=== PATIENT | female | born 1990 | race Caucasian/White ===

== ENCOUNTER 2023-11-06 08:45 | Outpatient (OUT) | payer OTHER, SELFPAY ==
--- NOTE | 2023-11-06 08:47 | US_ITS ---
[address] [address] Patient Name: ARLIN LUNDBERG MRN: [id number] date: 1990 Sex: F Assigned Patient Location: [facility] Current Patient Location: [facility] Accession/Order Number: [id number] Exam Date: 11/06/2023 08:55 Report Date: 11/06/2023 11:08 At the request of: APARNA HOBBS Procedure: US OB transvaginal EXAMINATION: US OB transvaginal HISTORY: MISSED MENSES COMPARISON: No relevant comparison available. FINDINGS: GESTATIONAL SAC: Present and normal appearing. YOLK SAC: Absent POLE: Present and normal appearing. CARDIAC: Present. UTERUS: Normal size and appearance. OVARIES: Right: Not seen. Left: Not seen. CERVIX: 4.2 cm in length and closed. CUL-DE-SAC: Normal. OTHER: None. AGE BY LMP: Unknown LMP THELMA BY LMP: AGE BY US CRL: 13 weeks 1 day THELMA BY US CRL: 05/12/2024 US/US OB transvaginal IMPRESSION: 1. Single live intrauterine 13 weeks 1 day by today's ultrasound. Electronically authenticated by: MARY RUIZ Date: 11/06/2023 11:08
== END 2023-11-06 08:46 | disposition home or self-care (01) ==
LOC: NOMS 08:45
PROVIDERS: Visit Provider Obstetrics & Gynecology
DX: Z34.92 Encounter for supervision of normal pregnancy, unspecified, second trimester (principal); Z3A.13 13 weeks gestation of pregnancy; N92.6 Irregular menstruation, unspecified
CPT/HCPCS: 76817

== ENCOUNTER 2023-12-03 20:12 | Outpatient (REF) | payer OTHER, SELFPAY ==
[2023-12-10 10:13] LABS: Age Gdln ACOG Testing Note (.); HPV Aptima Negative (Negative); IGP, Aptima HPV, rfx 16/18,45 Note (.)
== END 2023-12-03 20:13 | disposition home or self-care (01) ==
LOC: LAB 20:12
PROVIDERS: Visit Provider Obstetrics & Gynecology
DX: Z01.419 Encounter for gynecological examination (general) (routine) without abnormal findings (principal)
CPT/HCPCS: 87624; G0145

== ENCOUNTER 2024-03-23 06:50 | Outpatient (OUT) | payer OTHER, SELFPAY ==
--- OUTSIDE RECORDS SUMMARY | 2024-03-23 06:53 | XMS_ITS | CCD ---
Author Organization [facility] Care Team Providers Care Animal Cop Name Role Phone ABRAHAM BERRY Attending Unavailable ABRAHAM BERRY Admitting Unavailable ANJEL, APARNA Consulting Unavailable ABRAHAM BERRY Consulting Unavailable Latricia Cervantes Consulting Unavailable ABRAHAM BERRY Consulting Unavailable ANJEL, APARNA Attending Unavailable ANJEL, APARNA Admitting Unavailable REQUEST, NONE LISTED Primary Care Unavailable Policaro, Gatito Consulting Unavailable ANJEL, APARNA Attending Unavailable ANJEL, APARNA Admitting Unavailable ABRAHAM BERRY Consulting Unavailable ABRAHAM BERRY Admitting Unavailable ABRAHAM BERRY Attending Unavailable ANJEL, APARNA Consulting Unavailable ABRAHAM BERRY Admitting Unavailable ABRAHAM BERRY Attending Unavailable ANJEL, APARNA Attending Unavailable ANJEL, APARNA Admitting Unavailable ANJEL, APARNA Attending Unavailable REQUEST, NONE LISTED Primary Care Unavailable ANJEL, APARNA Admitting Unavailable ANJEL, APARNA Consulting Unavailable ALECIA DUQUE Consulting Unavailable ANJEL, APARNA Procedure Practitioner Unavailab le ANJEL, APARNA Attending Unavailable ANJEL, APARNA Admitting Unavailable ANJEL, APARNA Consulting Unavailable ANJEL, APARNA Consulting Unavailable ANJEL, APARNA Attending Unavailable ANJEL, APARNA Admitting Unavailable ANJEL, APARNA Primary Care Unavailable BRAULIO MONTEZ Consulting Unavailable ABRAHAM BERRY Attending Unavailable ANJEL, APARNA Consulting Unavailable ABRAHAM BERRY Admitting Unavailable ABRAHAM BERRY Consulting Unavailable Policaro, Gatito Consulting Unavailable ANJEL, APARNA Attending Unavailable ANJEL, APARNA Consulting Unavailable ANJEL, APARNA Admitting Unavailable ANJEL, APARNA Attending Unavailable JAMESON AKHTAR Consulting Unavailable ANJEL, APARNA Admitting Unavailable REQUEST, NONE LISTED Primary Care Unavailable JAMESON AKHTAR Admitting Unavailable JAMESON AKHTAR Attending Unavailable JAMESON AKHTAR Consulting Unavailable ABRAHAM BERRY Consulting Unavailable ABRAHAM BERRY Attending Unavailable ABRAHAM BERRY Admitting Unavailable Policdonnie, Gatito Consulting Unavailable JAMAL, ABRAHAM Consulting Unavailable JAMAL, ABRAHAM Attending Unavailable JAMAL, ABRAHAM Admitting Unavailable Latricia Cervantes Consulting Unavailable ANJEL, APARNA Attending Unavailable ANJEL, APARNA Consulting Unavailable ANJEL, APARNA Admitting Unavailable ANJEL, APARNA Attending Unavailable ANJEL, APARNA Admitting Unavailable ANJEL, APARNA Primary Care Unavailable ANJEL, APARNA Consulting Unavailable JAMAL, ABRAHAM Consulting Unavailable Latricia Cervantes Consulting Unavailable ANJEL, APARNA Attending Unavailable ANJEL, APARNA Admitting Unavailable ANJEL, APARNA Consulting Unavailable JAMAL, ABRAHAM Admitting Unavailable JAAML, ABRAHAM Attending Unavailable JAMAL, ABRAHAM Consulting Unavailable Latricia Cervantes Consulting Unavailable RENEE, NAZANIN Dalal. Admitting Unavailable RENEE, NAZANIN Cazares Attending Unavailable ANJEL, APARNA R Referring Unavailable MILLER, BOLA Attending Unavailable ANJEL, APARNA R Referring Unavailable ANJEL, APARNA Attending Unavailable ANJEL, APARNA Attending Unavailable ANJEL, APARNA Attending Unavailable Problems Active Problems Problem Classification Problem Date Documented Date Episodic/Chronic Diabetes or abnormal glucose tolerance complicating ; childbirth; or the puerperium (11 sources) Gestational diabetes mellitus in , unspecified control; Translations: [Gestational diabetes mellitus in , diet controlled] Onset: 04-15-2020 Episodic Other complications of (1 source) Supervision of elderly multigravida, second trimester; Translations: [Supervision of elderly multigravida, second trimester] Onset: 01-02-2024 Episodic Other screening for suspected conditions (not mental disorders or infectious disease) (1 source) Encounter for other specified screening; Translations: [Encounter for other specified screening] Onset: 01-02-2024 Episodic Other screening for suspected conditions (not mental disorders or infectious disease) (4 sources) Encounter for screening for Streptococcus B; Translations: [ENC SCR STREPTOCOCCUS B] Onset: 04-19-2020 Residual codes; unclassified (1 source) Personal history of other complications of , childbirth and the puerperium; Translations: [Personal history of other complications of , childbirth and the puerperium] Onset: 01-02-2024 Episodic Residual codes; unclassified (1 source) 21 weeks gestation of ; Translations: [21 weeks gestation of ] Onset: 01-02-2024 Episodic Residual codes; unclassified (1 source) 34 weeks gestation of ; Translations: [34 WEEKS GESTATION OF ] Onset: 04-14-2020 Residual codes; unclassified (1 source) 37 weeks gestation of ; Translations: [37 WEEKS GESTATION OF ] Onset: 05-05-2020 Residual codes; unclassified (1 source) 36 weeks gestation of ; Translations: [36 WEEKS GESTATION OF ] Onset: 04-29-2020 Residual codes; unclassified (1 source) 38 weeks gestation of ; Translations: [38 WEEKS GESTATION OF ] Onset: 05-12-2020 Residual codes; unclassified (1 source) 39 weeks gestation of ; Translations: [39 WEEKS GESTATION OF ] Onset: 05-18-2020 Residual codes; unclassified (1 source) 35 weeks gestation of ; Translations: [35 WEEKS GESTATION OF ] Onset: 04-24-2020 Residual codes; unclassified (1 source) 33 weeks gestation of ; Translations: [33 WEEKS GESTATION OF ] Onset: 04-05-2020 Unclassified (1 source) Advanced Maternal Age Onset: 01-02-2024 Unclassified (1 source) Hx Gestational Diabetes Onset: 01-02-2024 Past or Other Problems Problem Classification Problem Date Documented Da te Episodic/Chronic Immunizations and screening for infectious disease (4 sources) Contact with and (suspected) exposure to other viral communicable diseases; Translations: [CONTCT EXPS OTH VIRL COMMUNICABL DZ] Onset: 05-03-2020 Episodic OB-related trauma to perineum and vulva (1 source) Second degree perineal laceration during delivery; Translations: [SECOND DEG PERINEAL LAC DUR DELIV] Onset: 05-18-2020 Episodic Other and delivery including normal (5 sources) Encounter for routine follow-up; Translations: [Single live ] Onset: 05-16-2020 Episodic Umbilical cord complication (1 source) Labor and delivery complicated by cord around neck, without compression, not applicable or unspecified; Translations: [L AND D COMP CORD NECK NO COMPRS NA/UNS] Onset: 05-18-2020 Episodic Results Test Name Value Interpretation Reference Range Facil ity CBC AUTO DIFFon 05-12-2020 Basophils (Bld) [#/Vol] 0.0 103/ul Normal 0.0-0.1 [facility] Comment on above: Performed By: #### C BC #### [facility] [address] [place], [place] [id number] Camelia Carmen Basophils/100 WBC (Bld) 0.1 % Critically low 0.2-2.0 [facility] Comment on above: Performed By: #### C BC #### [facility] [address] [place] [address] Camelia Carmen Eosinophils (Bld) [#/Vol] 0.1 103/ul Normal 0.0-0.7 [facility] Comment on above: Performed By: #### C BC #### [facility] [address] [place] [address] Camelia Carmen Eosinophils/100 WBC (Bld) 0.5 % Critically low 0.9-7.0 [facility] Comment on above: Performed By: #### C BC #### [facility] [address] [place] [address] Camelia Carmen Erythrocyte distribution width (RBC) [Ratio] 13.2 % Normal 11.0-15.0 [facility] Comment on above: Performed By: #### C BC #### [facility] [address] [place] [address] Camelia Carmen Hematocrit (Bld) [Volume fraction] 30.2 % Critically low 36.0-48.0 [facility] Comment on above: Performed By: #### C BC #### [facility] [address] [place] [address] Camelia Carmen Hemoglobin (Bld) [Mass/Vol] 10.0 g/dL Critically low 12.0-16.0 [facility] Comment on above: Performed By: #### C BC #### [facility] [address] [place] [address] Camelia Carmen IG # 0.07 10e3/ul Critically high 0.00-0.03 [facility] Comment on above: Performed By: #### C BC #### [facility] [address] [place] [address] Camelia Carmen IG % 0.5 % Normal 0.0-0.5 [facility] Comment on above: Performed By: #### C BC #### [facility] [address] [place] [address] Camelia Carmen Lymphocytes (Bld) [#/Vol] 2.0 103/ul Normal 1.2-3.8 [facility] Comment on above: Performed By: #### C BC #### [facility] [address] [place] [address] Camelia Carmen Lymphocytes/100 WBC (Bld) 13.4 % Critically low 20.5-60.0 [facility] Comment on above: Performed By: #### C BC #### [facility] [address] [place] [address] Camelia Carmen MANUAL DIFF REQ NO Normal [facility] Comment on above: Performed By: #### C BC #### [facility] [address] [place] [address] Camelia Carmen MCH (RBC) [Entitic mass] 28.1 pg Normal 26.7-34.0 [facility] Comment on above: Performed By: #### C BC #### [facility] [address] [place] [address] Camelia Carmen MCHC (RBC) [Mass/Vol] 33.1 g/dL Normal 29.9-35.2 [facility] Comment on above: Performed By: #### C BC #### [facility] [address] [place] [address] Camelia Carmen MCV (RBC) [Entitic vol] 84.8 fL Normal 81.0-99.0 [facility] Comment on above: Performed By: #### C BC #### [facility] [address] [place], [place] [id number] Camelia Carmen Monocytes (Bld) [#/Vol] 1.0 103/ul Critically high 0.3-0.8 [facility] Comment on above: Performed By: #### C BC #### [facility] [address] [place], [place] [id number] Camelia Carmen Monocytes/100 WBC (Bld) 7.0 % Normal 1.7-12.0 [facility] Comment on above: Performed By: #### C BC #### [facility] [address] [place], [place] [id number] Camelia Carmen Neutrophils (Bld) [#/Vol] 11.6 103/ul Critically high 1.4-6.5 [facility] Comment on above: Performed By: #### C BC #### [facility] [address] [place], [place] [id number] Camelia Carmen Neutrophils/100 WBC (Bld) 78.5 % Critically high 43.0-75.0 [facility] Comment on above: Performed By: #### C BC #### [facility] [address] [place], [place] [id number] Camelia Morales Platelet mean volume (Bld) [Entitic vol] 12.4 fL Normal 9.5-13.5 [facility] Comment on above: Performed By: #### C BC #### [facility] [address] [place] [address] Camelia Morales Platelets (Bld) [#/Vol] 151 103/ul Normal 150-450 [facility] Comment on above: Performed By: #### C BC #### [facility] [address] [place], [place] [id number] Camelia Troyen RBC (Bld) [#/Vol] 3.56 106/ul Critically low 4.20-5.[address] [facility] Comment on above: Performed By: #### C BC #### [facility] [address] [place], [place] [id number] Camelia Carmen WBC (Bld) [#/Vol] 14.7 103/ul Critically high 4.0-11.0 [facility] Comment on above: Performed By: #### C BC #### [facility] [address] [place], [place] [id number] Camelia Morales POINT OF CARE GLUCOSEon 10- Glucose [Mass/Vol] 95 mg/dL Normal 74-106 [facility] Comment on above: Performed By: #### P OCGLUC ####[facility] [id number] [place], [place] [address]Vvspne Carmen CBC AUTO DIFFon 05-11-2020 Basophils (Bld) [#/Vol] 0.0 103/ul Normal 0.0-0.1 [facility] Comment on above: Performed By: #### C BC #### [facility] [address] [place], [place] [address] Camelia Carmen Basophils/100 WBC (Bld) 0.4 % Normal 0.2-2.0 [facility] Comment on above: Performed By: #### C BC #### [facility] [address] [place], [place] [address] Camelia Carmen Eosinophils (Bld) [#/Vol] 0.1 103/ul Normal 0.0-0.7 [facility] Comment on above: Performed By: #### C BC #### [facility] [address] [place] [id number] Camelia Carmen Eosinophils/100 WBC (Bld) 0.7 % Critically low 0.9-7.0 [facility] Comment on above: Performed By: #### C BC #### [facility] [address] [place] [id number] Camelia Carmen Erythrocyte distribution width (RBC) [Ratio] 13.2 % Normal 11.0-15.0 [facility] Comment on above: Performed By: #### C BC #### [facility] [address] [place] [id number] Camelia Carmen Hematocrit (Bld) [Volume fraction] 36.2 % Normal 36.0-48.0 [facility] Comment on above: Performed By: #### C BC #### [facility] [address] [place], [place] [address] Camelia Carmen Hemoglobin (Bld) [Mass/Vol] 12.2 g/dL Normal 12.0-16.0 [facility] Comment on above: Performed By: #### C BC #### [facility] [address] [place] [id number] Camelia Carmen IG # 0.05 10e3/ul Critically high 0.00-0.03 [facility] Comment on above: Performed By: #### C BC #### [facility] [address] [place], [place] [address] Camelia Carmen IG % 0.6 % Critically high 0.0-0.5 [facility] Comment on above: Performed By: #### C BC #### [facility] [address] [place], [place] [address] Camelia Carmen Lymphocytes (Bld) [#/Vol] 1.5 103/ul Normal 1.2-3.8 [facility] Comment on above: Performed By: #### C BC #### [facility] [address] [place], [place] [address] Camelia Carmen Lymphocytes/100 WBC (Bld) 18.3 % Critically low 20.5-60.0 [facility] Comment on above: Performed By: #### C BC #### [facility] [address] [place], [place] [phone] Camelia Carmen MANUAL DIFF REQ NO Normal [facility] Comment on above: Performed By: #### C BC #### [facility] [address] [place] [address] Camelia Carmen MCH (RBC) [Entitic mass] 28.4 pg Normal 26.7-34.0 [facility] Comment on above: Performed By: #### C BC #### [facility] [address] [place] [address] Camelia Carmen MCHC (RBC) [Mass/Vol] 33.7 g/dL Normal 29.9-35.2 [facility] Comment on above: Performed By: #### C BC #### [facility] [address] [place] [address] Camelia Carmen MCV (RBC) [Entitic vol] 84.4 fL Normal 81.0-99.0 [facility] Comment on above: Performed By: #### C BC #### [facility] [address] [place], [place] [address] Camelia Carmen Monocytes (Bld) [#/Vol] 0.4 103/ul Normal 0.3-0.8 [facility] Comment on above: Performed By: #### C BC #### [facility] [address] [place], [place] [address] Camelia Carmen Monocytes/100 WBC (Bld) 4.4 % Normal 1.7-12.0 [facility] Comment on above: Performed By: #### C BC #### [facility] [address] [place], [place] [address] Camelia Carmen Neutrophils (Bld) [#/Vol] 6.2 103/ul Normal 1.4-6.5 [facility] Comment on above: Performed By: #### C BC #### [facility] [address] [place], [place] [address] Camelia Carmen Neutrophils/100 WBC (Bld) 75.6 % Critically high 43.0-75.0 [facility] Comment on above: Performed By: #### C BC #### [facility] [address] [place], [place] [address] Camelia Carmen Platelet mean volume (Bld) [Entitic vol] 12.0 fL Normal 9.5-13.5 [facility] Comment on above: Performed By: #### C BC #### [facility] [address] [place], [place] [address] Camelia Carmen Platelets (Bld) [#/Vol] 134 103/ul Critically low 150-450 [facility] Comment on above: Performed By: #### C BC #### [facility] [address] [place], [place] [address] Camelia Carmen RBC (Bld) [#/Vol] 4.29 106/ul Normal 4.20-5.40 [facility] Comment on above: Performed By: #### C BC #### [facility] [address] [place], [place] [address] Camelia Carmen WBC (Bld) [#/Vol] 8.3 103/ul Normal 4.0-11.0 [facility] Comment on above: Performed By: #### C BC #### [facility] [address] [place], [place] [address] Camelia Carmen DRUG SCREEN RAPID (URINE)on 05-11-2020 AMP Negative Normal NEGATIVE [facility] Comment on above: Performed By: #### D RUGRPD #### [facility] [address] [place] [address] Camelia Carmen BAR Negative Normal NEGATIVE [facility] Comment on above: Performed By: #### D RUGRPD #### [facility] [address] [place] [address] Camelia Carmen BUP Negative Normal NEGATIVE [facility] Comment on above: Performed By: #### D RUGRPD #### [facility] [address] [place] [address] Camelia Carmen BZO Negative Normal NEGATIVE [facility] Comment on above: Performed By: #### D RUGRPD #### [facility] [address] [place] [address] Camelia Carmen SHERRELL Negative Normal NEGATIVE [facility] Comment on above: Performed By: #### D RUGRPD #### [facility] [address] [place] [address] Carmen CUT-OFFS SEE BELOW Normal [facility] Comment on above: Result Comment: AMP (Amphetamine): 500ng/mL, BAR (Barbituates): 200 ng/mL, BZO (Benzodiazepines): 150 ng/mL, BUP (Buprenorphine): 10 ng/mL, SHERRELL (Cocaine): 150 ng/mL, mAMP (Methamphetamine): 500 ng/mL, MTD (Methadone): 200 ng/mL, OPI (Opiates): 100 ng/mL or 2000 ng/mL, OXY (Oxycodone): 100 ng/mL, PCP (Phencyclidine): 25 ng/mL, PPX (Propoxyphene): 300 ng/mL, THC (Cannabinoids): 50 ng/mL, TCA (Trycyclic Antidepressants): 300 ng/mL Performed By: #### D RUGRPD #### [facility] [address] [place] [address] Carmen DRUG CUT HEADER DRUG CLASS TEST SYSTEM CUT-OFF CONCENTRATIONS ARE FOLLOWS: Normal [facility] Comment on above: Performed By: #### D RUGRPD #### [facility] [address] [place] [address] Camelia Carmen mAMP Negative Normal NEGATIVE [facility] Comment on above: Performed By: #### D RUGRPD #### [facility] [address] [place] [address] Camelia Carmen MTD Negative Normal NEGATIVE [facility] Comment on above: Performed By: #### D RUGRPD #### [facility] [address] [place] [address] Camelia Carmen OPI Negative Normal NEGATIVE [facility] Comment on above: Performed By: #### D RUGRPD #### [facility] [address] [place] [address] Camelia Carmen OXY Negative Normal NEGATIVE [facility] Comment on above: Performed By: #### D RUGRPD #### [facility] [address] [place] [address] Camelia Carmen PCP Negative Normal NEGATIVE [facility] Comment on above: Performed By: #### D RUGRPD #### [facility] [address] [place] [address] Camelia Carmen PPX Negative Normal NEGATIVE [facility] Comment on above: Performed By: #### D RUGRPD #### [facility] [address] [place] [address] Camelia Carmen TCA Negative Normal NEGATIVE [facility] Comment on above: Performed By: #### D RUGRPD #### [facility] [address] [place] [address] Camelia Carmen THC Negative Normal NEGATIVE [facility] Comment on above: Performed By: #### D RUGRPD #### [facility] [address] [place] [address] Camelia Morales POINT OF CARE GLUCOSEon 04-27 Glucose [Mass/Vol] 92 mg/dL Normal 74-106 [facility] Comment on above: Performed By: #### P OCGLUC #### [facility] [address] [place] [address] Camelia Carmen Glucose [Mass/Vol] 95 mg/dL Normal 74-106 [facility] Comment on above: Performed By: #### P OCGLUC #### [facility] [address] [place], [place] [address] Camelia Morales Glucose [Mass/Vol] 165 mg/dL Critically high 74-106 T [facility] Comment on above: Performed By: #### P OCGLUC ####[facility] [address] [place], [place] [address]TkdvaxCamelia Morales TYPE AND SCREENon 05-11-2020 TYPE AND SCREEN Negative Normal [facility] Comment on above: Performed By: #### T NS ####[facility] [address] [place], [place] [address]CuonuzCamelia Morales US PREG BIOPHY W NON STRESSo n 05-10-2020 US PREG BIOPHY W NON STRESS OB ultrasound for biophysical profile, 05/10/2020 4:07 PM EDT COMPARISON: Similar ultrasound exam, 05/03/2020 CLINICAL HISTORY: Gestational diabetes mellitus Biophysical profile is scored: breathing score 2 out of 2. tone score 2 out of 2. movements score 2 out of 2. Qualitative amniotic fluid amount score 2 out of 2. reactivity was not performed or the results are not known at time of examination. This gives a total of 8 out of 8. The position is cephalic. The heart rate is 135 beats per minute. Amniotic fluid index is 12.9 cm. IMPRESSION: 1. A score of 8 of 8 is noted. 2. The heart rate is 135 beats per minute. 3. The position is cephalic. Amniotic fluid index 12.9 cm. Electronically authenticated by: Latricia CERVANTES Date: 2020-05-10 17:09 Normal [facility] COVID-19 PCRon 05-05-2020 SARS-CoV-2, ERNESTINE Not Detected Normal Not Detected [facility] Comment on above: Result Comment: This nucleic acid amplification test was developed and its performance characteristics determined by [employer]. Nucleic acid amplification tests include PCR and TMA. This test has not been FDA cleared or approved. This test has been authorized by FDA under an Emergency Use Authorization (EUA). This test is only authorized for the duration of time the declaration that circumstances exist justifying the authorization of the emergency use of in vitro diagnostic tests for detection of SARS-CoV-2 virus and/or diagnosis of COVID-19 infection under section 564(b)(1) of the Act, 21 U.S.C. 360bbb-3(b) (1), unless the authorization is terminated or revoked sooner. When diagnostic testing is negative, the possibility of a false negative result should be considered in the context of a patient's recent exposures and the presence of clinical signs and symptoms consistent with COVID-19. An individual without symptoms of COVID-19 and who is not shedding SARS-CoV-2 virus would expect to have a negative (not detected) result in this assay. Performed By: #### C VDSTAT, CVDPCR #### [facility] [address] [place], [place] [address] Camelia Morales PRIORITY COVID PROCESSINGon 05-05-2020 Comment Comment Normal [facility] Comment on above: Result Comment: Rece ived Performed By: #### C VDSTAT, CVDPCR #### [facility] [address] [place], [place] [address] Camelia Morales US PREG BIOPHY W NON STRESSo n 05-03-2020 US PREG BIOPHY W NON STRESS PROCEDURE: US PREG BIOPHY W NON STRESS, US PREG GROWTH HISTORY: 29-year-old female with gestational diabetes. COMPARISON STUDY: There is a previous exam dated 04/21/2020. IMAGES SUBMITTED: 15. PELVIC ULTRASOUND - LIMITED EMERGENCY EVALUATION TECHNIQUE: Sonographic imaging of the pelvis was performed for evaluation. FINDINGS: There is a single fetus identified in cephalic presentation with cardiac activity noted at 158 bpm. There is an amniotic fluid index of approximately 15.2 cm. A maximum vertical pocket of 6.9 cm is noted. movement, tone, breathing, and fluid are appropriate, for a total biophysical profile score of 8/8. BIOMETRY: EFW: 3346 grams 7 lb 6 ounces. BPD: 9.5 cm. HC: 35.7 cm. AC: 33.4 cm. FL: 7.2 cm. HC/AC: 1.07. FL/BPD: 75.4 %. FL/AC: 21.5 %. IMPRESSION: Intrauterine with estimated gestational age of 38 weeks, 0 days with heart tones detected at 158 beats per minute. Total biophysical profile score of 8/8. biometric data/measurements as described above with weight noted to be within the 60th percentile. Continued obstetrical evaluation and follow-up is suggested as clinically appropriate. Electronically authenticated by: BRAULIO MONTEZ Date: 2020-05-03 20:36 Normal [facility] US PREG BIOPHY W NON STRESSo n 04-26-2020 US PREG BIOPHY W NON STRESS OB ultrasound for biophysical profile, 04/26/2020 4:05 PM EDT COMPARISON: Similar ultrasound exam, 04/21/2020. CLINICAL HISTORY: Gestational diabetes mellitus. Biophysical profile is scored: breathing score 2 out of 2. tone score 2 out of 2. movements score 2 out of 2. Qualitative amniotic fluid amount score 2 out of 2. reactivity was not performed or the results are not known at time of examination. This gives a total of 8 out of 8. The position is cephalic. The heart rate is 137 beats per minute. Amniotic fluid index is appropriate at 16 cm. IMPRESSION: 1. A score of 8 of 8 is noted. 2. The heart rate is 137 beats per minute. 3. The position is cephalic. Amniotic fluid index 16 cm. Electronically authenticated by: Latricia CERVANTES Date: 2020-04-26 17:44 Normal [facility] US PREG BIOPHY W NON STRESSo n 04-21-2020 US PREG BIOPHY W NON STRESS EXAM: ULTRASOUND BIOPHYSICAL PROFILE WITH NON STRESS HISTORY: Gestational diabetes mellitus; . COMPARISON: None. FINDINGS: There is a single intrauterine . There are heart tones at 119 bpm. The amniotic fluid index is normal at 18.14 cm. The largest fluid pocket equals 5.3 cm. Movement 2 Breathing 2 Tone 2 Fluid 2 IMPRESSION: Single viable intrauterine ; BPP 8/8. Electronically authenticated by: GATITO DOUGHERTY Date: 2020-04-21 19:59 Normal [facility] GROUP B STREP CULTUREon 03-29 S. agalactiae Ag Ql (Unsp spec) Culture Observations: NEGATIVE FOR GROUP B STREPTOCOCCUS Normal [facility] Comment on above: Performed By: #### G BSCX ####[facility] [address] [place], [place] [address]NwpncqCamelia Morales US PREG BIOPHY W NON STRESSo n 04-19-2020 US PREG BIOPHY W NON STRESS EXAM: ULTRASOUND BIOPHYSICAL PROFILE WITH NONSTRESS HISTORY: Gestational diabetes mellitus; . COMPARISON: Ultrasound 04/12/2020. FINDINGS: There is a single intrauterine . There are heart tones of 131 bpm. anatomy was not imaged. The amniotic fluid index equals 16.82 cm with the largest pocket measuring 7.7 cm. Breathing 0 Movement 2 Tone 2 Fluid 2 IMPRESSION: Single viable intrauterine ; BPP 6/8(no breathing). Electronically authenticated by: GATITO DOUGHERTY Date: 2020-04-19 19:00 Normal [facility] US PREG BIOPHY W NON STRESSo n 04-12-2020 US PREG BIOPHY W NON STRESS OB ultrasound for biophysical profile, 04/12/2020 4:00 PM EDT COMPARISON: Similar ultrasound exam, 04/05/2020 CLINICAL HISTORY: Gestational diabetes mellitus Biophysical profile is scored: breathing score 2 out of 2. tone score 2 out of 2. movements score 2 out of 2. Qualitative amniotic fluid amount score 2 out of 2. reactivity was not performed or the results are not known at time of examination. This gives a total of 8 out of 8. The position is cephalic. The heart rate is 135 beats per minute. Amniotic fluid index is appropriate at 12.89 cm. IMPRESSION: 1. A score of 8 of 8 is noted. 2. The heart rate is 135 beats per minute. 3. The position is cephalic. Amniotic fluid index 12.89 cm. Electronically authenticated by: Latricia CERVANTES Date: 2020-04-12 16:33 Normal [facility] US PREG GROWTHon 04-05-2020 US PREG GROWTH EXAM: ULTRASOUND BIOPHYSICAL PROFILE W NON STRESS AND ULTRASOUND GROWTH HISTORY: ; Gestational diabetes mellitus. COMPARISON: 03/29/2020. FINDINGS: There is a single intrauterine in a cephalic presentation. The anatomy was not imaged. The amniotic fluid index is normal at 15.6 cm. The largest fluid pocket equals 4.8 cm. There are heart tones of 136 bpm. BPD 8.63 cm. Head circumference 31.4 cm. Abdominal circumference 30.88 cm. Femur length 6.46 cm. Estimated weight 2436 g; 57.7%. Breathing 2. Movement 2. Tone 2. Fluid 2. IMPRESSION: Single viable intrauterine with an estimated sonographic age 34 weeks 4 days. BPP 8/8. Electronically authenticated by: GATITO DOUGHERTY Date: 2020-04-05 17:39 Normal [facility] US PREG BIOPHY W NON STRESSo n 03-29-2020 US PREG BIOPHY W NON STRESS OB ultrasound for biophysical profile, 03/29/2020 4:00 PM EDT COMPARISON: None CLINICAL HISTORY: Gestational diabetes mellitus Biophysical profile is scored: breathing score 2 out of 2. tone score 2 out of 2. movements score 2 out of 2. Qualitative amniotic fluid amount score 2 out of 2. reactivity was not performed or the results are not known at time of examination. This gives a total of 8 out of 8. The position is cephalic. The heart rate is 146 beats per minute. Amniotic fluid index is 14.3 cm. IMPRESSION: 1. A score of 8 of 8 is noted. 2. The heart rate is 146 beats per minute. 3. The position is cephalic. Amniotic fluid index 14.3 cm. Electronically authenticated by: Latricia CERVANTES Date: 2020-03-29 16:39 Normal [facility] Encounters Encounter Date Encounter Type Care Provider Facility Start: 03-18-2024 End: 03-18-2024 ambulatory APARNA ANJEL Not Available Start: 03-04-2024 End: 03-04-2024 ambulatory APARNA ANJEL Not Available Start: 01-02-2024 End: 01-02-2024 ambulatory APARNA R ANJEL [facility] Start: 12-03-2023 End: 12-03-2023 ambulatory APARNA ANJEL Not Available Start: 11-06-2023 End: 11-06-2023 ambulatory APARNA ANJEL Not Available Start: 05-24-2021 End: 05-25-2021 ambulatory NAZANIN DURAN Facility:[facility] Start: 05-24-2020 Patient encounter procedure APARNA ANJEL Facility: Start: 05-16-2020 End: 05-16-2020 Patient encounter procedure APARNA ANJEL Facility: Start: 05-11-2020 End: 05-13-2020 Evaluation and management of inpatient APARNA ANJEL Facility: Start: 05-10-2020 End: 05-10-2020 Patient encounter procedure APARNA ANJEL Facility: Start: 05-06-2020 End: 05-06-2020 Patient encounter procedure APARNA ANJEL Facility: Start: 05-03-2020 End: 05-03-2020 Patient encounter procedure APARNA ANJEL Facility:[facility] Start: 04-29-2020 End: 04-29-2020 Patient encounter procedure APARNA ANJEL Facility:[facility] Start: 04-26-2020 End: 04-26-2020 Patient encounter procedure APARNA ANJEL Facility:[facility] Start: 04-22-2020 End: 04-22-2020 Patient encounter procedure APARNA ANJEL Facility:[facility] Start: 04-21-2020 End: 04-21-2020 Patient encounter procedure ABRAHAM BERRY Facility:[facility] Start: 04-19-2020 End: 04-19-2020 Patient encounter procedure APARNA ANJEL Facility:[facility] Start: 04-15-2020 End: 04-15-2020 Patient encounter procedure APARNA ANJEL Facility:[facility] Start: 04-12-2020 End: 04-12-2020 Patient encounter procedure ABRAHAM BERRY Facility:[facility] Start: 04-08-2020 End: 04-08-2020 Patient encounter procedure ABRAHAM BERRY Facility:[facility] Start: 04-05-2020 End: 04-05-2020 Patient encounter procedure ABRAHAM BERRY Facility:[facility] Start: 04-01-2020 End: 04-01-2020 Patient encounter procedure JAMESON AKHTAR Facility:[facility] Start: 03-29-2020 End: 03-29-2020 Patient encounter procedure ABRAHAM BERRY Facility:[facility] Start: 02-03-2020 Patient encounter procedure APARNABurak GARRETTO Facility:[facility] Procedures Date Procedure Procedure Detail Performing Clinician Start: 05-11-2020 Delivery of Products of Conception, External Approach ABRAHAM BERRY Start: 05-11-2020 Division of Female P erineum, External Approach ABRAHAM BERRY Start: 05-11-2020 Drainage of Amniotic Fluid, Therapeutic from Products of Conception, Via Natural or Artificial Opening ABRAHAM BERRY Start: 05-11-2020 Repair Perineum Musc le, Open Approach ABRAHAM BERRY Payers Date Payer Category Payer Unknown [id number] 2.16.84 [id number] 1988 Unknown [id number] 2.16.84 0.1.036635.3.579.2.593 1988 Unknown [id number] 2.16.84 0.1.377314.3.579.2.593 1988 Unknown [id number] 2.16.84 0.1.693732.3.579.2.593 1988 Unknown [id number] 2.16.84 0.1.966868.3.579.2.593 1988 Unknown [id number] 2.16.84 0.1.886473.3.579.2.593 1988 Unknown [id number] 2.16.84 0.1.631273.3.579.2.593 1988 Unknown [id number] 2.16.84 0.1.179470.3.579.2.593 1988 Unknown [id number] 2.16.84 0.1.258175.3.579.2.593 1988 Unknown [id number] 2.16.84 0.1.974752.3.579.2.593 1988 Unknown [id number] 2.16.84 0.1.319460.3.579.2.593 1988 Unknown [id number] 2.16.84 0.1.298877.3.579.2.593 1988 Unknown [id number] 2.16.84 0.1.571730.3.579.2.593 1988 Unknown [id number] 2.16.84 0.1.841685.3.579.2.593 1988 Unknown [id number] 2.16.84 0.1.700789.3.579.2.593 1988 Unknown [id number] 2.16.84 0.1.892836.3.579.2.593 1988 Unknown [id number] 2.16.84 0.1.257209.3.579.2.593 1988 Unknown [id number] 2.16.84 0.1.459825.3.579.2.593 1988 Unknown [id number] 2.16.84 0.1.882325.3.579.2.593 1988 Unknown [id number] 2.16.8 40.1.651863.3.579.2.727 1988 Unknown [id number] 2.16.8 40.1.086351.3.579.2.1286 1988 Unknown [id number] 2.16.8 40.1.960931.3.579.2.1286 1988 Unknown [id number] 2.16.84 0.1.332262.3.579.2.9 1988 Unknown [id number] 2.16.84 0.1.346451.3.579.2.1259 1988 Unknown [id number] 2.16.84 0.1.286120.3.579.2.9 1988 Unknown [id number] 2.16.84 0.1.622960.3.579.2.1259 1959 Self-pay [id number] 1959 Self-pay 1959 Unknown [id number] Summary Purpose Family History No Family History Records FoundNo Family History Records FoundNo Family History Records FoundNo Family History Records Found Advance Directives No Advanced Directives Records FoundNo Advanced Directives Records FoundNo Advanced Directives Records FoundNo Advanced Directives Records Found Additional Source Comments INFORMATION SOURCE (unrecogn ized section and content) DATE CREATED AUTHOR 09/14/2020 [facility] DATE CREATED AUTHOR AUTHOR'S ORGANIZ ATION 10/27/2022 [facility] DATE CREATED AUTHOR AUTHOR'S ORGANIZ ATION 01/03/2024 [facility] DATE CREATED AUTHOR AUTHOR'S ORGANIZ ATION 03/20/2024 [facility] EPIC FOR RECORDS PERTAINING TO PATIENTS WHO ARE OR HAVE BEEN ENROLLED IN A CHEMICAL DEPENDENCY/SUBSTANCEABUSE PROGRAM, SOME INFORMATION MAY BE OMITTED. This clinical summary was aggregated from multiple sources. Caution should be exercised in using it in the provision of clinical care. This summary normalizes information from multiple sources, and as a consequence, information in this document may materially change the coding, format and clinical context of patient data. In addition, data may be omitted in some cases. CLINICAL DECISIONS SHOULD BE BASED ON THE PRIMARY CLINICAL RECORDS. [facility]. provides no warranty or guarantee of the accuracy or completeness of information in this document.
--- NOTE | 2024-03-23 06:54 | US_ITS ---
[address] [address] Patient Name: ARLIN LUNDBERG MRN: [id number] date: 1990 Sex: F Assigned Patient Location: [facility] Current Patient Location: [facility] Accession/Order Number: [id number] Exam Date: 03/23/2024 06:55 Report Date: 03/23/2024 07:35 At the request of: APARNA HOBBS Procedure: US OB BPP w non-stress EXAMINATION: US OB BPP w non-stress HISTORY: Gestational diabetes mellitus O24.419 COMPARISON: No relevant comparison available. TECHNIQUE: Ultrasound biophysical profile was performed in the radiology department. non-reactive stress testing was performed by nursing staff in the birthing center. FINDINGS: BREATHING MOVEMENTS: 2 GROSS BODY MOVEMENTS: 2 TONE: 2 QUALITATIVE AMNIOTIC FLUID VOLUME: 2 PRESENTATION: CEPHALIC HEART RATE: 156.07 bpm AMNIOTIC FLUID VOLUME: 14.6 cm GESTATIONAL AGE: 32 weeks 6 days US/US OB BPP w non-stress IMPRESSION: Total biophysical profile score: 8 Electronically authenticated by: CAMELIA MENDEZ Date: 03/23/2024 07:35
[2024-03-23 07:25] VITALS: BP 134/79; PULSE 99
== END 2024-03-23 07:52 | disposition home or self-care (01) ==
LOC: US 06:51 → FBC 06:51
PROVIDERS: Visit Provider Obstetrics & Gynecology
DX: O24.419 Gestational diabetes mellitus in pregnancy, unspecified control (principal); Z3A.32 32 weeks gestation of pregnancy
CPT/HCPCS: 76818

== ENCOUNTER 2024-03-26 07:01 | Outpatient (OUT) | payer OTHER, SELFPAY ==
--- OUTSIDE RECORDS SUMMARY | 2024-03-26 07:03 | XMS_ITS | CCD ---
Author Organization [facility] Care Team Providers Care Publicity Consultant Name Role Phone ABRAHAM BERRY Attending Unavailable [...] APARNA Consulting Unavailable JAMAL, ABRAHAM Admitting Unavailable JAMAL, ABRAHAM Attending Unavailable JAMAL, ABRAHAM Consulting Unavailable [...] Basophils (Bld) [#/Vol] 0.0 103/ul Normal 0.0-0.1 [facility] Comment on above: Performed By: #### C BC #### [facility] [address] [place], [place] [id number] Camelia Carmen Basophils/100 WBC (Bld) 0.1 % Critically low 0.2-2.0 [facility] Comment on above: Performed By: #### C BC #### [facility] [address] [place] [address] Camelia Carmen Eosinophils (Bld) [#/Vol] 0.1 103/ul Normal 0.0-0.7 [facility] Comment on above: Performed By: #### C BC #### [facility] [address] [place] [address] Camelia Carmen Eosinophils/100 WBC (Bld) 0.5 % Critically low 0.9-7.0 [facility] Comment on above: Performed By: #### C BC #### [facility] [address] [place] [address] Camelia Carmen Erythrocyte distribution width (RBC) [Ratio] 13.2 % Normal 11.0-15.0 [facility] Comment on above: Performed By: #### C BC #### [facility] [address] [place] [address] Camelia Carmen Hematocrit (Bld) [Volume fraction] 30.2 % Critically low 36.0-48.0 [facility] Comment on above: Performed By: #### C BC #### [facility] [address] [place] [address] Camelia Carmen Hemoglobin (Bld) [Mass/Vol] 10.0 g/dL Critically low 12.0-16.0 [facility] Comment on above: Performed By: #### C BC #### [facility] [address] [place] [address] Camelia Carmen IG # 0.07 10e3/ul Critically high 0.00-0.03 [facility] Comment on above: Performed By: #### C BC #### [facility] [address] [place] [address] Camelia Carmen IG % 0.5 % Normal 0.0-0.5 [facility] Comment on above: Performed By: #### C BC #### [facility] [address] [place] [address] Camelia Carmen Lymphocytes (Bld) [#/Vol] 2.0 103/ul Normal 1.2-3.8 [facility] Comment on above: Performed By: #### C BC #### [facility] [address] [place] [address] Camelia Carmen Lymphocytes/100 WBC (Bld) 13.4 % Critically low 20.5-60.0 [facility] Comment on above: Performed By: #### C BC #### [facility] [address] [place] [address] Camelia Carmen MANUAL DIFF REQ NO Normal [facility] Comment on above: Performed By: #### C BC #### [facility] [address] [place] [address] Camelia Carmen MCH (RBC) [Entitic mass] 28.1 pg Normal 26.7-34.0 [facility] Comment on above: Performed By: #### C BC #### [facility] [address] [place] [address] Camelia Carmen MCHC (RBC) [Mass/Vol] 33.1 g/dL Normal 29.9-35.2 [facility] Comment on above: Performed By: #### C BC #### [facility] [address] [place] [address] Camelia Carmen MCV (RBC) [Entitic vol] 84.8 fL Normal 81.0-99.0 [facility] Comment on above: Performed By: #### C BC #### [facility] [address] [place], [place] [id number] Camelia Carmen Monocytes (Bld) [#/Vol] 1.0 103/ul Critically high 0.3-0.8 [facility] Comment on above: Performed By: #### C BC #### [facility] [address] [place], [place] [address] Camelia Carmen Monocytes/100 WBC (Bld) 7.0 % Normal 1.7-12.0 [facility] Comment on above: Performed By: #### C BC #### [facility] [address] [place], [place] [address] Camelia Carmen Neutrophils (Bld) [#/Vol] 11.6 103/ul Critically high 1.4-6.5 [facility] Comment on above: Performed By: #### C BC #### [facility] [address] [place], [place] [address] Camelia Carmen Neutrophils/100 WBC (Bld) 78.5 % Critically high 43.0-75.0 [facility] Comment on above: Performed By: #### C BC #### [facility] [address] [place], [place] [address] Camelia Morales Platelet mean volume (Bld) [Entitic vol] 12.4 fL Normal 9.5-13.5 [facility] Comment on above: Performed By: #### C BC #### [facility] [address] [place] [address] Camelia Morales Platelets (Bld) [#/Vol] 151 103/ul Normal 150-450 [facility] Comment on above: Performed By: #### C BC #### [facility] [address] [place], [place] [address] Camelia Troyen RBC (Bld) [#/Vol] 3.56 106/ul Critically low 4.20-5.40 [facility] Comment on above: Performed By: #### C BC #### [facility] [address] [place], [place] [address] Camelia Carmen WBC (Bld) [#/Vol] 14.7 103/ul Critically high 4.0-11.0 [facility] Comment on above: Performed By: #### C BC #### [facility] [address] [place], [place] [address] Camelia Morales POINT OF CARE GLUCOSEon 10- Glucose [Mass/Vol] 95 mg/dL Normal 74-106 [facility] Comment on above: Performed By: #### P OCGLUC ####[facility] [address] [place], [place] [address]Jrndqc Carmen CBC AUTO DIFFon 05-11-2020 Basophils (Bld) [#/Vol] 0.0 103/ul Normal 0.0-0.1 [facility] Comment on above: Performed By: #### C BC #### [facility] [address] [place], [place] [address] Camelia Carmen Basophils/100 WBC (Bld) 0.4 % Normal 0.2-2.0 [facility] Comment on above: Performed By: #### C BC #### [facility] [address] [place], [place] [address] Camelia Carmen Eosinophils (Bld) [#/Vol] 0.1 103/ul Normal 0.0-0.7 [facility] Comment on above: Performed By: #### C BC #### [facility] [address] [place] [id number] Camelia Carmen Eosinophils/100 WBC (Bld) 0.7 % Critically low 0.9-7.0 [facility] Comment on above: Performed By: #### C BC #### [facility] [address] [place] [id number] Camelia Carmen Erythrocyte distribution width (RBC) [Ratio] 13.2 % Normal 11.0-15.0 [facility] Comment on above: Performed By: #### C BC #### [facility] [address] [place] [id number] Camelia Carmen Hematocrit (Bld) [Volume fraction] 36.2 % Normal 36.0-48.0 [facility] Comment on above: Performed By: #### C BC #### [facility] [address] [place], [place] [address] Camelia Carmen Hemoglobin (Bld) [Mass/Vol] 12.2 g/dL Normal 12.0-16.0 [facility] Comment on above: Performed By: #### C BC #### [facility] [address] [place] [id number] Camelia Carmen IG # 0.05 10e3/ul Critically high 0.00-0.03 [facility] Comment on above: Performed By: #### C BC #### [facility] [address] [place], [place] [address] Camelia Carmen IG % 0.6 % Critically high 0.0-0.5 [facility] Comment on above: Performed By: #### C BC #### [facility] [address] [place], [place] [address] Camelia Carmen Lymphocytes (Bld) [#/Vol] 1.5 103/ul Normal 1.2-3.8 [facility] Comment on above: Performed By: #### C BC #### [facility] [address] [place], [place] [address] Camelia Carmen Lymphocytes/100 WBC (Bld) 18.3 % Critically low 20.5-60.0 [facility] Comment on above: Performed By: #### C BC #### [facility] [address] [place], [place] [address] Camelia Carmen MANUAL DIFF REQ NO Normal [facility] Comment on above: Performed By: #### C BC #### [facility] [address] [place] [address] Camelia Carmen MCH (RBC) [Entitic mass] 28.4 pg Normal 26.7-34.0 [facility] Comment on above: Performed By: #### C BC #### [facility] [address] [place] [address] Camelia Carmen MCHC (RBC) [Mass/Vol] 33.7 g/dL Normal 29.9-35.2 [facility] Comment on above: Performed By: #### C BC #### [facility] [address] [place] [address] Camelia Carmen MCV (RBC) [Entitic vol] 84.4 fL Normal 81.0-99.0 [facility] Comment on above: Performed By: #### C BC #### [facility] [address] [place], [place] [address] Camelia Carmen Monocytes (Bld) [#/Vol] 0.4 103/ul Normal 0.3-0.8 [facility] Comment on above: Performed By: #### C BC #### [facility] [address] [place], [place] [address] Camelia Carmen Monocytes/100 WBC (Bld) 4.4 % Normal 1.7-12.0 [facility] Comment on above: Performed By: #### C BC #### [facility] [address] [place], [place] [address] Camelia Carmen Neutrophils (Bld) [#/Vol] 6.2 103/ul Normal 1.4-6.5 [facility] Comment on above: Performed By: #### C BC #### [facility] [address] [place], [place] [address] Camelia Carmen Neutrophils/100 WBC (Bld) 75.6 % Critically high 43.0-75.0 [facility] Comment on above: Performed By: #### C BC #### [facility] [address] [place], [place] [address] Camelia Carmen Platelet mean volume (Bld) [Entitic vol] 12.0 fL Normal 9.5-13.5 [facility] Comment on above: Performed By: #### C BC #### [facility] [address] [place], [place] [address] Camelia Carmen Platelets (Bld) [#/Vol] 134 103/ul Critically low 150-450 [facility] Comment on above: Performed By: #### C BC #### [facility] [address] [place], [place] [address] Camelia Carmen RBC (Bld) [#/Vol] 4.29 106/ul Normal 4.20-5.40 [facility] Comment on above: Performed By: #### C BC #### [facility] [address] [place], [place] [address] Camelia Carmen WBC (Bld) [#/Vol] 8.3 103/ul Normal 4.0-11.0 [facility] Comment on above: Performed By: #### C BC #### [facility] [address] [place], [place] [address] Camelia Carmen DRUG SCREEN RAPID (URINE)on 05-11-2020 AMP Negative Normal NEGATIVE [facility] Comment on above: Performed By: #### D RUGRPD #### [facility] [address] [place] [address] Camelia Carmen BAR Negative Normal NEGATIVE [facility] Comment on above: Performed By: #### D RUGRPD #### [facility] [address] [place] [address] Camelia Carmen BUP Negative Normal NEGATIVE [facility] Comment on above: Performed By: #### D RUGRPD #### [facility] [address] [place] [address] Camelia Carmen BZO Negative Normal NEGATIVE [facility] Comment on above: Performed By: #### D RUGRPD #### [facility] [address] [place] [address] Camelia Carmen SHERRELL Negative Normal NEGATIVE [facility] Comment on above: Performed By: #### D RUGRPD #### [facility] [address] [place] [address] Carmen CUT-OFFS SEE BELOW Normal [facility] Comment on above: Result Comment: AMP (Amphetamine): [...] ng/mL Performed By: #### D RUGRPD #### [facility] [address] [place] [address] Carmen DRUG CUT HEADER DRUG CLASS TEST SYSTEM CUT-OFF CONCENTRATIONS ARE FOLLOWS: Normal [facility] Comment on above: Performed By: #### D RUGRPD #### [facility] [address] [place] [address] Camelia Carmen mAMP Negative Normal NEGATIVE [facility] Comment on above: Performed By: #### D RUGRPD #### [facility] [address] [place] [address] Camelia Carmen MTD Negative Normal NEGATIVE [facility] Comment on above: Performed By: #### D RUGRPD #### [facility] [address] [place] [address] Camelia Carmen OPI Negative Normal NEGATIVE [facility] Comment on above: Performed By: #### D RUGRPD #### [facility] [address] [place] [address] Camelia Carmen OXY Negative Normal NEGATIVE [facility] Comment on above: Performed By: #### D RUGRPD #### [facility] [address] [place] [address] Camelia Carmen PCP Negative Normal NEGATIVE [facility] Comment on above: Performed By: #### D RUGRPD #### [facility] [address] [place] [address] Camelia Carmen PPX Negative Normal NEGATIVE [facility] Comment on above: Performed By: #### D RUGRPD #### [facility] [address] [place] [address] Camelia Carmen TCA Negative Normal NEGATIVE [facility] Comment on above: Performed By: #### D RUGRPD #### [facility] [address] [place] [address] Camelia Carmen THC Negative Normal NEGATIVE [facility] Comment on above: Performed By: #### D RUGRPD #### [facility] [address] [place] [address] Camelia Morales POINT OF CARE GLUCOSEon 04-27 Glucose [Mass/Vol] 92 mg/dL Normal 74-106 [facility] Comment on above: Performed By: #### P OCGLUC #### [facility] [address] [place] [address] Camelia Carmen Glucose [Mass/Vol] 95 mg/dL Normal 74-106 [facility] Comment on above: Performed By: #### P OCGLUC #### [facility] [address] [place], [place] [address] Camelia Morales Glucose [Mass/Vol] 165 mg/dL Critically high 74-106 [facility] Comment on above: Performed By: #### P OCGLUC ####[facility] [address] [place], [place] [address]DqotzaCamelia Morales TYPE AND SCREENon 05-11-2020 TYPE AND SCREEN Negative Normal [facility] Comment on above: Performed By: #### T NS ####[facility] [address] [place], [place] [address]JoitmbCamelia Morales US PREG BIOPHY W NON STRESSo [...] Latricia CERVANTES Date: 2020-05-10 17:09 Normal [facility] COVID-19 PCRon 05-05-2020 SARS-CoV-2, ERNESTINE Not Detected Normal Not Detected [facility] Comment on above: Result Comment: This nucleic acid amplification test was developed and its performance characteristics determined by [employer]. Nucleic acid amplification tests include PCR and [...] Performed By: #### C VDSTAT, CVDPCR #### [facility] [address] [place], [place] [address] Camelia Morales PRIORITY COVID PROCESSINGon 05-05-2020 Comment Comment Normal [facility] Comment on above: Result Comment: Rece ived Performed By: #### C VDSTAT, CVDPCR #### [facility] [address] [place], [place] [address] Camelia Morales US PREG BIOPHY W NON [...] BRAULIO MONTEZ Date: 2020-05-03 20:36 Normal [facility] US PREG BIOPHY W NON STRESSo [...] Latricia CERVANTES Date: 2020-04-26 17:44 Normal [facility] US PREG BIOPHY W NON STRESSo [...] GATITO DOUGHERTY Date: 2020-04-21 19:59 Normal [facility] GROUP B STREP CULTUREon 03-29 S. agalactiae Ag Ql (Unsp spec) Culture Observations: NEGATIVE FOR GROUP B STREPTOCOCCUS Normal [facility] Comment on above: Performed By: #### G BSCX ####[facility] [address] [place], [place] [address]NcgqsbCamelia Morales US PREG BIOPHY W NON STRESSo [...] GATITO DOUGHERTY Date: 2020-04-19 19:00 Normal [facility] US PREG BIOPHY W NON STRESSo [...] Latricia CERVANTES Date: 2020-04-12 16:33 Normal [facility] US PREG GROWTHon 04-05-2020 US PREG [...] GATITO DOUGHERTY Date: 2020-04-05 17:39 Normal [facility] US PREG BIOPHY W NON STRESSo [...] Latricia CERVANTES Date: 2020-03-29 16:39 Normal [facility] Encounters Encounter Date Encounter Type Care [...] Start: 05-24-2021 End: 05-25-2021 ambulatory NAZANIN DURAN [place] [place]: 05-24-2020 Patient encounter procedure APARNA ANJEL [...] BERRY Payers Date Payer Category Payer Unknown [id number] 2.16.84 [id number] 1988 Unknown [id number] 2.16.84 0.1.578676.3.579.2.593 1988 Unknown [id number] 2.16.84 0.1.428252.3.579.2.593 1988 Unknown [id number] 2.16.84 0.1.676202.3.579.2.593 1988 Unknown [id number] 2.16.84 0.1.225260.3.579.2.593 1988 Unknown [id number] 2.16.84 0.1.713496.3.579.2.593 1988 Unknown [id number] 2.16.84 0.1.888091.3.579.2.593 1988 Unknown [id number] 2.16.84 0.1.566631.3.579.2.593 1988 Unknown [id number] 2.16.84 0.1.308503.3.579.2.593 1988 Unknown [id number] 2.16.84 0.1.074264.3.579.2.593 1988 Unknown [id number] 2.16.84 0.1.999189.3.579.2.593 1988 Unknown [id number] 2.16.84 0.1.291516.3.579.2.593 1988 Unknown [id number] 2.16.84 0.1.438272.3.579.2.593 1988 Unknown [id number] 2.16.84 0.1.456219.3.579.2.593 1988 Unknown [id number] 2.16.84 0.1.218523.3.579.2.593 1988 Unknown [id number] 2.16.84 0.1.855824.3.579.2.593 1988 Unknown [id number] 2.16.84 0.1.408915.3.579.2.593 1988 Unknown [id number] 2.16.84 0.1.697427.3.579.2.593 1988 Unknown [id number] 2.16.84 0.1.810300.3.579.2.593 1988 Unknown [id number] 2.16.8 40.1.658591.3.579.2.727 1988 Unknown [id number] 2.16.8 40.1.943182.3.579.2.1286 1988 Unknown [id number] 2.16.8 40.1.232488.3.579.2.1286 1988 Unknown [id number] 2.16.84 0.1.054839.3.579.2.9 1988 Unknown [id number] 2.16.84 0.1.701712.3.579.2.1259 1988 Unknown [id number] 2.16.84 0.1.412742.3.579.2.9 1988 Unknown [id number] 2.16.84 0.1.286788.3.579.2.1259 1959 Self-pay [id number] Self-pay 1959 Unknown [id number] Summary Purpose Family History No Family History Records FoundNo Family History Records FoundNo Family History Records FoundNo Family History Records Found Advance Directives No Advanced Directives Records FoundNo Advanced Directives Records FoundNo Advanced Directives Records FoundNo Advanced Directives Records Found Additional Source Comments INFORMATION SOURCE (unrecogn ized section and content) DATE CREATED AUTHOR 09/14/2020 [facility] DATE CREATED AUTHOR AUTHOR'S ORGANIZ ATION 10/27/2022 [facility] DATE CREATED AUTHOR AUTHOR'S ORGANIZ ATION 01/03/2024 [facility] DATE CREATED AUTHOR AUTHOR'S ORGANIZ ATION 03/20/2024 [facility] EPIC FOR RECORDS PERTAINING TO [...] BE BASED ON THE PRIMARY CLINICAL RECORDS. [facility]. provides no warranty or guarantee of the accuracy or completeness of information in this document.
[2024-03-26 09:01] VITALS: BP 146/90; PULSE 108
[2024-03-26 09:18] VITALS: BP 132/82; PULSE 101
== END 2024-03-26 09:34 | disposition home or self-care (01) ==
LOC: FBCO 07:01 → FBC 08:54
PROVIDERS: Visit Provider Obstetrics & Gynecology
DX: O99.283 Endocrine, nutritional and metabolic diseases complicating pregnancy, third trimester (principal)
CPT/HCPCS: 59025

== ENCOUNTER 2024-03-30 07:08 | Outpatient (OUT) | payer OTHER, SELFPAY ==
--- OUTSIDE RECORDS SUMMARY | 2024-03-30 07:10 | XMS_ITS | CCD ---
Author Organization [facility] Care Team Providers Care Information Systems Operator Name Role Phone ABRAHAM BERRY Attending Unavailable ABRAHAM BERRY Admitting Unavailable ANJEL, APARNA Consulting Unavailable ABRAHAM BERRY Consulting Unavailable Latricia Cervantes Consulting Unavailable ABRAHAM BERRY Consulting Unavailable ANJEL, APARNA Attending Unavailable ANJEL, APARNA Admitting Unavailable REQUEST, NONE LISTED Primary Care Unavailable Policaro, Gaitto Consulting Unavailable ANJEL, APARNA Attending Unavailable ANJEL, APARNA Admitting Unavailable ABRAHAM BERRY Consulting Unavailable ABRAHAM BERRY Admitting Unavailable ABRAHAM BERRY Attending Unavailable ANJEL, APARNA Consulting Unavailable ABRAHAM BERRY Admitting Unavailable ABRAHAM BERRY Attending Unavailable ANJEL, APARNA Attending Unavailable ANJEL, APARAN Admitting Unavailable ANJEL, APARNA Attending Unavailable REQUEST, [...] Basophils (Bld) [#/Vol] 0.0 103/ul Normal 0.0-0.1 [facility] Comment on above: Performed By: #### C BC #### [facility] [address] [place], [place] [id number] Camelia Carmen Basophils/100 WBC (Bld) 0.1 % Critically low 0.2-2.0 [facility] Comment on above: Performed By: #### C BC #### [facility] [address] [place] [address] Camelia Carmen Eosinophils (Bld) [#/Vol] 0.1 103/ul Normal 0.0-0.7 [facility] Comment on above: Performed By: #### C BC #### [facility] [address] [place] [address] Camelia Carmen Eosinophils/100 WBC (Bld) 0.5 % Critically low 0.9-7.0 [facility] Comment on above: Performed By: #### C BC #### [facility] [address] [place] [address] Camelia Carmen Erythrocyte distribution width (RBC) [Ratio] 13.2 % Normal 11.0-15.0 [facility] Comment on above: Performed By: #### C BC #### [facility] [address] [place] [address] Camelia Carmen Hematocrit (Bld) [Volume fraction] 30.2 % Critically low 36.0-48.0 [facility] Comment on above: Performed By: #### C BC #### [facility] [address] [place] [address] Camelia Carmen Hemoglobin (Bld) [Mass/Vol] 10.0 g/dL Critically low 12.0-16.0 [facility] Comment on above: Performed By: #### C BC #### [facility] [address] [place] [address] Camelia Carmen IG # 0.07 10e3/ul Critically high 0.00-0.03 [facility] Comment on above: Performed By: #### C BC #### [facility] [address] [place] [address] Camelia Carmen IG % 0.5 % Normal 0.0-0.5 [facility] Comment on above: Performed By: #### C BC #### [facility] [address] [place] [address] Camelia Carmen Lymphocytes (Bld) [#/Vol] 2.0 103/ul Normal 1.2-3.8 [facility] Comment on above: Performed By: #### C BC #### [facility] [address] [place] [address] Camelia Carmen Lymphocytes/100 WBC (Bld) 13.4 % Critically low 20.5-60.0 [facility] Comment on above: Performed By: #### C BC #### [facility] [address] [place] [address] Camelia Carmen MANUAL DIFF REQ NO Normal [facility] Comment on above: Performed By: #### C BC #### [facility] [address] [place] [address] Camelia Carmen MCH (RBC) [Entitic mass] 28.1 pg Normal 26.7-34.0 [facility] Comment on above: Performed By: #### C BC #### [facility] [address] [place] [address] Camleia Carmen MCHC (RBC) [Mass/Vol] 33.1 g/dL Normal 29.9-35.2 [facility] Comment on above: Performed By: #### C BC #### [facility] [address] [place] [address] Camelia Carmen MCV (RBC) [Entitic vol] 84.8 fL Normal 81.0-99.0 [facility] Comment on above: Performed By: #### C BC #### [facility] [address] [place], [place] [id number] Camelia Carmen Monocytes (Bld) [#/Vol] 1.0 103/ul Critically high 0.3-0.8 [facility] Comment on above: Performed By: #### C BC #### [facility] [address] [place], [place] [id number] Camelia Carmen Monocytes/100 WBC (Bld) 7.0 % Normal 1.7-12.0 [facility] Comment on above: Performed By: #### C BC #### [facility] [address] [place], [place] [id number] Camelia Carmen Neutrophils (Bld) [#/Vol] 11.6 103/ul Critically high 1.4-6.5 [facility] Comment on above: Performed By: #### C BC #### [facility] [address] [place], [place] [id number] Camelia Carmen Neutrophils/100 WBC (Bld) 78.5 % Critically high 43.0-75.0 [facility] Comment on above: Performed By: #### C BC #### [facility] [address] [place], [place] [id number] Camelia Morales Platelet mean volume (Bld) [Entitic vol] 12.4 fL Normal 9.5-13.5 [facility] Comment on above: Performed By: #### C BC #### [facility] [address] [place] [address] Camelia Morales Platelets (Bld) [#/Vol] 151 103/ul Normal 150-450 [facility] Comment on above: Performed By: #### C BC #### [facility] [address] [place], [place] [phone] Camelia Troyen RBC (Bld) [#/Vol] 3.56 106/ul Critically low 4.20-5.40 [facility] Comment on above: Performed By: #### C BC #### [facility] [address] [place], [place] [address] Camelia Carmen WBC (Bld) [#/Vol] 14.7 103/ul Critically high 4.0-11.0 [facility] Comment on above: Performed By: #### C BC #### [facility] [address] [place], [place] [phone] Camelia Morales POINT OF CARE GLUCOSEon 10- Glucose [Mass/Vol] 95 mg/dL Normal 74-106 [facility] Comment on above: Performed By: #### P OCGLUC ####[facility] [address] [place], [place] [address]Sfbitc Carmen CBC AUTO DIFFon 05-11-2020 Basophils (Bld) [#/Vol] 0.0 103/ul Normal 0.0-0.1 [facility] Comment on above: Performed By: #### C BC #### [facility] [address] [place], [place] [address] Camelia Carmen Basophils/100 WBC (Bld) 0.4 % Normal 0.2-2.0 [facility] Comment on above: Performed By: #### C BC #### [facility] [address] [place], [place] [address] Camelia Carmen Eosinophils (Bld) [#/Vol] 0.1 103/ul Normal 0.0-0.7 [facility] Comment on above: Performed By: #### C BC #### [facility] [address] [place] [place] [phone] Camelia Carmen Eosinophils/100 WBC (Bld) 0.7 % Critically low 0.9-7.0 [facility] Comment on above: Performed By: #### C BC #### [facility] [address] [place] [phone] Camelia Carmen Erythrocyte distribution width (RBC) [Ratio] 13.2 % Normal 11.0-15.0 [facility] Comment on above: Performed By: #### C BC #### [facility] [address] [place] [phone] Camelia Carmen Hematocrit (Bld) [Volume fraction] 36.2 % Normal 36.0-48.0 [facility] Comment on above: Performed By: #### C BC #### [facility] [address] [place], [place] [address] Camelia Carmen Hemoglobin (Bld) [Mass/Vol] 12.2 g/dL Normal 12.0-16.0 [facility] Comment on above: Performed By: #### C BC #### [facility] [address] [place] [id number] Camelia Carmen IG # 0.05 10e3/ul Critically high 0.00-0.03 [facility] Comment on above: Performed By: #### C BC #### [facility] [address] [place], [place] [address] Camelia Carmen IG % 0.6 % Critically high 0.0-0.5 [facility] Comment on above: Performed By: #### C BC #### [facility] [address] [place], [place] [address] Camelia Carmen Lymphocytes (Bld) [#/Vol] 1.5 103/ul Normal 1.2-3.8 [facility] Comment on above: Performed By: #### C BC #### [facility] [address] [place], [place] [address] Camelia Carmen Lymphocytes/100 WBC (Bld) 18.3 % Critically low 20.5-60.0 [facility] Comment on above: Performed By: #### C BC #### [facility] [address] [place], [place] [phone] Camelia Carmen MANUAL DIFF REQ NO Normal [facility] Comment on above: Performed By: #### C BC #### [facility] [address] [place] [address] Camelia Carmen MCH (RBC) [Entitic mass] 28.4 pg Normal 26.7-34.0 [facility] Comment on above: Performed By: #### C BC #### [facility] [address] [place] [address] Camelia Carmen MCHC (RBC) [Mass/Vol] 33.7 g/dL Normal 29.9-35.2 [facility] Comment on above: Performed By: #### C BC #### [facility] [address] [place] [address] Camelia Carmen MCV (RBC) [Entitic vol] 84.4 fL Normal 81.0-99.0 [facility] Comment on above: Performed By: #### C BC #### [facility] [address] [place], [place] [address] Camelia Carmen Monocytes (Bld) [#/Vol] 0.4 103/ul Normal 0.3-0.8 [facility] Comment on above: Performed By: #### C BC #### [facility] [address] [place], [place] [address] Camelia Carmen Monocytes/100 WBC (Bld) 4.4 % Normal 1.7-12.0 [facility] Comment on above: Performed By: #### C BC #### [facility] [address] [place], [place] [address] Camelia Carmen Neutrophils (Bld) [#/Vol] 6.2 103/ul Normal 1.4-6.5 [facility] Comment on above: Performed By: #### C BC #### [facility] [address] [place], [place] [address] Camelia Carmen Neutrophils/100 WBC (Bld) 75.6 % Critically high 43.0-75.0 [facility] Comment on above: Performed By: #### C BC #### [facility] [address] [place], [place] [address] Camelia Carmen Platelet mean volume (Bld) [Entitic vol] 12.0 fL Normal 9.5-13.5 [facility] Comment on above: Performed By: #### C BC #### [facility] [address] [place], [place] [address] Camelia Carmen Platelets (Bld) [#/Vol] 134 103/ul Critically low 150-450 [facility] Comment on above: Performed By: #### C BC #### [facility] [address] [place], [place] [address] Camelia Carmen RBC (Bld) [#/Vol] 4.29 106/ul Normal 4.20-5.40 [facility] Comment on above: Performed By: #### C BC #### [facility] [address] [place], [place] [address] Camelia Carmen WBC (Bld) [#/Vol] 8.3 103/ul Normal 4.0-11.0 [facility] Comment on above: Performed By: #### C BC #### [facility] [address] [place], [place] [address] Camelia Carmen DRUG SCREEN RAPID (URINE)on 05-11-2020 AMP Negative Normal NEGATIVE [facility] Comment on above: Performed By: #### D RUGRPD #### [facility] [address] [place] [address] Camelia Carmen BAR Negative Normal NEGATIVE [facility] Comment on above: Performed By: #### D RUGRPD #### [facility] [address] [place] [address] Camelia Carmen BUP Negative Normal NEGATIVE [facility] Comment on above: Performed By: #### D RUGRPD #### [facility] [address] [place] [address] Camelia Carmen BZO Negative Normal NEGATIVE [facility] Comment on above: Performed By: #### D RUGRPD #### [facility] [address] [place] [address] Camelia Carmen SHERRELL Negative Normal NEGATIVE [facility] Comment on above: Performed By: #### D RUGRPD #### [facility] [address] [place] [address] Carmen CUT-OFFS SEE BELOW Normal [facility] Comment on above: Result Comment: AMP (Amphetamine): [...] ng/mL Performed By: #### D RUGRPD #### [facility] [address] [place] [address] Carmen DRUG CUT HEADER DRUG CLASS TEST SYSTEM CUT-OFF CONCENTRATIONS ARE FOLLOWS: Normal [facility] Comment on above: Performed By: #### D RUGRPD #### [facility] [address] [place] [address] Camelia Carmen mAMP Negative Normal NEGATIVE [facility] Comment on above: Performed By: #### D RUGRPD #### [facility] [address] [place] [address] Camelia Carmen MTD Negative Normal NEGATIVE [facility] Comment on above: Performed By: #### D RUGRPD #### [facility] [address] [place] [address] Camelia Carmen OPI Negative Normal NEGATIVE [facility] Comment on above: Performed By: #### D RUGRPD #### [facility] [address] [place] [address] Camelia Carmen OXY Negative Normal NEGATIVE [facility] Comment on above: Performed By: #### D RUGRPD #### [facility] [address] [place] [address] Camelia Carmen PCP Negative Normal NEGATIVE [facility] Comment on above: Performed By: #### D RUGRPD #### [facility] [address] [place] [address] Camelia Carmen PPX Negative Normal NEGATIVE [facility] Comment on above: Performed By: #### D RUGRPD #### [facility] [address] [place] [address] Camelia Carmen TCA Negative Normal NEGATIVE [facility] Comment on above: Performed By: #### D RUGRPD #### [facility] [address] [place] [address] Camelia Carmen THC Negative Normal NEGATIVE [facility] Comment on above: Performed By: #### D RUGRPD #### [facility] [address] [place] [address] Camelia Morales POINT OF CARE GLUCOSEon 04-27 Glucose [Mass/Vol] 92 mg/dL Normal 74-106 [facility] Comment on above: Performed By: #### P OCGLUC #### [facility] [address] [place] [address] Camelia Carmen Glucose [Mass/Vol] 95 mg/dL Normal 74-106 [facility] Comment on above: Performed By: #### P OCGLUC #### [facility] [address] [place], [place] [address] Camelia Morales Glucose [Mass/Vol] 165 mg/dL Critically high 74-106 [facility] Comment on above: Performed By: #### P OCGLUC ####[facility] [address] [place], [place] [address]SvawogCamelia Morales TYPE AND SCREENon 05-11-2020 TYPE AND SCREEN Negative Normal [facility] Comment on above: Performed By: #### T NS ####[facility] [address] [place], [place] [address]BsnuyiCamelia Morales US PREG BIOPHY W NON STRESSo [...] Latricia CERVANTES Date: 2020-05-10 17:09 Normal [facility] COVID-19 PCRon 05-05-2020 SARS-CoV-2, ERNESTINE Not Detected Normal Not Detected [facility] Comment on above: Result Comment: This nucleic acid amplification test was developed and its performance characteristics determined by [employer]. Nucleic acid amplification tests include PCR and [...] Performed By: #### C VDSTAT, CVDPCR #### [facility] [address] [place], [place] [address] Camelia Morales PRIORITY COVID PROCESSINGon 05-05-2020 Comment Comment Normal [facility] Comment on above: Result Comment: Rece ived Performed By: #### C VDSTAT, CVDPCR #### [facility] [address] [place], [place] [address] Camelia Morales US PREG BIOPHY W NON [...] BRAULIO MONTEZ Date: 2020-05-03 20:36 Normal [facility] US PREG BIOPHY W NON STRESSo [...] Latricia CERVANTES Date: 2020-04-26 17:44 Normal [facility] US PREG BIOPHY W NON STRESSo [...] GATITO DOUGHERTY Date: 2020-04-21 19:59 Normal [facility] GROUP B STREP CULTUREon 03-29 S. agalactiae Ag Ql (Unsp spec) Culture Observations: NEGATIVE FOR GROUP B STREPTOCOCCUS Normal [facility] Comment on above: Performed By: #### G BSCX ####[facility] [address] [place], [place] [address]LeebizCamelia Morales US PREG BIOPHY W NON STRESSo [...] GATITO DOUGHERTY Date: 2020-04-19 19:00 Normal [facility] US PREG BIOPHY W NON STRESSo [...] Latricia CERVANTES Date: 2020-04-12 16:33 Normal [facility] US PREG GROWTHon 04-05-2020 US PREG [...] GATITO DOUGHERTY Date: 2020-04-05 17:39 Normal [facility] US PREG BIOPHY W NON STRESSo [...] Latricia CERVANTES Date: 2020-03-29 16:39 Normal [facility] Encounters Encounter Date Encounter Type Care [...] BERRY Payers Date Payer Category Payer Unknown [id number] 2.16.84 0.1.267036.3.579.2.593 1988 Unknown [id number] 2.16.84 0.1.692069.3.579.2.593 1988 Unknown [id number] 2.16.84 0.1.175328.3.579.2.593 1988 Unknown [id number] 2.16.84 0.1.733269.3.579.2.593 1988 Unknown [id number] 2.16.84 0.1.877118.3.579.2.593 1988 Unknown [id number] 2.16.84 0.1.967960.3.579.2.593 1988 Unknown [id number] 2.16.84 0.1.944189.3.579.2.593 1988 Unknown [id number] 2.16.84 0.1.469816.3.579.2.593 1988 Unknown [id number] 2.16.84 0.1.018432.3.579.2.593 1988 Unknown [id number] 2.16.84 0.1.951545.3.579.2.593 1988 Unknown [id number] 2.16.84 0.1.633228.3.579.2.593 1988 Unknown [id number] 2.16.84 0.1.119884.3.579.2.593 1988 Unknown [id number] 2.16.84 0.1.825520.3.579.2.593 1988 Unknown [id number] 2.16.84 0.1.795449.3.579.2.593 1988 Unknown [id number] 2.16.84 0.1.297850.3.579.2.593 1988 Unknown [id number] 2.16.84 0.1.499953.3.579.2.593 1988 Unknown [id number] 2.16.84 0.1.088526.3.579.2.593 1988 Unknown [id number] 2.16.84 0.1.859371.3.579.2.593 1988 Unknown [id number] 2.16.84 0.1.901021.3.579.2.593 1988 Unknown [id number] 2.16.8 40.1.975381.3.579.2.727 1988 Unknown [id number] 2.16.8 40.1.935455.3.579.2.1286 1988 Unknown [id number] 2.16.8 40.1.181137.3.579.2.1286 1988 Unknown [id number] 2.16.84 0.1.023238.3.579.2.9 1988 Unknown [id number] 2.16.84 0.1.808993.3.579.2.1259 1988 Unknown [id number] 2.16.84 0.1.627819.3.579.2.9 1988 Unknown [id number] 2.16.84 0.1.618765.3.579.2.1259 1959 Self-pay [id number] Self-pay 1959 Unknown [id number] Summary Purpose Family History No Family History Records FoundNo Family History Records FoundNo Family History Records FoundNo Family History Records Found Advance Directives No Advanced Directives Records FoundNo Advanced Directives Records FoundNo Advanced Directives Records FoundNo Advanced Directives Records Found Additional Source Comments INFORMATION SOURCE (unrecogn ized section and content) DATE CREATED AUTHOR 09/14/2020 [facility] DATE CREATED AUTHOR AUTHOR'S ORGANIZ ATION 10/27/2022 [facility] DATE CREATED AUTHOR AUTHOR'S ORGANIZ ATION 01/03/2024 [facility] DATE CREATED AUTHOR AUTHOR'S ORGANIZ ATION 03/20/2024 [...] BE BASED ON THE PRIMARY CLINICAL RECORDS. [facility] provides no warranty or guarantee of the accuracy or completeness of information in this document.
[2024-03-30 11:29] VITALS: BP 135/85; PULSE 88
== END 2024-03-30 11:52 | disposition home or self-care (01) ==
LOC: US 07:08 → FBC 11:10
PROVIDERS: Visit Provider Obstetrics & Gynecology
DX: O24.419 Gestational diabetes mellitus in pregnancy, unspecified control (principal); Z3A.00 Weeks of gestation of pregnancy not specified

== ENCOUNTER 2024-03-30 09:28 | Outpatient (OUT) | payer OTHER, SELFPAY ==
--- NOTE | 2024-03-30 09:30 | US_ITS ---
[address] [address] Patient Name: ARLIN LUNDBERG MRN: [facility]:[id number] date: 1990 Sex: F Assigned Patient Location: [facility] Current Patient Location: [facility] Accession/Order Number: [id number] Exam Date: 03/30/2024 09:31 Report Date: 03/30/2024 10:18 At the request of: APARNA HOBBS Procedure: US OB BPP w non-stress EXAMINATION: US OB BPP w non-stress HISTORY:Gestational diabetes mellitus COMPARISON: Ultrasound OB biophysical 03/23/2024 TECHNIQUE: Ultrasound biophysical profile was performed in the radiology department. BREATHING MOVEMENTS: 2 GROSS BODY MOVEMENTS: 2 TONE: 2 QUALITATIVE AMNIOTIC FLUID VOLUME: 2 PRESENTATION: CEPHALIC HEART RATE: 137.06 bpm AMNIOTIC FLUID VOLUME: 10.84 cm GESTATIONAL AGE: 33 weeks 6 days US/US OB BPP w non-stress IMPRESSION: Total biophysical profile score: 8 Electronically authenticated by: MARY RUIZ Date: 03/30/2024 10:18
--- NOTE | 2024-03-30 09:30 | US_ITS ---
[address] [address] Patient Name: ARLIN LUNDBERG MRN: [id number] date: 1990 Sex: F Assigned Patient Location: [facility] Current Patient Location: [facility] Accession/Order Number: [id number] Exam Date: 03/30/2024 09:31 Report Date: 03/30/2024 10:20 At the request of: APARNA HOBBS Procedure: US OB growth EXAMINATION: US OB growth HISTORY: Gestational diabetes mellitus COMPARISON: No relevant comparison available. FINDINGS: Heart Rate: 137.06 bpm Amniotic Fluid Volume: 10.8 cm; normal range. Number: 1 Position: CEPHALIC BIOMETRY: BPD: 8.79 cm; 35 weeks 4 days; 88.20 % HC: 32.75 cm; 37 weeks 1 day; 90.40 % AC: 31.66 cm; 35 weeks 4 days; 92.10 % FL: 6.23 cm; 32 weeks 2 days; 8.30 % EFW: 2536.88 g; 73.90 % FL/AC: 19.69 FL/BPD: 70.93 HC/AC: 1.03 GESTATIONAL AGE: Age by EDC: 33 weeks 6 days THELMA by EDC: 2024-05-12 Age by US: 35 weeks 1 day THELMA by US: 2024-05-03 US/US OB growth IMPRESSION: 1. Single live intrauterine with growth detailed above. Electronically authenticated by: MARY RUIZ Date: 03/30/2024 10:20
[2024-03-30 12:25] LABS: Basophils Percent Auto 0.3 % (0.2-2.0); Eosinophils Absolute Auto 0.1 10^3/uL (0.0-0.7); Eosinophils Percent Auto 0.5 % (0.9-7.0); Hematocrit 36.6 % (36.0-48.0); Hemoglobin 12.7 g/dL (12.0-16.0); Immature Granulocytes Abs Auto 0.04 10^3/uL (0.00-0.03); Immature Granulocytes Pct Auto 0.4 % (0.0-0.5); Lymphocytes Absolute Auto 1.7 10^3/uL (1.2-3.8); Lymphocytes Percent Auto 17.8 % (20.5-60.0); Mean Corpuscular HGB Conc 34.7 g/dL (29.9-35.2); Mean Corpuscular Hemoglobin 29.7 pg (26.7-34.0); Mean Corpuscular Volume 85.7 fL (81.0-99.0); Mean Platelet Volume 11.3 fL (9.5-13.5); Monocytes Absolute Auto 0.5 10^3/uL (0.3-0.8); Monocytes Percent Auto 5.6 % (1.7-12.0); Neutrophils Absolute Auto 7.2 10^3/uL (1.4-6.5); Neutrophils Percent Auto 75.4 % (43.0-75.0); Platelet Count 174 10^3/uL (150-450); Red Blood Count 4.27 10^6/uL (4.20-5.40); Red Cell Distribution Width 12.4 % (11.0-15.0); White Blood Count 9.6 10^3/uL (4.0-11.0)
[2024-03-30 12:39] LABS: Estimated Average Glucose 94 mg/dL; Glycohemoglobin A1C 4.9 % (4.5-6.2)
[2024-03-31 06:10] LABS: HBsAg Screen Negative (Negative); HCV Ab Non Reactive (Non Reactive); HIV Ab/p24 Ag Screen Non Reactive (Non Reactive); Rubella Antibodies, IgG 1.34 index (Immune >0.99)
[2024-03-31 11:09] LABS: Rapid Plasma Reagin, Quant Non Reactive titer (NonRea<1:1)
== END 2024-03-30 09:29 | disposition home or self-care (01) ==
LOC: NOMS 09:28
PROVIDERS: Visit Provider Obstetrics & Gynecology
DX: O09.523 Supervision of elderly multigravida, third trimester (principal); Z3A.33 33 weeks gestation of pregnancy; O16.3 Unspecified maternal hypertension, third trimester; Z86.32 Personal history of gestational diabetes
CPT/HCPCS: 36415; 76816; 76818; 83036; 85025; 86592; 86762; 86803; 86850; 86900; 86901; 87086; 87340; 87389

== ENCOUNTER 2024-04-02 06:57 | Outpatient (OUT) | payer OTHER, SELFPAY ==
--- OUTSIDE RECORDS SUMMARY | 2024-04-02 07:00 | XMS_ITS | CCD ---
Author Organization [facility] Care Team Providers Care Loan Servicing Specialist Name Role Phone ABRAHAM BERRY Attending Unavailable ABRAHAM BERRY Admitting Unavailable ANJEL, APARNA Consulting Unavailable ABRAHAM BERRY Consulting Unavailable Latricia Cervantes Consulting Unavailable ABRAHAM BERRY Consulting Unavailable ANJEL, APARNA Attending Unavailable ANJEL, APARNA Admitting Unavailable REQUEST, NONE LISTED Primary Care Unavailable Policdonnie, Gatito Consulting Unavailable ANJEL, APARNA Attending Unavailable [...] AKHTAR Consulting Unavailable ABRAHAM BERRY Consulting Unavailable JAMAL, ABRAHAM Attending Unavailable JAMAL, ABRAHAM Admitting Unavailable Roger, Gatito Consulting Unavailable ABRAHAM BERRY Consulting Unavailable JAMAL, ABRAHAM Attending Unavailable JAMAL, [...] Unavailable Latricia Cervantes Consulting Unavailable RENEE, NAZANIN TJus Admitting Unavailable RENEE, NAZANIN Cazares Attending Unavailable [...] Basophils (Bld) [#/Vol] 0.0 103/ul Normal 0.0-0.1 [facility] Comment on above: Performed By: #### C BC #### [facility] [address] [id number] Camelia Carmen Basophils/100 WBC (Bld) 0.1 % Critically low 0.2-2.0 [facility] Comment on above: Performed By: #### C BC #### [facility] [address] [id number] Camelia Carmen Eosinophils (Bld) [#/Vol] 0.1 103/ul Normal 0.0-0.7 [facility] Comment on above: Performed By: #### C BC #### [facility] [address] [place] [address] Camelia Carmen Eosinophils/100 WBC (Bld) 0.5 % Critically low 0.9-7.0 [facility] Comment on above: Performed By: #### C BC #### [facility] [address] [place], [place] [id number] Camelia Carmen Erythrocyte distribution width (RBC) [Ratio] 13.2 % Normal 11.0-15.0 [facility] Comment on above: Performed By: #### C BC #### [facility] [address] [place], [place] [id number] Camelia Carmen Hematocrit (Bld) [Volume fraction] 30.2 % Critically low 36.0-48.0 [facility] Comment on above: Performed By: #### C BC #### [facility] [address] [place], [place] [id number] Camelia Carmen Hemoglobin (Bld) [Mass/Vol] 10.0 g/dL Critically low 12.0-16.0 [facility] Comment on above: Performed By: #### C BC #### [facility] [address] [place], [place] [id number] Camelia Carmen IG # 0.07 10e3/ul Critically high 0.00-0.03 [facility] Comment on above: Performed By: #### C BC #### [facility] [address] [id number] Camelia Carmen IG % 0.5 % Normal 0.0-0.5 [facility] Comment on above: Performed By: #### C BC #### [facility] [address] [place], [place] [id number] Camelia Carmen Lymphocytes (Bld) [#/Vol] 2.0 103/ul Normal 1.2-3.8 [facility] Comment on above: Performed By: #### C BC #### [facility] [address] [place], [place] [id number] Camelia Carmen Lymphocytes/100 WBC (Bld) 13.4 % Critically low 20.5-60.0 [facility] Comment on above: Performed By: #### C BC #### [facility] [address] [place], [place] [id number] Camelia Carmen MANUAL DIFF REQ NO Normal [facility] Comment on above: Performed By: #### C BC #### [facility] [address] [place], [place] [id number] Camelia Carmen MCH (RBC) [Entitic mass] 28.1 pg Normal 26.7-34.0 [facility] Comment on above: Performed By: #### C BC #### [facility] [address] [place], [place] [id number] Camelia Carmen MCHC (RBC) [Mass/Vol] 33.1 g/dL Normal 29.9-35.2 [facility] Comment on above: Performed By: #### C BC #### [facility] [address] [place], [place] [id number] Camelia Carmen MCV (RBC) [Entitic vol] 84.8 fL Normal 81.0-99.0 [facility] Comment on above: Performed By: #### C BC #### [facility] [address] [place], [place] [id number] Camelia Carmen Monocytes (Bld) [#/Vol] 1.0 103/ul Critically high 0.3-0.8 [facility] Comment on above: Performed By: #### C BC #### [facility] [address] [place] [address] Camelia Carmen Monocytes/100 WBC (Bld) 7.0 % Normal 1.7-12.0 [facility] Comment on above: Performed By: #### C BC #### [facility] [address] [place], [place] [address] Camelia Carmen Neutrophils (Bld) [#/Vol] 11.6 103/ul Critically high 1.4-6.5 [facility] Comment on above: Performed By: #### C BC #### [facility] [address] [place], [place] [id number] Camelia Carmen Neutrophils/100 WBC (Bld) 78.5 % Critically high 43.0-75.0 [facility] Comment on above: Performed By: #### C BC #### [facility] [address] [place], [place] [id number] Camelia Carmen Platelet mean volume (Bld) [Entitic vol] 12.4 fL Normal 9.5-13.5 [facility] Comment on above: Performed By: #### C BC #### [facility] [address] [place] [address] Camelia Carmen Platelets (Bld) [#/Vol] 151 103/ul Normal 150-450 [facility] Comment on above: Performed By: #### C BC #### [facility] [address] [place] [address] Camelia Carmen RBC (Bld) [#/Vol] 3.56 106/ul Critically low 4.20-5.40 [facility] Comment on above: Performed By: #### C BC #### [facility] [address] [place] [address] Camelia Carmen WBC (Bld) [#/Vol] 14.7 103/ul Critically high 4.0-11.0 [facility] Comment on above: Performed By: #### C BC #### [facility] [address] [place] [address] Cameliaalanna Troyen POINT OF CARE GLUCOSEon 10 Glucose [Mass/Vol] 95 mg/dL Normal 74-106 [facility] Comment on above: Performed By: #### P OCGLUC ####[facility] [address] [place], [place] [address]Npermg Carmen CBC AUTO DIFFon 05-11-2020 Basophils (Bld) [#/Vol] 0.0 103/ul Normal 0.0-0.1 [facility] Comment on above: Performed By: #### C BC #### [facility] [address] [id number] Camelia Carmen Basophils/100 WBC (Bld) 0.4 % Normal 0.2-2.0 [facility] Comment on above: Performed By: #### C BC #### [facility] [address] [id number] Camelia Carmen Eosinophils (Bld) [#/Vol] 0.1 103/ul Normal 0.0-0.7 [facility] Comment on above: Performed By: #### C BC #### [facility] [address] [address] Camelia Carmen Eosinophils/100 WBC (Bld) 0.7 % Critically low 0.9-7.0 [facility] Comment on above: Performed By: #### C BC #### [facility] [address] [place] [address] Camelia Carmen Erythrocyte distribution width (RBC) [Ratio] 13.2 % Normal 11.0-15.0 [facility] Comment on above: Performed By: #### C BC #### [facility] [address] [place] [address] Camelia Carmen Hematocrit (Bld) [Volume fraction] 36.2 % Normal 36.0-48.0 [facility] Comment on above: Performed By: #### C BC #### [facility] [address] [place], [place] [id number] Camelia Carmen Hemoglobin (Bld) [Mass/Vol] 12.2 g/dL Normal 12.0-16.0 [facility] Comment on above: Performed By: #### C BC #### [facility] [address] [place] [address] Camelia Carmen IG # 0.05 10e3/ul Critically high 0.00-0.03 [facility] Comment on above: Performed By: #### C BC #### [facility] [address] [place], [place] [id number] Camelia Carmen IG % 0.6 % Critically high 0.0-0.5 [facility] Comment on above: Performed By: #### C BC #### [facility] [address] [place], [place] [id number] Camelia Carmen Lymphocytes (Bld) [#/Vol] 1.5 103/ul Normal 1.2-3.8 [facility] Comment on above: Performed By: #### C BC #### [facility] [address] [place], [place] [id number] Camelia Carmen Lymphocytes/100 WBC (Bld) 18.3 % Critically low 20.5-60.0 [facility] Comment on above: Performed By: #### C BC #### [facility] [address] [place], [place] [id number] Camelia Carmen MANUAL DIFF REQ NO Normal [facility] Comment on above: Performed By: #### C BC #### [facility] [address] [place], [place] [id number] Camelia Carmen MCH (RBC) [Entitic mass] 28.4 pg Normal 26.7-34.0 [facility] Comment on above: Performed By: #### C BC #### [facility] [address] [place], [place] [id number] Cameliaalanna Morales MCHC (RBC) [Mass/Vol] 33.7 g/dL Normal 29.9-35.2 [facility] Comment on above: Performed By: #### C BC #### [facility] [address] [place], [place] [id number] Camelia Carmen MCV (RBC) [Entitic vol] 84.4 fL Normal 81.0-99.0 [facility] Comment on above: Performed By: #### C BC #### [facility] [address] [place], [place] [id number] Camelia Carmen Monocytes (Bld) [#/Vol] 0.4 103/ul Normal 0.3-0.8 [facility] Comment on above: Performed By: #### C BC #### [facility] [address] [place] [address] Camelia Carmen Monocytes/100 WBC (Bld) 4.4 % Normal 1.7-12.0 [facility] Comment on above: Performed By: #### C BC #### [facility] [address] [place], [place] [id number] Camelia Carmen Neutrophils (Bld) [#/Vol] 6.2 103/ul Normal 1.4-6.5 [facility] Comment on above: Performed By: #### C BC #### [facility] [address] [place], [place] [id number] Camelia Carmen Neutrophils/100 WBC (Bld) 75.6 % Critically high 43.0-75.0 [facility] Comment on above: Performed By: #### C BC #### [facility] [address] [place], [place] [id number] Camelia Carmen Platelet mean volume (Bld) [Entitic vol] 12.0 fL Normal 9.5-13.5 [facility] Comment on above: Performed By: #### C BC #### [facility] [address] [place], [place] [id number] Camelia Carmen Platelets (Bld) [#/Vol] 134 103/ul Critically low 150-450 [facility] Comment on above: Performed By: #### C BC #### [facility] [address] [place], [place] [id number] Camelia Carmen RBC (Bld) [#/Vol] 4.29 106/ul Normal 4.20-5.40 [facility] Comment on above: Performed By: #### C BC #### [facility] [address] [place], [place] [id number] Camelia Carmen WBC (Bld) [#/Vol] 8.3 103/ul Normal 4.0-11.0 [facility] Comment on above: Performed By: #### C BC #### [facility] [address] [place], [place] [id number] Camelia Carmen DRUG SCREEN RAPID (URINE)on 05-11-2020 AMP Negative Normal NEGATIVE [facility] Comment on above: Performed By: #### D RUGRPD #### [facility] [address] [place] [address] Camelia Carmen BAR Negative Normal NEGATIVE [facility] Comment on above: Performed By: #### D RUGRPD #### [facility] [address] [place] [address] Camelia Carmen BUP Negative Normal NEGATIVE [facility] Comment on above: Performed By: #### D RUGRPD #### [facility] [address] [place] [address] Camelia Carmen BZO Negative Normal NEGATIVE [facility] Comment on above: Performed By: #### D RUGRPD #### [facility] [address] [place] [address] Camelia Carmen SHERRELL Negative Normal NEGATIVE [facility] Comment on above: Performed By: #### D RUGRPD #### [facility] [address] [place] [address] Camelia Morales CUT-OFFS SEE BELOW Normal [facility] Comment on above: Result Comment: AMP [...] ng/mL Performed By: #### D RUGRPD #### [facility] [address] [place] [address] Camelia Carmen DRUG CUT HEADER DRUG CLASS TEST SYSTEM CUT-OFF CONCENTRATIONS ARE FOLLOWS: Normal [facility] Comment on above: Performed By: #### D RUGRPD #### [facility] [address] [address] Camelia Carmen mAMP Negative Normal NEGATIVE [facility] Comment on above: Performed By: #### D RUGRPD #### [facility] [address] [address] Camelia Carmen MTD Negative Normal NEGATIVE [facility] Comment on above: Performed By: #### D RUGRPD #### [facility] [address] [place] [address] Camelia Carmen OPI Negative Normal NEGATIVE [facility] Comment on above: Performed By: #### D RUGRPD #### [facility] [address] [place] [address] Camelia Carmen OXY Negative Normal NEGATIVE [facility] Comment on above: Performed By: #### D RUGRPD #### [facility] [address] [place] [address] Camelia Carmen PCP Negative Normal NEGATIVE [facility] Comment on above: Performed By: #### D RUGRPD #### [facility] [address] [place] [address] Camelia Carmen PPX Negative Normal NEGATIVE [facility] Comment on above: Performed By: #### D RUGRPD #### [facility] [address] [place] [address] Camelia Carmen TCA Negative Normal NEGATIVE [facility] Comment on above: Performed By: #### D RUGRPD #### [facility] [address] [place] [address] Camelia Carmen THC Negative Normal NEGATIVE [facility] Comment on above: Performed By: #### D RUGRPD #### [facility] [address] [place] [address] Camelia Carmen POINT OF CARE GLUCOSEon 04-27 Glucose [Mass/Vol] 92 mg/dL Normal 74-106 [facility] Comment on above: Performed By: #### P OCGLUC #### [facility] [address] [place] [address] Camelia Carmen Glucose [Mass/Vol] 95 mg/dL Normal 74-106 [facility] Comment on above: Performed By: #### P OCGLUC #### [facility] [address] [place], [place] [address] Camelia Morales Glucose [Mass/Vol] 165 mg/dL Critically high 74-[address] [facility] Comment on above: Performed By: #### P OCGLUC ####[facility] [address] [place], [place] [address]GyuifyCamelia Morales TYPE AND SCREENon 05-11-2020 TYPE AND SCREEN Negative Normal [facility] Comment on above: Performed By: #### T NS ####[facility] [address] [place], [place] [address]KnppijCamelia Morales US PREG BIOPHY W NON STRESSo [...] Latricia CERVANTES Date: 2020-05-10 17:09 Normal [facility] COVID-19 PCRon 05-05-2020 SARS-CoV-2, ERNESTINE Not Detected Normal Not Detected [facility] Comment on above: Result Comment: This nucleic acid amplification test was developed and its performance characteristics determined by [facility]. Nucleic acid amplification tests include PCR and [...] Performed By: #### C VDSTAT, CVDPCR #### [facility] [address] [place], [place] [address] Camelia Morales PRIORITY COVID PROCESSINGon 05-05-2020 Comment Comment Normal [facility] Comment on above: Result Comment: Rece ived Performed By: #### C VDSTAT, CVDPCR #### [facility] [address] [place], [place] [address] Camelia Morales US PREG BIOPHY W NON [...] BRAULIO MONTEZ Date: 2020-05-03 20:36 Normal [facility] US PREG BIOPHY W NON STRESSo [...] Latricia CERVANTES Date: 2020-04-26 17:44 Normal [facility] US PREG BIOPHY W NON STRESSo [...] GATITO DOUGHERTY Date: 2020-04-21 19:59 Normal [facility] GROUP B STREP CULTUREon 03-29 S. agalactiae Ag Ql (Unsp spec) Culture Observations: NEGATIVE FOR GROUP B STREPTOCOCCUS Normal [facility] Comment on above: Performed By: #### G BSCX ####[facility] [address] [id number] Morales US PREG BIOPHY W NON STRESSo [...] by: GATITO DOUGHERTY Date: 2020-04-19 19:00 Normal [facility] US PREG BIOPHY W NON STRESSo [...] Latricia CERVANTES Date: 2020-04-12 16:33 Normal [facility] US PREG GROWTHon 04-05-2020 US PREG [...] GATITO DOUGHERTY Date: 2020-04-05 17:39 Normal [facility] US PREG BIOPHY W NON STRESSo [...] Latricia CERVANTES Date: 2020-03-29 16:39 Normal [facility] Encounters Encounter Date Encounter Type Care Provider Facility Start: 03-30-2024 End: 03-30-2024 ambulatory APARNA ANJEL Not Available Start: 03-18-2024 End: 03-18-2024 ambulatory APARNA ANJEL Not Available Start: 03-04-2024 End: 03-04-2024 ambulatory APARNA ANJEL Not Available Start: 01-02-2024 End: 01-02-2024 ambulatory APARNA R [facility]JEL [facility] Start: 12-03-2023 End: 12-03-2023 ambulatory APARNA ANJEL Not Available Start: 11-06-2023 End: 11-06-2023 ambulatory APARNA ANJEL Not Available Start: 05-24-2021 End: 05-25-2021 ambulatory NAZANIN DURAN Facility:[facility] Start: 05-24-2020 Patient encounter procedure APARNA ANJEL Facility: Start: 05-16-2020 End: 05-16-2020 Patient encounter procedure APARNA ANJEL Facility: Start: 05-11-2020 End: 05-13-2020 Evaluation and management of inpatient APARNA ANJEL Facility: Start: 05-10-2020 End: 05-10-2020 Patient encounter procedure APARNA ANJEL Facility:[facility] Start: 05-06-2020 End: 05-06-2020 Patient encounter procedure APARNA ANJEL Facility:[facility] Start: 05-03-2020 End: 05-03-2020 Patient encounter procedure [...] 04-12-2020 End: 04-12-2020 Patient encounter procedure ABRAHAM JAMAL Facility:[facility] Start: 04-08-2020 End: 04-08-2020 Patient encounter procedure ABRAHAMBeryl BERRY Facility:[facility] Start: 04-05-2020 End: 04-05-2020 Patient [...] BERRY Payers Date Payer Category Payer Unknown [id number] 2.16.84 [id number] 1990 Unknown [id number] 2.16.84 0.1.521333.3.579.2.593 1988 Unknown [id number] 2.16.84 0.1.350236.3.579.2.593 1988 Unknown [id number] 2.16.84 0.1.863547.3.579.2.593 1988 Unknown [id number] 2.16.84 0.1.488659.3.579.2.593 1988 Unknown [id number] 2.16.84 0.1.598515.3.579.2.593 1988 Unknown [id number] 2.16.84 0.1.952674.3.579.2.593 1988 Unknown [id number] 2.16.84 0.1.124153.3.579.2.593 1988 Unknown [id number] 2.16.84 0.1.149181.3.579.2.593 1988 Unknown [id number] 2.16.84 0.1.812902.3.579.2.593 1988 Unknown [id number] 2.16.84 0.1.270911.3.579.2.593 1988 Unknown [id number] 2.16.84 0.1.904561.3.579.2.593 1988 Unknown [id number] 2.16.84 0.1.579392.3.579.2.593 1988 Unknown [id number] 2.16.84 0.1.628995.3.579.2.593 1988 Unknown [id number] 2.16.84 0.1.455174.3.579.2.593 1988 Unknown [id number] 2.16.84 0.1.982799.3.579.2.593 1988 Unknown [id number] 2.16.84 0.1.697818.3.579.2.593 1988 Unknown [id number] 2.16.84 0.1.898009.3.579.2.593 1988 Unknown [id number] 2.16.84 0.1.516890.3.579.2.593 1988 Unknown [id number] 2.16.8 40.1.235131.3.579.2.727 1988 Unknown [id number] 2.16.8 40.1.218521.3.579.2.1286 1988 Unknown [id number] 2.16.8 40.1.581542.3.579.2.1286 1988 Unknown [id number] 2.16.84 0.1.055067.3.579.2.1259 1988 Unknown [id number] 2.16.84 0.1.817211.3.579.2.1259 1988 Unknown [id number] 2.16.84 0.1.399847.3.579.2.1259 1988 Unknown [id number] 2.16.84 0.1.258711.3.579.2.1259 1988 Unknown [id number] 2.16.84 0.1.612720.3.579.2.1259 1959 Self-pay [id number] Self-pay 1959 Unknown [id number] Summary Purpose Family History No Family History Records FoundNo Family History Records FoundNo Family History Records FoundNo Family History Records Found Advance Directives No Advanced Directives Records FoundNo Advanced Directives Records FoundNo Advanced Directives Records FoundNo Advanced Directives Records Found Additional Source Comments INFORMATION SOURCE (unrecogn ized section and content) DATE CREATED AUTHOR 09/14/2020 [facility] DATE CREATED AUTHOR AUTHOR'S ORGANIZ ATION 10/27/2022 [facility] DATE CREATED AUTHOR AUTHOR'S ORGANIZ ATION 01/03/2024 [facility] DATE CREATED AUTHOR AUTHOR'S ORGANIZ ATION 03/30/2024 [facility] Specialists EPIC FOR RECORDS PERTAINING TO PATIENTS [...] BE BASED ON THE PRIMARY CLINICAL RECORDS. [facility]. provides no warranty or guarantee of the accuracy or completeness of information in this document.
== END 2024-04-02 10:00 | disposition home or self-care (01) ==
LOC: FBCO 06:57 → FBC 08:55
PROVIDERS: Visit Provider Obstetrics & Gynecology
DX: O24.419 Gestational diabetes mellitus in pregnancy, unspecified control (principal)
CPT/HCPCS: 59025

== ENCOUNTER 2024-04-06 06:49 | Outpatient (OUT) | payer OTHER, SELFPAY ==
--- NOTE | 2024-04-06 | US_ITS ---
[address] [address] Patient Name: ARLIN LUNDBERG MRN: [id number] date: 1990 Sex: F Assigned Patient Location: [facility] Current Patient Location: [facility] Accession/Order Number: [id number] Exam Date: 04/06/2024 11:00 Report Date: 04/06/2024 11:49 At the request of: APARNA HOBBS Procedure: US OB BPP w non-stress EXAMINATION: US OB BPP w non-stress HISTORY:GESTATIONAL DIABETES MELLITUS O24.419 COMPARISON: Ultrasound OB biophysical 03/30/2024 TECHNIQUE: Ultrasound biophysical profile was performed in the radiology department. BREATHING MOVEMENTS: 2 GROSS BODY MOVEMENTS: 2 TONE: 2 QUALITATIVE AMNIOTIC FLUID VOLUME: 2 PRESENTATION: CEPHALIC HEART RATE: 137.76 bpm AMNIOTIC FLUID VOLUME: 13.32 cm GESTATIONAL AGE: 34 weeks 6 days US/US OB BPP w non-stress IMPRESSION: Total biophysical profile score: 8 Electronically authenticated by: MARY RUIZ Date: 04/06/2024 11:49
--- OUTSIDE RECORDS SUMMARY | 2024-04-06 06:52 | XMS_ITS | CCD ---
Author Organization [facility] Care Team Providers Care Education Professional Name Role Phone ABRAHAM BERRY Attending Unavailable [...] Basophils (Bld) [#/Vol] 0.0 103/ul Normal 0.0-0.1 [facility] Comment on above: Performed By: #### C BC #### [facility] [address] [id number] Camelia Carmen Basophils/100 WBC (Bld) 0.1 % Critically low 0.2-2.0 [facility] Comment on above: Performed By: #### C BC #### [facility] [address] [phone] Camelia Carmen Eosinophils (Bld) [#/Vol] 0.1 103/ul Normal 0.0-0.7 [facility] Comment on above: Performed By: #### C BC #### [facility] [address] [place] [address] Camelia Carmen Eosinophils/100 WBC (Bld) 0.5 % Critically low 0.9-7.0 [facility] Comment on above: Performed By: #### C BC #### [facility] [address] [place], [place] [phone] Camelia Carmen Erythrocyte distribution width (RBC) [Ratio] 13.2 % Normal 11.0-15.0 [facility] Comment on above: Performed By: #### C BC #### [facility] [address] [place], [place] [phone] Camelia Carmen Hematocrit (Bld) [Volume fraction] 30.2 % Critically low 36.0-48.0 [facility] Comment on above: Performed By: #### C BC #### [facility] [address] [place], [place] [phone] Camelia Carmen Hemoglobin (Bld) [Mass/Vol] 10.0 g/dL Critically low 12.0-16.0 [facility] Comment on above: Performed By: #### C BC #### [facility] [address] [place], [place] [address] Camelia Carmen IG # 0.07 10e3/ul Critically high 0.00-0.03 [facility] Comment on above: Performed By: #### C BC #### [facility] [address] [phone] Camelia Carmen IG % 0.5 % Normal 0.0-0.5 [facility] Comment on above: Performed By: #### C BC #### [facility] [address] [place], [place] [phone] Camelia Carmen Lymphocytes (Bld) [#/Vol] 2.0 103/ul Normal 1.2-3.8 [facility] Comment on above: Performed By: #### C BC #### [facility] [address] [place], [place] [phone] Camelia Carmen Lymphocytes/100 WBC (Bld) 13.4 % Critically low 20.5-60.0 [facility] Comment on above: Performed By: #### C BC #### [facility] [address] [place], [place] [phone] Camelia Carmen MANUAL DIFF REQ NO Normal [facility] Comment on above: Performed By: #### C BC #### [facility] [address] [place], [place] [phone] Camelia Carmen MCH (RBC) [Entitic mass] 28.1 pg Normal 26.7-34.0 [facility] Comment on above: Performed By: #### C BC #### [facility] [address] [place], [place] [phone] Camelia Carmen MCHC (RBC) [Mass/Vol] 33.1 g/dL Normal 29.9-35.2 [facility] Comment on above: Performed By: #### C BC #### [facility] [address] [place], [place] [phone] Camelia Carmen MCV (RBC) [Entitic vol] 84.8 fL Normal 81.0-99.0 [facility] Comment on above: Performed By: #### C BC #### [facility] [address] [place], [place] [address] Camelia Carmen Monocytes (Bld) [#/Vol] 1.0 103/ul Critically high 0.3-0.8 [facility] Comment on above: Performed By: #### C BC #### [facility] [address] [place] [address] Camelia Carmen Monocytes/100 WBC (Bld) 7.0 % Normal 1.7-12.0 [facility] Comment on above: Performed By: #### C BC #### [facility] [address] [place], [place] [address] Camelia Carmen Neutrophils (Bld) [#/Vol] 11.6 103/ul Critically high 1.4-6.5 [facility] Comment on above: Performed By: #### C BC #### [facility] [address] [place], [place] [phone] Camelia Carmen Neutrophils/100 WBC (Bld) 78.5 % Critically high 43.0-75.0 [facility] Comment on above: Performed By: #### C BC #### [facility] [address] [place], [place] [phone] Camelia Carmen Platelet mean volume (Bld) [Entitic vol] 12.4 fL Normal 9.5-13.5 [facility] Comment on above: Performed By: #### C BC #### [facility] [address] [place] [address] Camelia Carmen Platelets (Bld) [#/Vol] 151 103/ul Normal 150-450 [facility] Comment on above: Performed By: #### C BC #### [facility] [address] [place] [address] Camelia Carmen RBC (Bld) [#/Vol] 3.56 106/ul Critically low 4.20-5.40 [facility] Comment on above: Performed By: #### C BC #### [facility] [address] [place] [address] Camelia Carmen WBC (Bld) [#/Vol] 14.7 103/ul Critically high 4.0-11.0 [facility] Comment on above: Performed By: #### C BC #### [facility] [address] [place] [address] Cameliaalanna Troyen POINT OF CARE GLUCOSEon 10 Glucose [Mass/Vol] 95 mg/dL Normal 74-106 [facility] Comment on above: Performed By: #### P OCGLUC ####[facility] [address] [place], [place] [address]Repdhi Carmen CBC AUTO DIFFon 05-11-2020 Basophils (Bld) [#/Vol] 0.0 103/ul Normal 0.0-0.1 [facility] Comment on above: Performed By: #### C BC #### [facility] [address] [phone] Camelia Carmen Basophils/100 WBC (Bld) 0.4 % Normal 0.2-2.0 [facility] Comment on above: Performed By: #### C BC #### [facility] [address] [phone] Camelia Carmen Eosinophils (Bld) [#/Vol] 0.1 103/ul Normal 0.0-0.7 [facility] Comment on above: Performed By: #### C BC #### [facility] [address] [address] Camelia Carmen Eosinophils/100 WBC (Bld) 0.7 % Critically low 0.9-7.0 [facility] Comment on above: Performed By: #### C BC #### [facility] [address] [place] [address] Camelia Carmen Erythrocyte distribution width (RBC) [Ratio] 13.2 % Normal 11.0-15.0 [facility] Comment on above: Performed By: #### C BC #### [facility] [address] [place] [address] Camelia Carmen Hematocrit (Bld) [Volume fraction] 36.2 % Normal 36.0-48.0 [facility] Comment on above: Performed By: #### C BC #### [facility] [address] [place], [place] [phone] Camelia Carmen Hemoglobin (Bld) [Mass/Vol] 12.2 g/dL Normal 12.0-16.0 [facility] Comment on above: Performed By: #### C BC #### [facility] [address] [place] [address] Camelia Carmen IG # 0.05 10e3/ul Critically high 0.00-0.03 [facility] Comment on above: Performed By: #### C BC #### [facility] [address] [place], [place] [address] Camelia Carmen IG % 0.6 % Critically high 0.0-0.5 [facility] Comment on above: Performed By: #### C BC #### [facility] [address] [place], [place] [phone] Camelia Carmen Lymphocytes (Bld) [#/Vol] 1.5 103/ul Normal 1.2-3.8 [facility] Comment on above: Performed By: #### C BC #### [facility] [address] [place], [place] [address] Camelia Carmen Lymphocytes/100 WBC (Bld) 18.3 % Critically low 20.5-60.0 [facility] Comment on above: Performed By: #### C BC #### [facility] [address] [place], [place] [address] Camelia Carmen MANUAL DIFF REQ NO Normal [facility] Comment on above: Performed By: #### C BC #### [facility] [address] [place], [place] [phone] Camelia Carmen MCH (RBC) [Entitic mass] 28.4 pg Normal 26.7-34.0 [facility] Comment on above: Performed By: #### C BC #### [facility] [address] [place], [place] [address] Cameliaalanna Morales MCHC (RBC) [Mass/Vol] 33.7 g/dL Normal 29.9-35.2 [facility] Comment on above: Performed By: #### C BC #### [facility] [address] [place], [place] [address] Camelia Carmen MCV (RBC) [Entitic vol] 84.4 fL Normal 81.0-99.0 [facility] Comment on above: Performed By: #### C BC #### [facility] [address] [place], [place] [address] Camelia Carmen Monocytes (Bld) [#/Vol] 0.4 103/ul Normal 0.3-0.8 [facility] Comment on above: Performed By: #### C BC #### [facility] [address] [place] [address] Camelia Carmen Monocytes/100 WBC (Bld) 4.4 % Normal 1.7-12.0 [facility] Comment on above: Performed By: #### C BC #### [facility] [address] [place], [place] [address] Camelia Carmen Neutrophils (Bld) [#/Vol] 6.2 103/ul Normal 1.4-6.5 [facility] Comment on above: Performed By: #### C BC #### [facility] [address] [place], [place] [address] Camelia Carmen Neutrophils/100 WBC (Bld) 75.6 % Critically high 43.0-75.0 [facility] Comment on above: Performed By: #### C BC #### [facility] [address] [place], [place] [address] Camelia Carmen Platelet mean volume (Bld) [Entitic vol] 12.0 fL Normal 9.5-13.5 [facility] Comment on above: Performed By: #### C BC #### [facility] [address] [place], [place] [address] Camelia Carmen Platelets (Bld) [#/Vol] 134 103/ul Critically low 150-450 [facility] Comment on above: Performed By: #### C BC #### [facility] [address] [place], [place] [address] Camelia Carmen RBC (Bld) [#/Vol] 4.29 106/ul Normal 4.20-5.40 [facility] Comment on above: Performed By: #### C BC #### [facility] [address] [place], [place] [address] Camelia Carmen WBC (Bld) [#/Vol] 8.3 103/ul Normal 4.0-11.0 [facility] Comment on above: Performed By: #### C BC #### [facility] [address] [place], [place] [phone] Camelia Carmen DRUG SCREEN RAPID (URINE)on 05-11-2020 AMP Negative Normal NEGATIVE [facility] Comment on above: Performed By: #### D RUGRPD #### [facility] [address] [place] [address] Camelia Carmen BAR Negative Normal NEGATIVE [facility] Comment on above: Performed By: #### D RUGRPD #### [facility] [address] [place] [address] Camelia Carmen BUP Negative Normal NEGATIVE [facility] Comment on above: Performed By: #### D RUGRPD #### [facility] [address] [place] [address] Camelia Carmen BZO Negative Normal NEGATIVE [facility] Comment on above: Performed By: #### D RUGRPD #### [facility] [address] [place] [address] Camelia Carmen SHERRELL Negative Normal NEGATIVE [facility] Comment on above: Performed By: #### D RUGRPD #### [facility] [address] [place] [address] Camelia Morales CUT-OFFS SEE BELOW Normal [facility] Comment on above: Result Comment: AMP [...] ng/mL Performed By: #### D RUGRPD #### [facility] [address] [place] [address] Camelia Carmen DRUG CUT HEADER DRUG CLASS TEST SYSTEM CUT-OFF CONCENTRATIONS ARE FOLLOWS: Normal [facility] Comment on above: Performed By: #### D RUGRPD #### [facility] [address] [address] Camelia Carmen mAMP Negative Normal NEGATIVE [facility] Comment on above: Performed By: #### D RUGRPD #### [facility] [address] [address] Camelia Carmen MTD Negative Normal NEGATIVE [facility] Comment on above: Performed By: #### D RUGRPD #### [facility] [address] [place] [address] Camelia Carmen OPI Negative Normal NEGATIVE [facility] Comment on above: Performed By: #### D RUGRPD #### [facility] [address] [place] [address] Camelia Carmen OXY Negative Normal NEGATIVE [facility] Comment on above: Performed By: #### D RUGRPD #### [facility] [address] [place] [address] Camelia Carmen PCP Negative Normal NEGATIVE [facility] Comment on above: Performed By: #### D RUGRPD #### [facility] [address] [place] [address] Camelia Carmen PPX Negative Normal NEGATIVE [facility] Comment on above: Performed By: #### D RUGRPD #### [facility] [address] [place] [address] Camelia Carmen TCA Negative Normal NEGATIVE [facility] Comment on above: Performed By: #### D RUGRPD #### [facility] [address] [place] [address] Camelia Carmen THC Negative Normal NEGATIVE [facility] Comment on above: Performed By: #### D RUGRPD #### [facility] [address] [place] [address] Camelia Carmen POINT OF CARE GLUCOSEon 04-27 Glucose [Mass/Vol] 92 mg/dL Normal 74-106 [facility] Comment on above: Performed By: #### P OCGLUC #### [facility] [address] [place] [address] Camelia Carmen Glucose [Mass/Vol] 95 mg/dL Normal 74-106 [facility] Comment on above: Performed By: #### P OCGLUC #### [facility] [address] [place], [place] [address] Camelia Morales Glucose [Mass/Vol] 165 mg/dL Critically high 74-106 [facility] Comment on above: Performed By: #### P OCGLUC ####[facility] [address] [place], [place] [address]NlsrudCamelia Morales TYPE AND SCREENon 05-11-2020 TYPE AND SCREEN Negative Normal [facility] Comment on above: Performed By: #### T NS ####[facility] [address] [place], [place] [address]QafuqnCamelia Morales US PREG BIOPHY W NON STRESSo [...] Latricia CERVANTES Date: 2020-05-10 17:09 Normal [facility] COVID-19 PCRon 05-05-2020 SARS-CoV-2, ERNESTINE Not Detected Normal Not Detected [facility] Comment on above: Result Comment: This nucleic acid amplification test was developed and its performance characteristics determined by [employer]. Nucleic acid amplification tests include PCR and [...] Performed By: #### C VDSTAT, CVDPCR #### [facility] [address] [place], [place] [address] Camelia Morales PRIORITY COVID PROCESSINGon 05-05-2020 Comment Comment Normal [facility] Comment on above: Result Comment: Rece ived Performed By: #### C VDSTAT, CVDPCR #### [facility] [address] [place], [place] [address] Camelia Morales US PREG BIOPHY W NON [...] BRAULIO MONTEZ Date: 2020-05-03 20:36 Normal [facility] US PREG BIOPHY W NON STRESSo [...] Latricia CERVANTES Date: 2020-04-26 17:44 Normal [facility] US PREG BIOPHY W NON STRESSo [...] GATITO DOUGHERTY Date: 2020-04-21 19:59 Normal [facility] GROUP B STREP CULTUREon 03-29 S. agalactiae Ag Ql (Unsp spec) Culture Observations: NEGATIVE FOR GROUP B STREPTOCOCCUS Normal [facility] Comment on above: Performed By: #### G BSCX ####[facility] [address] [id number] Morales US PREG BIOPHY W NON STRESSo [...] by: GATITO DOUGHERTY Date: 2020-04-19 19:00 Normal [facility] US PREG BIOPHY W NON STRESSo [...] Latricia CERVANTES Date: 2020-04-12 16:33 Normal [facility] US PREG GROWTHon 04-05-2020 US PREG [...] GATITO DOUGHERTY Date: 2020-04-05 17:39 Normal [facility] US PREG BIOPHY W NON STRESSo [...] Latricia CERVANTES Date: 2020-03-29 16:39 Normal [facility] Encounters Encounter Date Encounter Type Care [...] Start: 05-24-2021 End: 05-25-2021 ambulatory NAZANIN DURAN [place] Start: 05-24-2020 Patient encounter procedure APARNA ANJEL [...] BERRY Payers Date Payer Category Payer Unknown [id number] 2.16.84 [id number] 1988 Unknown [id number] 2.16.84 0.1.989478.3.579.2.593 1988 Unknown [id number] 2.16.84 0.1.426139.3.579.2.593 1988 Unknown [id number] 2.16.84 0.1.823157.3.579.2.593 1988 Unknown [id number] 2.16.84 0.1.759626.3.579.2.593 1988 Unknown [id number] 2.16.84 0.1.026440.3.579.2.593 1988 Unknown [id number] 2.16.84 0.1.194838.3.579.2.593 1988 Unknown [id number] 2.16.84 0.1.847810.3.579.2.593 1988 Unknown [id number] 2.16.84 0.1.151116.3.579.2.593 1988 Unknown [id number] 2.16.84 0.1.651399.3.579.2.593 1988 Unknown [id number] 2.16.84 0.1.241946.3.579.2.593 1988 Unknown [id number] 2.16.84 0.1.415591.3.579.2.593 1988 Unknown [id number] 2.16.84 0.1.484007.3.579.2.593 1988 Unknown [id number] 2.16.84 0.1.929637.3.579.2.593 1988 Unknown [id number] 2.16.84 0.1.003923.3.579.2.593 1988 Unknown [id number] 2.16.84 0.1.977966.3.579.2.593 1988 Unknown [id number] 2.16.84 0.1.170752.3.579.2.593 1988 Unknown [id number] 2.16.84 0.1.728201.3.579.2.593 1988 Unknown [id number] 2.16.84 0.1.203415.3.579.2.593 1988 Unknown [id number] 2.16.8 40.1.050271.3.579.2.727 1988 Unknown [id number] 2.16.8 40.1.283592.3.579.2.1286 1988 Unknown [id number] 2.16.8 40.1.238506.3.579.2.1286 1988 Unknown [id number] 2.16.84 0.1.712410.3.579.2.1259 1988 Unknown [id number] 2.16.84 0.1.328065.3.579.2.1259 1988 Unknown [id number] 2.16.84 0.1.982412.3.579.2.1259 1988 Unknown [id number] 2.16.84 0.1.534638.3.579.2.1259 1988 Unknown [id number] 2.16.84 0.1.734118.3.579.2.1259 1959 Self-pay [id number] Self-pay 1959 Unknown [id number] Summary Purpose Family History No Family History Records FoundNo Family History Records FoundNo Family History Records FoundNo Family History Records Found Advance Directives No Advanced Directives Records FoundNo Advanced Directives Records FoundNo Advanced Directives Records FoundNo Advanced Directives Records Found Additional Source Comments INFORMATION SOURCE (unrecogn ized section and content) DATE CREATED AUTHOR 09/14/2020 [facility] DATE CREATED AUTHOR AUTHOR'S ORGANIZ ATION 10/27/2022 [facility] DATE CREATED AUTHOR AUTHOR'S ORGANIZ ATION 01/03/2024 [facility] DATE CREATED AUTHOR AUTHOR'S ORGANIZ ATION 03/30/2024 [facility] [employer] EPIC FOR RECORDS PERTAINING TO PATIENTS [...] BE BASED ON THE PRIMARY CLINICAL RECORDS. [facility] [employer] [facility] provides no warranty or guarantee of the accuracy or completeness of information in this document.
[2024-04-06 11:19] VITALS: BP 139/78; PULSE 102
== END 2024-04-06 11:56 | disposition home or self-care (01) ==
LOC: US 06:49 → FBC 10:56
PROVIDERS: Visit Provider Obstetrics & Gynecology
DX: O24.419 Gestational diabetes mellitus in pregnancy, unspecified control (principal); Z3A.34 34 weeks gestation of pregnancy
CPT/HCPCS: 76818

== ENCOUNTER 2024-04-09 08:05 | Outpatient (OUT) | payer OTHER, SELFPAY ==
--- OUTSIDE RECORDS SUMMARY | 2024-04-09 08:27 | XMS_ITS | CCD ---
Author Organization [facility] Care Team Providers Care [employer] Name Role Phone ABRAHAM BERRY Attending Unavailable [...] Referring Unavailable MILLER, BOLA Attending Unavailable ANJEL, APRANA R Referring Unavailable ANJEL, APARNA Attending Unavailable [...] Basophils (Bld) [#/Vol] 0.0 103/ul Normal 0.0-0.1 [facility] Comment on above: Performed By: #### C BC #### [facility] [address] [id number] Camelia Carmen Basophils/100 WBC (Bld) 0.1 % Critically low 0.2-2.0 [facility] Comment on above: Performed By: #### C BC #### [facility] [address] [id number] Camelia Carmen Eosinophils (Bld) [#/Vol] 0.1 103/ul Normal 0.0-0.7 [facility] Comment on above: Performed By: #### C BC #### [facility] [address] [place] [address] Camelia Carmen Eosinophils/100 WBC (Bld) 0.5 % Critically low 0.9-7.0 [facility] Comment on above: Performed By: #### C BC #### [facility] [address] [place], [place] [address] Camelia Carmen Erythrocyte distribution width (RBC) [Ratio] 13.2 % Normal 11.0-15.0 [facility] Comment on above: Performed By: #### C BC #### [facility] [address] [place], [place] [address] Camelia Carmen Hematocrit (Bld) [Volume fraction] 30.2 % Critically low 36.0-48.0 [facility] Comment on above: Performed By: #### C BC #### [facility] [address] [place], [place] [address] Camelia Carmen Hemoglobin (Bld) [Mass/Vol] 10.0 g/dL Critically low 12.0-16.0 [facility] Comment on above: Performed By: #### C BC #### [facility] [address] [place], [place] [address] Camelia Carmen IG # 0.07 10e3/ul Critically high 0.00-0.03 [facility] Comment on above: Performed By: #### C BC #### [facility] [address] [id number] Camelia Carmen IG % 0.5 % Normal 0.0-0.5 [facility] Comment on above: Performed By: #### C BC #### [facility] [address] [place], [place] [address] Camelia Carmen Lymphocytes (Bld) [#/Vol] 2.0 103/ul Normal 1.2-3.8 [facility] Comment on above: Performed By: #### C BC #### [facility] [address] [place], [place] [address] Camelia Carmen Lymphocytes/100 WBC (Bld) 13.4 % Critically low 20.5-60.0 [facility] Comment on above: Performed By: #### C BC #### [facility] [address] [place], [place] [address] Camelia Carmen MANUAL DIFF REQ NO Normal [facility] Comment on above: Performed By: #### C BC #### [facility] [address] [place], [place] [address] Camelia Carmen MCH (RBC) [Entitic mass] 28.1 pg Normal 26.7-34.0 [facility] Comment on above: Performed By: #### C BC #### [facility] [address] [place], [place] [address] Camelia Carmen MCHC (RBC) [Mass/Vol] 33.1 g/dL Normal 29.9-35.2 [facility] Comment on above: Performed By: #### C BC #### [facility] [address] [place], [place] [address] Camelia Carmen MCV (RBC) [Entitic vol] 84.8 fL Normal 81.0-99.0 [facility] Comment on above: Performed By: #### C BC #### [facility] [address] [place], [place] [address] Camelia Carmen Monocytes (Bld) [#/Vol] 1.0 103/ul Critically high 0.3-0.8 [facility] Comment on above: Performed By: #### C BC #### [facility] [address] [place] [address] Camelia Carmen Monocytes/100 WBC (Bld) 7.0 % Normal 1.7-12.0 [facility] Comment on above: Performed By: #### C BC #### [facility] [address] [place], [place] [address] Camelia Carmen Neutrophils (Bld) [#/Vol] 11.6 103/ul Critically high 1.4-6.5 [facility] Comment on above: Performed By: #### C BC #### [facility] [address] [place], [place] [address] Camelia Carmen Neutrophils/100 WBC (Bld) 78.5 % Critically high 43.0-75.0 [facility] Comment on above: Performed By: #### C BC #### [facility] [address] [place], [place] [address] Camelia Carmen Platelet mean volume (Bld) [Entitic vol] 12.4 fL Normal 9.5-13.5 [facility] Comment on above: Performed By: #### C BC #### [facility] [address] [place] [address] Camelia Carmen Platelets (Bld) [#/Vol] 151 103/ul Normal 150-450 [facility] Comment on above: Performed By: #### C BC #### [facility] [address] [place] [address] Camelia Carmen RBC (Bld) [#/Vol] 3.56 106/ul Critically low 4.20-5.40 [facility] Comment on above: Performed By: #### C BC #### [facility] [address] [place] [address] Camelia Carmen WBC (Bld) [#/Vol] 14.7 103/ul Critically high 4.0-11.0 [facility] Comment on above: Performed By: #### C BC #### [facility] [address] [place] [address] Cameliaalanna Troyen POINT OF CARE GLUCOSEon 10 Glucose [Mass/Vol] 95 mg/dL Normal 74-106 [facility] Comment on above: Performed By: #### P OCGLUC ####[facility] [address] [place], [place] [address]Obhicn Carmen CBC AUTO DIFFon 05-11-2020 Basophils (Bld) [#/Vol] 0.0 103/ul Normal 0.0-0.1 [facility] Comment on above: Performed By: #### C BC #### [facility] [address] [id number] Camelia Carmen Basophils/100 WBC (Bld) 0.4 % Normal 0.2-2.0 [facility] Comment on above: Performed By: #### C BC #### [facility] [address] [id number] Camelia Carmen Eosinophils (Bld) [#/Vol] 0.1 103/ul Normal 0.0-0.7 [facility] Comment on above: Performed By: #### C BC #### [facility] [address] [address] Camelia Carmen Eosinophils/100 WBC (Bld) 0.7 % Critically low 0.9-7.0 [facility] Comment on above: Performed By: #### C BC #### [facility] [address] [place] [address] Camelia Carmen Erythrocyte distribution width (RBC) [Ratio] 13.2 % Normal 11.0-15.0 [facility] Comment on above: Performed By: #### C BC #### [facility] [address] [place] [address] Camelia Carmen Hematocrit (Bld) [Volume fraction] 36.2 % Normal 36.0-48.0 [facility] Comment on above: Performed By: #### C BC #### [facility] [address] [place], [place] [address] Camelia Carmen Hemoglobin (Bld) [Mass/Vol] 12.2 g/dL Normal 12.0-16.0 [facility] Comment on above: Performed By: #### C BC #### [facility] [address] [place] [address] Camelia Carmen IG # 0.05 10e3/ul Critically high 0.00-0.03 [facility] Comment on above: Performed By: #### C BC #### [facility] [address] [place], [place] [address] Camelia Carmen IG % 0.6 % Critically high 0.0-0.5 [facility] [place] [facility] Comment on above: Performed By: #### C BC #### [facility] [address] [place], [place] [address] Camelia Carmen Lymphocytes (Bld) [#/Vol] 1.5 103/ul Normal 1.2-3.8 [facility] Comment on above: Performed By: #### C BC #### [facility] [address] [place], [place] [address] Camelia Carmen Lymphocytes/100 WBC (Bld) 18.3 % Critically low 20.5-60.0 [facility] Comment on above: Performed By: #### C BC #### [facility] [address] [place], [place] [address] Camelia Carmen MANUAL DIFF REQ NO Normal [facility] [place] [facility] Comment on above: Performed By: #### C BC #### [facility] [address] [place], [place] [address] Camelia Carmen MCH (RBC) [Entitic mass] 28.4 pg Normal 26.7-34.0 [facility] Comment on above: Performed By: #### C BC #### [facility] [address] [place], [place] [address] Cameliaalanna Morales MCHC (RBC) [Mass/Vol] 33.7 g/dL Normal 29.9-35.2 [facility] Comment on above: Performed By: #### C BC #### [facility] [address] [place], [place] [address] Camelia Carmen MCV (RBC) [Entitic vol] 84.4 fL Normal 81.0-99.0 [facility] Comment on above: Performed By: #### C BC #### [facility] [address] [place], [place] [address] Camelia Carmen Monocytes (Bld) [#/Vol] 0.4 103/ul Normal 0.3-0.8 [facility] Comment on above: Performed By: #### C BC #### [facility] [address] [place] [address] Camelia Carmen Monocytes/100 WBC (Bld) 4.4 % Normal 1.7-12.0 [facility] Comment on above: Performed By: #### C BC #### [facility] [address] [place], [place] [address] Camelia Carmen Neutrophils (Bld) [#/Vol] 6.2 103/ul Normal 1.4-6.5 [facility] Comment on above: Performed By: #### C BC #### [facility] [address] [place], [place] [address] Camelia Carmen Neutrophils/100 WBC (Bld) 75.6 % Critically high 43.0-75.0 [facility] Comment on above: Performed By: #### C BC #### [facility] [address] [place], [place] [address] Camelia Carmen Platelet mean volume (Bld) [Entitic vol] 12.0 fL Normal 9.5-13.5 [facility] Comment on above: Performed By: #### C BC #### [facility] [address] [place], [place] [address] Camelia Carmen Platelets (Bld) [#/Vol] 134 103/ul Critically low 150-450 [facility] Comment on above: Performed By: #### C BC #### [facility] [address] [place], [place] [address] Camelia Carmen RBC (Bld) [#/Vol] 4.29 106/ul Normal 4.20-5.40 [facility] Comment on above: Performed By: #### C BC #### [facility] [address] [place], [place] [address] Camelia Carmen WBC (Bld) [#/Vol] 8.3 103/ul Normal 4.0-11.0 [facility] Comment on above: Performed By: #### C BC #### [facility] [address] [place], [place] [address] Camelia Carmen DRUG SCREEN RAPID (URINE)on 05-11-2020 AMP Negative Normal NEGATIVE [facility] Comment on above: Performed By: #### D RUGRPD #### [facility] [address] [place] [address] Camelia Carmen BAR Negative Normal NEGATIVE [facility] Comment on above: Performed By: #### D RUGRPD #### [facility] [address] [place] [address] Camelia Carmen BUP Negative Normal NEGATIVE [facility] Comment on above: Performed By: #### D RUGRPD #### [facility] [address] [place] [address] Camelia Carmen BZO Negative Normal NEGATIVE [facility] Comment on above: Performed By: #### D RUGRPD #### [facility] [address] [place] [address] Camelia Carmen SHERRELL Negative Normal NEGATIVE [facility] Comment on above: Performed By: #### D RUGRPD #### [facility] [address] [place] [address] Camelia Morales CUT-OFFS SEE BELOW Normal [facility] Comment on above: Result Comment: AMP (Amphetamine): [...] ng/mL Performed By: #### D RUGRPD #### [facility] [address] [place] [address] Camelia Carmen DRUG CUT HEADER DRUG CLASS TEST SYSTEM CUT-OFF CONCENTRATIONS ARE FOLLOWS: Normal [facility] Comment on above: Performed By: #### D RUGRPD #### [facility] [address] [address] Camelia Carmen mAMP Negative Normal NEGATIVE [facility] Comment on above: Performed By: #### D RUGRPD #### [facility] [address] [address] Camelia Carmen MTD Negative Normal NEGATIVE [facility] Comment on above: Performed By: #### D RUGRPD #### [facility] [address] [place] [address] Camelia Carmen OPI Negative Normal NEGATIVE [facility] Comment on above: Performed By: #### D RUGRPD #### [facility] [address] [place] [address] Camelia Carmen OXY Negative Normal NEGATIVE [facility] Comment on above: Performed By: #### D RUGRPD #### [facility] [address] [place] [address] Camelia Carmen PCP Negative Normal NEGATIVE [facility] Comment on above: Performed By: #### D RUGRPD #### [facility] [address] [place] [address] Camelia Carmen PPX Negative Normal NEGATIVE [facility] Comment on above: Performed By: #### D RUGRPD #### [facility] [address] [place] [address] Camelia Carmen TCA Negative Normal NEGATIVE [facility] Comment on above: Performed By: #### D RUGRPD #### [facility] [address] [place] [address] Camelia Carmen THC Negative Normal NEGATIVE [facility] Comment on above: Performed By: #### D RUGRPD #### [facility] [address] [place] [address] Camelia Carmen POINT OF CARE GLUCOSEon 04-27 Glucose [Mass/Vol] 92 mg/dL Normal 74-106 [facility] Comment on above: Performed By: #### P OCGLUC #### [facility] [address] [place] [address] Camelia Carmen Glucose [Mass/Vol] 95 mg/dL Normal 74-106 [facility] Comment on above: Performed By: #### P OCGLUC #### [facility] [address] [place], [place] [address] Camelia Morales Glucose [Mass/Vol] 165 mg/dL Critically high 74-106 [facility] [place] Comment on above: Performed By: #### P OCGLUC ####[facility] [address] [place], [place] [address]GmcnhoCamelia Morales TYPE AND SCREENon 05-11-2020 TYPE AND SCREEN Negative Normal [facility] Comment on above: Performed By: #### T NS ####[facility] [address] [place], [place] [address]GjvlzuCamelia Morales US PREG BIOPHY W NON STRESSo [...] Latricia CERVANTES Date: 2020-05-10 17:09 Normal [facility] COVID-19 PCRon 05-05-2020 SARS-CoV-2, ERNESTINE Not Detected Normal Not Detected [facility] Comment on above: Result Comment: This nucleic acid amplification test was developed and its performance characteristics determined by [employer]. Nucleic acid amplification tests include PCR and [...] Performed By: #### C VDSTAT, CVDPCR #### [facility] [address] [place], [place] [address] Camelia Morales PRIORITY COVID PROCESSINGon 05-05-2020 Comment Comment Normal [facility] Comment on above: Result Comment: Rece ived Performed By: #### C VDSTAT, CVDPCR #### [facility] [address] [place], [place] [address] Camelia Morales US PREG BIOPHY W NON [...] BRAULIO MONTEZ Date: 2020-05-03 20:36 Normal [facility] US PREG BIOPHY W NON STRESSo [...] Latricia CERVANTES Date: 2020-04-26 17:44 Normal [facility] US PREG BIOPHY W NON STRESSo [...] GATITO DOUGHERTY Date: 2020-04-21 19:59 Normal [facility] GROUP B STREP CULTUREon 03-29 S. agalactiae Ag Ql (Unsp spec) Culture Observations: NEGATIVE FOR GROUP B STREPTOCOCCUS Normal [facility] Comment on above: Performed By: #### G BSCX ####[facility] [address] [id number] Morales US PREG BIOPHY W NON STRESSo [...] by: GATITO DOUGHERTY Date: 2020-04-19 19:00 Normal [facility] US PREG BIOPHY W NON STRESSo n [...] Latricia CERVANTES Date: 2020-04-12 16:33 Normal [facility] US PREG GROWTHon 04-05-2020 US PREG [...] GATITO DOUGHERTY Date: 2020-04-05 17:39 Normal [facility] US PREG BIOPHY W NON STRESSo [...] Latricia CERVANTES Date: 2020-03-29 16:39 Normal [facility] Encounters Encounter Date Encounter Type Care [...] Start: 05-24-2021 End: 05-25-2021 ambulatory NAZANIN DURAN Facility[place] Start: 05-24-2020 Patient encounter procedure APARNA ANJEL [...] Start: 04-15-2020 End: 04-15-2020 Patient encounter procedure APARAN ANJEL Facility:[facility] Start: 04-12-2020 End: 04-12-2020 Patient [...] BERRY Payers Date Payer Category Payer Unknown [id number] 2.16.84 [id number] 1988 Unknown [id number] 2.16.84 0.1.910029.3.579.2.593 1988 Unknown [id number] 2.16.84 0.1.345104.3.579.2.593 1988 Unknown [id number] 2.16.84 0.1.069253.3.579.2.593 1988 Unknown [id number] 2.16.84 0.1.711301.3.579.2.593 1988 Unknown [id number] 2.16.84 0.1.365747.3.579.2.593 1988 Unknown [id number] 2.16.84 0.1.735983.3.579.2.593 1988 Unknown [id number] 2.16.84 0.1.410403.3.579.2.593 1988 Unknown [id number] 2.16.84 0.1.464479.3.579.2.593 1988 Unknown [id number] 2.16.84 0.1.373684.3.579.2.593 1988 Unknown [id number] 2.16.84 0.1.187356.3.579.2.593 1988 Unknown [id number] 2.16.84 0.1.226650.3.579.2.593 1988 Unknown [id number] 2.16.84 0.1.606709.3.579.2.593 1988 Unknown [id number] 2.16.84 0.1.278662.3.579.2.593 1988 Unknown [id number] 2.16.84 0.1.034209.3.579.2.593 1988 Unknown [id number] 2.16.84 0.1.286058.3.579.2.593 1988 Unknown [id number] 2.16.84 0.1.901290.3.579.2.593 1988 Unknown [id number] 2.16.84 0.1.561206.3.579.2.593 1988 Unknown [id number] 2.16.84 0.1.518282.3.579.2.593 1988 Unknown [id number] 2.16.8 40.1.613684.3.579.2.727 1988 Unknown [id number] 2.16.8 40.1.679213.3.579.2.1286 1988 Unknown [id number] 2.16.8 40.1.320774.3.579.2.1286 1988 Unknown [id number] 2.16.84 0.1.330803.3.579.2.1259 1988 Unknown [id number] 2.16.84 0.1.949904.3.579.2.1259 1988 Unknown [id number] 2.16.84 0.1.265721.3.579.2.1259 1988 Unknown [id number] 2.16.84 0.1.560055.3.579.2.1259 1988 Unknown [id number] 2.16.84 0.1.291214.3.579.2.1259 1959 Self-pay [id number] 1959 Self-pay 1959 Unknown [id number] Summary Purpose Family History No Family History Records FoundNo Family History Records FoundNo Family History Records FoundNo Family History Records Found Advance Directives No Advanced Directives Records FoundNo Advanced Directives Records FoundNo Advanced Directives Records FoundNo Advanced Directives Records Found Additional Source Comments INFORMATION SOURCE (unrecogn ized section and content) DATE CREATED AUTHOR 09/14/2020 [facility] DATE CREATED AUTHOR AUTHOR'S ORGANIZ ATION 10/27/2022 [facility] DATE CREATED AUTHOR AUTHOR'S ORGANIZ ATION 01/03/2024 [facility] DATE CREATED AUTHOR AUTHOR'S ORGANIZ ATION 03/30/2024 [facility] EPIC FOR RECORDS PERTAINING TO PATIENTS [...] BE BASED ON THE PRIMARY CLINICAL RECORDS. [facility] [employer] [facility]. provides no warranty or guarantee of the accuracy or completeness of information in this document.
[2024-04-09 09:02] VITALS: BP 148/82; PULSE 88
[2024-04-09 09:13] VITALS: BP 138/82; PULSE 102
[2024-04-09 09:23] VITALS: BP 142/81; PULSE 101
== END 2024-04-09 09:30 | disposition home or self-care (01) ==
LOC: FBCO 08:05 → FBC 08:55
PROVIDERS: Visit Provider Obstetrics & Gynecology
DX: O99.283 Endocrine, nutritional and metabolic diseases complicating pregnancy, third trimester (principal)
CPT/HCPCS: 59025

== ENCOUNTER 2024-04-13 07:03 | Outpatient (OUT) | payer OTHER, SELFPAY ==
--- OUTSIDE RECORDS SUMMARY | 2024-04-13 07:06 | XMS_ITS | CCD ---
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 Name Role Phone ABRAHAM BERRY Attending Unavailable [...] Basophils (Bld) [#/Vol] 0.0 103/ul Normal 0.0-0.1 [facility] Comment on above: Performed By: #### C BC #### [facility] [address] [id number] Camelia Carmen Basophils/100 WBC (Bld) 0.1 % Critically low 0.2-2.0 [facility] Comment on above: Performed By: #### C BC #### [facility] [address] [id number] Camelia Carmen Eosinophils (Bld) [#/Vol] 0.1 103/ul Normal 0.0-0.7 [facility] Comment on above: Performed By: #### C BC #### [facility] [address] [place] [address] Camelia Carmen Eosinophils/100 WBC (Bld) 0.5 % Critically low 0.9-7.0 [facility] Comment on above: Performed By: #### C BC #### [facility] [address] [place], [place] [id number] Camelia Carmen Erythrocyte distribution width (RBC) [Ratio] 13.2 % Normal 11.0-15.0 The [facility] Comment on above: Performed By: #### C BC #### [facility] [address] [place], [place] [id number] Camelia Carmen Hematocrit (Bld) [Volume fraction] 30.2 % Critically low 36.0-48.0 [facility] Comment on above: Performed By: #### C BC #### [facility] [address] [place], [place] [id number] Camelia Carmen Hemoglobin (Bld) [Mass/Vol] 10.0 g/dL Critically low 12.0-16.0 The [facility] Comment on above: Performed By: #### C BC #### [facility] [address] [place], [place] [address] Camelia Carmen IG # 0.07 10e3/ul Critically high 0.00-0.03 [facility] Comment on above: Performed By: #### C BC #### [facility] [address] [id number] Camelia Carmen IG % 0.5 % Normal 0.0-0.5 [facility] Comment on above: Performed By: #### C BC #### [facility] [address] [place], [place] [id number] Camelia Carmen Lymphocytes (Bld) [#/Vol] 2.0 103/ul Normal 1.2-3.8 The [facility] Comment on above: Performed By: #### C BC #### [facility] [address] [place], [place] [address] Camelia Carmen Lymphocytes/100 WBC (Bld) 13.4 % Critically low 20.5-60.0 [facility] Comment on above: Performed By: #### C BC #### [facility] [address] [place], [place] [address] Camelia Carmen MANUAL DIFF REQ NO Normal [facility] Comment on above: Performed By: #### C BC #### [facility] [address] [place], [place] [address] Camelia Carmen MCH (RBC) [Entitic mass] 28.1 pg Normal 26.7-34.0 The [facility] Comment on above: Performed By: #### C BC #### [facility] [address] [place], [place] [address] Camelia Carmen MCHC (RBC) [Mass/Vol] 33.1 g/dL Normal 29.9-35.2 The [facility] Comment on above: Performed By: #### C BC #### [facility] [address] [place], [place] [address] Camelia Carmen MCV (RBC) [Entitic vol] 84.8 fL Normal 81.0-99.0 The [facility] Comment on above: Performed By: #### C BC #### [facility] [address] [place], [place] [address] Camelia Carmen Monocytes (Bld) [#/Vol] 1.0 103/ul Critically high 0.3-0.8 The [facility] Comment on above: Performed By: #### C BC #### [facility] [address] [place] [address] Camelia Carmen Monocytes/100 WBC (Bld) 7.0 % Normal 1.7-12.0 [facility] Comment on above: Performed By: #### C BC #### [facility] [address] [place], [place] [address] Camelia Carmen Neutrophils (Bld) [#/Vol] 11.6 103/ul Critically high 1.4-6.5 [facility] Comment on above: Performed By: #### C BC #### [facility] [address] [place], [place] [address] Camelia Carmen Neutrophils/100 WBC (Bld) 78.5 % Critically high 43.0-75.0 [facility] Comment on above: Performed By: #### C BC #### [facility] [address] [place], [place] [address] Camelia Carmen Platelet mean volume (Bld) [Entitic vol] 12.4 fL Normal 9.5-13.5 [facility] Comment on above: Performed By: #### C BC #### [facility] [address] [place] [address] Camelia Carmen Platelets (Bld) [#/Vol] 151 103/ul Normal 150-450 [facility] Comment on above: Performed By: #### C BC #### [facility] [address] [place] [address] Camelia Carmen RBC (Bld) [#/Vol] 3.56 106/ul Critically low 4.20-5.40 [facility] Comment on above: Performed By: #### C BC #### [facility] [address] [place] [address] Camelia Carmen WBC (Bld) [#/Vol] 14.7 103/ul Critically high 4.0-11.0 [facility] Comment on above: Performed By: #### C BC #### [facility] [address] [place] [address] Cameliaalanna Troyen POINT OF CARE GLUCOSEon 10 Glucose [Mass/Vol] 95 mg/dL Normal 74-106 [facility] Comment on above: Performed By: #### P OCGLUC ####[facility] [address] [place], [place] [address]Oqdikn Carmen CBC AUTO DIFFon 05-11-2020 Basophils (Bld) [#/Vol] 0.0 103/ul Normal 0.0-0.1 [facility] Comment on above: Performed By: #### C BC #### [facility] [address] [id number] Camelia Carmen Basophils/100 WBC (Bld) 0.4 % Normal 0.2-2.0 [facility] Comment on above: Performed By: #### C BC #### [facility] [address] [phone] Camelia Carmen Eosinophils (Bld) [#/Vol] 0.1 103/ul Normal 0.0-0.7 [facility] Comment on above: Performed By: #### C BC #### [facility] [address] [address] Camelia Carmen Eosinophils/100 WBC (Bld) 0.7 % Critically low 0.9-7.0 [facility] Comment on above: Performed By: #### C BC #### [facility] [address] [place] [address] Camelia Carmen Erythrocyte distribution width (RBC) [Ratio] 13.2 % Normal 11.0-15.0 [facility] Comment on above: Performed By: #### C BC #### [facility] [address] [place] [address] Camelia Carmen Hematocrit (Bld) [Volume fraction] 36.2 % Normal 36.0-48.0 [facility] Comment on above: Performed By: #### C BC #### [facility] [address] [place], [place] [address] Camelia Carmen Hemoglobin (Bld) [Mass/Vol] 12.2 g/dL Normal 12.0-16.0 [facility] Comment on above: Performed By: #### C BC #### [facility] [address] [place] [address] Camelia Carmen IG # 0.05 10e3/ul Critically high 0.00-0.03 [facility] Comment on above: Performed By: #### C BC #### [facility] [address] [place], [place] [address] Camelia Carmen IG % 0.6 % Critically high 0.0-0.5 [facility] Comment on above: Performed By: #### C BC #### [facility] [address] [place], [place] [address] Camelia Carmen Lymphocytes (Bld) [#/Vol] 1.5 103/ul Normal 1.2-3.8 [facility] Comment on above: Performed By: #### C BC #### [facility] [address] [place], [place] [address] Camelia Carmen Lymphocytes/100 WBC (Bld) 18.3 % Critically low 20.5-60.0 [facility] Comment on above: Performed By: #### C BC #### [facility] [address] [place], [place] [address] Camelia Carmen MANUAL DIFF REQ NO Normal [facility] Comment on above: Performed By: #### C BC #### [facility] [address] [place], [place] [address] Camelia Carmen MCH (RBC) [Entitic mass] 28.4 pg Normal 26.7-34.0 [facility] Comment on above: Performed By: #### C BC #### [facility] [address] [place], [place] [address] Cameliaalanna Morales MCHC (RBC) [Mass/Vol] 33.7 g/dL Normal 29.9-35.2 [facility] Comment on above: Performed By: #### C BC #### [facility] [address] [place], [place] [address] Camelia Carmen MCV (RBC) [Entitic vol] 84.4 fL Normal 81.0-99.0 [facility] Comment on above: Performed By: #### C BC #### [facility] [address] [place], [place] [address] Camelia Carmen Monocytes (Bld) [#/Vol] 0.4 103/ul Normal 0.3-0.8 [facility] Comment on above: Performed By: #### C BC #### [facility] [address] [place] [address] Camelia Carmen Monocytes/100 WBC (Bld) 4.4 % Normal 1.7-12.0 [facility] Comment on above: Performed By: #### C BC #### [facility] [address] [place], [place] [address] Camelia Carmen Neutrophils (Bld) [#/Vol] 6.2 103/ul Normal 1.4-6.5 [facility] Comment on above: Performed By: #### C BC #### [facility] [address] [place], [place] [address] Camelia Carmen Neutrophils/100 WBC (Bld) 75.6 % Critically high 43.0-75.0 [facility] Comment on above: Performed By: #### C BC #### [facility] [address] [place], [place] [address] Camelia Carmen Platelet mean volume (Bld) [Entitic vol] 12.0 fL Normal 9.5-13.5 [facility] Comment on above: Performed By: #### C BC #### [facility] [address] [place], [place] [address] Camelia Carmen Platelets (Bld) [#/Vol] 134 103/ul Critically low 150-450 [facility] Comment on above: Performed By: #### C BC #### [facility] [address] [place], [place] [address] Camelia Carmen RBC (Bld) [#/Vol] 4.29 106/ul Normal 4.20-5.[address] [facility] Comment on above: Performed By: #### C BC #### [facility] [address] [place], [place] [address] Camelia Carmen WBC (Bld) [#/Vol] 8.3 103/ul Normal 4.0-11.0 [facility] Comment on above: Performed By: #### C BC #### [facility] [address] [place], [place] [address] Camelia Carmen DRUG SCREEN RAPID (URINE)on 05-11-2020 AMP Negative Normal NEGATIVE [facility] Comment on above: Performed By: #### D RUGRPD #### [facility] [address] [place] [address] Camelia Carmen BAR Negative Normal NEGATIVE The [facility] Comment on above: Performed By: #### D RUGRPD #### [facility] [address] [place] [address] Camelia Carmen BUP Negative Normal NEGATIVE The [facility] Comment on above: Performed By: #### D RUGRPD #### [facility] [address] [place] [address] Camelia Carmen BZO Negative Normal NEGATIVE The [facility] Comment on above: Performed By: #### D RUGRPD #### [facility] [address] [place] [address] Camelia Carmen SHERRELL Negative Normal NEGATIVE The [facility] Comment on above: Performed By: #### D RUGRPD #### [facility] [address] [place] [address] Camelia Morales CUT-OFFS SEE BELOW Normal [facility] Comment on above: Result Comment: AMP [...] ng/mL Performed By: #### D RUGRPD #### [facility] [address] [place] [address] Camelia Carmen DRUG CUT HEADER DRUG CLASS TEST SYSTEM CUT-OFF CONCENTRATIONS ARE FOLLOWS: Normal [facility] Comment on above: Performed By: #### D RUGRPD #### [facility] [address] [address] Camelia Carmen mAMP Negative Normal NEGATIVE The [facility] Comment on above: Performed By: #### D RUGRPD #### [facility] [address] [address] Camelia Carmen MTD Negative Normal NEGATIVE The [facility] Comment on above: Performed By: #### D RUGRPD #### [facility] [address] [place] [address] Camelia Carmen OPI Negative Normal NEGATIVE The [facility] Comment on above: Performed By: #### D RUGRPD #### [facility] [address] [place] [address] Camelia Carmen OXY Negative Normal NEGATIVE The [facility] Comment on above: Performed By: #### D RUGRPD #### [facility] [address] [place] [address] Camelia Carmen PCP Negative Normal NEGATIVE The [facility] Comment on above: Performed By: #### D RUGRPD #### [facility] [address] [place] [address] Camelia Carmen PPX Negative Normal NEGATIVE The [facility] Comment on above: Performed By: #### D RUGRPD #### [facility] [address] [place] [address] Camelia Carmen TCA Negative Normal NEGATIVE The [facility] Comment on above: Performed By: #### D RUGRPD #### [facility] [address] [place] [address] Camelia Carmne THC Negative Normal NEGATIVE The [facility] Comment on above: Performed By: #### D RUGRPD #### [facility] [address] [place] [address] Camelia Carmen POINT OF CARE GLUCOSEon 04-27 Glucose [Mass/Vol] 92 mg/dL Normal 74-106 [facility] Comment on above: Performed By: #### P OCGLUC #### [facility] [address] [place] [address] Camelia Carmen Glucose [Mass/Vol] 95 mg/dL Normal 74-106 [facility] Comment on above: Performed By: #### P OCGLUC #### [facility] [address] [place], [place] [address] Camelia Morales Glucose [Mass/Vol] 165 mg/dL Critically high 74-106 [facility] Comment on above: Performed By: #### P OCGLUC ####[facility] [address] [place], [place] [address]MradjzCamelia Morales TYPE AND SCREENon 05-11-2020 TYPE AND SCREEN Negative Normal [facility] Comment on above: Performed By: #### T NS ####[facility] [id number] [place], [place] [address]YmrdkwCamelia Morales US PREG BIOPHY W NON STRESSo [...] Latricia CERVANTES Date: 2020-05-10 17:09 Normal The [facility] COVID-19 PCRon 05-05-2020 SARS-CoV-2, ERNESTINE Not Detected Normal Not Detected [facility] Comment on above: Result Comment: This nucleic acid amplification test was developed and its performance characteristics determined by [employer]. Nucleic acid amplification tests include PCR and [...] Performed By: #### C VDSTAT, CVDPCR #### [facility] [address] [place], [place] [address] Camelia Morales PRIORITY COVID PROCESSINGon 05-05-2020 Comment Comment Normal [facility] Comment on above: Result Comment: Rece ived Performed By: #### C VDSTAT, CVDPCR #### [facility] [address] [place], [place] [address] Camelia Morales US PREG BIOPHY W NON [...] BRAULIO MONTEZ Date: 2020-05-03 20:36 Normal The [facility] US PREG BIOPHY W NON STRESSo n [...] Latricia CERVANTES Date: 2020-04-26 17:44 Normal The [facility] US PREG BIOPHY W NON STRESSo n [...] GATITO DOUGHERTY Date: 2020-04-21 19:59 Normal The [facility] GROUP B STREP CULTUREon 03-29 S. agalactiae Ag Ql (Unsp spec) Culture Observations: NEGATIVE FOR GROUP B STREPTOCOCCUS Normal The [facility] Comment on above: Performed By: #### G BSCX ####[facility] [id number] [id number] Morales US PREG BIOPHY W NON STRESSo [...] by: GATITO DOUGHERTY Date: 2020-04-19 19:00 Normal [facility] US PREG BIOPHY W NON STRESSo [...] Latricia CERVANTES Date: 2020-04-12 16:33 Normal The [facility] US PREG GROWTHon 04-05-2020 US PREG GROWTH [...] GATITO DOUGHERTY Date: 2020-04-05 17:39 Normal The [facility] US PREG BIOPHY W NON STRESSo n [...] Latricia CERVANTES Date: 2020-03-29 16:39 Normal The [facility] Encounters Encounter Date Encounter Type Care Provider [...] Start: 05-24-2021 End: 05-25-2021 ambulatory NAZANIN DURAN Facility:[facility] Start: 05-24-2020 Patient encounter procedure APARNA ANJEL [...] BERRY Payers Date Payer Category Payer Unknown [id number] 2.16.84 [id number] 1988 Unknown [id number] 2.16.84 [id number] 1988 Unknown [id number] 2.16.84 0.1.641613.3.579.2.593 1988 Unknown [id number] 2.16.84 0.1.758706.3.579.2.593 1988 Unknown [id number] 2.16.84 0.1.788869.3.579.2.593 1988 Unknown [id number] 2.16.84 0.1.657261.3.579.2.593 1988 Unknown [id number] 2.16.84 0.1.576923.3.579.2.593 1988 Unknown [id number] 2.16.84 0.1.481590.3.579.2.593 1988 Unknown [id number] 2.16.84 0.1.296559.3.579.2.593 1988 Unknown [id number] 2.16.84 0.1.120149.3.579.2.593 1988 Unknown [id number] 2.16.84 0.1.521106.3.579.2.593 1988 Unknown [id number] 2.16.84 0.1.636104.3.579.2.593 1988 Unknown [id number] 2.16.84 0.1.716690.3.579.2.593 1988 Unknown [id number] 2.16.84 0.1.937026.3.579.2.593 1988 Unknown [id number] 2.16.84 0.1.517916.3.579.2.593 1988 Unknown [id number] 2.16.84 0.1.454291.3.579.2.593 1988 Unknown [id number] 2.16.84 0.1.798695.3.579.2.593 1988 Unknown [id number] 2.16.84 0.1.080321.3.579.2.593 1988 Unknown [id number] 2.16.84 0.1.100204.3.579.2.593 1988 Unknown [id number] 2.16.8 40.1.873412.3.579.2.727 1988 Unknown [id number] 2.16.8 40.1.777689.3.579.2.1286 1988 Unknown [id number] 2.16.8 40.1.054385.3.579.2.1286 1988 Unknown [id number] 2.16.84 0.1.012643.3.579.2.1259 1988 Unknown [id number] 2.16.84 0.1.909850.3.579.2.1259 1988 Unknown [id number] 2.16.84 0.1.337455.3.579.2.1259 1988 Unknown [id number] 2.16.84 0.1.468250.3.579.2.1259 1988 Unknown [id number] 2.16.84 0.1.046148.3.579.2.1259 1959 Self-pay [id number] Self-pay 1959 Unknown [id number] Summary Purpose Family History No Family History Records FoundNo Family History Records FoundNo Family History Records FoundNo Family History Records Found Advance Directives No Advanced Directives Records FoundNo Advanced Directives Records FoundNo Advanced Directives Records FoundNo Advanced Directives Records Found Additional Source Comments INFORMATION SOURCE (unrecogn ized section and content) DATE CREATED AUTHOR 09/14/2020 [facility] DATE CREATED AUTHOR AUTHOR'S ORGANIZ ATION 10/27/2022 [facility] DATE CREATED AUTHOR AUTHOR'S ORGANIZ ATION 01/03/2024 [facility] DATE CREATED AUTHOR AUTHOR'S ORGANIZ ATION 03/30/2024 [facility] [employer] EPIC FOR RECORDS PERTAINING TO PATIENTS [...] BE BASED ON THE PRIMARY CLINICAL RECORDS. [facility] [employer] [facility]. provides no warranty or guarantee of the accuracy or completeness of information in this document.
[2024-04-13 10:35] VITALS: BP 134/87; PULSE 85
--- NOTE | 2024-04-13 10:36 | US_ITS ---
[address] [address] Patient Name: ARLIN LUNDBERG MRN: [facility]:[id number] date: 1990 Sex: F Assigned Patient Location: [facility] Current Patient Location: [facility] Accession/Order Number: [id number] Exam Date: 04/13/2024 10:45 Report Date: 04/13/2024 11:30 At the request of: APARNA HOBBS Procedure: US OB BPP w non-stress EXAMINATION: US OB BPP w non-stress HISTORY: Gestational diabetes mellitus O24.419 COMPARISON: No relevant comparison available. TECHNIQUE: Ultrasound biophysical profile was performed in the radiology department. non-reactive stress testing was performed by nursing staff in the birthing center. FINDINGS: BREATHING MOVEMENTS: 2 GROSS BODY MOVEMENTS: 2 TONE: 2 QUALITATIVE AMNIOTIC FLUID VOLUME: 2 PRESENTATION: CEPHALIC HEART RATE: 121.08 bpm AMNIOTIC FLUID VOLUME: 8.1 cm GESTATIONAL AGE: 35 weeks 6 days US/US OB BPP w non-stress IMPRESSION: Total biophysical profile score: 8 Electronically authenticated by: CAMELIA MENDEZ Date: 04/13/2024 11:30
== END 2024-04-13 11:25 | disposition home or self-care (01) ==
LOC: US 07:03 → FBC 10:29
PROVIDERS: Visit Provider Obstetrics & Gynecology
DX: O24.419 Gestational diabetes mellitus in pregnancy, unspecified control (principal); Z3A.35 35 weeks gestation of pregnancy
CPT/HCPCS: 76818

== ENCOUNTER 2024-04-13 20:29 | Outpatient (REF) | payer OTHER, SELFPAY ==
--- OUTSIDE RECORDS SUMMARY | 2024-04-13 20:32 | XMS_ITS | CCD ---
Author Organization [facility] Care Team Providers Care Cavalry Scout Name Role Phone ABRAHAM BERRY Attending Unavailable [...] Basophils (Bld) [#/Vol] 0.0 103/ul Normal 0.0-0.1 [facility] Comment on above: Performed By: #### C BC #### [facility] [address] [id number] Camelia Carmen Basophils/100 WBC (Bld) 0.1 % Critically low 0.2-2.0 [facility] Comment on above: Performed By: #### C BC #### [facility] [address] [id number] Camelia Carmen Eosinophils (Bld) [#/Vol] 0.1 103/ul Normal 0.0-0.7 [facility] Comment on above: Performed By: #### C BC #### [facility] [address] [place] [address] Camelia Carmen Eosinophils/100 WBC (Bld) 0.5 % Critically low 0.9-7.0 [facility] Comment on above: Performed By: #### C BC #### [facility] [address] [place], [place] [id number] Camelia Carmen Erythrocyte distribution width (RBC) [Ratio] 13.2 % Normal 11.0-15.0 [facility] Comment on above: Performed By: #### C BC #### [facility] [address] [place], [place] [address] Camelia Carmen Hematocrit (Bld) [Volume fraction] 30.2 % Critically low 36.0-48.0 [facility] Comment on above: Performed By: #### C BC #### [facility] [address] [place], [place] [id number] Camelia Carmen Hemoglobin (Bld) [Mass/Vol] 10.0 g/dL Critically low 12.0-16.0 [facility] Comment on above: Performed By: #### C BC #### [facility] [address] [place], [place] [address] Camelia Carmen IG # 0.07 10e3/ul Critically high 0.00-0.03 [facility] Comment on above: Performed By: #### C BC #### [facility] [address] [id number] Camelia Carmen IG % 0.5 % Normal 0.0-0.5 [facility] Comment on above: Performed By: #### C BC #### [facility] [address] [place], [place] [address] Camelia Carmen Lymphocytes (Bld) [#/Vol] 2.0 103/ul Normal 1.2-3.8 [facility] Comment on above: Performed By: #### C BC #### [facility] [address] [place], [place] [address] Camelia Carmen Lymphocytes/100 WBC (Bld) 13.4 % Critically low 20.5-60.0 [facility] Comment on above: Performed By: #### C BC #### [facility] [address] [place], [place] [address] Camelia Carmen MANUAL DIFF REQ NO Normal [facility] Comment on above: Performed By: #### C BC #### [facility] [address] [place], [place] [address] Camelia Carmen MCH (RBC) [Entitic mass] 28.1 pg Normal 26.7-34.0 [facility] Comment on above: Performed By: #### C BC #### [facility] [address] [place], [place] [address] Camelia Carmen MCHC (RBC) [Mass/Vol] 33.1 g/dL Normal 29.9-35.2 [facility] Comment on above: Performed By: #### C BC #### [facility] [address] [place], [place] [address] Camelia Carmen MCV (RBC) [Entitic vol] 84.8 fL Normal 81.0-99.0 [facility] Comment on above: Performed By: #### C BC #### [facility] [address] [place], [place] [address] Camelia Carmen Monocytes (Bld) [#/Vol] 1.0 103/ul Critically high 0.3-0.8 [facility] Comment on above: Performed By: #### C BC #### [facility] [address] [place] [address] Camelia Carmen Monocytes/100 WBC (Bld) 7.0 % Normal 1.7-12.0 [facility] Comment on above: Performed By: #### C BC #### [facility] [address] [place], [place] [address] Camelia Carmen Neutrophils (Bld) [#/Vol] 11.6 103/ul Critically high 1.4-6.5 [facility] Comment on above: Performed By: #### C BC #### [facility] [address] [place], [place] [address] Camelia Carmen Neutrophils/100 WBC (Bld) 78.5 % Critically high 43.0-75.0 [facility] Comment on above: Performed By: #### C BC #### [facility] [address] [place], [place] [address] Camelia Carmen Platelet mean volume (Bld) [Entitic vol] 12.4 fL Normal 9.5-13.5 [facility] Comment on above: Performed By: #### C BC #### [facility] [address] [place] [address] Camelia Carmen Platelets (Bld) [#/Vol] 151 103/ul Normal 150-450 [facility] Comment on above: Performed By: #### C BC #### [facility] [address] [place] [address] Camelia Carmen RBC (Bld) [#/Vol] 3.56 106/ul Critically low 4.20-5.40 [facility] Comment on above: Performed By: #### C BC #### [facility] [address] [place] [address] Camelia Carmen WBC (Bld) [#/Vol] 14.7 103/ul Critically high 4.0-11.0 [facility] Comment on above: Performed By: #### C BC #### [facility] [address] [place] [address] Cameliaalanna Troyen POINT OF CARE GLUCOSEon 10 Glucose [Mass/Vol] 95 mg/dL Normal 74-106 [facility] Comment on above: Performed By: #### P OCGLUC ####[facility] [id number] [place], [place] [address]Hujhda Carmen CBC AUTO DIFFon 05-11-2020 Basophils (Bld) [#/Vol] 0.0 103/ul Normal 0.0-0.1 [facility] Comment on above: Performed By: #### C BC #### [facility] [address] [id number] Camelia Carmen Basophils/100 WBC (Bld) 0.4 % Normal 0.2-2.0 [facility] Comment on above: Performed By: #### C BC #### [facility] [address] [id number] Camelia Carmen Eosinophils (Bld) [#/Vol] 0.1 103/ul Normal 0.0-0.7 [facility] Comment on above: Performed By: #### C BC #### [facility] [address] [address] Camelia Carmen Eosinophils/100 WBC (Bld) 0.7 % Critically low 0.9-7.0 [facility] Comment on above: Performed By: #### C BC #### [facility] [address] [place] [address] Camelia Carmen Erythrocyte distribution width (RBC) [Ratio] 13.2 % Normal 11.0-15.0 [facility] Comment on above: Performed By: #### C BC #### [facility] [address] [place] [address] Camelia Carmen Hematocrit (Bld) [Volume fraction] 36.2 % Normal 36.0-48.0 [facility] Comment on above: Performed By: #### C BC #### [facility] [address] [place], [place] [address] Camelia Carmen Hemoglobin (Bld) [Mass/Vol] 12.2 g/dL Normal 12.0-16.0 [facility] Comment on above: Performed By: #### C BC #### [facility] [address] [place] [address] Camelia Carmen IG # 0.05 10e3/ul Critically high 0.00-0.03 [facility] Comment on above: Performed By: #### C BC #### [facility] [address] [place], [place] [address] Camelia Carmen IG % 0.6 % Critically high 0.0-0.5 [facility] Comment on above: Performed By: #### C BC #### [facility] [address] [place], [place] [address] Camelia Carmen Lymphocytes (Bld) [#/Vol] 1.5 103/ul Normal 1.2-3.8 [facility] Comment on above: Performed By: #### C BC #### [facility] [address] [place], [place] [address] Camelia Carmen Lymphocytes/100 WBC (Bld) 18.3 % Critically low 20.5-60.0 [facility] Comment on above: Performed By: #### C BC #### [facility] [address] [place], [place] [address] Camelia Carmen MANUAL DIFF REQ NO Normal [facility] Comment on above: Performed By: #### C BC #### [facility] [address] [place], [place] [address] Camelia Carmen MCH (RBC) [Entitic mass] 28.4 pg Normal 26.7-34.0 [facility] Comment on above: Performed By: #### C BC #### [facility] [address] [place], [place] [address] Cameliaalanna Morales MCHC (RBC) [Mass/Vol] 33.7 g/dL Normal 29.9-35.2 [facility] Comment on above: Performed By: #### C BC #### [facility] [address] [place], [place] [address] Camelia Carmen MCV (RBC) [Entitic vol] 84.4 fL Normal 81.0-99.0 [facility] Comment on above: Performed By: #### C BC #### [facility] [address] [place], [place] [address] Camelia Carmen Monocytes (Bld) [#/Vol] 0.4 103/ul Normal 0.3-0.8 [facility] Comment on above: Performed By: #### C BC #### [facility] [address] [place] [address] Camelia Carmen Monocytes/100 WBC (Bld) 4.4 % Normal 1.7-12.0 [facility] Comment on above: Performed By: #### C BC #### [facility] [address] [place], [place] [address] Camelia Carmen Neutrophils (Bld) [#/Vol] 6.2 103/ul Normal 1.4-6.5 [facility] Comment on above: Performed By: #### C BC #### [facility] [address] [place], [place] [address] Camelia Carmen Neutrophils/100 WBC (Bld) 75.6 % Critically high 43.0-75.0 [facility] Comment on above: Performed By: #### C BC #### [facility] [address] [place], [place] [address] Camelia Carmen Platelet mean volume (Bld) [Entitic vol] 12.0 fL Normal 9.5-13.5 [facility] Comment on above: Performed By: #### C BC #### [facility] [address] [place], [place] [address] Camelia Carmen Platelets (Bld) [#/Vol] 134 103/ul Critically low 150-450 [facility] Comment on above: Performed By: #### C BC #### [facility] [address] [place], [place] [address] Camelia Carmen RBC (Bld) [#/Vol] 4.29 106/ul Normal 4.20-5.40 [facility] Comment on above: Performed By: #### C BC #### [facility] [address] [place], [place] [address] Camelia Carmen WBC (Bld) [#/Vol] 8.3 103/ul Normal 4.0-11.0 [facility] Comment on above: Performed By: #### C BC #### [facility] [address] [place], [place] [address] Camelia Carmen DRUG SCREEN RAPID (URINE)on 05-11-2020 AMP Negative Normal NEGATIVE [facility] Comment on above: Performed By: #### D RUGRPD #### [facility] [address] [place] [address] Camelia Carmen BAR Negative Normal NEGATIVE [facility] Comment on above: Performed By: #### D RUGRPD #### [facility] [address] [place] [address] Camelia Carmen BUP Negative Normal NEGATIVE [facility] Comment on above: Performed By: #### D RUGRPD #### [facility] [address] [place] [address] Camelia Carmen BZO Negative Normal NEGATIVE [facility] Comment on above: Performed By: #### D RUGRPD #### [facility] [address] [place] [address] Camelia Carmen SHERRELL Negative Normal NEGATIVE [facility] Comment on above: Performed By: #### D RUGRPD #### [facility] [address] [place] [address] Camelia Morales CUT-OFFS SEE BELOW Normal [facility] Comment on above: Result Comment: [...] ng/mL Performed By: #### D RUGRPD #### [facility] [address] [place] [address] Camelia Carmen DRUG CUT HEADER DRUG CLASS TEST SYSTEM CUT-OFF CONCENTRATIONS ARE FOLLOWS: Normal [facility] Comment on above: Performed By: #### D RUGRPD #### [facility] [address] [address] Camelia Carmen mAMP Negative Normal NEGATIVE [facility] Comment on above: Performed By: #### D RUGRPD #### [facility] [address] [address] Camelia Carmen MTD Negative Normal NEGATIVE [facility] Comment on above: Performed By: #### D RUGRPD #### [facility] [address] [place] [address] Camelia Carmen OPI Negative Normal NEGATIVE [facility] Comment on above: Performed By: #### D RUGRPD #### [facility] [address] [place] [address] Camelia Carmen OXY Negative Normal NEGATIVE [facility] Comment on above: Performed By: #### D RUGRPD #### [facility] [address] [place] [address] Camelia Carmen PCP Negative Normal NEGATIVE [facility] Comment on above: Performed By: #### D RUGRPD #### [facility] [address] [place] [address] Camelia Carmen PPX Negative Normal NEGATIVE [facility] Comment on above: Performed By: #### D RUGRPD #### [facility] [address] [place] [address] Camelia Carmen TCA Negative Normal NEGATIVE [facility] Comment on above: Performed By: #### D RUGRPD #### [facility] [address] [place] [address] Camelia Carmen THC Negative Normal NEGATIVE [facility] Comment on above: Performed By: #### D RUGRPD #### [facility] [address] [place] [address] Camelia Carmen POINT OF CARE GLUCOSEon 04-27 Glucose [Mass/Vol] 92 mg/dL Normal 74-106 [facility] Comment on above: Performed By: #### P OCGLUC #### [facility] [address] [place] [address] Camelia Carmen Glucose [Mass/Vol] 95 mg/dL Normal 74-106 [facility] Comment on above: Performed By: #### P OCGLUC #### [facility] [address] [place], [place] [address] Camelia Morales Glucose [Mass/Vol] 165 mg/dL Critically high 74-[address] [facility] Comment on above: Performed By: #### P OCGLUC ####[facility] [id number] [place], [place] [address]RkfjtcCamelia Morales TYPE AND SCREENon 05-11-2020 TYPE AND SCREEN Negative Normal [facility] Comment on above: Performed By: #### T NS ####[facility] [address] [place], [place] [address]UwnflaCamelia Morales US PREG BIOPHY W NON STRESSo [...] Latricia CERVANTES Date: 2020-05-10 17:09 Normal [facility] COVID-19 PCRon 05-05-2020 SARS-CoV-2, ERNESTINE Not Detected Normal Not Detected [facility] Comment on above: Result Comment: This nucleic acid amplification test was developed and its performance characteristics determined by [email or web address]. Nucleic acid amplification tests include PCR and [...] Performed By: #### C VDSTAT, CVDPCR #### [facility] [address] [place], [place] [address] Camelia Morales PRIORITY COVID PROCESSINGon 05-05-2020 Comment Comment Normal [facility] Comment on above: Result Comment: Rece ived Performed By: #### C VDSTAT, CVDPCR #### [facility] [address] [place], [place] [address] Camelia Morales US PREG BIOPHY W NON [...] BRAULIO MONTEZ Date: 2020-05-03 20:36 Normal [facility] US PREG BIOPHY W NON STRESSo n [...] Latricia CERVANTES Date: 2020-04-26 17:44 Normal [facility] US PREG BIOPHY W NON STRESSo n [...] GATITO DOUGHERTY Date: 2020-04-21 19:59 Normal [facility] GROUP B STREP CULTUREon 03-29 S. agalactiae Ag Ql (Unsp spec) Culture Observations: NEGATIVE FOR GROUP B STREPTOCOCCUS Normal [facility] Comment on above: Performed By: #### G BSCX ####[facility] [id number] [id number] Morales US PREG BIOPHY W NON STRESSo [...] by: GATITO DOUGHERTY Date: 2020-04-19 19:00 Normal [facility] US PREG BIOPHY W NON STRESSo n [...] Latricia CERVANTES Date: 2020-04-12 16:33 Normal [facility] US PREG GROWTHon 04-05-2020 US PREG GROWTH [...] GATITO DOUGHERTY Date: 2020-04-05 17:39 Normal [facility] US PREG BIOPHY W NON STRESSo n [...] Latricia CERVANTES Date: 2020-03-29 16:39 Normal [facility] Encounters Encounter Date Encounter Type Care Provider [...] Start: 05-24-2021 End: 05-25-2021 ambulatory NAZANIN DURAN Facility:[facility] Start: 05-24-2020 Patient encounter procedure APARNA [...] BERRY Payers Date Payer Category Payer Unknown [id number] 2.16.84 [id number] 1990 Unknown [id number] 2.16.84 0.1.820385.3.579.2.593 1990 Unknown [id number] 2.16.84 0.1.264632.3.579.2.593 1988 Unknown [id number] 2.16.84 0.1.098412.3.579.2.593 1988 Unknown [id number] 2.16.84 0.1.641903.3.579.2.593 1988 Unknown [id number] 2.16.84 0.1.882744.3.579.2.593 1988 Unknown [id number] 2.16.84 0.1.164199.3.579.2.593 1988 Unknown [id number] 2.16.84 0.1.106526.3.579.2.593 1988 Unknown [id number] 2.16.84 0.1.384237.3.579.2.593 1988 Unknown [id number] 2.16.84 0.1.549002.3.579.2.593 1988 Unknown [id number] 2.16.84 0.1.124837.3.579.2.593 1988 Unknown [id number] 2.16.84 0.1.731760.3.579.2.593 1988 Unknown [id number] 2.16.84 0.1.701090.3.579.2.593 1988 Unknown [id number] 2.16.84 0.1.354008.3.579.2.593 1988 Unknown [id number] 2.16.84 0.1.064553.3.579.2.593 1988 Unknown [id number] 2.16.84 0.1.842090.3.579.2.593 1988 Unknown [id number] 2.16.84 0.1.522528.3.579.2.593 1988 Unknown [id number] 2.16.84 0.1.064772.3.579.2.593 1988 Unknown [id number] 2.16.84 0.1.022165.3.579.2.593 1988 Unknown [id number] 2.16.8 40.1.504138.3.579.2.727 1988 Unknown [id number] 2.16.8 40.1.658105.3.579.2.1286 1988 Unknown [id number] 2.16.8 40.1.622608.3.579.2.1286 1988 Unknown [id number] 2.16.84 0.1.381999.3.579.2.1259 1988 Unknown [id number] 2.16.84 0.1.528475.3.579.2.1259 1988 Unknown [id number] 2.16.84 0.1.175530.3.579.2.1259 1988 Unknown [id number] 2.16.84 0.1.009910.3.579.2.1259 1988 Unknown [id number] 2.16.84 0.1.039907.3.579.2.1259 1959 Self-pay [id number] 1959 Self-pay 1961 Unknown [id number] Summary Purpose Family History No Family History Records FoundNo Family History Records FoundNo Family History Records FoundNo Family History Records Found Advance Directives No Advanced Directives Records FoundNo Advanced Directives Records FoundNo Advanced Directives Records FoundNo Advanced Directives Records Found Additional Source Comments INFORMATION SOURCE (unrecogn ized section and content) DATE CREATED AUTHOR 09/14/2020 [facility] DATE CREATED AUTHOR AUTHOR'S ORGANIZ ATION 10/27/2022 [facility] DATE CREATED AUTHOR AUTHOR'S ORGANIZ ATION 01/03/2024 [facility] DATE CREATED AUTHOR AUTHOR'S ORGANIZ ATION 03/30/[address] [facility] dictn Specialists EPIC FOR RECORDS PERTAINING TO PATIENTS [...] BE BASED ON THE PRIMARY CLINICAL RECORDS. [facility]. provides no warranty or guarantee of the accuracy or completeness of information in this document.
== END 2024-04-13 20:30 | disposition home or self-care (01) ==
LOC: LAB 20:29
PROVIDERS: Visit Provider Physician Assistant
DX: Z34.93 Encounter for supervision of normal pregnancy, unspecified, third trimester (principal)
CPT/HCPCS: 87081; 87150

== ENCOUNTER 2024-04-16 06:56 | Outpatient (OUT) | payer OTHER, SELFPAY ==
--- OUTSIDE RECORDS SUMMARY | 2024-04-16 06:59 | XMS_ITS | CCD ---
Author Organization [facility] Care Team Providers Care Tactical/Mobile Watch Officer Name Role Phone ABRAHAM BERRY Attending Unavailable [...] Unavailable REQUEST, NONE LISTED Primary Care Unavailable JAMEOSN AKHTAR Admitting Unavailable JAMESON AKHTAR Attending Unavailable JAMESON AKHTAR Consulting Unavailable ABRAHAM BERRY Consulting Unavailable JAMAL, ABRAHAM Attending Unavailable JAMAL, ABRAHAM Admitting Unavailable Policdonnie, Gatito Consulting Unavailable JAMAL, [...] Unavailable Latricia Cervantes Consulting Unavailable RENEE, NAZANIN T. Admitting Unavailable RENEE, NAZANIN Cazares Attending Unavailable ANJEL, APARNA R Referring Unavailable MILLER, BOLA Attending Unavailable ANJEL, APARNA R Referring Unavailable ANJEL, APARNA Attending Unavailable ANJEL, APARNA Attending Unavailable ANJEL, APARNA Attending Unavailable ANJEL, APARNA Attending Unavailable NORMAN, LOUIS Attending Unavailable Problems Active Problems Problem Classification [...] Basophils (Bld) [#/Vol] 0.0 103/ul Normal 0.0-0.1 [facility] Comment on above: Performed By: #### C BC #### [facility] [address] [id number] Camelia Carmen Basophils/100 WBC (Bld) 0.1 % Critically low 0.2-2.0 [facility] Comment on above: Performed By: #### C BC #### [facility] [address] [place] [address] Camelia Carmen Eosinophils (Bld) [#/Vol] 0.1 103/ul Normal 0.0-0.7 [facility] Comment on above: Performed By: #### C BC #### [facility] [address] [place] [address] Camelia Carmen Eosinophils/100 WBC (Bld) 0.5 % Critically low 0.9-7.0 [facility] Comment on above: Performed By: #### C BC #### [facility] [address] [place] [address] Camelia Carmen Erythrocyte distribution width (RBC) [Ratio] 13.2 % Normal 11.0-15.0 [facility] Comment on above: Performed By: #### C BC #### [facility] [address] [place] [address] Camelia Carmen Hematocrit (Bld) [Volume fraction] 30.2 % Critically low 36.0-48.0 [facility] Comment on above: Performed By: #### C BC #### [facility] [address] [place], [place] [id number] Camelia Carmen Hemoglobin (Bld) [Mass/Vol] 10.0 g/dL Critically low 12.0-16.0 [facility] Comment on above: Performed By: #### C BC #### [facility] [address] [place] [address] Camelia Carmen IG # 0.07 10e3/ul Critically high 0.00-0.03 [facility] Comment on above: Performed By: #### C BC #### [facility] [address] [id number] Camelia Carmen IG % 0.5 % Normal 0.0-0.5 [facility] Comment on above: Performed By: #### C BC #### [facility] [address] [id number] Camelia Carmen Lymphocytes (Bld) [#/Vol] 2.0 103/ul Normal 1.2-3.8 [facility] Comment on above: Performed By: #### C BC #### [facility] [address] [place], [place] [id number] Camelia Carmen Lymphocytes/100 WBC (Bld) 13.4 % Critically low 20.5-60.0 [facility] Comment on above: Performed By: #### C BC #### [facility] [address] [place], [place] [phone] Camelia Carmen MANUAL DIFF REQ NO Normal [facility] Comment on above: Performed By: #### C BC #### [facility] [address] [place], [place] [phone] Camelia Carmen MCH (RBC) [Entitic mass] 28.1 pg Normal 26.7-34.0 [facility] Comment on above: Performed By: #### C BC #### [facility] [address] [place], [place] [phone] Camelia Carmen MCHC (RBC) [Mass/Vol] 33.1 g/dL Normal 29.9-35.2 [facility] Comment on above: Performed By: #### C BC #### [facility] [address] [place], [place] [phone] Camelia Carmen MCV (RBC) [Entitic vol] 84.8 fL Normal 81.0-99.0 [facility] Comment on above: Performed By: #### C BC #### [facility] [address] [place], [place] [phone] Camelia Carmen Monocytes (Bld) [#/Vol] 1.0 103/ul Critically high 0.3-0.8 [facility] Comment on above: Performed By: #### C BC #### [facility] [address] [place], [place] [address] Camelia Carmen Monocytes/100 WBC (Bld) 7.0 % Normal 1.7-12.0 [facility] Comment on above: Performed By: #### C BC #### [facility] [address] [place], [place] [address] Camelia Carmen Neutrophils (Bld) [#/Vol] 11.6 103/ul Critically high 1.4-6.5 [facility] Comment on above: Performed By: #### C BC #### [facility] [address] [place], [place] [address] Camelia Carmen Neutrophils/100 WBC (Bld) 78.5 % Critically high 43.0-75.0 [facility] Comment on above: Performed By: #### C BC #### [facility] [address] [place] [address] Camelia Carmen Platelet mean volume (Bld) [Entitic vol] 12.4 fL Normal 9.5-13.5 [facility] Comment on above: Performed By: #### C BC #### [facility] [address] [place] [address] Camelia Carmen Platelets (Bld) [#/Vol] 151 103/ul Normal 150-450 [facility] Comment on above: Performed By: #### C BC #### [facility] [address] [place] [address] Camelia Carmen RBC (Bld) [#/Vol] 3.56 106/ul Critically low 4.20-5.40 [facility] Comment on above: Performed By: #### C BC #### [facility] [address] [place] [address] Camelia Carmen WBC (Bld) [#/Vol] 14.7 103/ul Critically high 4.0-11.0 [facility] Comment on above: Performed By: #### C BC #### [facility] [address] [place] [address] Camelia Carmen POINT OF CARE GLUCOSEon 04-27 Glucose [Mass/Vol] 95 mg/dL Normal 74-106 [facility] Comment on above: Performed By: #### P OCGLUC ####[facility] [id number] [place], [place] [address]Gxiwbp Carmen CBC AUTO DIFFon 05-11-2020 Basophils (Bld) [#/Vol] 0.0 103/ul Normal 0.0-0.1 [facility] Comment on above: Performed By: #### C BC #### [facility] [address] [phone] Camelia Carmen Basophils/100 WBC (Bld) 0.4 % Normal 0.2-2.0 [facility] Comment on above: Performed By: #### C BC #### [facility] [address] [phone] Camelia Carmen Eosinophils (Bld) [#/Vol] 0.1 103/ul Normal 0.0-0.7 [facility] Comment on above: Performed By: #### C BC #### [facility] [address] [place] [address] Camelia Carmen Eosinophils/100 WBC (Bld) 0.7 % Critically low 0.9-7.0 [facility] Comment on above: Performed By: #### C BC #### [facility] [address] [place], [place] [phone] Camelia Carmen Erythrocyte distribution width (RBC) [Ratio] 13.2 % Normal 11.0-15.0 [facility] Comment on above: Performed By: #### C BC #### [facility] [address] [place], [place] [phone] Camelia Carmen Hematocrit (Bld) [Volume fraction] 36.2 % Normal 36.0-48.0 [facility] Comment on above: Performed By: #### C BC #### [facility] [address] [place], [place] [phone] Camelia Carmen Hemoglobin (Bld) [Mass/Vol] 12.2 g/dL Normal 12.0-16.0 [facility] Comment on above: Performed By: #### C BC #### [facility] [address] [place] [address] Camelia Carmen IG # 0.05 10e3/ul Critically high 0.00-0.03 [facility] Comment on above: Performed By: #### C BC #### [facility] [address] [place], [place] [phone] Cameliaalanna Morales IG % 0.6 % Critically high 0.0-0.5 [facility] Comment on above: Performed By: #### C BC #### [facility] [address] [place] [address] Camelia Carmen Lymphocytes (Bld) [#/Vol] 1.5 103/ul Normal 1.2-3.8 The [facility] Comment on above: Performed By: #### C BC #### [facility] [address] [place] [address] Camelia Morales Lymphocytes/100 WBC (Bld) 18.3 % Critically low 20.5-60.0 [facility] Comment on above: Performed By: #### C BC #### [facility] [address] [place] [address] Camelia Morales MANUAL DIFF REQ NO Normal [facility] Comment on above: Performed By: #### C BC #### [facility] [address] [place], [place] [phone] Camelia Morales MCH (RBC) [Entitic mass] 28.4 pg Normal 26.7-34.0 [facility] Comment on above: Performed By: #### C BC #### [facility] [address] [place] [address] Camelia Morales MCHC (RBC) [Mass/Vol] 33.7 g/dL Normal 29.9-35.2 [facility] Comment on above: Performed By: #### C BC #### [facility] [address] [place], [place] [phone] Cameliaalanna Morales MCV (RBC) [Entitic vol] 84.4 fL Normal 81.0-99.0 [facility] Comment on above: Performed By: #### C BC #### [facility] [address] [place], [place] [address] Cameliaalanna Morales Monocytes (Bld) [#/Vol] 0.4 103/ul Normal 0.3-0.8 [facility] Comment on above: Performed By: #### C BC #### [facility] [address] [place], [place] [address] Camelia Carmen Monocytes/100 WBC (Bld) 4.4 % Normal 1.7-12.0 [facility] Comment on above: Performed By: #### C BC #### [facility] [address] [place], [place] [address] Camelia Carmen Neutrophils (Bld) [#/Vol] 6.2 103/ul Normal 1.4-6.5 [facility] Comment on above: Performed By: #### C BC #### [facility] [address] [place], [place] [address] Camelia Carmen Neutrophils/100 WBC (Bld) 75.6 % Critically high 43.0-75.0 [facility] Comment on above: Performed By: #### C BC #### [facility] [address] [place], [place] [address] Camelia Carmen Platelet mean volume (Bld) [Entitic vol] 12.0 fL Normal 9.5-13.5 [facility] Comment on above: Performed By: #### C BC #### [facility] [address] [place], [place] [address] Camelia Carmen Platelets (Bld) [#/Vol] 134 103/ul Critically low 150-450 The [facility] Comment on above: Performed By: #### C BC #### [facility] [address] [place], [place] [address] Camelia Carmen RBC (Bld) [#/Vol] 4.29 106/ul Normal 4.20-5.40 [facility] Comment on above: Performed By: #### C BC #### [facility] [address] [place], [place] [address] Camelia Carmen WBC (Bld) [#/Vol] 8.3 103/ul Normal 4.0-11.0 The [facility] Comment on above: Performed By: #### C BC #### [facility] [address] [place], [place] [phone] Camelia Carmen DRUG SCREEN RAPID (URINE)on 05-11-2020 AMP Negative Normal NEGATIVE The [facility] Comment on above: Performed By: #### D RUGRPD #### [facility] [address] [place] [address] Camelia Carmen BAR Negative Normal NEGATIVE The [facility] Comment on above: Performed By: #### D RUGRPD #### [facility] [address] [place] [address] Camelia Carmen BUP Negative Normal NEGATIVE The [facility] Comment on above: Performed By: #### D RUGRPD #### [facility] [address] [place] [address] [facility] BZO Negative Normal NEGATIVE The [facility] Comment on above: Performed By: #### D RUGRPD #### [facility] [address] [place] [address] Camelia Carmen SHERRELL Negative Normal NEGATIVE The [facility] Comment on above: Performed By: #### D RUGRPD #### [facility] [address] [place], [place] [address] CUT-OFFS SEE BELOW Normal [facility] Comment on above: Result Comment: AMP [...] ng/mL Performed By: #### D RUGRPD #### [facility] [address] [place] [address] DRUG CUT HEADER DRUG CLASS TEST SYSTEM CUT-OFF CONCENTRATIONS ARE FOLLOWS: Normal [facility] Comment on above: Performed By: #### D RUGRPD #### [facility] [address] [address] Camelia Carmen mAMP Negative Normal NEGATIVE The [facility] Comment on above: Performed By: #### D RUGRPD #### [facility] [address] [phone] Camelia Carmen MTD Negative Normal NEGATIVE The [facility] Comment on above: Performed By: #### D RUGRPD #### [facility] [address] [address] Camelia Carmen OPI Negative Normal NEGATIVE The [facility] Comment on above: Performed By: #### D RUGRPD #### [facility] [address] [place] [address] Camelia Carmen OXY Negative Normal NEGATIVE The [facility] Comment on above: Performed By: #### D RUGRPD #### [facility] [address] [place] [address] Camelia Carmen PCP Negative Normal NEGATIVE The [facility] Comment on above: Performed By: #### D RUGRPD #### [facility] [address] [place] [address] Camelia Carmen PPX Negative Normal NEGATIVE The [facility] Comment on above: Performed By: #### D RUGRPD #### [facility] [address] [place] [address] Camelia Carmen TCA Negative Normal NEGATIVE The [facility] Comment on above: Performed By: #### D RUGRPD #### [facility] [address] [place] [address] Camelia Carmen THC Negative Normal NEGATIVE The [facility] Comment on above: Performed By: #### D RUGRPD #### [facility] [address] [place] [address] Camelia Carmen POINT OF CARE GLUCOSEon 04-27 Glucose [Mass/Vol] 92 mg/dL Normal 74-106 [facility] Comment on above: Performed By: #### P OCGLUC #### [facility] [address] [place] [address] Camelia Carmen Glucose [Mass/Vol] 95 mg/dL Normal 74-106 [facility] Comment on above: Performed By: #### P OCGLUC #### [facility] [address] [place], [place] [address] Camelia Morales Glucose [Mass/Vol] 165 mg/dL Critically high 74-106 T [facility] Comment on above: Performed By: #### P OCGLUC ####[facility] [id number] [place], [place] [address]BoljvlCamelia Morales TYPE AND SCREENon 05-11-2020 TYPE AND SCREEN Negative Normal [facility] Comment on above: Performed By: #### T NS ####[facility] [address] [place], [place] [address]BvpeynCamelia Morales US PREG BIOPHY W NON STRESSo [...] Latricia CERVANTES Date: 2020-05-10 17:09 Normal The [facility] COVID-19 PCRon 05-05-2020 SARS-CoV-2, ERNESTINE Not Detected Normal Not Detected The [facility] Comment on above: Result Comment: This nucleic acid amplification test was developed and its performance characteristics determined by [employer]. Nucleic acid amplification tests include PCR and [...] Performed By: #### C VDSTAT, CVDPCR #### [facility] [address] [id number] Camelia Morales PRIORITY COVID PROCESSINGon 05-05-2020 Comment Comment Normal The [facility] Comment on above: Result Comment: Rece ived Performed By: #### C VDSTAT, CVDPCR #### [facility] [address] [id number] Camelia Morales US PREG BIOPHY W NON [...] BRAULIO MONTEZ Date: 2020-05-03 20:36 Normal The [facility] US PREG BIOPHY W NON STRESSo n [...] Latricia CERVANTES Date: 2020-04-26 17:44 Normal The [facility] US PREG BIOPHY W NON STRESSo n [...] GATITO DOUGHERTY Date: 2020-04-21 19:59 Normal The [facility] GROUP B STREP CULTUREon 03-29 S. agalactiae Ag Ql (Unsp spec) Culture Observations: NEGATIVE FOR GROUP B STREPTOCOCCUS Normal The [facility] Comment on above: Performed By: #### G BSCX ####[facility] [id number] Carm[place] US PREG BIOPHY W NON STRESSo n [...] by: GATITO DOUGHERTY Date: 2020-04-19 19:00 Normal [facility] US PREG BIOPHY W NON STRESSo [...] Latricia CERVANTES Date: 2020-04-12 16:33 Normal The [facility] US PREG GROWTHon 04-05-2020 US PREG GROWTH [...] GATITO DOUGHERTY Date: 2020-04-05 17:39 Normal The [facility] US PREG BIOPHY W NON STRESSo n [...] Latricia CERVANTES Date: 2020-03-29 16:39 Normal The [facility] Encounters Encounter Date Encounter Type Care Provider Facility Start: 04-13-2024 End: 04-13-2024 ambulatory LOUIS NORMAN Not Available Start: 03-30-2024 End: 03-30-2024 ambulatory APARNA ANJEL [...] Start: 05-24-2021 End: 05-25-2021 ambulatory NAZANIN DURAN Facility:[facility] Start: 05-24-2020 Patient encounter procedure APARNA ANEJL Facility: Start: 05-16-2020 End: 05-16-2020 Patient encounter procedure APARNA ANJEL Facility: Start: 05-11-2020 End: 05-13-2020 Evaluation and management of inpatient APARNA ANJEL Facility:[facility] Start: 05-10-2020 End: 05-10-2020 Patient encounter procedure [...] 04-21-2020 End: 04-21-2020 Patient encounter procedure ABRAHAM JAMAL Facility:[facility] Start: 04-19-2020 End: 04-19-2020 Patient encounter procedure APARNABurak GARRETTO Facility:[facility] Start: 04-15-2020 End: 04-15-2020 Patient encounter procedure APARNA GARRETTO Facility:[facility] Start: 04-12-2020 End: 04-12-2020 Patient encounter [...] BERRY Payers Date Payer Category Payer Unknown [id number] 2.16.84 [id number] 1990 Unknown [id number] 2.16.84 0.1.772505.3.579.2.593 1988 Unknown [id number] 2.16.84 0.1.780262.3.579.2.593 1988 Unknown [id number] 2.16.84 0.1.543591.3.579.2.593 1988 Unknown [id number] 2.16.84 0.1.402022.3.579.2.593 1988 Unknown [id number] 2.16.84 0.1.779144.3.579.2.593 1988 Unknown [id number] 2.16.84 0.1.871184.3.579.2.593 1988 Unknown [id number] 2.16.84 0.1.390784.3.579.2.593 1988 Unknown [id number] 2.16.84 0.1.415293.3.579.2.593 1988 Unknown [id number] 2.16.84 0.1.074929.3.579.2.593 1988 Unknown [id number] 2.16.84 0.1.642996.3.579.2.593 1988 Unknown [id number] 2.16.84 0.1.149045.3.579.2.593 1988 Unknown [id number] 2.16.84 0.1.107968.3.579.2.593 1988 Unknown [id number] 2.16.84 0.1.028370.3.579.2.593 1988 Unknown [id number] 2.16.84 0.1.836262.3.579.2.593 1988 Unknown [id number] 2.16.84 0.1.343547.3.579.2.593 1988 Unknown [id number] 2.16.84 0.1.757531.3.579.2.593 1988 Unknown [id number] 2.16.84 0.1.880833.3.579.2.593 1988 Unknown [id number] 2.16.84 0.1.587799.3.579.2.593 1988 Unknown [id number] 2.16.8 40.1.988265.3.579.2.727 1988 Unknown [id number] 2.16.8 40.1.781395.3.579.2.1286 1988 Unknown [id number] 2.16.8 40.1.398349.3.579.2.1286 1988 Unknown [id number] 2.16.84 0.1.263901.3.579.2.1259 1988 Unknown [id number] 2.16.84 0.1.297235.3.579.2.1259 1988 Unknown [id number] 2.16.84 0.1.784796.3.579.2.1259 1988 Unknown [id number] 2.16.84 0.1.688830.3.579.2.1259 1988 Unknown [id number] 2.16.84 0.1.674427.3.579.2.1259 1988 Unknown [id number] 2.16.84 0.1.979022.3.579.2.1259 1959 Self-pay [id number] Self-pay 1959 Unknown [id number] Summary Purpose Family History No Family History Records FoundNo Family History Records FoundNo Family History Records FoundNo Family History Records Found Advance Directives No Advanced Directives Records FoundNo Advanced Directives Records FoundNo Advanced Directives Records FoundNo Advanced Directives Records Found Additional Source Comments INFORMATION SOURCE (unrecogn ized section and content) DATE CREATED AUTHOR 09/14/2020 [facility] DATE CREATED AUTHOR AUTHOR'S ORGANIZ ATION 10/27/2022 [facility] DATE CREATED AUTHOR AUTHOR'S ORGANIZ ATION 01/03/2024 [facility] DATE CREATED AUTHOR AUTHOR'S SHUN LANTIGUA 04/15/2024 [facility] EPIC FOR RECORDS PERTAINING TO [...] BE BASED ON THE PRIMARY CLINICAL RECORDS. [facility] [employer], [facility]. provides no warranty or guarantee of the accuracy or completeness of information in this document.
--- NOTE | 2024-04-16 08:47 | US_ITS ---
[address] [address] Patient Name: ARLIN LUNDBERG MRN: [id number] date: 1990 Sex: F Assigned Patient Location: [facility] Current Patient Location: [facility] Accession/Order Number: [id number] Exam Date: 04/16/2024 09:00 Report Date: 04/16/2024 09:33 At the request of: APARNA HOBBS Procedure: US OB BPP w non-stress EXAMINATION: US OB BPP w non-stress HISTORY: Decreased fluid COMPARISON: 04/13/2024 TECHNIQUE: Ultrasound biophysical profile was performed in the radiology department. non-reactive stress testing was performed by nursing staff in the birthing center. FINDINGS: BREATHING MOVEMENTS: 2 GROSS BODY MOVEMENTS: 2 TONE: 2 QUALITATIVE AMNIOTIC FLUID VOLUME: 8 PRESENTATION: CEPHALIC HEART RATE: 131.07 bpm AMNIOTIC FLUID VOLUME: 8.0 cm GESTATIONAL AGE: 36 weeks 2 days US/US OB BPP w non-stress IMPRESSION: Total biophysical profile score: 8 Electronically authenticated by: CAMELIA MENDEZ Date: 04/16/2024 09:33
[2024-04-16 09:15] VITALS: BP 134/93; PULSE 89
[2024-04-16 09:26] VITALS: BP 127/87; PULSE 90
[2024-04-16 09:35] VITALS: BP 129/87; PULSE 97
== END 2024-04-16 09:45 | disposition home or self-care (01) ==
LOC: US 07:43 → FBC 08:44
PROVIDERS: Visit Provider Obstetrics & Gynecology
DX: O24.419 Gestational diabetes mellitus in pregnancy, unspecified control (principal)
CPT/HCPCS: 76818

== ENCOUNTER 2024-04-20 07:20 | Outpatient (OUT) | payer OTHER, SELFPAY ==
--- OUTSIDE RECORDS SUMMARY | 2024-04-20 07:23 | XMS_ITS | CCD ---
Author Organization [facility] Care Team Providers Care Caretaker Name Role Phone ABRAHAM BERRY Attending Unavailable [...] APARNA Attending Unavailable JAMESON AKHTAR Consulting Unavailable ANJLE, APARNA Admitting Unavailable REQUEST, NONE LISTED Primary [...] Basophils (Bld) [#/Vol] 0.0 103/ul Normal 0.0-0.1 [facility] Comment on above: Performed By: #### C BC #### [facility] [address] [id number] Camelia Carmen Basophils/100 WBC (Bld) 0.1 % Critically low 0.2-2.0 [facility] Comment on above: Performed By: #### C BC #### [facility] [address] [place] [address] Camelia Carmen Eosinophils (Bld) [#/Vol] 0.1 103/ul Normal 0.0-0.7 [facility] Comment on above: Performed By: #### C BC #### [facility] [address] [place] [address] Camelia Carmen Eosinophils/100 WBC (Bld) 0.5 % Critically low 0.9-7.0 [facility] Comment on above: Performed By: #### C BC #### [facility] [address] [place] [address] Camelia Carmen Erythrocyte distribution width (RBC) [Ratio] 13.2 % Normal 11.0-15.0 [facility] Comment on above: Performed By: #### C BC #### [facility] [address] [place] [address] Camelia Carmen Hematocrit (Bld) [Volume fraction] 30.2 % Critically low 36.0-48.0 [facility] Comment on above: Performed By: #### C BC #### [facility] [address] [place], [place] [id number] Camelia Carmen Hemoglobin (Bld) [Mass/Vol] 10.0 g/dL Critically low 12.0-16.0 [facility] Comment on above: Performed By: #### C BC #### [facility] [address] [place] [address] Camelia Carmen IG # 0.07 10e3/ul Critically high 0.00-0.03 [facility] Comment on above: Performed By: #### C BC #### [facility] [address] [id number] Camelia Carmen IG % 0.5 % Normal 0.0-0.5 [facility] Comment on above: Performed By: #### C BC #### [facility] [address] [id number] Camelia Carmen Lymphocytes (Bld) [#/Vol] 2.0 103/ul Normal 1.2-3.8 [facility] Comment on above: Performed By: #### C BC #### [facility] [address] [place], [place] [id number] Camelia Carmen Lymphocytes/100 WBC (Bld) 13.4 % Critically low 20.5-60.0 [facility] Comment on above: Performed By: #### C BC #### [facility] [address] [place], [place] [id number] Camelia Carmen MANUAL DIFF REQ NO Normal [facility] Comment on above: Performed By: #### C BC #### [facility] [address] [place], [place] [id number] Camelia Carmen MCH (RBC) [Entitic mass] 28.1 pg Normal 26.7-34.0 [facility] Comment on above: Performed By: #### C BC #### [facility] [address] [place], [place] [id number] Camelia Carmen MCHC (RBC) [Mass/Vol] 33.1 g/dL Normal 29.9-35.2 [facility] Comment on above: Performed By: #### C BC #### [facility] [address] [place], [place] [id number] Camelia Carmen MCV (RBC) [Entitic vol] 84.8 fL Normal 81.0-99.0 [facility] Comment on above: Performed By: #### C BC #### [facility] [address] [place], [place] [id number] Camelia Carmen Monocytes (Bld) [#/Vol] 1.0 103/ul Critically high 0.3-0.8 [facility] Comment on above: Performed By: #### C BC #### [facility] [address] [place], [place] [address] Camelia Carmen Monocytes/100 WBC (Bld) 7.0 % Normal 1.7-12.0 [facility] Comment on above: Performed By: #### C BC #### [facility] [address] [place], [place] [address] Camelia Carmen Neutrophils (Bld) [#/Vol] 11.6 103/ul Critically high 1.4-6.5 [facility] Comment on above: Performed By: #### C BC #### [facility] [address] [place], [place] [address] Camelia Carmen Neutrophils/100 WBC (Bld) 78.5 % Critically high 43.0-75.0 [facility] Comment on above: Performed By: #### C BC #### [facility] [address] [place] [address] Camelia Carmen Platelet mean volume (Bld) [Entitic vol] 12.4 fL Normal 9.5-13.5 [facility] Comment on above: Performed By: #### C BC #### [facility] [address] [place] [address] Camelia Carmen Platelets (Bld) [#/Vol] 151 103/ul Normal 150-450 [facility] Comment on above: Performed By: #### C BC #### [facility] [address] [place] [address] Camelia Carmen RBC (Bld) [#/Vol] 3.56 106/ul Critically low 4.20-5.40 [facility] Comment on above: Performed By: #### C BC #### [facility] [address] [place] [address] Camelia Carmen WBC (Bld) [#/Vol] 14.7 103/ul Critically high 4.0-11.0 [facility] Comment on above: Performed By: #### C BC #### [facility] [address] [place] [address] Camelia Carmen POINT OF CARE GLUCOSEon 04-27 Glucose [Mass/Vol] 95 mg/dL Normal 74-106 [facility] Comment on above: Performed By: #### P OCGLUC ####[facility] [id number] [place], [place] [address]Vzzgpj Carmen CBC AUTO DIFFon 05-11-2020 Basophils (Bld) [#/Vol] 0.0 103/ul Normal 0.0-0.1 [facility] Comment on above: Performed By: #### C BC #### [facility] [address] [id number] Camelia Carmen Basophils/100 WBC (Bld) 0.4 % Normal 0.2-2.0 [facility] Comment on above: Performed By: #### C BC #### [facility] [address] [id number] Camelia Carmen Eosinophils (Bld) [#/Vol] 0.1 103/ul Normal 0.0-0.7 [facility] Comment on above: Performed By: #### C BC #### [facility] [address] [place] [address] Camelia Carmen Eosinophils/100 WBC (Bld) 0.7 % Critically low 0.9-7.0 [facility] Comment on above: Performed By: #### C BC #### [facility] [address] [place], [place] [id number] Camelia Carmen Erythrocyte distribution width (RBC) [Ratio] 13.2 % Normal 11.0-15.0 [facility] Comment on above: Performed By: #### C BC #### [facility] [address] [place], [place] [id number] Camelia Carmen Hematocrit (Bld) [Volume fraction] 36.2 % Normal 36.0-48.0 [facility] Comment on above: Performed By: #### C BC #### [facility] [address] [place], [place] [id number] Camelia Carmen Hemoglobin (Bld) [Mass/Vol] 12.2 g/dL Normal 12.0-16.0 [facility] Comment on above: Performed By: #### C BC #### [facility] [address] [place] [address] Camelia Carmen IG # 0.05 10e3/ul Critically high 0.00-0.03 [facility] Comment on above: Performed By: #### C BC #### [facility] [address] [place], [place] [address] Cameliaalanna Morales IG % 0.6 % Critically high 0.0-0.5 [facility] Comment on above: Performed By: #### C BC #### [facility] [address] [place] [address] Camelia Carmen Lymphocytes (Bld) [#/Vol] 1.5 103/ul Normal 1.2-3.8 [facility] Comment on above: Performed By: #### C BC #### [facility] [address] [place] [address] Camelia Morales Lymphocytes/100 WBC (Bld) 18.3 % Critically low 20.5-60.0 [facility] Comment on above: Performed By: #### C BC #### [facility] [address] [place] [address] Camelia Morales MANUAL DIFF REQ NO Normal [facility] Comment on above: Performed By: #### C BC #### [facility] [address] [place], [place] [id number] Camelia Morales MCH (RBC) [Entitic mass] 28.4 pg Normal 26.7-34.0 [facility] Comment on above: Performed By: #### C BC #### [facility] [address] [place] [address] Camelia Morales MCHC (RBC) [Mass/Vol] 33.7 g/dL Normal 29.9-35.2 [facility] Comment on above: Performed By: #### C BC #### [facility] [address] [place], [place] [id number] Cameliaalanna Morales MCV (RBC) [Entitic vol] 84.4 fL Normal 81.0-99.0 [facility] Comment on above: Performed By: #### C BC #### [facility] [address] [place], [place] [address] Cameliaalanna Morales Monocytes (Bld) [#/Vol] 0.4 103/ul Normal 0.3-0.8 [facility] Comment on above: Performed By: #### C BC #### [facility] [address] [place], [place] [address] Camelia Carmen Monocytes/100 WBC (Bld) 4.4 % Normal 1.7-12.0 [facility] Comment on above: Performed By: #### C BC #### [facility] [address] [place], [place] [address] Camelia Carmen Neutrophils (Bld) [#/Vol] 6.2 103/ul Normal 1.4-6.5 [facility] Comment on above: Performed By: #### C BC #### [facility] [address] [place], [place] [address] Camelia Carmen Neutrophils/100 WBC (Bld) 75.6 % Critically high 43.0-75.0 [facility] Comment on above: Performed By: #### C BC #### [facility] [address] [place], [place] [address] Camelia Carmen Platelet mean volume (Bld) [Entitic vol] 12.0 fL Normal 9.5-13.5 [facility] Comment on above: Performed By: #### C BC #### [facility] [address] [place], [place] [id number] Camelia Carmen Platelets (Bld) [#/Vol] 134 103/ul Critically low 150-450 [facility] Comment on above: Performed By: #### C BC #### [facility] [address] [place], [place] [address] Camelia Carmen RBC (Bld) [#/Vol] 4.29 106/ul Normal 4.20-5.40 [facility] Comment on above: Performed By: #### C BC #### [facility] [address] [place], [place] [address] Camelia Carmen WBC (Bld) [#/Vol] 8.3 103/ul Normal 4.0-11.0 [facility] Comment on above: Performed By: #### C BC #### [facility] [address] [place], [place] [address] Camelia Carmen DRUG SCREEN RAPID (URINE)on 05-11-2020 AMP Negative Normal NEGATIVE [facility] Comment on above: Performed By: #### D RUGRPD #### [facility] [address] [place] [address] Camelia Carmen BAR Negative Normal NEGATIVE [facility] Comment on above: Performed By: #### D RUGRPD #### [facility] [address] [place] [address] Camelia Carmen BUP Negative Normal NEGATIVE [facility] Comment on above: Performed By: #### D RUGRPD #### [facility] [address] [place] [address] [facility] B[facility] Negative Normal NEGATIVE [facility] Comment on above: Performed By: #### D RUGRPD #### [facility] [address] [place] [address] Camelia Carmen SHERRELL Negative Normal NEGATIVE [facility] Comment on above: Performed By: #### D RUGRPD #### [facility] [address] [place], [place] [address] CUT-OFFS SEE BELOW Normal [facility] Comment on above: Result Comment: [...] ng/mL Performed By: #### D RUGRPD #### [facility] [address] [place] [address] DRUG CUT HEADER DRUG CLASS TEST SYSTEM CUT-OFF CONCENTRATIONS ARE FOLLOWS: Normal [facility] Comment on above: Performed By: #### D RUGRPD #### [facility] [address] [address] Camelia Carmen mAMP Negative Normal NEGATIVE [facility] Comment on above: Performed By: #### D RUGRPD #### [facility] [address] [id number] Camelia Carmen MTD Negative Normal NEGATIVE [facility] Comment on above: Performed By: #### D RUGRPD #### [facility] [address] [address] Camelia Carmen OPI Negative Normal NEGATIVE [facility] Comment on above: Performed By: #### D RUGRPD #### [facility] [address] [place] [address] Camelia Carmen OXY Negative Normal NEGATIVE [facility] Comment on above: Performed By: #### D RUGRPD #### [facility] [address] [place] [address] Camelia Carmen PCP Negative Normal NEGATIVE [facility] Comment on above: Performed By: #### D RUGRPD #### [facility] [address] [place] [address] Camelia Carmen PPX Negative Normal NEGATIVE [facility] Comment on above: Performed By: #### D RUGRPD #### [facility] [address] [place] [address] Camelia Carmen TCA Negative Normal NEGATIVE [facility] Comment on above: Performed By: #### D RUGRPD #### [facility] [address] [place] [address] Camelia Carmen THC Negative Normal NEGATIVE [facility] Comment on above: Performed By: #### D RUGRPD #### [facility] [address] [place] [address] Camelia Carmen POINT OF CARE GLUCOSEon 04-27 Glucose [Mass/Vol] 92 mg/dL Normal 74-106 [facility] Comment on above: Performed By: #### P OCGLUC #### [facility] [address] [place] [address] Camelia Carmen Glucose [Mass/Vol] 95 mg/dL Normal 74-106 [facility] Comment on above: Performed By: #### P OCGLUC #### [facility] [address] [place], [place] [address] Camelia Morales Glucose [Mass/Vol] 165 mg/dL Critically high 74-106 [facility] Comment on above: Performed By: #### P OCGLUC ####[facility] [id number] [place], [place] [address]IvmsixCamelia Morales TYPE AND SCREENon 05-11-2020 TYPE AND SCREEN Negative Normal [facility] Comment on above: Performed By: #### T NS ####[facility] [address] [place], [place] [address]MyztgrCamelia Morales US PREG BIOPHY W NON STRESSo [...] Latricia CERVANTES Date: 2020-05-10 17:09 Normal [facility] COVID-19 PCRon 05-05-2020 SARS-CoV-2, ERNESTINE Not Detected Normal Not Detected [facility] Comment on above: Result Comment: This nucleic acid amplification test was developed and its performance characteristics determined by [employer]. Nucleic acid amplification tests include PCR and [...] Performed By: #### C VDSTAT, CVDPCR #### [facility] [address] [address] Camelia Morales PRIORITY COVID PROCESSINGon 05-05-2020 Comment Comment Normal [facility] Comment on above: Result Comment: Rece ived Performed By: #### C VDSTAT, CVDPCR #### [facility] [address] [id number] Camelia Morales US PREG BIOPHY W NON [...] BRAULIO MONTEZ Date: 2020-05-03 20:36 Normal [facility] US PREG BIOPHY W NON STRESSo n [...] Latricia CERVANTES Date: 2020-04-26 17:44 Normal [facility] US PREG BIOPHY W NON STRESSo n [...] GATITO DOUGHERTY Date: 2020-04-21 19:59 Normal [facility] GROUP B STREP CULTUREon 03-29 S. agalactiae Ag Ql (Unsp spec) Culture Observations: NEGATIVE FOR GROUP B STREPTOCOCCUS Normal [facility] Comment on above: Performed By: #### G BSCX ####[facility] [id number] Carm[place] US PREG BIOPHY W NON [...] by: GATITO DOUGHERTY Date: 2020-04-19 19:00 Normal [facility] US PREG BIOPHY W NON [...] Latricia CERVANTES Date: 2020-04-12 16:33 Normal [facility] US PREG GROWTHon 04-05-2020 US PREG GROWTH [...] GATITO DOUGHERTY Date: 2020-04-05 17:39 Normal [facility] US PREG BIOPHY W NON STRESSo n [...] Latricia CERVANTES Date: 2020-03-29 16:39 Normal [facility] Encounters Encounter Date Encounter Type Care Provider [...] Start: 05-24-2021 End: 05-25-2021 ambulatory NAZANIN DURAN Facility:[facility] [place] Start: 05-24-2020 Patient [...] BERRY Payers Date Payer Category Payer Unknown [id number] 2.16.84 0.1.771765.3.579.2.593 1990 Unknown [id number] 2.16.84 0.1.350006.3.579.2.593 1988 Unknown [id number] 2.16.84 0.1.056300.3.579.2.593 1988 Unknown [id number] 2.16.84 0.1.496934.3.579.2.593 1988 Unknown [id number] 2.16.84 0.1.150633.3.579.2.593 1988 Unknown [id number] 2.16.84 0.1.570725.3.579.2.593 1988 Unknown [id number] 2.16.84 0.1.643427.3.579.2.593 1988 Unknown [id number] 2.16.84 0.1.639860.3.579.2.593 1988 Unknown [id number] 2.16.84 0.1.893249.3.579.2.593 1988 Unknown [id number] 2.16.84 0.1.862986.3.579.2.593 1988 Unknown [id number] 2.16.84 0.1.966018.3.579.2.593 1988 Unknown [id number] 2.16.84 0.1.320565.3.579.2.593 1988 Unknown [id number] 2.16.84 0.1.573928.3.579.2.593 1988 Unknown [id number] 2.16.84 0.1.777809.3.579.2.593 1988 Unknown [id number] 2.16.84 0.1.212627.3.579.2.593 1988 Unknown [id number] 2.16.84 0.1.877936.3.579.2.593 1988 Unknown [id number] 2.16.84 0.1.136036.3.579.2.593 1988 Unknown [id number] 2.16.84 0.1.737864.3.579.2.593 1988 Unknown [id number] 2.16.84 0.1.529555.3.579.2.593 1988 Unknown [id number] 2.16.8 40.1.531530.3.579.2.727 1988 Unknown [id number] 2.16.8 40.1.592162.3.579.2.1286 1988 Unknown [id number] 2.16.8 40.1.962528.3.579.2.1286 1988 Unknown [id number] 2.16.84 0.1.073623.3.579.2.1259 1988 Unknown [id number] 2.16.84 0.1.475884.3.579.2.1259 1988 Unknown [id number] 2.16.84 0.1.569743.3.579.2.1259 1988 Unknown [id number] 2.16.84 0.1.897701.3.579.2.1259 1988 Unknown [id number] 2.16.84 0.1.762699.3.579.2.1259 1988 Unknown [id number] 2.16.84 0.1.156521.3.579.2.1259 1959 Self-pay [id number] Self-pay 1959 Unknown [id number] Summary Purpose Family History No Family History [...] DATE CREATED AUTHOR AUTHOR'S ORGANIZ ATION 10/27/[address] [facility] DATE CREATED AUTHOR AUTHOR'S ORGANIZ ATION 01/03/2024 [facility] DATE CREATED AUTHOR AUTHOR'S SHUN LANTIGUA 04/15/2024 [facility] EPIC FOR RECORDS PERTAINING [...] BE BASED ON THE PRIMARY CLINICAL RECORDS. [facility] [employer], [facility]. provides no warranty or guarantee of the accuracy or completeness of information in this document.
--- NOTE | 2024-04-20 10:41 | US_ITS ---
[address] [address] Patient Name: ARLIN LUNDBERG MRN: [id number] date: 1990 Sex: F Assigned Patient Location: [facility] Current Patient Location: [facility] Accession/Order Number: [id number] Exam Date: 04/20/2024 10:42 Report Date: 04/20/2024 11:02 At the request of: APARNA HOBBS Procedure: US OB BPP w non-stress EXAMINATION: US OB BPP w non-stress HISTORY:Gestational diabetes mellitus O24.419 COMPARISON: Ultrasound OB biophysical 04/16/2024 TECHNIQUE: Ultrasound biophysical profile was performed in the radiology department. BREATHING MOVEMENTS: 2 GROSS BODY MOVEMENTS: 2 TONE: 2 QUALITATIVE AMNIOTIC FLUID VOLUME: 2 PRESENTATION: CEPHALIC HEART RATE: 174.19 bpm AMNIOTIC FLUID VOLUME: 10.58 cm GESTATIONAL AGE: 36 weeks 6 days US/US OB BPP w non-stress IMPRESSION: Total biophysical profile score: 8 Electronically authenticated by: MARY RUIZ Date: 04/20/2024 11:02
[2024-04-20 10:58] VITALS: BP 132/84; PULSE 86
== END 2024-04-20 11:28 | disposition home or self-care (01) ==
LOC: US 07:20 → FBC 10:49
PROVIDERS: Visit Provider Obstetrics & Gynecology
DX: O24.419 Gestational diabetes mellitus in pregnancy, unspecified control (principal); Z3A.36 36 weeks gestation of pregnancy
CPT/HCPCS: 76818

== ENCOUNTER 2024-04-23 07:05 | Outpatient (OUT) | payer OTHER, SELFPAY ==
--- OUTSIDE RECORDS SUMMARY | 2024-04-23 07:09 | XMS_ITS | CCD ---
Author Organization [facility] Care Team Providers Care Dental Professional Name Role Phone ABRAHAM BERRY Attending [...] ABRAHAM Admitting Unavailable Policdonnie, [employer] Consulting Unavailable ABRAHAM BERRY Consulting Unavailable [...] APARNA Attending Unavailable NORMAN, LOUIS Attending Unavailable ANJEL, APARNA Attending Unavailable Problems [...] Basophils (Bld) [#/Vol] 0.0 103/ul Normal 0.0-0.1 [facility] Comment on above: Performed By: #### C BC #### [facility] [address] [place], [place] [id number] Camelia Carmen Basophils/100 WBC (Bld) 0.1 % Critically low 0.2-2.0 [facility] Comment on above: Performed By: #### C BC #### [facility] [address] [place] [address] Camelia Carmen Eosinophils (Bld) [#/Vol] 0.1 103/ul Normal 0.0-0.7 [facility] Comment on above: Performed By: #### C BC #### [facility] [address] [place] [address] Camelia Carmen Eosinophils/100 WBC (Bld) 0.5 % Critically low 0.9-7.0 [facility] Comment on above: Performed By: #### C BC #### [facility] [address] [place] [address] Camelia Carmen Erythrocyte distribution width (RBC) [Ratio] 13.2 % Normal 11.0-15.0 [facility] Comment on above: Performed By: #### C BC #### [facility] [address] [place] [address] Camelia Carmen Hematocrit (Bld) [Volume fraction] 30.2 % Critically low 36.0-48.0 [facility] Comment on above: Performed By: #### C BC #### [facility] [address] [place], [place] [address] Camelia Carmen Hemoglobin (Bld) [Mass/Vol] 10.0 g/dL Critically low 12.0-16.0 [facility] Comment on above: Performed By: #### C BC #### [facility] [address] [place], [place] [address] Camelia Carmen IG # 0.07 10e3/ul Critically high 0.00-0.03 [facility] Comment on above: Performed By: #### C BC #### [facility] [address] [place], [place] [address] Camelia Carmen IG % 0.5 % Normal 0.0-0.5 [facility] Comment on above: Performed By: #### C BC #### [facility] [address] [place] [address] Camelia Carmen Lymphocytes (Bld) [#/Vol] 2.0 103/ul Normal 1.2-3.8 [facility] Comment on above: Performed By: #### C BC #### [facility] [address] [place], [place] [address] Camelia Carmen Lymphocytes/100 WBC (Bld) 13.4 % Critically low 20.5-60.0 [facility] Comment on above: Performed By: #### C BC #### [facility] [address] [place], [place] [address] Camelia Carmen MANUAL DIFF REQ NO Normal [facility] Comment on above: Performed By: #### C BC #### [facility] [address] [place], [place] [address] Camelia Carmen MCH (RBC) [Entitic mass] 28.1 pg Normal 26.7-34.0 [facility] Comment on above: Performed By: #### C BC #### [facility] [address] [place], [place] [address] Camelia Carmen MCHC (RBC) [Mass/Vol] 33.1 g/dL Normal 29.9-35.2 [facility] Comment on above: Performed By: #### C BC #### [facility] [address] [place], [place] [address] Camelia Carmen MCV (RBC) [Entitic vol] 84.8 fL Normal 81.0-99.0 [facility] Comment on above: Performed By: #### C BC #### [facility] [address] [place], [place] [address] Camelia Carmen Monocytes (Bld) [#/Vol] 1.0 103/ul Critically high 0.3-0.8 [facility] Comment on above: Performed By: #### C BC #### [facility] [address] [place], [place] [address] Camelia Carmen Monocytes/100 WBC (Bld) 7.0 % Normal 1.7-12.0 [facility] Comment on above: Performed By: #### C BC #### [facility] [address] [place], [place] [address] Camelia Carmen Neutrophils (Bld) [#/Vol] 11.6 103/ul Critically high 1.4-6.5 [facility] Comment on above: Performed By: #### C BC #### [facility] [address] [place], [place] [address] Camelia Carmen Neutrophils/100 WBC (Bld) 78.5 % Critically high 43.0-75.0 [facility] Comment on above: Performed By: #### C BC #### [facility] [address] [place] [address] Camelia Carmen Platelet mean volume (Bld) [Entitic vol] 12.4 fL Normal 9.5-13.5 [facility] Comment on above: Performed By: #### C BC #### [facility] [address] [place] [address] Camelia Carmen Platelets (Bld) [#/Vol] 151 103/ul Normal 150-450 [facility] Comment on above: Performed By: #### C BC #### [facility] [address] [place] [address] Camelia Carmen RBC (Bld) [#/Vol] 3.56 106/ul Critically low 4.20-5.40 [facility] Comment on above: Performed By: #### C BC #### [facility] [address] [place], [place] [address] Camelia Carmen WBC (Bld) [#/Vol] 14.7 103/ul Critically high 4.0-11.0 [facility] Comment on above: Performed By: #### C BC #### [facility] [address] [place], [place] [address] Camelia Carmen POINT OF CARE GLUCOSEon 04-27 Glucose [Mass/Vol] 95 mg/dL Normal 74-106 [facility] Comment on above: Performed By: #### P OCGLUC ####[facility] [address] [place], [place] [address]Yuregx Carmen CBC AUTO DIFFon 05-11-2020 Basophils (Bld) [#/Vol] 0.0 103/ul Normal 0.0-0.1 [facility] Comment on above: Performed By: #### C BC #### [facility] [address] [place] [id number] Camelia Carmen Basophils/100 WBC (Bld) 0.4 % Normal 0.2-2.0 [facility] Comment on above: Performed By: #### C BC #### [facility] [address] [place] [address] Camelia Carmen Eosinophils (Bld) [#/Vol] 0.1 103/ul Normal 0.0-0.7 [facility] Comment on above: Performed By: #### C BC #### [facility] [address] [place] [address] Camelia Carmen Eosinophils/100 WBC (Bld) 0.7 % Critically low 0.9-7.0 [facility] Comment on above: Performed By: #### C BC #### [facility] [address] [place], [place] [address] Cameliaalanna Morales Erythrocyte distribution width (RBC) [Ratio] 13.2 % Normal 11.0-15.0 [facility] Comment on above: Performed By: #### C BC #### [facility] [address] [place] [address] Camelia Carmen Hematocrit (Bld) [Volume fraction] 36.2 % Normal 36.0-48.0 [facility] Comment on above: Performed By: #### C BC #### [facility] [address] [place] [id number] Camelia Carmen Hemoglobin (Bld) [Mass/Vol] 12.2 g/dL Normal 12.0-16.0 [facility] Comment on above: Performed By: #### C BC #### [facility] [address] [place] [address] Camelia Carmen IG # 0.05 10e3/ul Critically high 0.00-0.03 [facility] Comment on above: Performed By: #### C BC #### [facility] [address] [place] [address] Camelia Carmen IG % 0.6 % Critically high 0.0-0.5 [facility] Comment on above: Performed By: #### C BC #### [facility] [address] [place] [address] Camelia Carmen Lymphocytes (Bld) [#/Vol] 1.5 103/ul Normal 1.2-3.8 [facility] Comment on above: Performed By: #### C BC #### [facility] [address] [place] [address] Camelia Carmen Lymphocytes/100 WBC (Bld) 18.3 % Critically low 20.5-60.0 [facility] Comment on above: Performed By: #### C BC #### [facility] [address] [place] [address] Cameliaalanna Morales MANUAL DIFF REQ NO Normal [facility] Comment on above: Performed By: #### C BC #### [facility] [address] [place], [place] [address] Camelia Carmen MCH (RBC) [Entitic mass] 28.4 pg Normal 26.7-34.0 [facility] Comment on above: Performed By: #### C BC #### [facility] [address] [place] [address] Cameliaalanna Troyen MCHC (RBC) [Mass/Vol] 33.7 g/dL Normal 29.9-35.2 [facility] Comment on above: Performed By: #### C BC #### [facility] [address] [place] [address] Camelia Carmen MCV (RBC) [Entitic vol] 84.4 fL Normal 81.0-99.0 [facility] Comment on above: Performed By: #### C BC #### [facility] [address] [place], [place] [address] Camelia Carmen Monocytes (Bld) [#/Vol] 0.4 103/ul Normal 0.3-0.8 [facility] Comment on above: Performed By: #### C BC #### [facility] [address] [place], [place] [address] Camelia Carmen Monocytes/100 WBC (Bld) 4.4 % Normal 1.7-12.0 [facility] Comment on above: Performed By: #### C BC #### [facility] [address] [place], [place] [address] Camelia Carmen Neutrophils (Bld) [#/Vol] 6.2 103/ul Normal 1.4-6.5 [facility] Comment on above: Performed By: #### C BC #### [facility] [address] [place], [place] [address] Camelia Carmen Neutrophils/100 WBC (Bld) 75.6 % Critically high 43.0-75.0 [facility] Comment on above: Performed By: #### C BC #### [facility] [address] [place], [place] [address] Camelia Carmen Platelet mean volume (Bld) [Entitic vol] 12.0 fL Normal 9.5-13.5 [facility] Comment on above: Performed By: #### C BC #### [facility] [address] [place], [place] [address] Camelia Carmen Platelets (Bld) [#/Vol] 134 103/ul Critically low 150-450 [facility] Comment on above: Performed By: #### C BC #### [facility] [address] [place], [place] [address] Camelia Carmen RBC (Bld) [#/Vol] 4.29 106/ul Normal 4.20-5.40 [facility] Comment on above: Performed By: #### C BC #### [facility] [address] [place], [place] [address] Camelia Carmen WBC (Bld) [#/Vol] 8.3 103/ul Normal 4.0-11.0 [facility] Comment on above: Performed By: #### C BC #### [facility] [address] [place] [address] Cameliaalanna Morales DRUG SCREEN RAPID (URINE)on 05-11-2020 AMP Negative Normal NEGATIVE [facility] Comment on above: Performed By: #### D RUGRPD #### [facility] [address] [place] [address] Camelia Carmen BAR Negative Normal NEGATIVE [facility] Comment on above: Performed By: #### D RUGRPD #### [facility] [address] [place] [address] Camelia Carmen BUP Negative Normal NEGATIVE [facility] Comment on above: Performed By: #### D RUGRPD #### [facility] [address] [place] [address] Camelia Carmen BZO Negative Normal NEGATIVE [facility] Comment on above: Performed By: #### D RUGRPD #### [facility] [address] [place] [address] Camelia Carmen SHERRELL Negative Normal NEGATIVE [facility] Comment on above: Performed By: #### D RUGRPD #### [facility] [address] [place] [address] Camelia Carmen CUT-OFFS SEE BELOW Normal [facility] Comment on above: Result Comment: AMP [...] ng/mL Performed By: #### D RUGRPD #### [facility] [address] [place] [address] Camelia Carmen DRUG CUT HEADER DRUG CLASS TEST SYSTEM CUT-OFF CONCENTRATIONS ARE FOLLOWS: Normal [facility] Comment on above: Performed By: #### D RUGRPD #### [facility] [address] [place] [address] Camelia Carmen mAMP Negative Normal NEGATIVE [facility] Comment on above: Performed By: #### D RUGRPD #### [facility] [address] [place] [address] Camelia Carmen MTD Negative Normal NEGATIVE [facility] Comment on above: Performed By: #### D RUGRPD #### [facility] [address] [place] [address] Camelia Carmen OPI Negative Normal NEGATIVE [facility] Comment on above: Performed By: #### D RUGRPD #### [facility] [address] [place] [address] Camelia Carmen OXY Negative Normal NEGATIVE [facility] Comment on above: Performed By: #### D RUGRPD #### [facility] [address] [place] [address] Camelia Carmen PCP Negative Normal NEGATIVE [facility] Comment on above: Performed By: #### D RUGRPD #### [facility] [address] [place] [address] Camelia Carmen PPX Negative Normal NEGATIVE [facility] Comment on above: Performed By: #### D RUGRPD #### [facility] [address] [place] [address] Camelia Carmen TCA Negative Normal NEGATIVE [facility] Comment on above: Performed By: #### D RUGRPD #### [facility] [address] [place] [address] Camelia Carmen THC Negative Normal NEGATIVE [facility] Comment on above: Performed By: #### D RUGRPD #### [facility] [address] [place] [address] Camelia Carmen POINT OF CARE GLUCOSEon 04-27 Glucose [Mass/Vol] 92 mg/dL Normal 74-106 [facility] Comment on above: Performed By: #### P OCGLUC #### [facility] [address] [place] [address] Camelia Carmen Glucose [Mass/Vol] 95 mg/dL Normal 74-106 [facility] Comment on above: Performed By: #### P OCGLUC #### [facility] [address] [place], [place] [address] Camelia Morales Glucose [Mass/Vol] 165 mg/dL Critically high 74-106 [facility] Comment on above: Performed By: #### P OCGLUC ####[facility] [address] [place], [place] [address]YetralCamelia Morales TYPE AND SCREENon 05-11-2020 TYPE AND SCREEN Negative Normal [facility] Comment on above: Performed By: #### T NS ####[facility] [address] [place], [place] [address]FulgpeCamelia Morales US PREG BIOPHY W NON STRESSo [...] Latricia CERVANTES Date: 2020-05-10 17:09 Normal [facility] COVID-19 PCRon 05-05-2020 SARS-CoV-2, ERNESTINE Not Detected Normal Not Detected [facility] Comment on above: Result Comment: This nucleic acid amplification test was developed and its performance characteristics determined by [employer]. Nucleic acid amplification tests include PCR and [...] Performed By: #### C VDSTAT, CVDPCR #### [facility] [address] [place] [address] Camelia Morales PRIORITY COVID PROCESSINGon 05-05-2020 Comment Comment Normal [facility] Comment on above: Result Comment: Rece ived Performed By: #### C VDSTAT, CVDPCR #### [facility] [address] [place], [place] [address] Camelia Morales US PREG BIOPHY W NON [...] BRAULIO MONTEZ Date: 2020-05-03 20:36 Normal [facility] US PREG BIOPHY W NON STRESSo [...] Latricia CERVANTES Date: 2020-04-26 17:44 Normal [facility] US PREG BIOPHY W NON STRESSo [...] GATITO DOUGHERTY Date: 2020-04-21 19:59 Normal [facility] GROUP B STREP CULTUREon 03-29 S. agalactiae Ag Ql (Unsp spec) Culture Observations: NEGATIVE FOR GROUP B STREPTOCOCCUS Normal [facility] Comment on above: Performed By: #### G BSCX ####[facility] [address] Carmen US PREG BIOPHY W NON [...] by: GATITO DOUGHERTY Date: 2020-04-19 19:00 Normal [facility] US PREG BIOPHY W NON [...] Latricia CERVANTES Date: 2020-04-12 16:33 Normal [facility] US PREG GROWTHon 04-05-2020 US PREG [...] by: GATITO DOUGHERTY Date: 2020-04-05 17:39 Normal [facility] US PREG BIOPHY W NON [...] by: Latricia CERVANTES Date: 2020-03-29 16:39 Normal [facility] Encounters Encounter Date Encounter Type Care Provider Facility Start: 04-20-2024 End: 04-20-2024 ambulatory APARNA ANJEL Not Available Start: 04-13-2024 End: 04-13-2024 ambulatory LOUIS AUSTIN Not Available Start: 03-30-2024 End: 03-30-2024 ambulatory [...] Start: 05-24-2021 End: 05-25-2021 ambulatory NAZANIN DURAN [place] [place]: 05-24-2020 Patient encounter procedure APARNA ANJEL Facility: Start: 05-16-2020 End: 05-16-2020 Patient encounter procedure APARNA ANJEL Facility:[facility] Start: 05-11-2020 End: 05-13-2020 Evaluation and management [...] 04-01-2020 End: 04-01-2020 Patient encounter procedure JAMESON HERMILO Facility:[facility] Start: 03-29-2020 End: 03-29-2020 Patient encounter procedure ABRAHAM BERRY Facility:[facility] Start: 02-03-2020 Patient encounter procedure APARNA ANJEL Facility:[facility] Procedures Date Procedure Procedure Detail Performing [...] BERRY Payers Date Payer Category Payer Unknown [id number] 2.16.84 [id number] 1988 Unknown [id number] 2.16.84 0.1.605391.3.579.2.593 1988 Unknown [id number] 2.16.84 0.1.607595.3.579.2.593 1988 Unknown [id number] 2.16.84 0.1.848098.3.579.2.593 1988 Unknown [id number] 2.16.84 0.1.026801.3.579.2.593 1988 Unknown [id number] 2.16.84 0.1.356355.3.579.2.593 1988 Unknown [id number] 2.16.84 0.1.121197.3.579.2.593 1988 Unknown [id number] 2.16.84 0.1.678215.3.579.2.593 1988 Unknown [id number] 2.16.84 0.1.244056.3.579.2.593 1988 Unknown [id number] 2.16.84 0.1.360669.3.579.2.593 1988 Unknown [id number] 2.16.84 0.1.465382.3.579.2.593 1988 Unknown [id number] 2.16.84 0.1.411879.3.579.2.593 1988 Unknown [id number] 2.16.84 0.1.105553.3.579.2.593 1988 Unknown [id number] 2.16.84 0.1.073971.3.579.2.593 1988 Unknown [id number] 2.16.84 0.1.297275.3.579.2.593 1988 Unknown [id number] 2.16.84 0.1.198967.3.579.2.593 1988 Unknown [id number] 2.16.84 0.1.961972.3.579.2.593 1988 Unknown [id number] 2.16.84 0.1.727230.3.579.2.593 1988 Unknown [id number] 2.16.84 0.1.180429.3.579.2.593 1988 Unknown [id number] 2.16.8 40.1.664040.3.579.2.727 1988 Unknown [id number] 2.16.8 40.1.029857.3.579.2.1286 1988 Unknown [id number] 2.16.8 40.1.463771.3.579.2.1286 1988 Unknown [id number] 2.16.84 0.1.915517.3.579.2.1259 1988 Unknown [id number] 2.16.84 0.1.318240.3.579.2.1259 1988 Unknown [id number] 2.16.84 0.1.614287.3.579.2.1259 1988 Unknown [id number] 2.16.84 0.1.413722.3.579.2.1259 1988 Unknown [id number] 2.16.84 0.1.011154.3.579.2.1259 1988 Unknown [id number] 2.16.84 0.1.890423.3.579.2.1259 1988 Unknown [id number] 2.16.84 0.1.921546.3.579.2.1259 1959 Self-pay [id number] 1959 Self-pay 1959 Unknown [id number] Summary Purpose Family History No Family History [...] DATE CREATED AUTHOR AUTHOR'S ORGANIZ ATION 10/27/2022 [facility] DATE CREATED AUTHOR AUTHOR'S ORGANIZ ATION 01/03/2024 [facility] DATE CREATED AUTHOR AUTHOR'S ORGANIZ ATION 04/22/2024 [facility] FOR RECORDS PERTAINING TO PATIENTS WHO ARE [...] BE BASED ON THE PRIMARY CLINICAL RECORDS. [facility] [employer] [facility]. provides no warranty or guarantee of the accuracy or completeness of information in this document.
[2024-04-23 09:00] VITALS: BP 139/85; PULSE 90
== END 2024-04-23 09:25 | disposition home or self-care (01) ==
LOC: FBCO 07:06 → FBC 08:52
PROVIDERS: Visit Provider Obstetrics & Gynecology
DX: O99.283 Endocrine, nutritional and metabolic diseases complicating pregnancy, third trimester (principal)
CPT/HCPCS: 59025

== ENCOUNTER 2024-04-27 07:11 | Outpatient (OUT) | payer OTHER, SELFPAY ==
--- NOTE | 2024-04-27 | US_ITS ---
[address] [address] Patient Name: ARLIN LUNDBERG MRN: [id number] date: 1990 Sex: F Assigned Patient Location: [facility] Current Patient Location: [facility] Accession/Order Number: [id number] Exam Date: 04/27/2024 10:56 Report Date: 04/27/2024 11:38 At the request of: APARNA HOBBS Procedure: US OB BPP w non-stress EXAMINATION: US OB BPP w non-stress HISTORY: Gestational diabetes mellitus O24.419 COMPARISON: 04/20/2024 TECHNIQUE: Ultrasound biophysical profile was performed in the radiology department. non-reactive stress testing was performed by nursing staff in the birthing center. FINDINGS: BREATHING MOVEMENTS: 2 GROSS BODY MOVEMENTS: 2 TONE: 2 QUALITATIVE AMNIOTIC FLUID VOLUME: 2 PRESENTATION: CEPHALIC HEART RATE: 135.68 bpm AMNIOTIC FLUID VOLUME: 11.1 cm GESTATIONAL AGE: 37 weeks 6 days US/US OB BPP w non-stress IMPRESSION: Total biophysical profile score: 8 Electronically authenticated by: CAMELIA MENDEZ Date: 04/27/2024 11:38
--- OUTSIDE RECORDS SUMMARY | 2024-04-27 07:14 | XMS_ITS | CCD ---
Author Organization [facility] Care Team Providers Care Senior Ste[employer] Team Lead Name Role Phone ABRAHAM BERRY Attending Unavailable [...] Admitting Unavailable ANJEL, APARNA Primary Care Unavailable ANJLE, APARNA Consulting Unavailable JAMAL, ABRAHAM Consulting Unavailable [...] Basophils (Bld) [#/Vol] 0.0 103/ul Normal 0.0-0.1 [facility] Comment on above: Performed By: #### C BC #### [facility] [address] [place], [place] [address] Camelia Carmen Basophils/100 WBC (Bld) 0.1 % Critically low 0.2-2.0 [facility] Comment on above: Performed By: #### C BC #### [facility] [address] [place] [address] Camelia Carmen Eosinophils (Bld) [#/Vol] 0.1 103/ul Normal 0.0-0.7 [facility] Comment on above: Performed By: #### C BC #### [facility] [address] [place] [address] Camelia Carmen Eosinophils/100 WBC (Bld) 0.5 % Critically low 0.9-7.0 [facility] Comment on above: Performed By: #### C BC #### [facility] [address] [place] [address] Camelia Carmen Erythrocyte distribution width (RBC) [Ratio] 13.2 % Normal 11.0-15.0 [facility] Comment on above: Performed By: #### C BC #### [facility] [address] [place] [address] Camelia Carmen Hematocrit (Bld) [Volume fraction] 30.2 % Critically low 36.0-48.0 [facility] Comment on above: Performed By: #### C BC #### [facility] [address] [place], [place] [address] Camelia Carmen Hemoglobin (Bld) [Mass/Vol] 10.0 g/dL Critically low 12.0-16.0 [facility] Comment on above: Performed By: #### C BC #### [facility] [address] [place], [place] [address] Camelia Carmen IG # 0.07 10e3/ul Critically high 0.00-0.03 [facility] Comment on above: Performed By: #### C BC #### [facility] [address] [place], [place] [address] Camelia Carmen IG % 0.5 % Normal 0.0-0.5 [facility] Comment on above: Performed By: #### C BC #### [facility] [address] [place] [address] Camelia Carmen Lymphocytes (Bld) [#/Vol] 2.0 103/ul Normal 1.2-3.8 [facility] Comment on above: Performed By: #### C BC #### [facility] [address] [place], [place] [address] Camelia Carmen Lymphocytes/100 WBC (Bld) 13.4 % Critically low 20.5-60.0 [facility] Comment on above: Performed By: #### C BC #### [facility] [address] [place], [place] [address] Camelia Carmen MANUAL DIFF REQ NO Normal [facility] Comment on above: Performed By: #### C BC #### [facility] [address] [place], [place] [address] Camelia Carmen MCH (RBC) [Entitic mass] 28.1 pg Normal 26.7-34.0 [facility] Comment on above: Performed By: #### C BC #### [facility] [address] [place], [place] [address] Camelia Carmen MCHC (RBC) [Mass/Vol] 33.1 g/dL Normal 29.9-35.2 [facility] Comment on above: Performed By: #### C BC #### [facility] [address] [place], [place] [address] Camelia Carmen MCV (RBC) [Entitic vol] 84.8 fL Normal 81.0-99.0 [facility] Comment on above: Performed By: #### C BC #### [facility] [address] [place], [place] [address] Camelia Carmen Monocytes (Bld) [#/Vol] 1.0 103/ul Critically high 0.3-0.8 [facility] Comment on above: Performed By: #### C BC #### [facility] [address] [place], [place] [address] Camelia Carmen Monocytes/100 WBC (Bld) 7.0 % Normal 1.7-12.0 [facility] Comment on above: Performed By: #### C BC #### [facility] [address] [place], [place] [address] Camelia Carmen Neutrophils (Bld) [#/Vol] 11.6 103/ul Critically high 1.4-6.5 [facility] Comment on above: Performed By: #### C BC #### [facility] [address] [place], [place] [address] Camelia Carmen Neutrophils/100 WBC (Bld) 78.5 % Critically high 43.0-75.0 [facility] Comment on above: Performed By: #### C BC #### [facility] [address] [place] [address] Camelia Carmen Platelet mean volume (Bld) [Entitic vol] 12.4 fL Normal 9.5-13.5 [facility] Comment on above: Performed By: #### C BC #### [facility] [address] [place] [address] Camelia Carmen Platelets (Bld) [#/Vol] 151 103/ul Normal 150-450 [facility] Comment on above: Performed By: #### C BC #### [facility] [address] [place] [address] Camelia Carmen RBC (Bld) [#/Vol] 3.56 106/ul Critically low 4.20-5.[address] [facility] Comment on above: Performed By: #### C BC #### [facility] [address] [place], [place] [address] Camelia Carmen WBC (Bld) [#/Vol] 14.7 103/ul Critically high 4.0-11.0 [facility] Comment on above: Performed By: #### C BC #### [facility] [address] [place], [place] [address] Camelia Carmen POINT OF CARE GLUCOSEon 04-27 Glucose [Mass/Vol] 95 mg/dL Normal 74-106 [facility] Comment on above: Performed By: #### P OCGLUC ####[facility] [address] [place], [place] [address]Zfalto Carmen CBC AUTO DIFFon 05-11-2020 Basophils (Bld) [#/Vol] 0.0 103/ul Normal 0.0-0.1 [facility] Comment on above: Performed By: #### C BC #### [facility] [address] [place] [id number] Camelia Carmen Basophils/100 WBC (Bld) 0.4 % Normal 0.2-2.0 [facility] Comment on above: Performed By: #### C BC #### [facility] [address] [place] [address] Camelia Carmen Eosinophils (Bld) [#/Vol] 0.1 103/ul Normal 0.0-0.7 [facility] Comment on above: Performed By: #### C BC #### [facility] [address] [place] [address] Camelia Carmen Eosinophils/100 WBC (Bld) 0.7 % Critically low 0.9-7.0 [facility] Comment on above: Performed By: #### C BC #### [facility] [address] [place], [place] [address] Cameliaalanna Morales Erythrocyte distribution width (RBC) [Ratio] 13.2 % Normal 11.0-15.0 [facility] Comment on above: Performed By: #### C BC #### [facility] [address] [place] [address] Camelia Carmen Hematocrit (Bld) [Volume fraction] 36.2 % Normal 36.0-48.0 [facility] Comment on above: Performed By: #### C BC #### [facility] [address] [place] [id number] Camelia Carmen Hemoglobin (Bld) [Mass/Vol] 12.2 g/dL Normal 12.0-16.0 [facility] Comment on above: Performed By: #### C BC #### [facility] [address] [place] [address] Camelia Carmen IG # 0.05 10e3/ul Critically high 0.00-0.03 [facility] Comment on above: Performed By: #### C BC #### [facility] [address] [place] [address] Camelia Carmen IG % 0.6 % Critically high 0.0-0.5 [facility] Comment on above: Performed By: #### C BC #### [facility] [address] [place] [address] Camelia Carmen Lymphocytes (Bld) [#/Vol] 1.5 103/ul Normal 1.2-3.8 [facility] Comment on above: Performed By: #### C BC #### [facility] [address] [place] [address] Camelia Carmen Lymphocytes/100 WBC (Bld) 18.3 % Critically low 20.5-60.0 [facility] Comment on above: Performed By: #### C BC #### [facility] [address] [place] [address] Cameliaalanna Morales MANUAL DIFF REQ NO Normal [facility] Comment on above: Performed By: #### C BC #### [facility] [address] [place], [place] [address] Camelia Carmen MCH (RBC) [Entitic mass] 28.4 pg Normal 26.7-34.0 [facility] Comment on above: Performed By: #### C BC #### [facility] [address] [place] [address] Cameliaalanna Troyen MCHC (RBC) [Mass/Vol] 33.7 g/dL Normal 29.9-35.2 [facility] Comment on above: Performed By: #### C BC #### [facility] [address] [place] [address] Camelia Carmen MCV (RBC) [Entitic vol] 84.4 fL Normal 81.0-99.0 [facility] Comment on above: Performed By: #### C BC #### [facility] [address] [place], [place] [address] Camelia Carmen Monocytes (Bld) [#/Vol] 0.4 103/ul Normal 0.3-0.8 [facility] Comment on above: Performed By: #### C BC #### [facility] [address] [place], [place] [address] Camelia Carmen Monocytes/100 WBC (Bld) 4.4 % Normal 1.7-12.0 [facility] Comment on above: Performed By: #### C BC #### [facility] [address] [place], [place] [address] Camelia Carmen Neutrophils (Bld) [#/Vol] 6.2 103/ul Normal 1.4-6.5 [facility] Comment on above: Performed By: #### C BC #### [facility] [address] [place], [place] [address] Camelia Carmen Neutrophils/100 WBC (Bld) 75.6 % Critically high 43.0-75.0 [facility] Comment on above: Performed By: #### C BC #### [facility] [address] [place], [place] [address] Camelia Carmen Platelet mean volume (Bld) [Entitic vol] 12.0 fL Normal 9.5-13.5 [facility] Comment on above: Performed By: #### C BC #### [facility] [address] [place], [place] [address] Camelia Carmen Platelets (Bld) [#/Vol] 134 103/ul Critically low 150-450 [facility] Comment on above: Performed By: #### C BC #### [facility] [address] [place], [place] [address] Camelia Carmen RBC (Bld) [#/Vol] 4.29 106/ul Normal 4.20-5.40 [facility] Comment on above: Performed By: #### C BC #### [facility] [address] [place], [place] [address] Camelia Carmen WBC (Bld) [#/Vol] 8.3 103/ul Normal 4.0-11.0 [facility] Comment on above: Performed By: #### C BC #### [facility] [address] [place] [address] Cameliaalanna Morales DRUG SCREEN RAPID (URINE)on 05-11-2020 AMP Negative Normal NEGATIVE [facility] Comment on above: Performed By: #### D RUGRPD #### [facility] [address] [place] [address] Camelia Carmen BAR Negative Normal NEGATIVE [facility] Comment on above: Performed By: #### D RUGRPD #### [facility] [address] [place] [address] Camelia Carmen BUP Negative Normal NEGATIVE [facility] Comment on above: Performed By: #### D RUGRPD #### [facility] [address] [place] [address] Camelia Carmen BZO Negative Normal NEGATIVE [facility] Comment on above: Performed By: #### D RUGRPD #### [facility] [address] [place] [address] Camelia Carmen SHERRELL Negative Normal NEGATIVE [facility] Comment on above: Performed By: #### D RUGRPD #### [facility] [address] [place] [address] Camelia Carmen CUT-OFFS SEE BELOW Normal [facility] Comment on above: Result Comment: AMP [...] ng/mL Performed By: #### D RUGRPD #### [facility] [address] [place] [address] Camelia Carmen DRUG CUT HEADER DRUG CLASS TEST SYSTEM CUT-OFF CONCENTRATIONS ARE FOLLOWS: Normal [facility] Comment on above: Performed By: #### D RUGRPD #### [facility] [address] [place] [address] Camelia Carmen mAMP Negative Normal NEGATIVE [facility] Comment on above: Performed By: #### D RUGRPD #### [facility] [address] [place] [address] Camelia Carmen MTD Negative Normal NEGATIVE [facility] Comment on above: Performed By: #### D RUGRPD #### [facility] [address] [place] [address] Camelia Carmen OPI Negative Normal NEGATIVE [facility] Comment on above: Performed By: #### D RUGRPD #### [facility] [address] [place] [address] Camelia Carmen OXY Negative Normal NEGATIVE [facility] Comment on above: Performed By: #### D RUGRPD #### [facility] [address] [place] [address] Camelia Carmen PCP Negative Normal NEGATIVE [facility] Comment on above: Performed By: #### D RUGRPD #### [facility] [address] [place] [address] Camelia Carmen PPX Negative Normal NEGATIVE [facility] Comment on above: Performed By: #### D RUGRPD #### [facility] [address] [place] [address] Camelia Carmen TCA Negative Normal NEGATIVE [facility] Comment on above: Performed By: #### D RUGRPD #### [facility] [address] [place] [address] Camelia Carmen THC Negative Normal NEGATIVE [facility] Comment on above: Performed By: #### D RUGRPD #### [facility] [address] [place] [address] Camelia Carmen POINT OF CARE GLUCOSEon 04-27 Glucose [Mass/Vol] 92 mg/dL Normal 74-106 [facility] Comment on above: Performed By: #### P OCGLUC #### [facility] [address] [place] [address] Camelia Carmen Glucose [Mass/Vol] 95 mg/dL Normal 74-106 [facility] Comment on above: Performed By: #### P OCGLUC #### [facility] [address] [place], [place] [address] Camelia Morales Glucose [Mass/Vol] 165 mg/dL Critically high 74-106 [facility] Comment on above: Performed By: #### P OCGLUC ####[facility] [address] [place], [place] [address]HxqersCamelia Morales TYPE AND SCREENon 05-11-2020 TYPE AND SCREEN Negative Normal [facility] Comment on above: Performed By: #### T NS ####[facility] [address] [place], [place] [address]LekayoCamelia Morales US PREG BIOPHY W NON STRESSo [...] Latricia CERVANTES Date: 2020-05-10 17:09 Normal [facility] COVID-19 PCRon 05-05-2020 SARS-CoV-2, ERNESTINE Not Detected Normal Not Detected [facility] [place] Comment on above: Result Comment: This nucleic acid amplification test was developed and its performance characteristics determined by [employer]. Nucleic acid amplification tests include PCR and [...] Performed By: #### C VDSTAT, CVDPCR #### [facility] [address] [place] [address] Camelia Morales PRIORITY COVID PROCESSINGon 05-05-2020 Comment Comment Normal [facility] Comment on above: Result Comment: Rece ived Performed By: #### C VDSTAT, CVDPCR #### [facility] [address] [place], [place] [address] Camelia Morales US PREG BIOPHY W NON [...] BRAULIO MONTEZ Date: 2020-05-03 20:36 Normal [facility] US PREG BIOPHY W NON STRESSo [...] Latricia CERVANTES Date: 2020-04-26 17:44 Normal [facility] US PREG BIOPHY W NON STRESSo [...] GATITO DOUGHERTY Date: 2020-04-21 19:59 Normal [facility] GROUP B STREP CULTUREon 03-29 S. agalactiae Ag Ql (Unsp spec) Culture Observations: NEGATIVE FOR GROUP B STREPTOCOCCUS Normal [facility] Comment on above: Performed By: #### G BSCX ####[facility] [address] [place] US PREG BIOPHY W NON [...] by: GATITO DOUGHERTY Date: 2020-04-19 19:00 Normal [facility] US PREG BIOPHY W NON STRESSo [...] Latricia CERVANTES Date: 2020-04-12 16:33 Normal [facility] US PREG GROWTHon 04-05-2020 US PREG [...] by: GATITO DOUGHERTY Date: 2020-04-05 17:39 Normal [facility] US PREG BIOPHY W NON STRESSo [...] by: Latricia CERVANTES Date: 2020-03-29 16:39 Normal [facility] Encounters Encounter Date Encounter Type Care [...] 05-24-2021 End: 05-25-2021 ambulatory NAZANIN DURAN Facility:[facility] Start: 05-24-2020 Patient encounter procedure [...] BERRY Payers Date Payer Category Payer Unknown [id number] 2.16.84 [id number] 1988 Unknown [id number] 2.16.84 0.1.768489.3.579.2.593 1988 Unknown [id number] 2.16.84 0.1.362408.3.579.2.593 1988 Unknown [id number] 2.16.84 0.1.456048.3.579.2.593 1988 Unknown [id number] 2.16.84 0.1.587917.3.579.2.593 1988 Unknown [id number] 2.16.84 0.1.206414.3.579.2.593 1988 Unknown [id number] 2.16.84 0.1.601620.3.579.2.593 1988 Unknown [id number] 2.16.84 0.1.278351.3.579.2.593 1988 Unknown [id number] 2.16.84 0.1.223121.3.579.2.593 1988 Unknown [id number] 2.16.84 0.1.360709.3.579.2.593 1988 Unknown [id number] 2.16.84 0.1.663280.3.579.2.593 1988 Unknown [id number] 2.16.84 0.1.233324.3.579.2.593 1988 Unknown [id number] 2.16.84 0.1.171744.3.579.2.593 1988 Unknown [id number] 2.16.84 0.1.183847.3.579.2.593 1988 Unknown [id number] 2.16.84 0.1.374460.3.579.2.593 1988 Unknown [id number] 2.16.84 0.1.465458.3.579.2.593 1988 Unknown [id number] 2.16.84 0.1.481169.3.579.2.593 1988 Unknown [id number] 2.16.84 0.1.701523.3.579.2.593 1988 Unknown [id number] 2.16.84 0.1.320269.3.579.2.593 1988 Unknown [id number] 2.16.8 40.1.334650.3.579.2.727 1988 Unknown [id number] 2.16.8 40.1.562310.3.579.2.1286 1988 Unknown [id number] 2.16.8 40.1.769501.3.579.2.1286 1988 Unknown [id number] 2.16.84 0.1.798622.3.579.2.1259 1988 Unknown [id number] 2.16.84 0.1.732742.3.579.2.1259 1988 Unknown [id number] 2.16.84 0.1.220109.3.579.2.1259 1988 Unknown [id number] 2.16.84 0.1.476777.3.579.2.1259 1988 Unknown [id number] 2.16.84 0.1.860152.3.579.2.1259 1988 Unknown [id number] 2.16.84 0.1.525188.3.579.2.1259 1988 Unknown [id number] 2.16.84 0.1.435027.3.579.2.1259 1959 Self-pay [id number] Self-pay 1959 Unknown [id number] Summary Purpose Family History No Family History [...] DATE CREATED AUTHOR AUTHOR'S ORGANIZ ATION 10/27/2022 [facility] DATE CREATED AUTHOR AUTHOR'S ORGANIZ ATION 01/03/2024 [facility] DATE CREATED AUTHOR AUTHOR'S ORGANIZ ATION 04/22/2024 [facility] FOR RECORDS PERTAINING TO PATIENTS WHO [...] BE BASED ON THE PRIMARY CLINICAL RECORDS. [facility] [employer] [facility]. provides no warranty or guarantee of the accuracy or completeness of information in this document.
[2024-04-27 11:17] VITALS: BP 135/86; PULSE 84
[2024-04-27 11:20] VITALS: BP 135/86; PULSE 84
== END 2024-04-27 11:47 | disposition home or self-care (01) ==
LOC: US 07:11 → FBC 10:48
PROVIDERS: Visit Provider Obstetrics & Gynecology
DX: O24.419 Gestational diabetes mellitus in pregnancy, unspecified control (principal); Z3A.37 37 weeks gestation of pregnancy
CPT/HCPCS: 76818

== ENCOUNTER 2024-04-30 17:40 | Inpatient (IN) | payer OTHER, SELFPAY ==
[2024-04-30] VITALS (46 sets, daily range): BP systolic 128–165; BP diastolic 73–102; PULSE 74–112; TEMP 36.4–37.2
--- OUTSIDE RECORDS SUMMARY | 2024-04-30 07:08 | XMS_ITS | CCD ---
Author Organization [facility] Care Team Providers Care Machine Feeder Floorperson Name Role Phone ABRAHAM BERRY Attending Unavailable ABRAHAM BERRY Admitting Unavailable ANJEL, APARNA Consulting Unavailable ABRAHAM BERRY Consulting Unavailable Latricia Russell Consulting Unavailable ABRAHAM BERRY Consulting Unavailable ANJEL, APARNA Attending Unavailable ANJEL, PAARNA Admitting Unavailable REQUEST, NONE LISTED Primary Care [...] BERRY Attending Unavailable ABRAHAM BERRY Admitting Unavailable Gatito Duran Consulting Unavailable ABRAHAM BERRY Consulting Unavailable ABRAHAM BERRY Attending Unavailable JAMAL, ABRAHAM Admitting Unavailable Latricia Russell Consulting Unavailable ANJEL, APARNA Attending Unavailable ANJEL, APARNA Consulting Unavailable ANJEL, APARNA Admitting Unavailable ANJEL, APARNA Attending Unavailable ANJEL, APARNA Admitting Unavailable ANJEL, APARNA Primary Care Unavailable ANJEL, APARNA Consulting Unavailable ABRAHAM BERRY Consulting Unavailable Latricia Russell Consulting Unavailable ANJEL, APARNA Attending Unavailable ANJEL, APARNA Admitting Unavailable ANJEL, APARNA Consulting Unavailable JAMAL, ABRAHAM Admitting Unavailable ABRAHAM BERRY Attending Unavailable ABRAHAM BERRY Consulting Unavailable Latricia Russell Consulting Unavailable NAZANIN DURAN Admitting Unavailable NAZANIN DURAN Attending Unavailable ANJEL, APARNA R Referring Unavailable BOLA MILLER Attending Unavailable ANJEL, APARNA R Referring [facility]available [facility] APARNA HOBBS Attending Unavailable ANJEL, APARNA Attending Unavailable ANJEL, APARNA Attending Unavailable ANJEL, APARNA Attending Unavailable RAMONITA AUSTIN Attending Unavailable ANJEL, APARNA Attending Unavailable RAMONITA AUSTIN Attending Unavailable Medications Current Medications Medication Drug Class(es) Dates Sig (Normalized) Sig (Original) aspirin 81 mg delayed release oral tablet (3 sources) Platelet Aggregation Inhibitor, Nonsteroidal Anti-inflammatory Drug take 1 tablet by mouth in the morning aspirin 81 MG EC tablet Take 81 mg by mouth in the morning. Active Cetirizine (3 sources) Histamine-1 Receptor Antagonist Cetirizine HCl (ZYRTEC ALLERGY PO) Take by mouth Active pyridoxine (3 sources) Pyridoxine HCl (VITAMIN B6 PO) Take by mouth Active Problems Active Problems Problem Classification Problem Date Documented Date Episodic/Chronic Diabetes or abnormal glucose tolerance complicating ; childbirth; or the puerperium (17 sources) Gestational diabetes mellitus in , unspecified control; Translations: [Gestational diabetes mellitus in , diet controlled] Onset: 04-15-2020 03-04-2024 Episodic Other complications of (1 source) Supervision of elderly multigravida, second trimester; Translations: [Supervision of elderly multigravida, second trimester] Onset: 01-02-2024 Episodic Other and delivery including normal (7 sources) Encounter for routine follow-up; Translations: [Single live ] Onset: 05-16-2020 04-27-2024 Episodic Other screening for suspected conditions (not [...] ] Onset: 01-02-2024 Episodic Residual codes; unclassified (2 sources) Gestation period, 37 weeks; Translations: [37 weeks gestation of ] 04-27-2024 Episodic Residual codes; unclassified (1 source) 34 [...] PERINEAL LAC DUR DELIV] Onset: 05-18-2020 Episodic Umbilical cord complication (1 source) Labor and delivery complicated by cord around neck, without compression, not applicable or unspecified; Translations: [L AND D COMP CORD NECK NO COMPRS NA/UNS] Onset: 05-18-2020 Episodic Results Test Name Value Interpretation Reference Range Facil ity CBC AUTO DIFFon 05-12-2020 Basophils (Bld) [#/Vol] 0.0 103/ul Normal 0.0-0.1 [facility] Comment on above: Performed By: #### C BC #### [facility] [address] [place], [place] [address] Camelia Carmen Basophils/100 WBC (Bld) 0.1 % Critically low 0.2-2.0 [facility] Comment on above: Performed By: #### C BC #### [facility] [address] [place], [place] [address] Camelia Carmen Eosinophils (Bld) [#/Vol] 0.1 103/ul Normal 0.0-0.7 [facility] Comment on above: Performed By: #### C BC #### [facility] [address] [place], [place] [address] Camelia Carmen Eosinophils/100 WBC (Bld) 0.5 % Critically low 0.9-7.0 [facility] Comment on above: Performed By: #### C BC #### [facility] [address] [place], [place] [address] Camelia Carmen Erythrocyte distribution width (RBC) [Ratio] 13.2 % Normal 11.0-15.0 [facility] Comment on above: Performed By: #### C BC #### [facility] [address] [place] [id number] Camelia Carmen Hematocrit (Bld) [Volume fraction] 30.2 % Critically low 36.0-48.0 [facility] Comment on above: Performed By: #### C BC #### [facility] [address] [place] [id number] Camelia Carmen Hemoglobin (Bld) [Mass/Vol] 10.0 g/dL Critically low 12.0-16.0 [facility] Comment on above: Performed By: #### C BC #### [facility] [address] [place], [place] [id number] Camelia Carmen IG # 0.07 10e3/ul Critically high 0.00-0.03 [facility] Comment on above: Performed By: #### C BC #### [facility] [address] [place], [place] [id number] Camelia Carmen IG % 0.5 % Normal 0.0-0.5 [facility] Comment on above: Performed By: #### C BC #### [facility] [address] [place], [place] [id number] Camelia Carmen Lymphocytes (Bld) [#/Vol] 2.0 103/ul Normal 1.2-3.8 [facility] Comment on above: Performed By: #### C BC #### [facility] [address] [place], [place] [id number] Camelia Carmen Lymphocytes/100 WBC (Bld) 13.4 % Critically low 20.5-60.0 [facility] Comment on above: Performed By: #### C BC #### [facility] [address] [place], [place] [id number] Camelia Troyen MANUAL DIFF REQ NO Normal [facility] Comment on above: Performed By: #### C BC #### [facility] [address] [place], [place] [id number] Cameliaalanna Troyen MCH (RBC) [Entitic mass] 28.1 pg Normal 26.7-34.0 [facility] Comment on above: Performed By: #### C BC #### [facility] [address] [place], [place] [phone] Cameliaalnana Troyen MCHC (RBC) [Mass/Vol] 33.1 g/dL Normal 29.9-35.2 [facility] Comment on above: Performed By: #### C BC #### [facility] [address] [place], [place] [address] Camelia Carmen MCV (RBC) [Entitic vol] 84.8 fL Normal 81.0-99.0 [facility] Comment on above: Performed By: #### C BC #### [facility] [address] [place], [place] [address] Camelia Carmen Monocytes (Bld) [#/Vol] 1.0 103/ul Critically high 0.3-0.8 [facility] Comment on above: Performed By: #### C BC #### [facility] [address] [place] [id number] Camelia Carmen Monocytes/100 WBC (Bld) 7.0 % Normal 1.7-12.0 [facility] Comment on above: Performed By: #### C BC #### [facility] [address] [place], [place] [address] Camelia Carmen Neutrophils (Bld) [#/Vol] 11.6 103/ul Critically high 1.4-6.5 [facility] Comment on above: Performed By: #### C BC #### [facility] [address] [place] [address] Camelia Carmen Neutrophils/100 WBC (Bld) 78.5 % Critically high 43.0-75.0 [facility] Comment on above: Performed By: #### C BC #### [facility] [address] [place], [place] [address] Camelia Carmen Platelet mean volume (Bld) [Entitic vol] 12.4 fL Normal 9.5-13.5 [facility] Comment on above: Performed By: #### C BC #### [facility] [address] [place], [place] [address] Camelia Carmen Platelets (Bld) [#/Vol] 151 103/ul Normal 150-450 [facility] Comment on above: Performed By: #### C BC #### [facility] [address] [place], [place] [address] Camelia Carmen RBC (Bld) [#/Vol] 3.56 106/ul Critically low 4.20-5.40 [facility] Comment on above: Performed By: #### C BC #### [facility] [address] [place], [place] [address] Camelia Carmen WBC (Bld) [#/Vol] 14.7 103/ul Critically high 4.0-11.0 [facility] Comment on above: Performed By: #### C BC #### [facility] [address] [place] [id number] Camelia Morales POINT OF CARE GLUCOSEon 04-27 Glucose [Mass/Vol] 95 mg/dL Normal 74-[address] [facility] Comment on above: Performed By: #### P OCGLUC ####[facility] [id number] [place] [id number] Carmen CBC AUTO DIFFon 05-11-2020 Basophils (Bld) [#/Vol] 0.0 103/ul Normal 0.0-0.1 [facility] Comment on above: Performed By: #### C BC #### [facility] [address] [place], [place] [address] Camelia Morales Basophils/100 WBC (Bld) 0.4 % Normal 0.2-2.0 [facility] Comment on above: Performed By: #### C BC #### [facility] [address] [place], [place] [phone] Camelia Carmen Eosinophils (Bld) [#/Vol] 0.1 103/ul Normal 0.0-0.7 [facility] Comment on above: Performed By: #### C BC #### [facility] [address] [place], [place] [address] Camelia Carmen Eosinophils/100 WBC (Bld) 0.7 % Critically low 0.9-7.0 [facility] Comment on above: Performed By: #### C BC #### [facility] [address] [place], [place] [phone] Camelia Carmen Erythrocyte distribution width (RBC) [Ratio] 13.2 % Normal 11.0-15.0 [facility] Comment on above: Performed By: #### C BC #### [facility] [address] [place] [address] Cameliaalanna Morales Hematocrit (Bld) [Volume fraction] 36.2 % Normal 36.0-48.0 [facility] Comment on above: Performed By: #### C BC #### [facility] [address] [place] [address] Camelia Carmen Hemoglobin (Bld) [Mass/Vol] 12.2 g/dL Normal 12.0-16.0 [facility] Comment on above: Performed By: #### C BC #### [facility] [address] [place] [address] Camelia Carmen IG # 0.05 10e3/ul Critically high 0.00-0.03 [facility] Comment on above: Performed By: #### C BC #### [facility] [address] [place] [address] Camelia Carmen IG % 0.6 % Critically high 0.0-0.5 [facility] Comment on above: Performed By: #### C BC #### [facility] [address] [place] [address] Camelia Carmen Lymphocytes (Bld) [#/Vol] 1.5 103/ul Normal 1.2-3.8 [facility] Comment on above: Performed By: #### C BC #### [facility] [address] [place] [address] Camelia Morales Lymphocytes/100 WBC (Bld) 18.3 % Critically low 20.5-60.0 [facility] Comment on above: Performed By: #### C BC #### [facility] [address] [place], [place] [phone] Camelia Morales MANUAL DIFF REQ NO Normal [facility] Comment on above: Performed By: #### C BC #### [facility] [address] [place] [address] Cameliaalanna Morales MCH (RBC) [Entitic mass] 28.4 pg Normal 26.7-34.0 [facility] Comment on above: Performed By: #### C BC #### [facility] [address] [place] [id number] Cameliaalanna Morales MCHC (RBC) [Mass/Vol] 33.7 g/dL Normal 29.9-35.2 [facility] Comment on above: Performed By: #### C BC #### [facility] [address] [place], [place] [address] Camelia Carmen MCV (RBC) [Entitic vol] 84.4 fL Normal 81.0-99.0 [facility] Comment on above: Performed By: #### C BC #### [facility] [address] [place], [place] [address] Camelia Carmen Monocytes (Bld) [#/Vol] 0.4 103/ul Normal 0.3-0.8 [facility] Comment on above: Performed By: #### C BC #### [facility] [address] [place] [address] Camelia Carmen Monocytes/100 WBC (Bld) 4.4 % Normal 1.7-12.0 [facility] Comment on above: Performed By: #### C BC #### [facility] [address] [place], [place] [address] Camelia Carmen Neutrophils (Bld) [#/Vol] 6.2 103/ul Normal 1.4-6.5 [facility] Comment on above: Performed By: #### C BC #### [facility] [address] [place], [place] [address] Camelia Carmen Neutrophils/100 WBC (Bld) 75.6 % Critically high 43.0-75.0 [facility] Comment on above: Performed By: #### C BC #### [facility] [address] [place], [place] [address] Camelia Carmen Platelet mean volume (Bld) [Entitic vol] 12.0 fL Normal 9.5-13.5 [facility] Comment on above: Performed By: #### C BC #### [facility] [address] [place], [place] [address] Camelia Carmen Platelets (Bld) [#/Vol] 134 103/ul Critically low 150-450 [facility] Comment on above: Performed By: #### C BC #### [facility] [address] [place] [address] Camelia Morales RBC (Bld) [#/Vol] 4.29 106/ul Normal 4.20-5.[address] [facility] Comment on above: Performed By: #### C BC #### [facility] [address] [place] [address] Cameliaalanna Morales WBC (Bld) [#/Vol] 8.3 103/ul Normal 4.0-11.0 [facility] Comment on above: Performed By: #### C BC #### [facility] [address] [place] [address] Camelia Morales DRUG SCREEN RAPID (URINE)on 05-11-2020 AMP Negative Normal NEGATIVE [facility] Comment on above: Performed By: #### D RUGRPD #### [facility] [address] [place] [address] Camelia Carmen BAR Negative Normal NEGATIVE [facility] Comment on above: Performed By: #### D RUGRPD #### [facility] [address] [place] [address] Camelia Carmen BUP Negative Normal NEGATIVE [facility] Comment on above: Performed By: #### D RUGRPD #### [facility] [address] [place] [address] Camelia Carmen BZO Negative Normal NEGATIVE [facility] Comment on above: Performed By: #### D RUGRPD #### [facility] [address] [place] [address] Camelia Carmen SHERRELL Negative Normal NEGATIVE [facility] Comment on above: Performed By: #### D RUGRPD #### [facility] [address] [place] [address] Camelia Carmen CUT-OFFS SEE BELOW Normal [facility] Comment on above: Result Comment: AMP (Amphetamine): [...] ng/mL Performed By: #### D RUGRPD #### [facility] [address] [place] [address] DRUG CUT HEADER DRUG CLASS TEST SYSTEM CUT-OFF CONCENTRATIONS ARE FOLLOWS: Normal [facility] Comment on above: Performed By: #### D RUGRPD #### [facility] [address] [place] [address] Camelia Carmen mAMP Negative Normal NEGATIVE [facility] Comment on above: Performed By: #### D RUGRPD #### [facility] [address] [place] [address] Camelia Carmen MTD Negative Normal NEGATIVE [facility] Comment on above: Performed By: #### D RUGRPD #### [facility] [address] [place] [address] Camelia Carmen OPI Negative Normal NEGATIVE [facility] Comment on above: Performed By: #### D RUGRPD #### [facility] [address] [place] [address] Camelia Carmen OXY Negative Normal NEGATIVE [facility] Comment on above: Performed By: #### D RUGRPD #### [facility] [address] [place] [address] Camelia Carmen PCP Negative Normal NEGATIVE [facility] Comment on above: Performed By: #### D RUGRPD #### [facility] [address] [place] [address] Camelia Carmen PPX Negative Normal NEGATIVE [facility] Comment on above: Performed By: #### D RUGRPD #### [facility] [address] [place] [address] Camelia Carmen TCA Negative Normal NEGATIVE [facility] Comment on above: Performed By: #### D RUGRPD #### [facility] [address] [place], [place] [address] Camelia Morales THC Negative Normal NEGATIVE [facility] Comment on above: Performed By: #### D RUGRPD #### [facility] [address] [place], [place] [address] Camelia Morales POINT OF CARE GLUCOSEon 04-27 Glucose [Mass/Vol] 92 mg/dL Normal 74-[address] [facility] Comment on above: Performed By: #### P OCGLUC #### [facility] [address] [place], [place] [address] Camelia Carmen Glucose [Mass/Vol] 95 mg/dL Normal 74-[address] [facility] Comment on above: Performed By: #### P OCGLUC #### [facility] [address] [place], [place] [address] Camelia Morales Glucose [Mass/Vol] 165 mg/dL Critically high 74-106 [facility] Comment on above: Performed By: #### P OCGLUC ####[facility] [id number] [place], [place] [address]Tmtcym Carmen TYPE AND SCREENon 05-11-2020 TYPE AND SCREEN Negative Normal [facility] Comment on above: Performed By: #### T NS ####[facility] [id number] [place], [place] [address]Ffyluo Karen US PREG BIOPHY W NON STRESSo n [...] index 12.9 cm. Electronically authenticated by: Latricia RUSSELL Date: 2020-05-10 17:09 Normal [facility] COVID-19 PCRon 05-05-2020 SARS-CoV-2, ERNESTINE Not Detected Normal Not Detected [facility] Comment on above: Result Comment: This nucleic acid amplification test was developed and its performance characteristics determined by [employer]. Nucleic acid amplification tests include PCR and [...] Performed By: #### C VDSTAT, CVDPCR #### [facility] [address] [place] [id number] Camelia Morales PRIORITY COVID PROCESSINGon 05-05-2020 Comment Comment Normal [facility] Comment on above: Result Comment: Rece ived Performed By: #### C VDSTAT, CVDPCR #### [facility] [address] [place] [id number] Camelia Morales US PREG BIOPHY W NON [...] by: BRAULIO MONTEZ Date: 2020-05-03 20:36 Normal [facility] US PREG BIOPHY W NON STRESSo n 04-26-2020 PREG BIOPHY W NON STRESS OB ultrasound [...] index 16 cm. Electronically authenticated by: Latricia RUSSELL Date: 2020-04-26 17:44 Normal [facility] US PREG BIOPHY W NON STRESSo n [...] ; BPP 8/8. Electronically authenticated by: GATITO DURAN Date: 2020-04-21 19:59 Normal [facility] GROUP B STREP CULTUREon 03-29 S. agalactiae Ag Ql (Unsp spec) Culture Observations: NEGATIVE FOR GROUP B STREPTOCOCCUS Normal [facility] Comment on above: Performed By: #### G BSCX ####[facility] [id number] [place] US PREG BIOPHY W NON [...] BPP 6/8(no breathing). Electronically authenticated by: GATITO [employer] Date: 2020-04-19 19:00 Normal [facility] US PREG BIOPHY W NON STRESSo n [...] index 12.89 cm. Electronically authenticated by: Latricia RUSSELL Date: 2020-04-12 16:33 Normal [facility] US PREG GROWTHon 04-05-2020 US PREG GROWTH [...] days. BPP 8/8. Electronically authenticated by: GATITO DURAN Date: 2020-04-05 17:39 Normal [facility] US PREG BIOPHY W NON STRESSo n [...] index 14.3 cm. Electronically authenticated by: Latricia RUSSELL Date: 2020-03-29 16:39 Normal [facility] Vital Signs Date Time Vital Sign Value Performing Clinician Jodie sanders 04-27-2024 10:21-0400 Body weight 89.36 kg Ramonita STRANGE Work Phone: [facility] 04-27-2024 10:21-0400 Diastolic blood pressure 76 mm[Hg] Ramonita STRANGE Work Phone: [facility] 04-27-2024 10:21-0400 Systolic blood pressure 122 mm[Hg] Ramonita STRANGE Work Phone: [facility] Encounters Encounter Date Encounter Type Care Provider Facility Start: 04-27-2024 End: 04-27-2024 Bamboo flowsheet Ramonita STRANGE Work Phone: [facility] Start: 04-27-2024 End: 04-27-2024 Bamboo flowsheet Ramonita STRANGE Work Phone: [facility] Start: 04-27-2024 End: 04-27-2024 flow sheet Ramonita STRANGE Work Phone: [facility] Comment on above: Third trimester preg leah; 37 weeks gestation of Start: 04-27-2024 End: 04-27-2024 ambulatory RAMONITA NORMAN Not Available Start: 04-20-2024 End: 04-20-2024 ambulatory APARNA ANJEL Not Available Start: 04-13-2024 End: 04-13-2024 ambulatory RAMONITA NORMAN Not Available Start: 03-30-2024 End: 03-30-2024 ambulatory APARNA ANJEL Not Available Start: 03-18-2024 End: 03-18-2024 ambulatory APARNA ANJEL Not Available Start: 03-04-2024 End: 03-04-2024 ambulatory APARNA ANJEL Not Available Start: 01-02-2024 End: 01-02-2024 ambulatory APARNA R ANJEL [facility] Start: 12-03-2023 End: 12-03-2023 ambulatory APARNA ANJEL [...] 05-10-2020 End: 05-10-2020 Patient encounter procedure APARNA ANEJL Facility:[facility] Start: 05-06-2020 End: 05-06-2020 Patient encounter procedure APARNA ANJEL Facility:[facility] Start: 05-03-2020 End: 05-03-2020 Patient encounter procedure PAARNA ANJEL Facility:[facility] Start: 04-29-2020 End: 04-29-2020 Patient encounter procedure APARNA ANJEL Facility:[facility] Start: 04-26-2020 End: 04-26-2020 Patient encounter procedure APARNA ANJEL Facility:[facility] Start: 04-22-2020 End: 04-22-2020 Patient encounter procedure APARNA ANJEL Facility:[facility] Start: 04-21-2020 End: 04-21-2020 Patient encounter procedure ABRAHAM BERRY Facility:[facility] Start: 04-19-2020 End: 04-19-2020 Patient encounter procedure APARNA ANJEL Facility:[facility] Start: 04-15-2020 End: 04-15-2020 Patient encounter procedure APARNABurak GARRETTO Facility:[facility] Start: 04-12-2020 End: 04-12-2020 Patient [...] Perineum Musc le, Open Approach ABRAHAM BERRY Plan of Treatment Date Care Activity Detail Author Start: 04-27-2024 End: 04-27-2024 Patient encounter procedure 04/27/2024 9:50 AM EDT Routine [facility] [address] [place] [address] [place] [id number] Ramonita Austin PA [address] [place] [address] [place] [address] Arrived [facility] Comment on above: Arrived Payers Date Payer Category Payer Unknown [employer] [id number] 2022-Present [address] [place] [address] [id number] 1988 Unknown [id number] 2.16.840.1.952509.3.579.2.593 1988 Unknown [id number] 2.16840.1.141327.3.579.2.593 1988 Unknown [id number] 2.16840.1.290733.3.579.2.593 1988 Unknown [id number] 2.16.840.1.226132.3.579.2.593 1988 Unknown [id number] 2.16.840.1.076408.3.579.2.593 1988 Unknown [id number] 2.16.840.1.185139.3.579.2.593 1988 Unknown [id number] 2.16.840.1.459699.3.579.2.593 1988 Unknown [id number] 2.16.840.1.745532.3.579.2.593 1988 Unknown [id number] 2.16.840.1.266656.3.579.2.593 1988 Unknown [id number] 2.16.840.1.133407.3.579.2.593 1988 Unknown [id number] 2.16.840.1.502650.3.579.2.593 1988 Unknown [id number] 2.16.840.1.900596.3.579.2.593 1988 Unknown [id number] 2.16.840.1.265324.3.579.2.593 1988 Unknown [id number] 2.16.840.1.714276.3.579.2.593 1988 Unknown [id number] 2.16.840.1.716591.3.579.2.593 1988 Unknown [id number] 2.16.840.1.540493.3.579.2.593 1988 Unknown [id number] 2.16.840.1.950800.3.579.2.593 1988 Unknown [id number] 2.16.840.1.498050.3.579.2.593 1988 Unknown [id number] 2.16840.1.108912.3.579.2.593 1988 Unknown [id number] 2.16.840.1.840446.3.579.2.727 1988 Unknown [id number] 2.16.840.1.132631.3.579.2.1286 1988 Unknown [id number] 2.16.840.1.491232.3.579.2.1286 1988 Unknown [id number] 2.16840.1.344340.3.579.2.1259 1988 Unknown [id number] 2.16.840.1.510265.3.579.2.1259 1988 Unknown [id number] 2.16.840.1.776695.3.579.2.1259 1988 Unknown [id number] 2.16.840.1.668639.3.579.2.1259 1988 Unknown [id number] 2.16.840.1.584497.3.579.2.1259 1988 Unknown [id number] 2.16.840.1.596885.3.579.2.1259 1988 Unknown [id number] 2.16.840.1.490442.3.579.2.1259 1988 Unknown [id number] 2.16.840.1.541034.3.579.2.1259 1959 Self-pay [id number] Self-pay 1959 Unknown [id number] Social History Date Type Detail Facility Start: 03-30-2024 Tobacco smoking stat [facility] Never smoked tobacco [facility] Start: 03-30-2024 Tobacco use and exposure Smokeless t obacco non-user [facility] Start: 04-20-2024 Alcoholic beverage intake Ex-drinker (finding) [facility] Start: 03-30-2024 History of Social function [facility] Start: 03-30-2024 Tobacco use panel [facility] Start: 08-20-2023 [facility] Start: 1988 Sex assigned at Female [facility] Start: 03-23-2024 Gender identity Identifies as female gender (finding) [facility] History of Present illness Narrative 04-27-2024 ALEXANDR Rosales - 04/27/2024 9:50 AM EDT Note Date & Type Note Facility 04-27-2024 History of Presen t illness Narrative Reason for Appointment: Patient ID: Salome Henriquez is a 33 y.o. female who presents for Routine Visit Patient presents today for Return OB appointment. MEDICATIONS Current Outpatient Medications Medication Instructions aspirin 81 mg, Oral, Daily RT Cetirizine HCl (ZYRTEC ALLERGY PO) Oral Pyridoxine HCl (VITAMIN B6 PO) Oral ALLERGIES No Known Allergies PROBLEMS Active Ambulatory Problems Diagnosis Date Noted History of gestational diabetes 03/04/2024 Gestational diabetes mellitus (GDM) in third trimester 03/04/2024 Resolved Ambulatory Problems Diagnosis Date Noted No Resolved Ambulatory Problems Past Medical History: Diagnosis Date Diabetes mellitus (CMS/HCC) HISTORY PAST MEDICAL HISTORY SOCIAL HISTORY Past Medical History: Diagnosis Date Diabetes mellitus (CMS/HCC) Social History Tobacco Use Smoking status: Never Smokeless tobacco: Never Substance Use Topics Alcohol use: Not Currently Drug use: Never FAMILY HISTORY No family history on file. SURGICAL HISTORY No past surgical history on file. REVIEW OF SYSTEMS Review of Systems: Review of Systems Constitutional: Negative. HENT: Negative. Eyes: Negative. Respiratory: Negative. Cardiovascular: Negative. Gastrointestinal: Negative. Genitourinary: Negative. Musculoskeletal: Negative. Skin: Negative. Neurological: Negative. All other systems reviewed and are negative. Hematological: Negative. Endocrine: Negative. Allergic/Immunologic: Negative. OBJECTIVE Objective: Physical Exam Constitutional: Appearance: Normal appearance. She is normal weight. HENT: Head: Normocephalic. Cardiovascular: Rate and Rhythm: Normal rate. Pulses: Normal pulses. Pulmonary: Effort: Pulmonary effort is normal. Breath sounds: Normal breath sounds. Abdominal: Palpations: Abdomen is soft. Musculoskeletal: General: Normal range of motion. Neurological: General: No focal deficit present. Mental Status: She is alert and oriented to person, place, and time. Psychiatric: Mood and Affect: Mood normal. Behavior: Behavior normal. Thought Content: Thought content normal. Judgment: Judgment normal. Vitals and nursing note reviewed. Vitals: There is no height or weight on file to calculate BMI. BP: 122/76 No LMP recorded. Patient is . ASSESSMENT & PLAN ICD-10-CM 1. Third trimester Z34.93 2. 37 weeks gestation of Z3A.37 Return OB: Patient presents today for a routine obstetrics appointment. Patient is currently 37w6d . Patient states she is doing well but has complaints of being tired due to current . Patient has verbalizes frequent movement. labor precautions was discussed/given and patient was instructed to perform kick counts three times a day. No orders of the defined types were placed in this encounter. Follow Up: Patient is to return to office in 1 week for routine OB appointment. Documented by ALEXANDR Rosales on behalf of: ALEXANDR Rosales documented in this encounter [facility] Evaluation note Note Date & Type Note Facility Evaluation note Diagnosis Third trimester state, incidental 37 weeks gestation of documented in this encounter [facility] Summary Purpose Family History No Family History Records FoundNo Family History Records FoundNo Family History Records FoundNo Family History Records Found Advance Directives No Advanced Directives Records FoundNo Advanced Directives Records FoundNo Advanced Directives Records FoundNo Advanced Directives Records Found Additional Source Comments INFORMATION SOURCE (unrecogn ized section and content) DATE CREATED AUTHOR 09/14/2020 [facility] DATE CREATED AUTHOR AUTHOR'S ORGANIZ ATION 10/27/2022 Clifford Hayes [facility] DATE CREATED AUTHOR AUTHOR'S ORGANIZ ATION 01/03/2024 [facility] DATE CREATED AUTHOR AUTHOR'S ORGANIZ ATION 04/28/2024 [facility] Care Teams (unrecognized sec tion and content) 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 [facility] [facility]. provides no warranty or guarantee of the accuracy or completeness of information in this document.
--- NOTE | 2024-04-30 15:54 | US_ITS ---
The [address] [address] Patient Name: ARLIN LUNDBERG MRN: [facility]:[id number] date: 1990 Sex: F Assigned Patient Location: [facility] Current Patient Location: [facility] Accession/Order Number: [id number] Exam Date: 04/30/2024 16:05 Report Date: 04/30/2024 17:56 At the request of: ANABELLE ODEN Procedure: US OB BPP w non-stress OB ultrasound for biophysical profile, 04/30/2024 4:05 PM EDT COMPARISON: Similar ultrasound exam, 04/27/2024. CLINICAL HISTORY: Elevated Blood pressures. Biophysical profile is scored: breathing score 2 out of 2. tone score 2 out of 2. movements score 2 out of 2. Qualitative amniotic fluid amount score 2 out of 2. reactivity was not performed or the results are not known at time of examination. This gives a total of 8 out of 8. The heart rate is 138 beats per minute. Amniotic fluid index is 8.2 cm. US/US OB BPP w non-stress IMPRESSION: 1. A score of 8 of 8 is noted. 2. The heart rate is 138 beats per minute. 3. Amniotic fluid index 8.2 cm. Electronically authenticated by: Latricia RUSSELL Date: 04/30/2024 17:56
[2024-04-30 16:20] LABS: Basophils Percent Auto 0.4 % (0.2-2.0); Eosinophils Absolute Auto 0.1 10^3/uL (0.0-0.7); Eosinophils Percent Auto 1.2 % (0.9-7.0); Hematocrit 37.7 % (36.0-48.0); Immature Granulocytes Abs Auto 0.03 10^3/uL (0.00-0.03); Immature Granulocytes Pct Auto 0.4 % (0.0-0.5); Mean Corpuscular HGB Conc 34.5 g/dL (29.9-35.2); Mean Corpuscular Hemoglobin 29.4 pg (26.7-34.0); Mean Corpuscular Volume 85.3 fL (81.0-99.0); Mean Platelet Volume 11.2 fL (9.5-13.5); Monocytes Absolute Auto 0.6 10^3/uL (0.3-0.8); Monocytes Percent Auto 6.9 % (1.7-12.0); Neutrophils Absolute Auto 5.6 10^3/uL (1.4-6.5); Neutrophils Percent Auto 67.1 % (43.0-75.0); Platelet Count 164 10^3/uL (150-450); Red Blood Count 4.42 10^6/uL (4.20-5.40); Red Cell Distribution Width 12.8 % (11.0-15.0); White Blood Count 8.4 10^3/uL (4.0-11.0)
[2024-04-30 16:34] LABS: Protein Creatinine Ratio Urine 0.41; Total Protein Urine Random 6.7 mg/dL (<=11.9)
[2024-04-30 16:35] LABS: Alanine Aminotransferase 19 U/L (14-59); Albumin Globulin Ratio 0.8; Alkaline Phosphatase 147 U/L (46-116); Anion Gap 12.3; Aspartate Amino Transferase 17 U/L (15-37); BUN Creatinine Ratio 9.3; Bilirubin Total 0.2 mg/dL (0.2-1.0); Calcium 9.2 mg/dL (8.5-10.1); Carbon Dioxide 24.3 mmol/L (21.0-32.0); Chloride 102 mmol/L (98-107); Estimated GFR (African America >60 (>=60 mL/min/1.73m^2); Estimated GFR (Non-African Ame >60 (>=60 mL/min/1.73m^2); Globulin 3.8 g/dL; Glucose 94 mg/dL (74-106); Lactate Dehydrogenase 136 U/L (81-234); Potassium 3.6 mmol/L (3.5-5.1); Sodium 135 mmol/L (136-145); Total Protein 6.8 g/dL (6.4-8.2); Uric Acid 2.5 mg/dL (2.6-6.0)
[2024-04-30 16:38] LABS: Partial Thromboplastin Time 33.5 sec (22.3-36.2); Prothrombin Time 9.3 sec (9.0-11.6)
[2024-04-30 16:40] LABS: INR <0.93
--- NOTE | 2024-04-30 17:43 | P.OBHP_ITS ---
OB - H&P: HPI History of Present Illness Chief complaint: Gestational Diabetes : 3 Para: 2 Date of last menstrual period: unknown THELMA 05/07/24 BASED ON ULTRASOUND 11/06/23 Gestational age based on last menstrual period: 38.2 BASED ON US Narrative: PREECLAMPSIA, ELEVATED BLOOD PRESSURES Comments: NO HEADACHE, NO VISUAL CHANGES, NO RUQ PAIN, NO NAUSEA/VOMITING, BPP 10/10 AMA GDMA1 History of Present Dating criteria: LMP confirmed by 1st trimester US care: good care Ultrasounds: normal mid trimester US complications: preeclampsia and gestational diabetes Medical complications OB: none Labs Blood type: O (+) positive Rubella: immune RPR/VDLR: nonreactive GBS status: negative HBsAG: negative Review of Systems ROS VOICING NO COMPLAINTS Status of ROS: 10 or more systems reviewed and unremarkable except as noted in history and below Meds Home Medications and Allergies Home Medications ?Medication ?Instructions ?Recorded ?Confirmed ?Type aspirin 81 mg capsule 81 mg PO DAILY 04/02/24 04/02/24 History pyridoxine (vitamin B6) 50 mg 25 mg PO DAILY 04/02/24 04/02/24 History tablet Allergies Allergy/AdvReac Type Severity Reaction Status Date / Time No Known Drug Allergies Allergy Verified 04/02/24 09:38 Exam Constitutional Vital Signs, click to edit/add: Last Vital Signs Pulse 86 04/30/24 15:53 BP 150/95 H 04/30/24 15:53 Documenting provider has reviewed patient's vital signs: yes Common normals: no apparent distress, average body habitus, oriented x3, no limitations, healthy appearing, alert and well nourished General appearance: cooperative, comfortable and well kempt Orientation/consciousness: Yes awake, Yes oriented to person, Yes oriented to place and Yes oriented to time HENMT Common normals: normocephalic and head/scalp atraumatic Eye Common normals: PERRL Pupil: accommodation reflex normal Neck & C-Spine Common normals: full ROM and supple Respiratory Common normals: normal respiratory effort Auscultation: clear to auscultation bilaterally Cardio Common normals: regular rate and regular rhythm GI Common normals: Normal to inspection, nondistended, normoactive bowel sounds present, soft to palpation and non-tender Common normals: no CVA tenderness, external appearance normal, appearance of the vagina normal and bimanual exam normal (HAVE PRIOR NORMAL ULTRASOUNDS) Bladder/kidney exam: catheter in place Catheter type (Female): other (URETHRAL CATHETER TO BE PLACED FOR MAGNESIUM) External Female Exam: normal appearance of the urethra Manual OB Exam: deferred (CE PENDING PLACEMENT OF EPIDURAL) Other: AROM PENDING, FLUID PER ULTRASOUND 8 CM DOWN FROM 20 CM ON PRIOR ULTRASOUND Back & Pelvis Common normals: no thoracic nor lumbar tenderness Thoracic spine/upper back: normal to inspection Lumbar spine/lower back: normal to inspection Extremity Common normals: normal to inspection, full ROM, no calf tenderness and no pedal edema (2 + NORMAL LE EDEMA NON PITTING) Neuro Common normals: CN's II-XII intact bilaterally, moves all extremities, no focal motor deficits, no sensory deficits noted and deep tendon reflexes 2+ bilate rally Sensorium/orientation: awake, alert, oriented to person, oriented to place and oriented to time Motor exam: strength 5/5 throughout Psych Common normals: mental status grossly normal, thought process normal, cooperative, affect normal, speech normal and activity/motor behavior normal Appearance: well kempt Attitude: calm Mood and affect: euthymic mood Thought process: normal thought process Results Labs Labs: Short CBC 04/30/24 Range/Units 16:10 WBC 8.4 (4.0-11.0) 10^3/uL Hgb 13.0 (12.0-16.0) g/dL Hct 37.7 (36.0-48.0) % Plt Count 164 (150-450) 10^3/uL BMP 04/30/24 16:10 Sodium 135 L Potassium 3.6 Chloride 102 Carbon Dioxide 24.3 BUN 7.0 Creatinine 0.75 Glucose 94 Calcium 9.2 Liver Function 04/30/24 Range/Units 16:10 Total Bilirubin 0.2 (0.2-1.0) mg/dL AST 17 (15-37) U/L ALT 19 (14-59) U/L Alkaline Phosphatase 147 H (46-116) U/L Albumin 3.0 L (3.4-5.0) g/dL OB - A/P Assessment and Plan (1) AMA (advanced maternal age) multigravida 35+: Qualifiers: Trimester: unspecified trimester Qualified Code(s): O09.529 - Supervision of elderly multigravida, unspecified trimester (2) Preeclampsia: Qualifiers: Trimester: third trimester Qualified Code(s): O14.93 - Unspecified pre- eclampsia, third trimester (3) Gestational diabetes: Qualifiers: Gestational diabetes mellitus control: diet-controlled Trimester: unspecified trimester Qualified Code(s): O24.410 - Gestational diabetes mellitus in , diet controlled (4) Hypertension affecting , antepartum: Assessment and Plan: 33 YEAR OLD , 38.2 WEEKS, PRESENTED FOR NST AND FOUND TO HAVE HYPERTENSION 150'S TO 160'S OVER 90'S ON TWO OCCASIONS 30 MINUTES APART. ASYMPTOMATIC. P:C 0.4. NORMAL LFT'S. NOT HEMOCONCENTRATED. BPP 10/10 HOWEVER FLUID DECREASED FROM 20 TO 8 CM. DIET CONTROLLED GESTATIONAL DIABETIC. GOOD PNC. DISCUSSED WITH DR. HOBBS. AGREED WITH PLAN TO INDUCE LABOR. Plan LABOR INDUCTION WITH AROM AND PIT, EPIDURAL, MAGNESIUM SULFATE FOR NEURO PROTECTION, CONTINUOUS EFM. INDICATIONS FOR INDUCTION EXPLAINED TO PATIENT WHO STATED UNDERSTANDING. ON WAY IN FROM WORK. ALL QUESTIONS ANSWERED. WILL WAIT FOR TO ARRIVE BEFORE AROM PER PATIENT'S REQUEST. Urinary Catheter Management Urinary Catheter Management Urethral: Cath placed during this visit: yes Urethral indwelling: Yes Reason for continuing: epidural catheter (WILL BE ON MAGNESIUM FOR NEUROPROTECTION) Insertion date: 04/30/24 Insertion time: 06:30 (PM)
--- OUTSIDE RECORDS SUMMARY | 2024-04-30 17:49 | XMS_ITS | CCD ---
Author Organization [facility] Care Team Providers Care Medical Office Asst Name Role Phone ABRAHAM BERRY Attending Unavailable [...] Unavailable ANJEL, APARNA R Referring Unavailable [facility] [phone] APARNA HOBBS Attending Unavailable ANJEL, APARNA Attending [...] Basophils (Bld) [#/Vol] 0.0 103/ul Normal 0.0-0.1 [facility] Comment on above: Performed By: #### C BC #### [facility] [address], [place] [address] Camelia Carmen Basophils/100 WBC (Bld) 0.1 % Critically low 0.2-2.0 [facility] Comment on above: Performed By: #### C BC #### [facility] [address], [place] [address] Camelia Carmen Eosinophils (Bld) [#/Vol] 0.1 103/ul Normal 0.0-0.7 [facility] Comment on above: Performed By: #### C BC #### [facility] [address], [place] [address] Camelia Carmen Eosinophils/100 WBC (Bld) 0.5 % Critically low 0.9-7.0 [facility] Comment on above: Performed By: #### C BC #### [facility] [address], [place] [address] Camelia Carmen Erythrocyte distribution width (RBC) [Ratio] 13.2 % Normal 11.0-15.0 [facility] Comment on above: Performed By: #### C BC #### [facility] [address] [id number] Camelia Carmen Hematocrit (Bld) [Volume fraction] 30.2 % Critically low 36.0-48.0 [facility] Comment on above: Performed By: #### C BC #### [facility] [address] [id number] [place]emlia Carmen Hemoglobin (Bld) [Mass/Vol] 10.0 g/dL Critically low 12.0-16.0 [facility] Comment on above: Performed By: #### C BC #### [facility] [address] [place], [place] [address] Camelia Carmen IG # 0.07 10e3/ul Critically high 0.00-0.03 [facility] Comment on above: Performed By: #### C BC #### [facility] [address] [place], [place] [address] Camelia Carmen IG % 0.5 % Normal 0.0-0.5 [facility] Comment on above: Performed By: #### C BC #### [facility] [address] [place], [place] [address] Camelia Carmen Lymphocytes (Bld) [#/Vol] 2.0 103/ul Normal 1.2-3.8 [facility] Comment on above: Performed By: #### C BC #### [facility] [address] [place], [place] [address] Camelia Carmen Lymphocytes/100 WBC (Bld) 13.4 % Critically low 20.5-60.0 [facility] Comment on above: Performed By: #### C BC #### [facility] [address] [place], [place] [address] Camelia Troyen MANUAL DIFF REQ NO Normal [facility] Comment on above: Performed By: #### C BC #### [facility] [address] [place], [place] [address] Cameliaalanna Troyen MCH (RBC) [Entitic mass] 28.1 pg Normal 26.7-34.0 [facility] Comment on above: Performed By: #### C BC #### [facility] [address] [place], [place] [address] Cameliaalanna Troyen MCHC (RBC) [Mass/Vol] 33.1 g/dL Normal 29.9-35.2 [facility] Comment on above: Performed By: #### C BC #### [facility] [address], [place] [address] Camelia Carmen MCV (RBC) [Entitic vol] 84.8 fL Normal 81.0-99.0 [facility] Comment on above: Performed By: #### C BC #### [facility] [address], [place] [address] Camelia Carmen Monocytes (Bld) [#/Vol] 1.0 103/ul Critically high 0.3-0.8 [facility] Comment on above: Performed By: #### C BC #### [facility] [address] [id number] Camelia Carmen Monocytes/100 WBC (Bld) 7.0 % Normal 1.7-12.0 [facility] Comment on above: Performed By: #### C BC #### [facility] [address], [place] [address] Camelia Carmen Neutrophils (Bld) [#/Vol] 11.6 103/ul Critically high 1.4-6.5 [facility] Comment on above: Performed By: #### C BC #### [facility] [address] [place] [address] Camelia Carmen Neutrophils/100 WBC (Bld) 78.5 % Critically high 43.0-75.0 [facility] Comment on above: Performed By: #### C BC #### [facility] [address], [place] [address] Camelia Carmen Platelet mean volume (Bld) [Entitic vol] 12.4 fL Normal 9.5-13.5 [facility] Comment on above: Performed By: #### C BC #### [facility] [address], [place] [address] Camelia Carmen Platelets (Bld) [#/Vol] 151 103/ul Normal 150-450 [facility] Comment on above: Performed By: #### C BC #### [facility] [address], [place] [address] Camelia Carmen RBC (Bld) [#/Vol] 3.56 106/ul Critically low 4.20-5.40 [facility] Comment on above: Performed By: #### C BC #### [facility] [address], [place] [address] Camelia Carmen WBC (Bld) [#/Vol] 14.7 103/ul Critically high 4.0-11.0 [facility] Comment on above: Performed By: #### C BC #### [facility] [address] [phone] Camelia Morales POINT OF CARE GLUCOSEon 04-27 Glucose [Mass/Vol] 95 mg/dL Normal 74-106 [facility] Comment on above: Performed By: #### P OCGLUC ####[facility] [id number] [id number] Carmen CBC AUTO DIFFon 05-11-2020 Basophils (Bld) [#/Vol] 0.0 103/ul Normal 0.0-0.1 [facility] Comment on above: Performed By: #### C BC #### [facility] [address] [place], [place] [address] Camelia Morales Basophils/100 WBC (Bld) 0.4 % Normal 0.2-2.0 [facility] Comment on above: Performed By: #### C BC #### [facility] [address] [place], [place] [address] Camelia Carmen Eosinophils (Bld) [#/Vol] 0.1 103/ul Normal 0.0-0.7 [facility] Comment on above: Performed By: #### C BC #### [facility] [address] [place], [place] [address] Camelia Carmen Eosinophils/100 WBC (Bld) 0.7 % Critically low 0.9-7.0 [facility] Comment on above: Performed By: #### C BC #### [facility] [address] [place], [place] [address] Camelia Carmen Erythrocyte distribution width (RBC) [Ratio] 13.2 % Normal 11.0-15.0 [facility] Comment on above: Performed By: #### C BC #### [facility] [address] [place] [address] Cameliaalanna Morales Hematocrit (Bld) [Volume fraction] 36.2 % Normal 36.0-48.0 [facility] Comment on above: Performed By: #### C BC #### [facility] [address] [place] [address] Camelia Carmen Hemoglobin (Bld) [Mass/Vol] 12.2 g/dL Normal 12.0-16.0 [facility] Comment on above: Performed By: #### C BC #### [facility] [address] [place] [address] Camelia Carmen IG # 0.05 10e3/ul Critically high 0.00-0.03 [facility] Comment on above: Performed By: #### C BC #### [facility] [address] [place] [address] Camelia Carmen IG % 0.6 % Critically high 0.0-0.5 [facility] Comment on above: Performed By: #### C BC #### [facility] [address] [place] [address] Camelia Carmen Lymphocytes (Bld) [#/Vol] 1.5 103/ul Normal 1.2-3.8 [facility] Comment on above: Performed By: #### C BC #### [facility] [address] [place] [address] Camelia Morales Lymphocytes/100 WBC (Bld) 18.3 % Critically low 20.5-60.0 [facility] Comment on above: Performed By: #### C BC #### [facility] [address] [place], [place] [address] Camelia Morales MANUAL DIFF REQ NO Normal [facility] Comment on above: Performed By: #### C BC #### [facility] [address] [place] [address] Cameliaalanna Morales MCH (RBC) [Entitic mass] 28.4 pg Normal 26.7-34.0 [facility] Comment on above: Performed By: #### C BC #### [facility] [address] [id number] Cameliaalanna Morales MCHC (RBC) [Mass/Vol] 33.7 g/dL Normal 29.9-35.2 [facility] Comment on above: Performed By: #### C BC #### [facility] [address] [place], [place] [address] Camelia Carmen MCV (RBC) [Entitic vol] 84.4 fL Normal 81.0-99.0 [facility] Comment on above: Performed By: #### C BC #### [facility] [address] [place], [place] [address] Camelia Carmen Monocytes (Bld) [#/Vol] 0.4 103/ul Normal 0.3-0.8 [facility] Comment on above: Performed By: #### C BC #### [facility] [address] [place] [address] Camelia Carmen Monocytes/100 WBC (Bld) 4.4 % Normal 1.7-12.0 [facility] Comment on above: Performed By: #### C BC #### [facility] [address] [place], [place] [address] Cameila Carmen Neutrophils (Bld) [#/Vol] 6.2 103/ul Normal 1.4-6.5 [facility] Comment on above: Performed By: #### C BC #### [facility] [address] [place], [place] [address] Camelia Carmen Neutrophils/100 WBC (Bld) 75.6 % Critically high 43.0-75.0 [facility] Comment on above: Performed By: #### C BC #### [facility] [address] [place], [place] [address] Camelia Carmen Platelet mean volume (Bld) [Entitic vol] 12.0 fL Normal 9.5-13.5 [facility] Comment on above: Performed By: #### C BC #### [facility] [address] [place], [place] [address] Camelia Carmen Platelets (Bld) [#/Vol] 134 103/ul Critically low 150-450 [facility] Comment on above: Performed By: #### C BC #### [facility] [address] [place] [address] Camelia Morales RBC (Bld) [#/Vol] 4.29 106/ul Normal 4.20-5.40 [facility] Comment on above: Performed By: #### C BC #### [facility] [address] [place] [address] Cameliaalanna Morales WBC (Bld) [#/Vol] 8.3 103/ul Normal 4.0-11.0 [facility] Comment on above: Performed By: #### C BC #### [facility] [address] [place] [address] Camelia Morales DRUG SCREEN RAPID (URINE)on 05-11-2020 AMP Negative Normal NEGATIVE [facility] Comment on above: Performed By: #### D RUGRPD #### [facility] [address] [place] [address] Camelia Carmen BAR Negative Normal NEGATIVE [facility] Comment on above: Performed By: #### D RUGRPD #### [facility] [address] [place] [address] Camelia Carmen BUP Negative Normal NEGATIVE [facility] Comment on above: Performed By: #### D RUGRPD #### [facility] [address] [place] [address] Camelia Carmen BZO Negative Normal NEGATIVE [facility] Comment on above: Performed By: #### D RUGRPD #### [facility] [address] [place] [address] Camelia Carmen SHERRELL Negative Normal NEGATIVE [facility] Comment on above: Performed By: #### D RUGRPD #### [facility] [address] [place] [address] Camelia Carmen CUT-OFFS SEE BELOW Normal [facility] Comment on above: Result Comment: AMP (Amphetamine): [...] ng/mL Performed By: #### D RUGRPD #### [facility] [address] [place] [address] DRUG CUT HEADER DRUG CLASS TEST SYSTEM CUT-OFF CONCENTRATIONS ARE FOLLOWS: Normal [facility] Comment on above: Performed By: #### D RUGRPD #### [facility] [address] [place] [address] Camelia Carmen mAMP Negative Normal NEGATIVE [facility] Comment on above: Performed By: #### D RUGRPD #### [facility] [address] [place] [address] Camelia Carmen MTD Negative Normal NEGATIVE [facility] Comment on above: Performed By: #### D RUGRPD #### [facility] [address] [place] [address] Camelia Carmen OPI Negative Normal NEGATIVE [facility] Comment on above: Performed By: #### D RUGRPD #### [facility] [address] [place] [address] Camelia Carmen OXY Negative Normal NEGATIVE [facility] Comment on above: Performed By: #### D RUGRPD #### [facility] [address] [place] [address] Camelia Carmen PCP Negative Normal NEGATIVE [facility] Comment on above: Performed By: #### D RUGRPD #### [facility] [address] [place] [address] Camelia Carmen PPX Negative Normal NEGATIVE [facility] Comment on above: Performed By: #### D RUGRPD #### [facility] [address] [place] [address] Cmaelia Carmen TCA Negative Normal NEGATIVE [facility] Comment on above: Performed By: #### D RUGRPD #### [facility] [address], [place] [address] Camelia Morales THC Negative Normal NEGATIVE [facility] Comment on above: Performed By: #### D RUGRPD #### [facility] [address], [place] [address] Camelia Morales POINT OF CARE GLUCOSEon 04-27 Glucose [Mass/Vol] 92 mg/dL Normal 74-106 [facility] Comment on above: Performed By: #### P OCGLUC #### [facility] [address], [place] [address] Camelia Carmen Glucose [Mass/Vol] 95 mg/dL Normal 74-106 [facility] Comment on above: Performed By: #### P OCGLUC #### [facility] [address], [place] [address] Camelia Morales Glucose [Mass/Vol] 165 mg/dL Critically high 74-106 [facility] Comment on above: Performed By: #### P OCGLUC ####[facility] [id number] [place], [place] [address]Xuwvww Carmen TYPE AND SCREENon 05-11-2020 TYPE AND SCREEN Negative Normal [facility] Comment on above: Performed By: #### T NS ####[facility] [id number] [place], [place] [address]X[place] Karen US PREG BIOPHY W NON STRESSo [...] by: Latricia RUSSELL Date: 2020-05-10 17:09 Normal [facility] COVID-19 PCRon 05-05-2020 SARS-CoV-2, ERNESTINE Not Detected Normal Not Detected [facility] Comment on above: Result Comment: This nucleic acid amplification test was developed and its performance characteristics determined by [employer]. Nucleic acid amplification tests include PCR and [...] Performed By: #### C VDSTAT, CVDPCR #### [facility] [address] [id number] Camelia Morales PRIORITY COVID PROCESSINGon 05-05-2020 Comment Comment Normal [facility] Comment on above: Result Comment: Rece ived Performed By: #### C VDSTAT, CVDPCR #### [facility] [address] [id number] Camelia Morales US PREG BIOPHY W NON [...] by: BRAULIO MONTEZ Date: 2020-05-03 20:36 Normal [facility] US PREG BIOPHY W NON [...] by: Latricia RUSSELL Date: 2020-04-26 17:44 Normal [facility] US PREG BIOPHY W NON [...] GATITO DURAN Date: 2020-04-21 19:59 Normal [facility] GROUP B STREP CULTUREon 03-29 S. agalactiae Ag Ql (Unsp spec) Culture Observations: NEGATIVE FOR GROUP B STREPTOCOCCUS Normal [facility] Comment on above: Performed By: #### G BSCX ####[facility] [id number] [place] US PREG BIOPHY W NON [...] BPP 6/8(no breathing). Electronically authenticated by: GATITO [employer]ULINO Date: 2020-04-19 19:00 Normal [facility] US PREG BIOPHY W NON STRESSo n [...] Latricia RUSSELL Date: 2020-04-12 16:33 Normal [facility] US PREG GROWTHon 04-05-2020 US PREG GROWTH [...] GATITO DURAN Date: 2020-04-05 17:39 Normal [facility] US PREG BIOPHY W NON STRESSo n [...] Latricia RUSSELL Date: 2020-03-29 16:39 Normal [facility] Vital Signs Date Time Vital Sign Value Performing Clinician Jodie sanders 04-27-2024 10:21-0400 Body weight 89.36 kg Ramonita STRANGE Work Phone: [facility] 04-27-2024 10:21-0400 Diastolic blood pressure 76 mm[Hg] Ramonita STRANGE Work Phone: [facility] 04-27-2024 10:21-0400 Systolic blood pressure 122 mm[Hg] Ramonita STRANGE Work Phone: [facility] Healthcare Encounters Encounter Date Encounter Type Care Provider Facility Start: 04-27-2024 End: 04-27-2024 Bamboo flowsheet Ramonita STRANGE Work Phone: [facility] Start: 04-27-2024 End: 04-27-2024 Bamboo flowsheet Ramonita STRANGE Work Phone: [facility] Start: 04-27-2024 End: 04-27-2024 flow sheet Ramonita STRANGE Work Phone: [facility] Comment on above: [...] 01-02-2024 End: 01-02-2024 ambulatory APARNA R ANJEL [facility] Start: 12-03-2023 End: 12-03-2023 ambulatory APARNA ANJEL Not Available Start: 11-06-2023 End: 11-06-2023 ambulatory APARNA ANJEL Not Available Start: 05-24-2021 End: 05-25-2021 ambulatory NAZANIN DURAN Facility:[facility] Start: 05-24-2020 Patient encounter procedure APARNA ANJEL Facility: Start: 05-16-2020 End: 05-16-2020 Patient encounter procedure APARNA ANJEL Facility:[facility] Start: 05-11-2020 End: 05-13-2020 Evaluation and management of inpatient APARNA ANJEL Facility:[facility] Start: 05-10-2020 End: 05-10-2020 Patient encounter procedure APARAN ANJEL Facility:[facility] Start: 05-06-2020 End: 05-06-2020 Patient [...] 9:50 AM EDT Routine [facility] [address] [place] [address] [place] [id number] Ramonita Austin PA [address] [place] [address] [place] [address] Arrived [facility] Comment on above: Arrived Payers Date Payer Category Payer Unknown [employer] [id number] 2022-Present [address] [place] [address] [id number] 1988 Unknown [id number] 2.16.840.1.815980.3.579.2.593 1988 Unknown [id number] 2.16840.1.757270.3.579.2.593 1988 Unknown [id number] 2.16840.1.187732.3.579.2.593 1988 Unknown [id number] 2.16.840.1.995284.3.579.2.593 1988 Unknown [id number] 2.16.840.1.189844.3.579.2.593 1988 Unknown [id number] 2.16.840.1.879853.3.579.2.593 1988 Unknown [id number] 2.16.840.1.810374.3.579.2.593 1988 Unknown [id number] 2.16.840.1.330555.3.579.2.593 1988 Unknown [id number] 2.16.840.1.651998.3.579.2.593 1988 Unknown [id number] 2.16.840.1.033034.3.579.2.593 1988 Unknown [id number] 2.16.840.1.495173.3.579.2.593 1988 Unknown [id number] 2.16.840.1.085548.3.579.2.593 1988 Unknown [id number] 2.16.840.1.546659.3.579.2.593 1988 Unknown [id number] 2.16.840.1.416587.3.579.2.593 1988 Unknown [id number] 2.16.840.1.243550.3.579.2.593 1988 Unknown [id number] 2.16.840.1.148708.3.579.2.593 1988 Unknown [id number] 2.16.840.1.010865.3.579.2.593 1988 Unknown [id number] 2.16.840.1.914882.3.579.2.593 1988 Unknown [id number] 2.16840.1.520956.3.579.2.593 1988 Unknown [id number] 2.16.840.1.650576.3.579.2.727 1988 Unknown [id number] 2.16.840.1.669983.3.579.2.1286 1988 Unknown [id number] 2.16.840.1.488019.3.579.2.1286 1988 Unknown [id number] 2.16840.1.415018.3.579.2.1259 1988 Unknown [id number] 2.16.840.1.772630.3.579.2.1259 1988 Unknown [id number] 2.16.840.1.877287.3.579.2.1259 1988 Unknown [id number] 2.16.840.1.435717.3.579.2.1259 1988 Unknown [id number] 2.16.840.1.865413.3.579.2.1259 1988 Unknown [id number] 2.16.840.1.261685.3.579.2.1259 1988 Unknown [id number] 2.16.840.1.099072.3.579.2.1259 1988 Unknown [id number] 2.16.840.1.205790.3.579.2.1259 1959 Self-pay [id number] 1959 Self-pay 1959 Unknown [id number] Social History Date Type Detail Facility Start: 03-30-2024 Tobacco smoking stat [facility] Never smoked tobacco [facility] Start: 03-30-2024 [...] AUTHOR AUTHOR'S ORGANIZ ATION 10/27/2022 Clifford Hayes [facility] DATE CREATED AUTHOR AUTHOR'S ORGANIZ ATION 01/03/2024 [facility] DATE CREATED AUTHOR AUTHOR'S ORGANIZ ATION 04/28/2024 [facility] Care Teams (unrecognized sec tion and content) Medical Office Asst Relationship Specialty Start Date End Date Kaylene Brunner MD [address] [place] [address] PCP - General Family Medicine 10/29/23 Medical Office Asst Relationship Specialty Start Date End Date Kaylene Brunner MD [address] [place] [phone] PCP - General Family Medicine 10/29/23 Reason [...] THE PRIMARY CLINICAL RECORDS. [facility] [employer] [facility]. provides no warranty or guarantee of the accuracy or completeness of information in this document.
[2024-04-30 18:24] LABS: Amphetamine Screen Urine NEGATIVE (NEGATIVE); Barbiturates Screen Urine NEGATIVE (NEGATIVE); Benzodiazepines Screen Urine NEGATIVE (NEGATIVE); Buprenorphine Screen Urine NEGATIVE (NEGATIVE); Cannabinoid Screen Urine NEGATIVE (NEGATIVE); Cocaine Screen Urine NEGATIVE (NEGATIVE); Methadone Screen Urine NEGATIVE (NEGATIVE); Methamphetamines Screen Urine NEGATIVE (NEGATIVE); Opiate Screen Urine NEGATIVE (NEGATIVE); Oxycodone Screen Urine NEGATIVE (NEGATIVE); Phencyclidine Screen Urine NEGATIVE (NEGATIVE); Tricyclic Antidepressant Urine NEGATIVE (NEGATIVE)
[2024-04-30] MEDS: 0.9 % SODIUM CHLORIDE 1,000 ML 50 ML IV (18:29)
[2024-04-30] MEDS: MAGNESIUM-BOLUS FROM THE BAG- 40 GM/1,000 ML IV.SOLN IV (18:30)
[2024-04-30] MEDS: MAGNESIUM SULFATE IN WATER 40 GM/1,000 ML IV.SOLN IV (18:55)
[2024-04-30] MEDS: ROPIVACAINE HCL/PF 400 MG/200 ML PREMIX 10 MG EPIDURAL (20:04)
[2024-04-30] MEDS: DINOPROSTONE 10 MG VAG INSERT.ER VAGINAL (20:29)
[2024-05-01] VITALS (98 sets, daily range): BP systolic 113–156; BP diastolic 67–97; PULSE 78–122; TEMP 36.7–37.3
[2024-05-01] MEDS: ROPIVACAINE HCL/PF 400 MG/200 ML PREMIX 10 MG EPIDURAL (08:16)
[2024-05-01] MEDS: 0.9 % SODIUM CHLORIDE 1,000 ML 125 ML IV ×2 (09:09→12:34)
[2024-05-01] MEDS: OXYTOCIN/0.9 % SODIUM CHLORIDE 10 UNITS/500 ML PLAST..BAG 6 UNIT IV (09:09)
[2024-05-01] MEDS: MAGNESIUM SULFATE IN WATER 40 GM/1,000 ML IV.SOLN IV (12:31)
--- NOTE | 2024-05-01 12:59 | PM.OBPNL ---
Pain Control Comments: had planned AROM/PIT last night, not possible. had cervidil overnight. pit started after 12 hours. eduar well. did AROM/CLEAR FLUID but head well applied preventing placement IUPC. has epidural. blood pressure wnl on magnesium. cervix no longer unreachable as last night. ext os 4 int os 2/50/-1 soft vertex well applied, CAT I TRACING, good contraction pattern on 16 miu pitocin Pelvic Exam Dilation (cm): 2 Effacement (%): 50 Comments: ext os 4, int os 2, midposition, -1, soft (sig change from last evening on admission) Contractions Monitor mode: External Contraction frequency: 2 Contraction duration: 1 Contraction pattern: Regular Intrauterine tone measurement: palpation: strong patient has epidural station: -1 Amniotic membrane status: Ruptured status: Category I Assessment and Plan Pitocin rate (mU/min): 16 Assessment: induction ongoing Plan: continuous present management Comments: would prefer to keep pitocin less than or equal to 16 even though per procedure can increase to max of 20 miu Urinary Catheter Management Urinary Catheter Management Urethral: Cath placed during this visit: yes Urethral indwelling: Yes Reason for continuing: epidural catheter (and on magnesium sulfate for preeclampsia) Insertion date: 04/30/24 Insertion time: 20:45
--- NOTE | 2024-05-01 19:49 | PM.OBPNL ---
Pain Control Pain control: epidural Pelvic Exam Dilation (cm): 5 Effacement (%): 75 Comments: IUPC PLACED, PITOCIN AT 20 MIU Contractions Monitor mode: Internal Contraction frequency: 2 Contraction pattern: Regular Contraction phase: Harvey Contraction intensity: Strong Intrauterine tone measurement: palpation: strong patient has epidural Infant station: 0 Amniotic membrane status: Ruptured status: Category I Assessment and Plan Pitocin rate (mU/min): 20 Assessment: active labor Plan: continuous present management Urinary Catheter Management Urinary Catheter Management Urethral: Cath placed during this visit: yes Urethral indwelling: Yes Reason for continuing: epidural catheter Insertion date: 04/30/24 Insertion time: 20:45
[2024-05-01] MEDS: OXYTOCIN/0.9 % SODIUM CHLORIDE 10 UNITS/500 ML PLAST..BAG 60 UNIT IV (19:59)
[2024-05-01 20:13] LABS: Glucometer 92 mg/dL (74-106)
[2024-05-01] MEDS: OXYTOCIN/0.9 % SODIUM CHLORIDE 20 UNITS/1,000 ML PLAST..BAG 125 UNIT IV (21:45)
--- NOTE | 2024-05-01 22:07 | PM.OBPRCVD ---
Procedure events: Gestational Diabetes and Toxemia Intrapartal events: None Induction method: artificial rupture of membranes (AFTER DERVICAL RIPENING WITH CERVIDIL) Delivery monitor: external FHT and internal uterine Route of delivery: Episiotomy Description: none L&D Laceration Description: perineal - 2nd degree Delivery repair: Chromic Estimated blood loss (mL): 300 Anesthesia type: Epidural Disposition: floor Narrative: INDUCTION FOR AMA, PREECLAMPSIA WITH SEVERE FEATURE AND GDMA1. EPIDURAL PLACED. PROGRESSED TO COMPLETE DILATION WITHOUT COMPLICATION. HAD IUPC PLACED WHEN ABLE AFTER AROM. FHR REMAINED CAT I THROUGHOUT. HEAD DELIVERED IN 5 PUSHES. NO CUCHAL CORD. BABY BOY CRYING ON DELIVERY. UMBILICAL CORD MILKED FOR 30 SECONDS. CORD CLAMPED AND CUT. BABY TO MOM. CORD BLOOD OBTAINED. PLACENTA DELIVERED SPONTANEOUSLY INTACT AND NOT SENT TO PATH. SECOND DEGREE LAC REPAIRED IN LAYERS WITH 3-0 AND 4-0 VICRYL WITH EXCELLENT TISSUE EDGE APPROXOMATION. SPONGE COUNT AND NEEDLE COUNT CORRECT AFTER REPAIR. MOM TOLERATED PROCEDURE WELL. Delivery date: 05/01/24 Gender: male presentation: vertex Placental delivery description: Spontaneous and Normal Configuration cord description: 3 Vessels
[2024-05-01] MEDS: BENZOCAINE/MENTHOL 85 GRAM SPRAY BOTTLE 1 APPLIC TOPICAL (22:32)
[2024-05-01] MEDS: IBUPROFEN 600 MG TABLET PO (22:32)
[2024-05-01] MEDS: GLYCERIN/WITCH HAZEL PADS 1 PAD TOPICAL (22:33)
[2024-05-01] MEDS: FERROUS SULFATE 325 MG TABLET PO (22:33)
[2024-05-02] VITALS (9 sets, daily range): BP systolic 125–137; BP diastolic 69–83; PULSE 72–108; TEMP 36–36.4
[2024-05-02] MEDS: ACETAMINOPHEN 325 MG TABLET 650 MG PO (06:36)
[2024-05-02 08:07] LABS: Basophils Percent Auto 0.3 % (0.2-2.0); Eosinophils Percent Auto 0.3 % (0.9-7.0); Hematocrit 33.4 % (36.0-48.0); Hemoglobin 11.5 g/dL (12.0-16.0); Immature Granulocytes Abs Auto 0.04 10^3/uL (0.00-0.03); Immature Granulocytes Pct Auto 0.4 % (0.0-0.5); Lymphocytes Absolute Auto 0.9 10^3/uL (1.2-3.8); Lymphocytes Percent Auto 8.2 % (20.5-60.0); Mean Corpuscular HGB Conc 34.4 g/dL (29.9-35.2); Mean Corpuscular Hemoglobin 29.6 pg (26.7-34.0); Mean Corpuscular Volume 86.1 fL (81.0-99.0); Mean Platelet Volume 11.3 fL (9.5-13.5); Monocytes Absolute Auto 0.6 10^3/uL (0.3-0.8); Monocytes Percent Auto 5.5 % (1.7-12.0); Neutrophils Absolute Auto 9.6 10^3/uL (1.4-6.5); Neutrophils Percent Auto 85.3 % (43.0-75.0); Platelet Count 146 10^3/uL (150-450); Red Blood Count 3.88 10^6/uL (4.20-5.40); Red Cell Distribution Width 12.9 % (11.0-15.0); White Blood Count 11.3 10^3/uL (4.0-11.0)
[2024-05-02] MEDS: 0.9 % SODIUM CHLORIDE 1,000 ML 50 ML IV (08:18)
[2024-05-02] MEDS: MAGNESIUM SULFATE IN WATER 40 GM/1,000 ML IV.SOLN IV (08:19)
[2024-05-02] MEDS: IBUPROFEN 600 MG TABLET PO ×2 (08:34→17:03)
[2024-05-02] MEDS: FERROUS SULFATE 325 MG TABLET PO (08:34)
[2024-05-02] MEDS: BUTALB/ACETAMINOPHEN/CAFFEINE 50-325-40MG TABLET 2 TAB PO ×3 (10:59→21:59)
--- NOTE | 2024-05-02 13:19 | P.OBPN_ITS ---
OB - PN: Subj Subjective Patient comments: no complaints, tolerating diet and flatus present status: doing well [place] feeding status: exclusively Narrative: mom with spinal headache improving with conservative management Exam Constitutional Vital Signs, click to edit/add: Last Vital Signs Temp 97.4 F L 05/02/24 12:00 Pulse 88 05/02/24 12:06 Resp 16 05/02/24 12:00 BP 137/82 05/02/24 12:06 O2 Del Method Room Air 05/02/24 12:00 Common normals: no apparent distress, oriented x3, no limitations, healthy appearing, alert and well nourished General appearance: cooperative and comfortable Orientation/consciousness: Yes oriented to person, Yes oriented to place and Yes oriented to time HENMT Common normals: normocephalic and head/scalp atraumatic Eye Common normals: PERRL Pupil: accommodation reflex normal Neck & C-Spine Common normals: full ROM and supple Chest Common normals: inspection of chest normal Respiratory Common normals: normal respiratory effort Auscultation: clear to auscultation bilaterally Cardio Common normals: regular rate and regular rhythm GI Common normals: Normal to inspection, nondistended, normoactive bowel sounds present, soft to palpation and non-tender Common normals: no CVA tenderness Back & Pelvis Common normals: no thoracic nor lumbar tenderness Extremity Common normals: normal to inspection, full ROM and no calf tenderness Neuro Common normals: CN's II-XII intact bilaterally, moves all extremities, no focal motor deficits and no sensory deficits noted Sensorium/orientation: awake and alert Motor exam: strength 5/5 throughout Psych Common normals: mental status grossly normal, thought process normal, cooperative, affect normal and speech normal Results Labs Labs: Short CBC 05/02/24 Range/Units 08:01 WBC 11.3 H (4.0-11.0) 10^3/uL Hgb 11.5 L (12.0-16.0) g/dL Hct 33.4 L (36.0-48.0) % Plt Count 146 L (150-450) 10^3/uL Urinary Catheter Management Urinary Catheter Management Urethral: Cath placed during this visit: yes, but has since been removed by the nurse Urethral indwelling: Yes Reason for continuing: epidural catheter Insertion date: 04/30/24 Insertion time: 20:45 Removal date: 05/02/24 Removal time: 20:00 OB - PN: A/P Assessment and Plan (1) Normal vaginal delivery: Assessment and Plan: uncomplicated , 2nd degree lac repaired, breast feeding, does have a headache not related to toxemia, improving with conservative management (2) Preeclampsia: Assessment and Plan: blood pressures wnl, will stop magnesium at 24 hours. Qualifiers: Trimester: third trimester Qualified Code(s): O14.93 - Unspecified pre- eclampsia, third trimester (3) AMA (advanced maternal age) multigravida 35+: Assessment and Plan: baby normal Qualifiers: Trimester: unspecified trimester Qualified Code(s): O09.529 - Supervision of elderly multigravida, unspecified trimester (4) Gestational diabetes: Assessment and Plan: blood sugars normal Qualifiers: Gestational diabetes mellitus control: diet-controlled Trimester: unspecified trimester Qualified Code(s): O24.410 - Gestational diabetes mellitus in , diet controlled Plan magnesium will be stopped at 24 hours, continue conservative treatment for headache which is not related to preeclampsia, will have urinary catheter removed when magnesium stopped, urine output has been excellent Time Spent with Patient Time: Total time spent is greater than 50% in coordination of care (as documented) at patient's floor/unit and/or counseling patient: Total time spent with greater than 50% in coordination of care (as documented) at patient's floor/unit and/or counseling patient: 25 - 35 minutes
[2024-05-03 04:41] VITALS: BP 151/96; PULSE 75
[2024-05-03] MEDS: ONDANSETRON PF 4 MG/2 ML VIAL IV ×3 (04:48→14:00)
[2024-05-03 05:14] VITALS: BP 132/84; PULSE 65
[2024-05-03] MEDS: IBUPROFEN 600 MG TABLET PO ×2 (07:27→15:49)
[2024-05-03] MEDS: FERROUS SULFATE 325 MG TABLET PO (08:31)
[2024-05-03 09:50] VITALS: BP 119/80; PULSE 67; TEMP 36.9
--- NOTE | 2024-05-03 12:55 | P.DS_ITS ---
DS: Providers Provider Date of admission: 04/30/24 17:40 Primary care physician: Non-Staff Physician, Admitting clinician: Halle Pena Consults: 04/30/24 Consult to Anesthesiology Routine Consulting Provider: Ned Druan Reason for consultation: Epidural Has provider been notified: Yes Attending physician on discharge: Halle Pena Anticipated date of discharge: 05/03/24 DS: Diagnosis Discharge Diagnosis (1) Normal vaginal delivery: Assessment and plan: doing well, breast feeding, small second degree lac healing well, ambulating, eating eliminating normally, instructions given for discharge verbally and in writing. stated no questions (2) Preeclampsia: Assessment and plan: explained in a few cases symptoms recur after delivery for up to one month. given written instructions for symptoms to report to physician. presently blood pressure wnl and no need for medication Qualifiers: Trimester: third trimester Qualified Code(s): O14.93 - Unspecified pre- eclampsia, third trimester (3) Spinal headache: Assessment and plan: conservative management did not remediate. did receive blood patch and feels good now so appropriate for discharge Plan discharge home OB - DS: Summary Hospital Course Hospital Course: uncomplicated Time spent discussing smoking cessation with patient: 3 to 10 minutes Peripartum Data - Vaginal Delivery Laceration description: perineal - 2nd degree Complications complications: other (spinal headache resolved with blood patch) Infant Delivery method: spontaneous vaginal delivery Gender: male Discharge plan: home Status at Discharge Cognitive/behavioral status at discharge: wnl Functional status at discharge: independent ambulation Overall status at discharge: patient is progressing back to baseline Time Spent with Patient Time attestation: Total time spent providing and/or coordinating discharge services: Time spent: less than 30 minutes Exam Narrative Exam Narrative: asking to be discharged home, feeling good Constitutional Vital Signs, click to edit/add: Last Vital Signs Temp 98.4 F 05/03/24 09:50 Pulse 67 05/03/24 09:50 Resp 16 05/02/24 21:45 BP 119/80 05/03/24 09:50 O2 Del Method Room Air 05/02/24 21:45 Documenting provider has reviewed patient's vital signs: yes Common normals: no apparent distress, oriented x3, no limitations, healthy appearing, alert and well nourished General appearance: cooperative, comfortable and well kempt Orientation/consciousness: Yes awake, Yes oriented to person, Yes oriented to place and Yes oriented to time HENMT Common normals: normocephalic and head/scalp atraumatic Eye Common normals: PERRL Pupil: accommodation reflex normal Neck & C-Spine Common normals: full ROM and supple Respiratory Common normals: normal respiratory effort Auscultation: clear to auscultation bilaterally Cardio Common normals: regular rate and regular rhythm GI Common normals: Normal to inspection, nondistended, normoactive bowel sounds present, soft to palpation and non-tender Common normals: no CVA tenderness Back & Pelvis Common normals: no thoracic nor lumbar tenderness Extremity Common normals: normal to inspection, full ROM and no calf tenderness Neuro Common normals: oriented x3, CN's II-XII intact bilaterally, moves all extremities, no focal motor deficits and no sensory deficits noted Motor exam: strength 5/5 throughout Psych Common normals: mental status grossly normal, thought process normal, cooperative, affect normal, speech normal and activity/motor behavior normal Discharge Plan Discharge Disposition: Home, Self-Care Condition: Good Assessment: did receive blood patch. headache much improved and requesting discharge. appropriate for discharge Health Concerns: recurrent toxemia symptoms can recur up to 2 weeks post delivery, will education on symptoms Plan of Treatment: discharge Discharge Medications: Discontinued aspirin 81 mg capsule 81 mg PO DAILY Activity: resume usual activities as tolerated Activity Detail: no sex six weeks, may shower, no bathtub 4 weeks, may climb stairs, walking only exercise for six weeks, call for severe headache or visual changes or severe nausea and or vomiting Diet: regular diet Print Language: Irish Patient Instructions: Preeclampsia During (DC), Vaginal Delivery (DC) Activity Restrictions/Additional Instructions: as above Forms: Portal Instructions Discharge location: home
[2024-05-03 15:41] VITALS: BP 136/87; PULSE 77; TEMP 36.6
[2024-05-03 15:48] VITALS: PULSE 72
[2024-05-03] MEDS: ADACEL DIPH,PERTUSS(ACELL),TET VAC/PF 0.5 ML ADULT SYRINGE IM (17:59)
== END 2024-05-03 18:00 | disposition home or self-care (01) | DRG 807 ==
LOC: FBCO 17:48 → FBC 17:48
PROVIDERS: Admitting Provider Obstetrics & Gynecology; Visit Provider Obstetrics & Gynecology
DX: O14.14 Severe pre-eclampsia complicating childbirth (principal); Z37.0 Single live birth; O24.420 Gestational diabetes mellitus in childbirth, diet controlled; Z3A.38 38 weeks gestation of pregnancy; O70.1 Second degree perineal laceration during delivery; O89.4 Spinal and epidural anesthesia-induced headache during the puerperium
CPT/HCPCS: 36415; 51702; 59025; 59050; 59410; 76818; 80053; 80307; 81050; 82570; 82948; 83615; 84156; 84550; 85025; 85610; 85730; 86850; 86900; 86901; 90715; J2405; J2795; J3475

== ENCOUNTER 2024-05-20 20:00 | Observation (INO) | payer OTHER, SELFPAY ==
--- OUTSIDE RECORDS SUMMARY | 2024-05-20 20:09 | XMS_ITS | CCD ---
Author Organization [facility] Care Team Providers Care Bale Coverer Name Role Phone ABRAHAM BERRY Attending Unavailable ABRAHAM BERRY Admitting Unavailable SILVANA, APARNA Consulting Unavailable ABRAHAM BERRY Consulting Unavailable Latricia Russell Consulting Unavailable ABRAHAM BERRY Consulting Unavailable SILVANA, APARNA Attending Unavailable SILVANA, APARNA Admitting Unavailable REQUEST, NONE LISTED Primary Care Unavailable Policaro, Gatito Consulting Unavailable SILVANA, APARNA Attending Unavailable SILVANA, APARNA Admitting Unavailable ABRAHAM BERRY Consulting Unavailable ABRAHAM BERRY Admitting Unavailable ABRAHAM BERRY Attending Unavailable SILVANA, APARNA Consulting Unavailable ABRAHAM BERRY Admitting Unavailable ABRAHAM BERRY Attending Unavailable SILVANA, APARNA Attending Unavailable SILVANA, APARNA Admitting Unavailable SILVANA, APARNA Attending Unavailable REQUEST, NONE LISTED Primary Care Unavailable SILVANA, APARNA Admitting Unavailable SILVANA, APARNA Consulting Unavailable ALECIA DUQUE Consulting Unavailable SILVANA, APARNA Procedure Practitioner Unavailab le SILVANA, APARNA Attending Unavailable SILVANA, APARNA Admitting Unavailable SILVANA, APARNA Consulting Unavailable SILVANA, APARNA Consulting Unavailable SILVANA, APARNA Attending Unavailable SILVANA, APARNA Admitting Unavailable SILVANA, APARNA Primary Care Unavailable BRAULIO MONTEZ Consulting Unavailable ABRAHAM BERRY Attending Unavailable SILVANA, APARNA Consulting Unavailable ABRAHAM BERRY Admitting Unavailable ABRAHAM BERRY Consulting Unavailable Policaro, Gatito Consulting Unavailable SILVANA, APARNA Attending Unavailable SILVANA, APARNA Consulting Unavailable SILVANA, APARNA Admitting Unavailable SILVANA, APARNA Attending Unavailable JAMESON AKHTAR Consulting Unavailable SILVANA, APARNA Admitting Unavailable REQUEST, NONE LISTED Primary Care Unavailable JAMESON AKHTAR Admitting Unavailable JAMESON AKHTAR Attending Unavailable JAMESON AKHTAR Consulting Unavailable ABRAHAM BERRY Consulting Unavailable ABRAHAM BERRY Attending Unavailable ABRAHAM BERRY Admitting Unavailable Gatito Duran Consulting Unavailable ABRAHAM BERRY Consulting Unavailable ABRAHAM BERRY Attending Unavailable ABRAHAM BERRY Admitting Unavailable Latricia Russell Consulting Unavailable SILVANA, APARNA Attending Unavailable SILVANA, APARNA Consulting Unavailable SILVANA, APARNA Admitting Unavailable SILVANA, APARNA Attending Unavailable SILVANA, APARNA Admitting Unavailable SILVANA, APARNA Primary Care Unavailable SILVANA, APARNA Consulting Unavailable ABRAHAM BERRY Consulting Unavailable Latricia Russell Consulting Unavailable SILVANA, APARNA Attending Unavailable SILVANA, APARNA Admitting Unavailable SILVANA, APARNA Consulting Unavailable ABRAHAM BERRY Admitting Unavailable ABRAHAM BERRY Attending Unavailable ABRAHAM BERRY Consulting Unavailable Latricia Russell Consulting Unavailable NAZANIN DURAN Admitting Unavailable NAZANIN DURAN Attending Unavailable SILVANA, APARNA R Referring Unavailable BOLA MILLER Attending Unavailable SILVANA, APARNA R Referring Unavailable [facility] APARNA PINA Attending Unavailable SILVANA, APARNA Attending Unavailable SILVANA, APARNA Attending Unavailable SILVANA, APARNA Attending Unavailable RAMONITA AUSTIN Attending Unavailable SILVANA, APARNA Attending Unavailable RAMONITA AUSTIN Attending Unavailable SILVANA, APARNA Attending Unavailable Medications Current Medications Medication Drug Class(es) Dates Sig (Normalized) Sig (Original) acetaminophen 325 mg / butalbital 50 mg / caffeine 40 mg oral tablet (2 sources) Barbiturate, Central Nervous System Stimulant, Methylxanthine Start: 05-05-2024 take 1 tablet by mouth every four hours for headache butalbital-acetami nophen-caffeine 50-325-40 MG tablet Indications: Other spinal cerebrospinal fluid leak Take 1 tablet by mouth every 4 (four) hours if needed for headaches for up to 20 doses 20 tablet 05/05/2024 Active aspirin 81 mg delayed release oral tablet (5 sources) Platelet Aggregation Inhibitor, Nonsteroidal Anti-inflammatory Drug End: 05-13-2024 take 1 tablet by mouth in the morning aspirin 81 MG EC tablet Take 81 mg by mouth in the morning. 05/13/2024 Discontinued (Other) Cetirizine (5 sources) Histamine-1 Receptor Antagonist Cetirizine HCl (ZYRTEC ALLERGY PO) Take by mouth Active ferrous gluconate (2 sources) Ferrous Gluconat e (IRON 27 PO) Take by mouth Active ibuprofen 200 mg oral tablet (2 sources) Nonsteroidal Anti-inflammatory Drug Start: 05-02-2024 take 3 tablets by mouth every six hours as needed ibuprofen (Motrin IB) 200 MG tablet Take 600 mg by mouth every 6 (six) hours if needed 05/02/2024 Active pyridoxine (5 sources) End: 05-13-2024 Pyridoxine HCl (VITAMIN B6 PO) Take by mouth 05/13/2024 Discontinued (Other) Pyridoxine HCl ( VITAMIN B6 PO) Take by mouth Active VITAMIN D, CHOLECALCIFEROL, PO (2 sources) VITAMIN D, VILMA CALCIFEROL, PO Take by mouth Active Problems Active Problems Problem Classification Problem Date Documented Date Episodic/Chronic Diabetes or abnormal glucose tolerance complicating ; childbirth; or the puerperium (20 sources) Gestational diabetes mellitus in , unspecified [...] Basophils (Bld) [#/Vol] 0.0 103/ul Normal 0.0-0.1 [facility] Comment on above: Performed By: #### C BC #### [facility] [address] [place], [place] [address] Camelia Carmen Basophils/100 WBC (Bld) 0.1 % Critically low 0.2-2.0 [facility] Comment on above: Performed By: #### C BC #### [facility] [address] [place], [place] [address] Camelia Carmen Eosinophils (Bld) [#/Vol] 0.1 103/ul Normal 0.0-0.7 [facility] Comment on above: Performed By: #### C BC #### [facility] [address] [place], [place] [address] Camelia Carmen Eosinophils/100 WBC (Bld) 0.5 % Critically low 0.9-7.0 [facility] Comment on above: Performed By: #### C BC #### [facility] [address] [place], [place] [phone] Camelia Carmen Erythrocyte distribution width (RBC) [Ratio] 13.2 % Normal 11.0-15.0 [facility] Comment on above: Performed By: #### C BC #### [facility] [address] [place], [place] [phone] Camelia Carmen Hematocrit (Bld) [Volume fraction] 30.2 % Critically low 36.0-48.0 [facility] Comment on above: Performed By: #### C BC #### [facility] [address] [place], [place] [phone] Camelia Carmen Hemoglobin (Bld) [Mass/Vol] 10.0 g/dL Critically low 12.0-16.0 [facility] Comment on above: Performed By: #### C BC #### [facility] [address] [place], [place] [phone] Camelia Carmen IG # 0.07 10e3/ul Critically high 0.00-0.03 [facility] Comment on above: Performed By: #### C BC #### [facility] [address] [place], [place] [phone] Camelia Carmen IG % 0.5 % Normal 0.0-0.5 [facility] Comment on above: Performed By: #### C BC #### [facility] [address] [place], [place] [address] Camelia Carmen Lymphocytes (Bld) [#/Vol] 2.0 103/ul Normal 1.2-3.8 [facility] Comment on above: Performed By: #### C BC #### [facility] [address] [place], [place] [address] Camelia Carmen Lymphocytes/100 WBC (Bld) 13.4 % Critically low 20.5-60.0 [facility] Comment on above: Performed By: #### C BC #### [facility] [address] [place], [place] [address] Camelia Carmen MANUAL DIFF REQ NO Normal [facility] Comment on above: Performed By: #### C BC #### [facility] [address] [place] [address] Camelia Carmen MCH (RBC) [Entitic mass] 28.1 pg Normal 26.7-34.0 [facility] Comment on above: Performed By: #### C BC #### [facility] [address] [place] [address] Camelia Carmen MCHC (RBC) [Mass/Vol] 33.1 g/dL Normal 29.9-35.2 [facility] Comment on above: Performed By: #### C BC #### [facility] [address] [place], [place] [phone] Camelia Carmen MCV (RBC) [Entitic vol] 84.8 fL Normal 81.0-99.0 [facility] Comment on above: Performed By: #### C BC #### [facility] [address] [place], [place] [address] Camelia Carmen Monocytes (Bld) [#/Vol] 1.0 103/ul Critically high 0.3-0.8 [facility] Comment on above: Performed By: #### C BC #### [facility] [address] [place], [place] [address] Camelia Carmen Monocytes/100 WBC (Bld) 7.0 % Normal 1.7-12.0 [facility] Comment on above: Performed By: #### C BC #### [facility] [address] [place], [place] [address] Camelia Morales Neutrophils (Bld) [#/Vol] 11.6 103/ul Critically high 1.4-6.5 [facility] Comment on above: Performed By: #### C BC #### [facility] [address] [place], [place] [address] Camelia Morales Neutrophils/100 WBC (Bld) 78.5 % Critically high 43.0-75.0 [facility] Comment on above: Performed By: #### C BC #### [facility] [address] [place], [place] [address] Camelia Morales Platelet mean volume (Bld) [Entitic vol] 12.4 fL Normal 9.5-13.5 [facility] Comment on above: Performed By: #### C BC #### [facility] [address] [place] [phone] Camelia Morales Platelets (Bld) [#/Vol] 151 103/ul Normal 150-450 [facility] Comment on above: Performed By: #### C BC #### [facility] [address] [place], [place] [address] Camelia Morales RBC (Bld) [#/Vol] 3.56 106/ul Critically low 4.20-5.40 [facility] Comment on above: Performed By: #### C BC #### [facility] [address] [place], [place] [address] Camelia Morales WBC (Bld) [#/Vol] 14.7 103/ul Critically high 4.0-11.0 [facility] Comment on above: Performed By: #### C BC #### [facility] [address] [place], [place] [address] Camelia Morales POINT OF CARE GLUCOSEon - Glucose [Mass/Vol] 95 mg/dL Normal 74-106 [facility] Comment on above: Performed By: #### P OCGLUC ####[facility] [address] [place], [place] [address]Rfykep Carmen CBC AUTO DIFFon 05-11-2020 Basophils (Bld) [#/Vol] 0.0 103/ul Normal 0.0-0.1 [facility] Comment on above: Performed By: #### C BC #### [facility] [address] [place] [phone] Camelia Morales Basophils/100 WBC (Bld) 0.4 % Normal 0.2-2.0 [facility] Comment on above: Performed By: #### C BC #### [facility] [address] [place] [address] Camelia Carmen Eosinophils (Bld) [#/Vol] 0.1 103/ul Normal 0.0-0.7 [facility] Comment on above: Performed By: #### C BC #### [facility] [address] [place] [address] Camelia Carmen Eosinophils/100 WBC (Bld) 0.7 % Critically low 0.9-7.0 [facility] Comment on above: Performed By: #### C BC #### [facility] [address] [place] [address] Camelia Morales Erythrocyte distribution width (RBC) [Ratio] 13.2 % Normal 11.0-15.0 [facility] Comment on above: Performed By: #### C BC #### [facility] [address] [place] [address] Camelia Carmen Hematocrit (Bld) [Volume fraction] 36.2 % Normal 36.0-48.0 [facility] Comment on above: Performed By: #### C BC #### [facility] [address] [place] [address] Camelia Carmen Hemoglobin (Bld) [Mass/Vol] 12.2 g/dL Normal 12.0-16.0 [facility] Comment on above: Performed By: #### C BC #### [facility] [address] [place] [address] Camelia Carmen IG # 0.05 10e3/ul Critically high 0.00-0.03 [facility] Comment on above: Performed By: #### C BC #### [facility] [address] [place] [address] Camelia Carmen IG % 0.6 % Critically high 0.0-0.5 [facility] Comment on above: Performed By: #### C BC #### [facility] [address] [place], [place] [phone] Camelia Carmen Lymphocytes (Bld) [#/Vol] 1.5 103/ul Normal 1.2-3.8 [facility] Comment on above: Performed By: #### C BC #### [facility] [address] [place], [place] [address] Camelia Carmen Lymphocytes/100 WBC (Bld) 18.3 % Critically low 20.5-60.0 [facility] Comment on above: Performed By: #### C BC #### [facility] [address] [place], [place] [phone] Camelia Carmen MANUAL DIFF REQ NO Normal [facility] Comment on above: Performed By: #### C BC #### [facility] [address] [place], [place] [phone] Camelia Carmen MCH (RBC) [Entitic mass] 28.4 pg Normal 26.7-34.0 [facility] Comment on above: Performed By: #### C BC #### [facility] [address] [place] [address] Camelia Carmen MCHC (RBC) [Mass/Vol] 33.7 g/dL Normal 29.9-35.2 [facility] Comment on above: Performed By: #### C BC #### [facility] [address] [place], [place] [phone] Camelia Carmen MCV (RBC) [Entitic vol] 84.4 fL Normal 81.0-99.0 [facility] Comment on above: Performed By: #### C BC #### [facility] [address] [place], [place] [phone] Camelia Carmen Monocytes (Bld) [#/Vol] 0.4 103/ul Normal 0.3-0.8 [facility] Comment on above: Performed By: #### C BC #### [facility] [address] [place] [address] Camelia Carmen Monocytes/100 WBC (Bld) 4.4 % Normal 1.7-12.0 [facility] Comment on above: Performed By: #### C BC #### [facility] [address] [place], [place] [address] Camelia Carmen Neutrophils (Bld) [#/Vol] 6.2 103/ul Normal 1.4-6.5 [facility] Comment on above: Performed By: #### C BC #### [facility] [address] [place], [place] [address] Camelia Carmen Neutrophils/100 WBC (Bld) 75.6 % Critically high 43.0-75.0 [facility] Comment on above: Performed By: #### C BC #### [facility] [address] [place], [place] [address] Camelia Carmen Platelet mean volume (Bld) [Entitic vol] 12.0 fL Normal 9.5-13.5 [facility] Comment on above: Performed By: #### C BC #### [facility] [address] [place], [place] [address] Camelia Carmen Platelets (Bld) [#/Vol] 134 103/ul Critically low 150-450 [facility] Comment on above: Performed By: #### C BC #### [facility] [address] [place], [place] [address] Camelia Carmen RBC (Bld) [#/Vol] 4.29 106/ul Normal 4.20-5.40 [facility] Comment on above: Performed By: #### C BC #### [facility] [address] [place], [place] [address] Camelia Carmen WBC (Bld) [#/Vol] 8.3 103/ul Normal 4.0-11.0 [facility] Comment on above: Performed By: #### C BC #### [facility] [address] [place], [place] [address] Camelia Carmen DRUG SCREEN RAPID (URINE)on 05-11-2020 AMP Negative Normal NEGATIVE [facility] Comment on above: Performed By: #### D RUGRPD #### [facility] [address] [place] [address] Camelia Carmen BAR Negative Normal NEGATIVE [facility] Comment on above: Performed By: #### D RUGRPD #### [facility] [address] [place] [address] Camelia Carmen BUP Negative Normal NEGATIVE [facility] Comment on above: Performed By: #### D RUGRPD #### [facility] [address] [place] [address] Camelia Carmen BZO Negative Normal NEGATIVE [facility] Comment on above: Performed By: #### D RUGRPD #### [facility] [address] [place] [address] Camelia Carmen SHERRELL Negative Normal NEGATIVE [facility] Comment on above: Performed By: #### D RUGRPD #### [facility] [address] [place] [address] Camelia Carmen CUT-OFFS SEE BELOW Normal [facility] Comment on above: Result Comment: AMP [...] ng/mL Performed By: #### D RUGRPD #### [facility] [address] [place] [address] Camelia Carmen DRUG CUT HEADER DRUG CLASS TEST SYSTEM CUT-OFF CONCENTRATIONS ARE FOLLOWS: Normal [facility] Comment on above: Performed By: #### D RUGRPD #### [facility] [address] [place] [address] Camelia Carmen mAMP Negative Normal NEGATIVE [facility] Comment on above: Performed By: #### D RUGRPD #### [facility] [address] [place] [address] Camelia Carmen MTD Negative Normal NEGATIVE [facility] Comment on above: Performed By: #### D RUGRPD #### [facility] [address] [place] [address] Camelia Carmen OPI Negative Normal NEGATIVE [facility] Comment on above: Performed By: #### D RUGRPD #### [facility] [address] [place] [address] Camelia Carmen OXY Negative Normal NEGATIVE [facility] Comment on above: Performed By: #### D RUGRPD #### [facility] [address] [place] [address] Camelia Carmen PCP Negative Normal NEGATIVE [facility] Comment on above: Performed By: #### D RUGRPD #### [facility] [address] [place] [address] Camelia Carmen PPX Negative Normal NEGATIVE [facility] Comment on above: Performed By: #### D RUGRPD #### [facility] [address] [place] [address] Camelia Carmen TCA Negative Normal NEGATIVE [facility] Comment on above: Performed By: #### D RUGRPD #### [facility] [address] [place] [address] Camelia Carmen THC Negative Normal NEGATIVE [facility] Comment on above: Performed By: #### D RUGRPD #### [facility] [address] [place] [address] Camelia Carmen POINT OF CARE GLUCOSEon 04-27 Glucose [Mass/Vol] 92 mg/dL Normal 74-106 [facility] Comment on above: Performed By: #### P OCGLUC #### [facility] [address] [place] [address] Camelia Carmen Glucose [Mass/Vol] 95 mg/dL Normal 74-106 [facility] Comment on above: Performed By: #### P OCGLUC #### [facility] [address] [place] [address] Camelia Carmen Glucose [Mass/Vol] 165 mg/dL Critically high 74-106 [facility] Comment on above: Performed By: #### P OCGLUC ####[facility] [id number] [place], [place] [address]Dqqymj Carmen TYPE AND SCREENon 05-11-2020 TYPE AND SCREEN Negative Normal [facility] Comment on above: Performed By: #### T NS ####[facility] [address] [place], [place] [address]Sqnofg Carmen US PREG BIOPHY W NON STRESSo [...] by: Latricia RUSSELL Date: 2020-05-10 17:09 Normal [facility] COVID-19 PCRon 05-05-2020 SARS-CoV-2, ERNESTINE Not Detected Normal Not Detected [facility] Comment on above: Result Comment: This nucleic acid amplification test was developed and its performance characteristics determined by [facility]. Nucleic acid amplification tests include PCR and [...] Performed By: #### C VDSTAT, CVDPCR #### [facility] [address] [place], [place] [address] Camelia Morales PRIORITY COVID PROCESSINGon 05-05-2020 Comment Comment Normal [facility] Comment on above: Result Comment: Rece ived Performed By: #### C VDSTAT, CVDPCR #### [facility] [address] [place] [id number] Camelia Morales US PREG BIOPHY W NON [...] BRAULIO MONTEZ Date: 2020-05-03 20:36 Normal [facility] US PREG BIOPHY W NON STRESSo [...] by: Latricia RUSSELL Date: 2020-04-26 17:44 Normal [facility] US PREG BIOPHY W NON STRESSo [...] GATITO DURAN Date: 2020-04-21 19:59 Normal [facility] GROUP B STREP CULTUREon 03-29 S. agalactiae Ag Ql (Unsp spec) Culture Observations: NEGATIVE FOR GROUP B STREPTOCOCCUS Normal [facility] Comment on above: Performed By: #### G BSCX ####[facility] [id number] Carmen US PREG BIOPHY W NON [...] BPP 6/8(no breathing). Electronically authenticated by: GATITO DURAN Date: 2020-04-19 19:00 Normal [facility] US PREG BIOPHY W NON STRESSo [...] Latricia RUSSELL Date: 2020-04-12 16:33 Normal [facility] US PREG GROWTHon 04-05-2020 US PREG [...] GATITO DURAN Date: 2020-04-05 17:39 Normal [facility] US PREG BIOPHY W NON STRESSo [...] by: Latricia RUSSELL Date: 2020-03-29 16:39 Normal [facility] Vital Signs Date Time Vital Sign Value Performing Clinician Jodie sanders 05-13-2024 11:51-0400 Body weight 83.83 kg Aparna Silvana DO Work Phone: [facility] 05-13-2024 11:51-0400 Diastolic blood pressure 86 mm[Hg] Aparna Silvana DO Work Phone: [facility] 05-13-2024 11:51-0400 Systolic blood pressure 136 mm[Hg] Aparna Silvana DO Work Phone: [facility] 04-27-2024 10:21-0400 Body weight 89.36 kg Ramonita STRANGE Work Phone: [facility] 04-27-2024 10:21-0400 Diastolic blood pressure 76 mm[Hg] Ramonita STRANGE Work Phone: [facility] 04-27-2024 10:21-0400 Systolic blood pressure 122 mm[Hg] Ramonita STRANGE Work Phone: [facility] Healthcare Encounters Encounter Date Encounter Type Care Provider Facility Start: 05-13-2024 End: 05-13-2024 Patient encounter status Aparna Silvana DO Work Phone: [facility] [employer] Work Phone: Start: 05-13-2024 End: 05-13-2024 Postop follow up visit related to original px Aparna Silvana DO Work Phone: [facility] Comment on above: BP check Start: 05-13-2024 End: 05-13-2024 ambulatory APARNA SILVANA Not Available Start: 04-27-2024 End: 04-27-2024 Bamboo flowsheet Ramonita STRANGE Work Phone: [facility] Start: 04-27-2024 End: 04-27-2024 Bamboo flowsheet Ramonita STRANGE Work Phone: [facility] Start: 04-27-2024 End: 04-27-2024 flow sheet Ramonita STRANGE Work Phone: [facility] Comment on above: Third trimester preg leah; 37 weeks gestation of Start: 04-27-2024 End: 04-27-2024 ambulatory RAMONITA NORMAN Not Available Start: 04-20-2024 End: 04-20-2024 ambulatory APARNA SILVANA Not Available Start: 04-13-2024 End: 04-13-2024 ambulatory RAMONITA NORMAN Not Available Start: 03-30-2024 End: 03-30-2024 ambulatory APARNA SILVANA Not Available Start: 03-18-2024 End: 03-18-2024 ambulatory APARNA SILVANA Not Available Start: 03-04-2024 End: 03-04-2024 ambulatory APARNA SILVANA Not Available Start: 01-02-2024 End: 01-02-2024 ambulatory APARNA R SILVANA [facility] Start: 12-03-2023 End: 12-03-2023 ambulatory APARNA SILVANA Not Available Start: 11-06-2023 End: 11-06-2023 ambulatory APARNA SILVANA Not Available Start: 05-24-2021 End: 05-25-2021 ambulatory NAZANIN DURAN Facility:[facility] Start: 05-24-2020 Patient encounter procedure APARNA SILVANA Facility: Start: 05-16-2020 End: 05-16-2020 Patient encounter procedure APARNA SILVANA Facility: Start: 05-11-2020 End: 05-13-2020 Evaluation and management of inpatient APARNA SILVANA Facility:[facility] Start: 05-10-2020 End: 05-10-2020 Patient encounter procedure APARNA GARRETTO Facility:[facility] Start: 05-06-2020 End: 05-06-2020 Patient encounter procedure APARNA GARRETTO Facility:[facility] Start: 05-03-2020 End: 05-03-2020 Patient encounter procedure APARNA GARRETTO Facility:[facility] Start: 04-29-2020 End: 04-29-2020 Patient encounter procedure APARNA GARRETTO Facility:[facility] Start: 04-26-2020 End: 04-26-2020 Patient encounter procedure APARNA GARRETTO Facility:[facility] Start: 04-22-2020 End: 04-22-2020 Patient encounter procedure APARNA GARRETTO Facility:[facility] Start: 04-21-2020 End: 04-21-2020 Patient encounter procedure ABRAHAM BERRY Facility:[facility] Start: 04-19-2020 End: 04-19-2020 Patient encounter procedure APARNA GARRETTO Facility:[facility] Start: 04-15-2020 End: 04-15-2020 Patient [...] Facility:[facility] Start: 02-03-2020 Patient encounter procedure APARNA PINA Facility:[facility] Procedures Date Procedure Procedure Detail Performing Clinician Start: 12-03-2023 Microscopic observat ion [Identifier] in Cervix by Cyto stain Aparna Pina DO Work Phone: Start: 05-11-2020 Delivery of Products of Conception, External Approach ABRAHAM BERRY Start: 05-11-2020 Division of Female Perineum, External Approach ABRAHAM BERRY Start: 05-11-2020 Drainage of Amniotic Fluid, Therapeutic from Products of Conception, Via Natural or Artificial Opening ABRAHAM BERRY Start: 05-11-2020 Repair Perineum Musc le, Open Approach ABRAHAM BERRY Plan of Treatment Date Care Activity Detail Author Start: 12-02-2026 Screening for malign ant neoplasm of cervix [facility] Healthcare Start: 04-27-2024 End: 04-27-2024 Patient encounter procedure 04/27/2024 9:50 AM EDT Routine [facility] [address] [place] [address] Ramonita Austin PA [address] [place] [address] Arrived [facility] Comment on above: Arrived Start: 03-28-2024 Influenza vaccination Influenza Vacc ine (#1) [facility] Healthcare Start: 2018 Screening for malign ant neoplasm of cervix HPV/Cotest [facility] Healthcare Payers Date Payer Category Payer Private Health Insurance [employer] [id number] 2022 Unknown [employer] [id number] 2022-Present [address] [place] [address] [id number]. [id number] 1988 Unknown [id number] 2.16.840.1.499953.3.579.2. 593 1988 Unknown [id number] 2.16.840.1.286335.3.579.2. 593 1988 Unknown [id number] 2.16.840.1.472411.3.579.2. 593 1988 Unknown [id number] 2.16.840.1.432301.3.579.2. 593 1988 Unknown [id number] 2.16840.1.885516.3.579.2. 593 1988 Unknown [id number] 2.16.840.1.071391.3.579.2. 593 1988 Unknown [id number] 2.16840.1.132459.3.579.2. 593 1988 Unknown [id number] 2.16840.1.803827.3.579.2. 593 1988 Unknown [id number] 2.840.1.204289.3.579.2. 593 1988 Unknown [id number] 2.840.1.725344.3.579.2. 593 1988 Unknown [id number] 2..1.314554.3.579.2. 593 1988 Unknown [id number] 2.840.1.729563.3.579.2. 593 1988 Unknown [id number] 2.840.1.960884.3.579.2. 593 1988 Unknown [id number] 2.840.1.492140.3.579.2. 593 1988 Unknown [id number] 2.840.1.329814.3.579.2. 593 1988 Unknown [id number] 2.16840.1.215362.3.579.2. 593 1988 Unknown [id number] 2.16840.1.229251.3.579.2. 593 1988 Unknown [id number] 2.16840.1.734542.3.579.2. 593 1988 Unknown [id number] 2.840.1.503101.3.579.2. 593 1988 Unknown [id number] 2.16840.1.239059.3.579.2. 727 1988 Unknown [id number] 2.16.840.1.899705.3.579.2. 6 1988 Unknown [id number] 2.16.840.1.516496.3.579.2. 1286 1988 Unknown [id number] 2.16.840.1.723279.3.579.2. 9 1988 Unknown [id number] 2.16.840.1.400097.3.579.2. 9 1988 Unknown [id number] 2.16.840.1.271686.3.579.2. 9 1988 Unknown [id number] 2.16.840.1.316744.3.579.2. 9 1988 Unknown [id number] 2.16.840.1.175591.3.579.2. 9 1988 Unknown [id number] 2.16.840.1.146137.3.579.2. 9 1988 Unknown [id number] 2.16.840.1.993745.3.579.2. 9 1988 Unknown [id number] 2.16.840.1.936634.3.579.2. 9 1988 Unknown [id number] 2.16.840.1.912074.3.579.2. 1259 1959 Self-pay [id number] 1959 Self-pay 1959 Unknown [id number] Social History Date Type Detail Facility Start: 03-30-2024 Tobacco smoking stat [facility] Never smoked tobacco [facility] Start: 03-30-2024 Tobacco use and exposure Smokeless t obacco non-user [facility] Start: 04-20-2024 End: 05-13-2024 Alcoholic beverage intake [facility]-drinker (finding) [facility] Start: 03-30-2024 History of Social function [facility] Start: 03-30-2024 Tobacco use panel [facility] Start: 08-20-2023 [facility] Start: 1990 [facility] at Female [facility] Start: 03-23-2024 Gender identity Identifies as female gender (finding) [facility] History of Present illness Narrative 05-13-2024 Anne Marie Mccarthy LPN - 05/13/2024 11:50 AM EDT Note Date & Type Note Facility 05-13-2024 History of Presen t illness Narrative Reason for Appointment: Patient ID: Salome Henriquez is a 33 y.o. female who presents for Blood Pressure Check Patient presents today for Consult appointment. MEDICATIONS Current Outpatient Medications Medication Instructions ucnhieeavj-xriopzwjqajsb-kdfvcczl 50-325-40 MG tablet 1 tablet, Oral, Every 4 hours PRN Cetirizine HCl (ZYRTEC ALLERGY PO) Oral Ferrous Gluconate (IRON 27 PO) Oral ibuprofen (MOTRIN IB) 600 mg, Every 6 hours PRN VITAMIN D, CHOLECALCIFEROL, PO Oral ALLERGIES No Known Allergies PROBLEMS Active Ambulatory Problems Diagnosis Date Noted History of gestational diabetes 03/04/2024 Gestational diabetes mellitus (GDM) in third trimester 03/04/2024 Resolved Ambulatory Problems Diagnosis Date Noted No Resolved Ambulatory Problems Past Medical History: Diagnosis Date Diabetes mellitus ([facility]) HISTORY PAST MEDICAL HISTORY SOCIAL HISTORY Past Medical History: Diagnosis Date Diabetes mellitus ([facility]) Social History Tobacco Use Smoking status: Never Smokeless tobacco: Never Substance Use Topics Alcohol use: Not Currently Drug use: Never FAMILY HISTORY No family history on file. SURGICAL HISTORY History reviewed. No pertinent surgical history. REVIEW OF SYSTEMS Review of Systems: Review of Systems All other systems reviewed and are negative. OBJECTIVE Objective: Physical Exam Constitutional: Appearance: Normal appearance. She is well-developed. Cardiovascular: Rate and Rhythm: Normal rate and regular rhythm. Pulmonary: Effort: Pulmonary effort is normal. Breath sounds: Normal breath sounds. Abdominal: General: Bowel sounds are normal. There is no distension. Palpations: Abdomen is soft. Tenderness: There is no abdominal tenderness. There is no guarding or rebound. Musculoskeletal: General: No swelling. Normal range of motion. Right lower leg: No edema. Left lower leg: No edema. Neurological: Mental Status: She is alert and oriented to person, place, and time. Skin: General: Skin is warm and dry. Psychiatric: Mood and Affect: Mood normal. Behavior: Behavior normal. Vitals and nursing note reviewed. Exam conducted with a interlocking tower operator present. Vitals: There is no height or weight on file to calculate BMI. BP: 136/86 No LMP recorded. Patient is . ASSESSMENT & PLAN ICD-10-CM 1. BP check Z01.30 Patient to rtc in 6 weeks, BP good and precautions given. PVU Documented by Anne Marie Mccarthy LPN on behalf of: Aparna Pina DO documented in this encounter [facility] History of Present illness Narrative [...] Past Medical History: Diagnosis Date Diabetes mellitus ([facility]) HISTORY PAST MEDICAL HISTORY SOCIAL HISTORY Past Medical History: Diagnosis Date Diabetes mellitus ([facility]) Social History Tobacco Use Smoking status: Never [...] of: ALEXANDR [place] documented in this encounter [facility] Evaluation note Note Date & Type Note Facility Evaluation note Diagnosis Third trimester state, incidental 37 weeks gestation of documented in this encounter [facility] Evaluation note Note Date & Type Note Facility Evaluation note Diagnosis BP check Screening for hypertension documented in this encounter [facility] Summary Purpose Family History No Family History Records FoundNo Family History Records FoundNo Family History Records FoundNo Family History Records Found Advance Directives No Advanced Directives Records FoundNo Advanced Directives Records FoundNo Advanced Directives Records FoundNo Advanced Directives Records Found Additional Source Comments INFORMATION SOURCE (unrecogn ized section and content) DATE CREATED AUTHOR 09/14/2020 [facility] DATE CREATED AUTHOR AUTHOR'S ORGANIZ ATION 10/27/2022 [facility] DATE CREATED AUTHOR AUTHOR'S ORGANIZ ATION 01/03/2024 [facility] DATE CREATED AUTHOR AUTHOR'S ORGANIZ ATION 05/16/2024 [facility] EPIC Care Teams (unrecognized sec tion and content) Bale Coverer Relationship Specialty Start Date End Date Kaylene Brunner MD [address] [place] [phone] PCP - General Family Medicine 10/29/23 Bale Coverer Relationship Specialty Start Date End Date Kaylene Brunner MD [address] [place] [phone] PCP - General Family Medicine 10/29/23 Bale Coverer Relationship Specialty Start Date End Date Kaylene Brunner MD [address] [place] [phone] PCP - General Family Medicine 10/29/23 Reason for Visit (unrecogniz ed section and content) Reason Comments Routine Visit Reason Comments Blood Pressure Check FOR RECORDS PERTAINING TO PATIENTS WHO ARE [...] BE BASED ON THE PRIMARY CLINICAL RECORDS. [facility]. provides no warranty or guarantee of the accuracy or completeness of information in this document.
[2024-05-20 20:14] VITALS: BP 139/92; PULSE 105; O2SAT 100; BMI 27.3
--- NOTE | 2024-05-20 20:31 | CT_ITS ---
[address] [address] Patient Name: ARLIN LUNDBERG MRN: [id number] date: 1990 Sex: F Assigned Patient Location: ER Current Patient Location: ER Accession/Order Number: [id number] Exam Date: 05/20/2024 21:10 Report Date: 05/20/2024 22:54 At the request of: ARI MCCARTHY Procedure: CT abdomen pelvis w con EXAM: CT abdomen pelvis w con HISTORY: abdominal pain COMPARISON: None. TECHNIQUE: Dose reduction techniques were achieved by using automated exposure control and/or adjustment of mA and/or kV according to patient size and/or use of iterative reconstruction technique.CT of the abdomen and pelvis with contrast. FINDINGS: Lung bases are clear. Liver, gallbladder, spleen, pancreas, distal esophagus, stomach, duodenum and adrenal glands are normal. Obstructing left ureterovesicular junction stone measuring 5 mm (3/130). Left mild to moderate hydronephrosis and hydroureter. There is decreased contrast opacification of the left kidney parenchyma as compared to the right Right renal pelviectasis and mild right hydronephrosis. No right distal ureteric obstructing stone. No colonic wall thickening or dilation. No small bowel dilation. No mesenteric edema. Appendix is normal. No bladder wall thickening. Small fat-containing periumbilical hernia. No inguinal, pelvic or retroperitoneal adenopathy. No acute osseous abnormality. CT/CT abdomen pelvis w con IMPRESSION: 1. Obstructing left ureterovesicular junction stone measuring 5 mm (3/130). Left mild to moderate hydronephrosis and hydroureter. 2. Mild right hydronephrosis and hydroureter. No right ureteral stone. No right nephrolithiasis. 3. No bladder stones. No focal bladder wall thickening. 4. Other findings as described. Electronically authenticated by: SEAN ALMONTE Date: 05/20/2024 22:54
[2024-05-20 20:34] VITALS: TEMP 36.4
--- NOTE | 2024-05-20 20:40 | ED.ABDPAIN1 ---
HPI - Abdominal Pain General Chief Complaint: Abdominal Pain Stated Complaint: DIFF BREATHING, ABDOMINAL PAIN Time Seen by Provider: 05/20/24 20:25 Source: patient Mode of arrival: Wheelchair History of Present Illness HPI narrative: 3 weeks post vaginal delivery. States she did have eclampsia but baby delivered without complications. Has been doing well with mild discomfort until today around noon. Has abdominal pain and nausea. Pain comes in waves. Did have BP today. No fever or urinary symptoms Related Data Home Medications ?Medication ?Instructions ?Recorded ?Confirmed frbwemwgmu-sxkjnqbkeigjn-rsbjdmnj 1 tab PO TID PRN pain 05/21/24 05/21/24 50 mg-325 mg-40 mg tablet Allergies Allergy/AdvReac Type Severity Reaction Status Date / Time No Known Drug Allergies Allergy Verified 04/30/24 18:46 Review of Systems ROS Status of ROS 10 or more systems reviewed and unremarkable except as noted in history and below [facility] Medical History (Updated 05/21/24 @ 01:21 by Leland Alamo MD) Spinal headache ?G97.1 - Other reaction to spinal and lumbar puncture (ICD-10) Normal vaginal delivery ?O80 - Encounter for full-term uncomplicated delivery (ICD-10) Surgical History (Updated 04/30/24 @ 18:49 by Cristiana Buenrostro RN) H/O lateral meniscus repair of right knee ?Z98.890 - Other specified postprocedural states (ICD-10) Family History (Updated 04/30/24 @ 18:50 by Cristiana Buenrostro RN) Father Family history of myocardial infarction Grandmother Family history of diabetes mellitus Social History (Updated 04/30/24 @ 18:50 by Cristiana Buenrostro RN) Within the past year, how often did you have a drink containing alcohol: never Within the past year, how often did you have six or more drinks on one occasion: never Score interpretation: A score less than 3 is consistent with normal alcohol consumption. Smoking status: Never smoker Non-prescribed substance use: denies use Highest level of school completed/degree received: Bachelor's degree Exam Constitutional Vital Signs, click to edit/add: Last Vital Signs Temp 97.6 F 05/20/24 20:34 Pulse 83 05/20/24 23:18 Resp 16 05/20/24 23:18 BP 126/72 05/20/24 23:18 Pulse Ox 100 05/20/24 23:18 O2 Del Method Room Air 05/20/24 23:18 General appearance: in distress (mild -mod distress) HENMT Common normals: normocephalic and head/scalp atraumatic Eye Common normals: PERRL and EOMs intact bilaterally Respiratory Common normals: normal respiratory effort, no retractions and no use of accessory muscles Cardio Common normals: regular rate, regular rhythm, S1 normal heart sound and S2 normal heart sound GI Common normals: Normal to inspection, nondistended, normoactive bowel sounds present and soft to palpation Other: mild left sided tenderness. no guarding or rebound Extremity Common normals: normal to inspection Neuro Common normals: oriented x3, CN's II-XII intact bilaterally, moves all extremities and no focal motor deficits Psych Appearance: grossly normal Course Vital Signs Vital signs: Vital Signs Pulse Rate 105 H 05/20/24 20:14 Respiratory Rate 34 H 05/20/24 20:14 Blood Pressure 139/92 H 05/20/24 20:14 Pulse Oximetry 100 05/20/24 20:14 Oxygen Delivery Method Room Air 05/20/24 20:14 Temperature 97.6 F 05/20/24 20:34 Pulse Rate 83 05/20/24 23:18 Respiratory Rate 16 05/20/24 23:18 Blood Pressure 126/72 05/20/24 23:18 Pulse Oximetry 100 05/20/24 23:18 Oxygen Delivery Method Room Air 05/20/24 23:18 MDM - Abdominal Pain MDM Narrative Medical decision making narrative: patient 3wks post vaginal delivery healthy . Patient is breast feeding . Presents with pain left side of her abdomen. afebrile with leukocytosis WBC 24,000. UA clear. CT with 5mm stone at UVJ with hydroureter and hydronephrosis. Also right sided hydroureter and nephrosis without stone. family history of kidney stones. Patient continues to complain of pain despite receiving Morphine and Toradol. Discussed with the hospitalist and director of labor relations Urologist Dr Page who will consult on the patient. Patient admitted to Urology Lab Data Labs: Lab Results 05/20/24 05/20/24 05/21/24 Range/Units 20:50 21:30 00:05 WBC 24.0 H (4.0-11.0) 10^3/uL RBC 4.62 (4.20-5.40) 10^6/uL Hgb 13.4 (12.0-16.0) g/dL Hct 39.2 (36.0-48.0) % MCV 84.8 (81.0-99.0) fL MCH 29.0 (26.7-34.0) pg MCHC 34.2 (29.9-35.2) g/dL RDW 12.1 (11.0-15.0) % Plt Count 273 (150-450) 10^3/uL MPV 11.8 (9.5-13.5) fL Seg Neuts % (Manual) 94.0 H (43.0-75.0) Lymphocytes % (Manual) 1.0 L (20.5-60.0) % Monocytes % (Manual) 5.0 (1.7-12.0) % Eosinophils % (Manual) 0.0 L (0.9-7.0) % Basophils % (Manual) 0.0 L (0.2-2.0) % Neutrophils # (Manual) 22.56 H (1.4-6.5) 10^3/uL Lymphocytes # (Manual) 0.24 L (1.20-3.80) 10^3/uL Monocytes # (Manual) 1.20 H (0.30-0.80) 10^3/uL Eosinophils # (Manual) 0.00 (0.00-0.70) 10^3/uL Basophils # (Manual) 0.00 (0.00-0.10) 10^3/uL Sodium 137 (136-145) mmol/L Potassium 3.6 (3.5-5.1) mmol/L Chloride 100 (98-107) mmol/L Carbon Dioxide 17.7 L (21.0-32.0) mmol/L Anion Gap 22.9 BUN 12.0 (7.0-18.0) mg/dL Creatinine 1.33 H (0.55-1.02) mg/dL Est GFR ( Amer) 55 L (>=60 mL/min/1.73m^2) Est GFR (Non-Af Amer) 45 L (>=60 mL/min/1.73m^2) BUN/Creatinine Ratio 9.0 Glucose 165 H (74-106) mg/dL Lactate 5.4 H* 2.0 (0.4-2.0) mmol/L Calcium 9.5 (8.5-10.1) mg/dL Total Bilirubin 0.7 (0.2-1.0) mg/dL AST 24 (15-37) U/L ALT 36 (14-59) U/L Alkaline Phosphatase 114 (46-116) U/L Troponin I High Sens <4.0 L (4.0-51.3) pg/mL Total Protein 7.3 (6.4-8.2) g/dL Albumin 3.6 (3.4-5.0) g/dL Globulin 3.7 g/dL Albumin/Globulin Ratio 1.0 Lipase 30.0 (16.0-77.0) U/L Urine Color Lt. green (YELLOW) Urine Clarity Clear (CLEAR) Urine pH 7.0 (5.0-9.0) Ur Specific [place] 1.010 (1.005-1.025) Urine Protein Negative (NEG/TRACE) mg/dL Urine Glucose (UA) Negative (NEGATIVE) mg/dL Urine Ketones 15 A (NEGATIVE) mg/dL Urine Occult Blood Trace-i (NEGATIVE) Urine Nitrite Negative (NEGATIVE) Urine Bilirubin Negative (NEGATIVE) Urine Urobilinogen 0.2 (0.2-1.0) EU/dL Ur Leukocyte Esterase Small A (NEGATIVE) Urine RBC 0-2 (0-2) #/HPF Urine WBC 2-5 A (NONE SEEN) #/HPF Ur Squamous Epith Cells Rare (NONE/RARE) #/LPF Urine Crystals None seen (None Seen) #/HPF Urine Bacteria Small A (NONE SEEN) #/HPF Urine Casts None seen (NONE SEEN) #/LPF Urine Mucus None seen (NONE SEEN) Ur Culture Indicated? Yes Imaging Data Abdominal x-ray: Radiologist's impression: ITS Impressions Abdomen/Pelvis CT 05/20/24 20:31 IMPRESSION: 1. Obstructing left ureterovesicular junction stone measuring 5 mm (3/130). Left mild to moderate hydronephrosis and hydroureter. 2. Mild right hydronephrosis and hydroureter. No right ureteral stone. No right nephrolithiasis. 3. No bladder stones. No focal bladder wall thickening. 4. Other findings as described. Electronically authenticated by: SEAN ALMONTE Date: 05/20/2024 22:54 Discharge Plan Discharge Chief Complaint: Abdominal Pain Clinical Impression: Renal colic on left side, Hydroureter, Hydronephrosis, Leukocytosis Patient Disposition: Admitted as Observation
[2024-05-20] MEDS: PROMETHAZINE HCL 12.5 MG in 0.9 % SODIUM CHLORIDE 50 ML 202 MG IV (20:57)
[2024-05-20 21:44] LABS: Hematocrit 39.2 % (36.0-48.0); Hemoglobin 13.4 g/dL (12.0-16.0); Mean Corpuscular HGB Conc 34.2 g/dL (29.9-35.2); Mean Corpuscular Volume 84.8 fL (81.0-99.0); Mean Platelet Volume 11.8 fL (9.5-13.5); Platelet Count 273 10^3/uL (150-450); Red Blood Count 4.62 10^6/uL (4.20-5.40); Red Cell Distribution Width 12.1 % (11.0-15.0)
[2024-05-20 21:46] LABS: Bilirubin Urine NEGATIVE (NEGATIVE); Blood Urine TRACE-I (NEGATIVE); Clarity Urine CLEAR (CLEAR); Color Urine LT. GREEN (YELLOW); Glucose Urine UA NEGATIVE (NEGATIVE); Ketones Urine 15 mg/dL (NEGATIVE); Leukocyte Esterase Urine SMALL (NEGATIVE); Nitrite Urine NEGATIVE (NEGATIVE); Protein Urine NEGATIVE (NEG/TRACE); Urobilinogen Urine 0.2 EU/dL (0.2-1.0)
[2024-05-20 21:47] LABS: Urine Microscopic Indicated YES
[2024-05-20 21:53] LABS: Bacteria Urine SMALL #/HPF (NONE SEEN); Cast Seen? NONE SEEN #/LPF (NONE SEEN); Crystals Seen? None Seen #/HPF (None Seen); Mucus Urine NONE SEEN (NONE SEEN); RBC Urine 0-2 #/HPF (0-2); Squamous Epithelial Cell Urine RARE #/LPF (NONE/RARE); Urine Culture Indicated YES
[2024-05-20 21:57] LABS: Lymphocytes Absolute Manual 0.24 10^3/uL (1.20-3.80); Segmented Neut Absolute Manual 22.56 10^3/uL (1.4-6.5)
[2024-05-20 22:00] LABS: Alanine Aminotransferase 36 U/L (14-59); Albumin Level 3.6 g/dL (3.4-5.0); Alkaline Phosphatase 114 U/L (46-116); Anion Gap 22.9; Aspartate Amino Transferase 24 U/L (15-37); Bilirubin Total 0.7 mg/dL (0.2-1.0); Calcium 9.5 mg/dL (8.5-10.1); Carbon Dioxide 17.7 mmol/L (21.0-32.0); Chloride 100 mmol/L (98-107); Estimated GFR (African America 55 (>=60 mL/min/1.73m^2); Estimated GFR (Non-African Ame 45 (>=60 mL/min/1.73m^2); Globulin 3.7 g/dL; Glucose 165 mg/dL (74-106); Potassium 3.6 mmol/L (3.5-5.1); Sodium 137 mmol/L (136-145); Total Protein 7.3 g/dL (6.4-8.2)
[2024-05-20 22:05] LABS: Troponin I High Sensitivity <4.0 pg/mL (4.0-51.3)
[2024-05-20] MEDS: MORPHINE SULFATE 4 MG/ML VIAL IV (22:05)
[2024-05-20 22:06] LABS: Lactate/Lactic Acid 5.4 mmol/L (0.4-2.0)
[2024-05-20] MEDS: 0.9 % SODIUM CHLORIDE 1,000 ML 1000 ML IV (22:16)
[2024-05-20] MEDS: KETOROLAC TROMETHAMINE 30 MG/ML VIAL IVP (23:09)
[2024-05-20] MEDS: 0.9 % SODIUM CHLORIDE 1,000 ML 999 ML IV (23:10)
[2024-05-20 23:18] VITALS: BP 126/72; PULSE 83; O2SAT 100
[2024-05-21] VITALS (37 sets, daily range): BP systolic 110–140; BP diastolic 64–86; PULSE 87–131; TEMP 36.9–39.6; O2SAT 92–99; BMI 27.5
[2024-05-21] MEDS: MORPHINE SULFATE 4 MG/ML VIAL IV (01:22)
--- OUTSIDE RECORDS SUMMARY | 2024-05-21 02:13 | XMS_ITS | CCD ---
Author Organization [facility] Care Team Providers Care Family Law Specialist Name Role Phone ABRAHAM BERRY Attending [...] Unavailable SILVANA, APARNA R Referring Unavailable [facility] [phone] APARNA PINA Attending Unavailable SILVANA, APARNA Attending [...] (Bld) [#/Vol] 0.0 103/ul Normal 0.0-0.1 [facility] Comment on above: Performed By: #### C BC #### [facility] [address], [place] [address] Camelia Carmen Basophils/100 WBC (Bld) 0.1 % Critically low 0.2-2.0 [facility] [place] Comment on above: Performed By: #### C BC #### [facility] [address], [place] [address] Camelia Carmen Eosinophils (Bld) [#/Vol] 0.1 103/ul Normal 0.0-0.7 [facility] [place] Comment on above: Performed By: #### C BC #### [facility] [address], [place] [address] Camelia Carmen Eosinophils/100 WBC (Bld) 0.5 % Critically low 0.9-7.0 [facility] [place] Comment on above: Performed By: #### C BC #### [facility] [address] [place], [place] [id number] Camelia Carmen Erythrocyte distribution width (RBC) [Ratio] 13.2 % Normal 11.0-15.0 [facility] [place] Comment on above: Performed By: #### C BC #### [facility] [address] [place], [place] [id number] Camelia Carmen Hematocrit (Bld) [Volume fraction] 30.2 % Critically low 36.0-48.0 [facility] [place] Comment on above: Performed By: #### C BC #### [facility] [address] [place], [place] [id number] Camelia Carmen Hemoglobin (Bld) [Mass/Vol] 10.0 g/dL Critically low 12.0-16.0 [facility] [place] Comment on above: Performed By: #### C BC #### [facility] [address] [place], [place] [id number] Camelia Carmen IG # 0.07 10e3/ul Critically high 0.00-0.03 [facility] Comment on above: Performed By: #### C BC #### [facility] [address] [place], [place] [id number] Camelia Carmen IG % 0.5 % Normal 0.0-0.5 [facility] [place] Comment on above: Performed By: #### C BC #### [facility] [address], [place] [address] Camelia Carmen Lymphocytes (Bld) [#/Vol] 2.0 103/ul Normal 1.2-3.8 [facility] [place] Comment on above: Performed By: #### C BC #### [facility] [address], [place] [address] Camelia Carmen Lymphocytes/100 WBC (Bld) 13.4 % Critically low 20.5-60.0 [facility] [place] Comment on above: Performed By: #### C BC #### [facility] [address], [place] [address] Camelia Carmen MANUAL DIFF REQ NO Normal [facility] Comment on above: Performed By: #### C BC #### [facility] [address] [place] [address] Camelia Carmen MCH (RBC) [Entitic mass] 28.1 pg Normal 26.7-34.0 [facility] [place] Comment on above: Performed By: #### C BC #### [facility] [address] [place] [address] Camelia Carmen MCHC (RBC) [Mass/Vol] 33.1 g/dL Normal 29.9-35.2 [facility] [place] Comment on above: Performed By: #### C BC #### [facility] [address] [place], [place] [id number] Camelia Carmen MCV (RBC) [Entitic vol] 84.8 fL Normal 81.0-99.0 [facility] [place] Comment on above: Performed By: #### C BC #### [facility] [address], [place] [address] Camelia Carmen Monocytes (Bld) [#/Vol] 1.0 103/ul Critically high 0.3-0.8 [facility] [place] Comment on above: Performed By: #### C BC #### [facility] [address], [place] [address] Camelia Carmen Monocytes/100 WBC (Bld) 7.0 % Normal 1.7-12.0 [facility] [place] Comment on above: Performed By: #### C BC #### [facility] [address], [place] [address] Camelia Morales Neutrophils (Bld) [#/Vol] 11.6 103/ul Critically high 1.4-6.5 [facility] [place] Comment on above: Performed By: #### C BC #### [facility] [address], [place] [address] Camelia Morales Neutrophils/100 WBC (Bld) 78.5 % Critically high 43.0-75.0 [facility] [place] Comment on above: Performed By: #### C BC #### [facility] [address], [place] [address] Camelia Morales Platelet mean volume (Bld) [Entitic vol] 12.4 fL Normal 9.5-13.5 [facility] [place] Comment on above: Performed By: #### C BC #### [facility] [address] [place] [id number] Camelia Morales Platelets (Bld) [#/Vol] 151 103/ul Normal 150-450 [facility] [place] Comment on above: Performed By: #### C BC #### [facility] [address], [place] [address] Camelia Morales RBC (Bld) [#/Vol] 3.56 106/ul Critically low 4.20-5.40 [facility] Comment on above: Performed By: #### C BC #### [facility] [address], [place] [address] Camelia Mroales WBC (Bld) [#/Vol] 14.7 103/ul Critically high 4.0-11.0 [facility] Comment on above: Performed By: #### C BC #### [facility] [address], [place] [address] Camelia Morales POINT OF CARE GLUCOSEon - Glucose [Mass/Vol] 95 mg/dL Normal 74-106 [facility] Comment on above: Performed By: #### P OCGLUC ####[facility] [address] [place], [place] [address]Giexlu Carmen CBC AUTO DIFFon 05-11-2020 Basophils (Bld) [#/Vol] 0.0 103/ul Normal 0.0-0.1 [facility] [place] Comment on above: Performed By: #### C BC #### [facility] [address] [id number] Camelia Morales Basophils/100 WBC (Bld) 0.4 % Normal 0.2-2.0 [facility] [place] Comment on above: Performed By: #### C BC #### [facility] [address] [address] Camelia Carmen Eosinophils (Bld) [#/Vol] 0.1 103/ul Normal 0.0-0.7 [facility] Comment on above: Performed By: #### C BC #### [facility] [address] [place] [address] Camelia Carmen Eosinophils/100 WBC (Bld) 0.7 % Critically low 0.9-7.0 [facility] Comment on above: Performed By: #### C BC #### [facility] [address] [place] [address] Camelia Morales Erythrocyte distribution width (RBC) [Ratio] 13.2 % Normal 11.0-15.0 [facility] Comment on above: Performed By: #### C BC #### [facility] [address] [place] [address] Camelia Carmen Hematocrit (Bld) [Volume fraction] 36.2 % Normal 36.0-48.0 [facility] Comment on above: Performed By: #### C BC #### [facility] [address] [place] [address] Camelia Carmen Hemoglobin (Bld) [Mass/Vol] 12.2 g/dL Normal 12.0-16.0 [facility] Comment on above: Performed By: #### C BC #### [facility] [address] [place] [address] Camelia Carmen IG # 0.05 10e3/ul Critically high 0.00-0.03 [facility] Comment on above: Performed By: #### C BC #### [facility] [address] [address] Camelia Carmen IG % 0.6 % Critically high 0.0-0.5 [facility] Comment on above: Performed By: #### C BC #### [facility] [address] [place], [place] [id number] Camelia Carmen Lymphocytes (Bld) [#/Vol] 1.5 103/ul Normal 1.2-3.8 [facility] Comment on above: Performed By: #### C BC #### [facility] [address] [place], [place] [id number] Camelia Carmen Lymphocytes/100 WBC (Bld) 18.3 % Critically low 20.5-60.0 [facility] Comment on above: Performed By: #### C BC #### [facility] [address] [place], [place] [id number] Camelia Carmen MANUAL DIFF REQ NO Normal [facility] Comment on above: Performed By: #### C BC #### [facility] [address] [place], [place] [id number] Camelia Carmen MCH (RBC) [Entitic mass] 28.4 pg Normal 26.7-34.0 [facility] Comment on above: Performed By: #### C BC #### [facility] [address] [place] [address] Camelia Carmen MCHC (RBC) [Mass/Vol] 33.7 g/dL Normal 29.9-35.2 [facility] Comment on above: Performed By: #### C BC #### [facility] [address] [place], [place] [id number] Camelia Carmen MCV (RBC) [Entitic vol] 84.4 fL Normal 81.0-99.0 [facility] Comment on above: Performed By: #### C BC #### [facility] [address] [place], [place] [id number] Camelia Carmen Monocytes (Bld) [#/Vol] 0.4 103/ul Normal 0.3-0.8 [facility] Comment on above: Performed By: #### C BC #### [facility] [address] [place] [address] Camelia Carmen Monocytes/100 WBC (Bld) 4.4 % Normal 1.7-12.0 [facility] [place] Comment on above: Performed By: #### C BC #### [facility] [address], [place] [address] Camelia Carmen Neutrophils (Bld) [#/Vol] 6.2 103/ul Normal 1.4-6.5 [facility] [place] Comment on above: Performed By: #### C BC #### [facility] [address], [place] [address] Camelia Carmen Neutrophils/100 WBC (Bld) 75.6 % Critically high 43.0-75.0 [facility] [place] Comment on above: Performed By: #### C BC #### [facility] [address], [place] [address] Camelia Carmen Platelet mean volume (Bld) [Entitic vol] 12.0 fL Normal 9.5-13.5 [facility] Comment on above: Performed By: #### C BC #### [facility] [address], [place] [address] Camelia Carmen Platelets (Bld) [#/Vol] 134 103/ul Critically low 150-450 [facility] Comment on above: Performed By: #### C BC #### [facility] [address], [place] [address] Camelia Carmen RBC (Bld) [#/Vol] 4.29 106/ul Normal 4.20-5.40 [facility] Comment on above: Performed By: #### C BC #### [facility] [address], [place] [address] Camelia Carmen WBC (Bld) [#/Vol] 8.3 103/ul Normal 4.0-11.[address] [facility] Comment on above: Performed By: #### C BC #### [facility] [address], [place] [address] Camelia Carmen DRUG SCREEN RAPID (URINE)on 05-11-2020 AMP Negative Normal NEGATIVE [facility] [place] Comment on above: Performed By: #### D RUGRPD #### [facility] [address] [place] [address] Camelia Carmen BAR Negative Normal NEGATIVE [facility] Comment on above: Performed By: #### D RUGRPD #### [facility] [address] [place] [address] Camelia Carmen BUP Negative Normal NEGATIVE [facility] Comment on above: Performed By: #### D RUGRPD #### [facility] [address] [place] [address] Camelia Carmen BZO Negative Normal NEGATIVE [facility] Comment on above: Performed By: #### D RUGRPD #### [facility] [address] [place] [address] Camelia Carmen SHERRELL Negative Normal NEGATIVE [facility] [place] Comment on above: Performed By: #### D RUGRPD #### [facility] [address] [place] [address] Camelia Carmen CUT-OFFS SEE BELOW Normal [facility] [place] Comment on above: Result Comment: AMP (Amphetamine): [...] ng/mL Performed By: #### D RUGRPD #### [facility] [address] [place] [address] Camelia Carmen DRUG CUT HEADER DRUG CLASS TEST SYSTEM CUT-OFF CONCENTRATIONS ARE FOLLOWS: Normal [facility] Comment on above: Performed By: #### D RUGRPD #### [facility] [address] [place] [address] Camelia Carmen mAMP Negative Normal NEGATIVE [facility] Comment on above: Performed By: #### D RUGRPD #### [facility] [address] [address] Camelia Carmen MTD Negative Normal NEGATIVE [facility] Comment on above: Performed By: #### D RUGRPD #### [facility] [address] [address] Camelia Carmen OPI Negative Normal NEGATIVE [facility] Comment on above: Performed By: #### D RUGRPD #### [facility] [address] [address] Camelia Carmen OXY Negative Normal NEGATIVE [facility] Comment on above: Performed By: #### D RUGRPD #### [facility] [address] [place] [address] Camelia Carmen PCP Negative Normal NEGATIVE [facility] Comment on above: Performed By: #### D RUGRPD #### [facility] [address] [place] [address] Camelia Carmen PPX Negative Normal NEGATIVE [facility] Comment on above: Performed By: #### D RUGRPD #### [facility] [address] [place] [address] Camelia Carmen TCA Negative Normal NEGATIVE [facility] Comment on above: Performed By: #### D RUGRPD #### [facility] [address] [place] [address] Camelia Carmen THC Negative Normal NEGATIVE [facility] Comment on above: Performed By: #### D RUGRPD #### [facility] [address] [address] Camelia Carmen POINT OF CARE GLUCOSEon 04-27 Glucose [Mass/Vol] 92 mg/dL Normal 74-106 [facility] Comment on above: Performed By: #### P OCGLUC #### [facility] [address] [address] Camelia Carmen Glucose [Mass/Vol] 95 mg/dL Normal 74-106 [facility] Comment on above: Performed By: #### P OCGLUC #### [facility] [address] [address] Cameila Carmen Glucose [Mass/Vol] 165 mg/dL Critically high 74-106 [facility] Comment on above: Performed By: #### P OCGLUC ####[facility] [address] [place], [place] [address]Okbakn Carmen TYPE AND SCREENon 05-11-2020 TYPE AND SCREEN Negative Normal [facility] Comment on above: Performed By: #### T NS ####[facility] [address] [place], [place] [address]Aybpny Carmen US PREG BIOPHY W NON STRESSo [...] Latricia RUSSELL Date: 2020-05-10 17:09 Normal [facility] COVID-19 PCRon 05-05-2020 SARS-CoV-2, ERNESTINE Not Detected Normal Not Detected [facility] Comment on above: Result Comment: This nucleic acid amplification test was developed and its performance characteristics determined by [employer]. Nucleic acid amplification tests include PCR and [...] Performed By: #### C VDSTAT, CVDPCR #### [facility] [address], [place] [address] Camelia Morales PRIORITY COVID PROCESSINGon 05-05-2020 Comment Comment Normal [facility] [place] Comment on above: Result Comment: Rece ived Performed By: #### C VDSTAT, CVDPCR #### [facility] [address] [place] [id number] Camelia Morales US PREG BIOPHY W NON [...] BRAULIO MONTEZ Date: 2020-05-03 20:36 Normal [facility] US PREG BIOPHY W NON STRESSo [...] Latricia RUSSELL Date: 2020-04-26 17:44 Normal [facility] US PREG BIOPHY W NON STRESSo [...] GATITO DURAN Date: 2020-04-21 19:59 Normal [facility] GROUP B STREP CULTUREon 03-29 S. agalactiae Ag Ql (Unsp spec) Culture Observations: NEGATIVE FOR GROUP B STREPTOCOCCUS Normal [facility] Comment on above: Performed By: #### G BSCX ####[facility] [address] Carmen US PREG BIOPHY W NON [...] GATITO DURAN Date: 2020-04-19 19:00 Normal [facility] US PREG BIOPHY W NON STRESSo [...] Latricia RUSSELL Date: 2020-04-12 16:33 Normal [facility] US PREG GROWTHon 04-05-2020 US PREG [...] GATITO DURAN Date: 2020-04-05 17:39 Normal [facility] US PREG BIOPHY W NON STRESSo [...] by: Latricia RUSSELL Date: 2020-03-29 16:39 Normal [facility] [place] Vital Signs Date Time Vital Sign Value Performing Clinician Jodie sanders 05-13-2024 11:51-0400 Body weight 83.83 kg Aparna Silvana DO Work Phone: [facility] 05-13-2024 11:51-0400 Diastolic blood pressure 86 mm[Hg] Aparna Silvana DO Work Phone: [facility] 05-13-2024 11:51-0400 Systolic blood pressure 136 mm[Hg] Aparna Silvana DO Work Phone: [facility] 04-27-2024 10:21-0400 Body weight 89.36 kg Ramonita STRANGE Work Phone: [facility] 04-27-2024 10:21-0400 Diastolic blood pressure 76 mm[Hg] Ramonita STRANGE Work Phone: [facility] 04-27-2024 10:21-0400 Systolic blood pressure 122 mm[Hg] Ramonita STRANGE Work Phone: [facility] Healthcare Encounters Encounter Date Encounter Type Care Provider Facility Start: 05-13-2024 End: 05-13-2024 Patient encounter status Aparna Silvana DO Work Phone: [facility] [facility] Work Phone: Start: 05-13-2024 End: 05-13-2024 Postop [...] 01-02-2024 End: 01-02-2024 ambulatory APARNA R SILVANA [facility] Start: 12-03-2023 End: 12-03-2023 ambulatory APARNA SILVANA Not Available Start: 11-06-2023 End: 11-06-2023 ambulatory APARNA SILVANA Not Available Start: 05-24-2021 End: 05-25-2021 ambulatory NAZANIN DURAN Facility[place] Start: 05-24-2020 Patient encounter procedure APARNA SILVANA [...] Screening for malign ant neoplasm of cervix [facility] Start: 04-27-2024 End: 04-27-2024 Patient encounter procedure 04/27/2024 9:50 AM EDT Routine [facility] [address] [place] [address] Ramonita Austin PA [address] [place] [address] Arrived [facility] Comment on above: Arrived Start: 03-28-2024 Influenza vaccination Influenza Vacc ine (#1) [facility] Start: 2018 Screening for malign ant neoplasm of cervix HPV/Cotest [facility] Payers Date Payer Category Payer Private Health Insurance [employer] [id number] 2022 Unknown [employer] [id number] 2022-Present [address] [place] [address] [id number]. [id number] 1988 Unknown [id number] 2.16.840.1.673726.3.579.2. 593 1988 Unknown [id number] 2.16.840.1.075537.3.579.2. 593 1988 Unknown [id number] 2.16.840.1.640254.3.579.2. 593 1988 Unknown [id number] 2.16.840.1.625170.3.579.2. 593 1988 Unknown [id number] 2.16840.1.795004.3.579.2. 593 1988 Unknown [id number] 2.16.840.1.472420.3.579.2. 593 1988 Unknown [id number] 2.16840.1.103434.3.579.2. 593 1988 Unknown [id number] 2.16840.1.507209.3.579.2. 593 1988 Unknown [id number] 2.840.1.192249.3.579.2. 593 1988 Unknown [id number] 2.840.1.515764.3.579.2. 593 1988 Unknown [id number] 2..1.071285.3.579.2. 593 1988 Unknown [id number] 2.840.1.042753.3.579.2. 593 1988 Unknown [id number] 2.840.1.292979.3.579.2. 593 1988 Unknown [id number] 2.840.1.691326.3.579.2. 593 1988 Unknown [id number] 2.840.1.637297.3.579.2. 593 1988 Unknown [id number] 2.16840.1.973963.3.579.2. 593 1988 Unknown [id number] 2.16840.1.720720.3.579.2. 593 1988 Unknown [id number] 2.16840.1.912317.3.579.2. 593 1988 Unknown [id number] 2.840.1.616596.3.579.2. 593 1988 Unknown [id number] 2.16840.1.941528.3.579.2. 727 1988 Unknown [id number] 2.16.840.1.655369.3.579.2. 6 1988 Unknown [id number] 2.16.840.1.854387.3.579.2. 1286 1988 Unknown [id number] 2.16.840.1.734907.3.579.2. 9 1988 Unknown [id number] 2.16.840.1.032812.3.579.2. 9 1988 Unknown [id number] 2.16.840.1.797500.3.579.2. 9 1988 Unknown [id number] 2.16.840.1.282050.3.579.2. 9 1988 Unknown [id number] 2.16.840.1.112342.3.579.2. 9 1988 Unknown [id number] 2.16.840.1.053921.3.579.2. 9 1988 Unknown [id number] 2.16.840.1.552405.3.579.2. 9 1988 Unknown [id number] 2.16.840.1.627288.3.579.2. 9 1988 Unknown [id number] 2.16.840.1.825208.3.579.2. 1259 1959 Self-pay [id number] Self-pay 1959 Unknown [id number] Social History Date Type Detail Facility Start: 03-30-2024 Tobacco smoking stat [facility] Never smoked tobacco [facility] Start: 03-30-2024 Tobacco use and exposure Smokeless t obacco non-user [facility] Start: 04-20-2024 End: 05-13-2024 Alcoholic beverage intake Ex-drinker (finding) [facility] Start: 03-30-2024 History of Social function [facility] Start: 03-30-2024 Tobacco use panel [facility] Start: 08-20-2023 [facility] Start: 1990 Sex assigned at Female [facility] Start: 03-23-2024 Gender identity Identifies as female gender (finding) [facility] History of Present illness Narrative 05-13-2024 Anne Marie Mccarthy LPN - 05/13/2024 11:50 AM EDT Note Date & Type Note Facility 05-13-2024 History of Presen t illness Narrative Reason for Appointment: Patient ID: Salome eHnriquez is a 33 y.o. female who presents for Blood Pressure Check Patient presents today for Consult appointment. MEDICATIONS Current Outpatient Medications Medication Instructions wmkjuvstey-tsrrrzavsueau-[id number] 50-325-40 MG tablet 1 tablet, Oral, Every [...] Past Medical History: Diagnosis Date Diabetes mellitus ([facility]) HISTORY PAST MEDICAL HISTORY SOCIAL HISTORY Past Medical History: Diagnosis Date Diabetes mellitus ([facility]) Social History Tobacco Use Smoking status: [...] nursing note reviewed. Exam conducted with a project/production manager imaging present. Vitals: There is no height or weight on file to calculate BMI. BP: 136/86 No LMP recorded. Patient is . ASSESSMENT & PLAN ICD-10-CM 1. BP check Z01.30 Patient to rtc in 6 weeks, BP good and precautions given. PVU Documented by Ann eMarie Mccarthy LPN on behalf of: Aparna Pina [...] Past Medical History: Diagnosis Date Diabetes mellitus ([facility]) HISTORY PAST MEDICAL HISTORY SOCIAL HISTORY Past Medical History: Diagnosis Date Diabetes mellitus ([facility]) Social History Tobacco Use Smoking status: Never [...] of: ALEXANDR Ros[place] documented in this encounter [facility] Healthcare Evaluation note Note Date & [...] content) DATE CREATED AUTHOR 09/14/2020 [facility] DATE CREATED AUTHOR AUTHOR'S ORGANIZ ATION 10/27/2022 [facility] DATE CREATED AUTHOR AUTHOR'S ORGANIZ ATION 01/03/2024 [facility] DATE CREATED AUTHOR AUTHOR'S ORGANIZ ATION 05/16/2024 [facility] [employer] Care Teams (unrecognized sec tion and content) Family Law Specialist Relationship Specialty Start Date End Date Kaylene Brunner MD [address] [place] [id number] PCP - General Family Medicine 10/29/23 Family Law Specialist Relationship Specialty Start Date End Date Kaylene Brunner MD [address] [place] [phone] PCP - General Family Medicine 10/29/23 Family Law Specialist Relationship Specialty Start Date End Date Kaylene Brunner MD [address] [place] [phone] PCP - General Family Medicine 10/29/23 Reason [...] BE BASED ON THE PRIMARY CLINICAL RECORDS. [employer] [facility]. provides no warranty or guarantee of the accuracy or completeness of information in this document.
[2024-05-21] MEDS: TAMSULOSIN HCL 0.4 MG CAPSULE PO ×2 (02:39→20:32)
[2024-05-21] MEDS: CEFTRIAXONE 1,000 MG in 0.9 % SODIUM CHLORIDE 50 ML 100 MG IV ×2 (02:39→08:19)
[2024-05-21] MEDS: ACETAMINOPHEN 325 MG TABLET 650 MG PO ×5 (02:39→22:56)
[2024-05-21] MEDS: 0.9 % SODIUM CHLORIDE 1,000 ML 100 ML IV (02:39)
[2024-05-21] MEDS: MORPHINE SULFATE 2 MG/ML SYRINGE IV (05:29)
[2024-05-21 05:48] LABS: Basophils Absolute Auto 0.1 10^3/uL (0.0-0.1); Basophils Percent Auto 0.3 % (0.2-2.0); Eosinophils Absolute Auto 0.1 10^3/uL (0.0-0.7); Eosinophils Percent Auto 0.6 % (0.9-7.0); Hematocrit 35.8 % (36.0-48.0); Hemoglobin 12.1 g/dL (12.0-16.0); Immature Granulocytes Abs Auto 0.13 10^3/uL (0.00-0.03); Immature Granulocytes Pct Auto 0.7 % (0.0-0.5); Lymphocytes Percent Auto 5.1 % (20.5-60.0); Mean Corpuscular HGB Conc 33.8 g/dL (29.9-35.2); Mean Corpuscular Hemoglobin 28.8 pg (26.7-34.0); Mean Corpuscular Volume 85.2 fL (81.0-99.0); Mean Platelet Volume 11.4 fL (9.5-13.5); Monocytes Absolute Auto 0.9 10^3/uL (0.3-0.8); Monocytes Percent Auto 4.4 % (1.7-12.0); Neutrophils Absolute Auto 17.8 10^3/uL (1.4-6.5); Neutrophils Percent Auto 88.9 % (43.0-75.0); Platelet Count 201 10^3/uL (150-450); Red Cell Distribution Width 12.5 % (11.0-15.0)
[2024-05-21 06:06] LABS: Anion Gap 17.8; BUN Creatinine Ratio 8.5; Calcium 8.2 mg/dL (8.5-10.1); Carbon Dioxide 20.7 mmol/L (21.0-32.0); Chloride 107 mmol/L (98-107); Estimated GFR (African America >60 (>=60 mL/min/1.73m^2); Estimated GFR (Non-African Ame 52 (>=60 mL/min/1.73m^2); Glucose 120 mg/dL (74-106); Potassium 3.5 mmol/L (3.5-5.1); Sodium 142 mmol/L (136-145)
--- NOTE | 2024-05-21 09:23 | CM.NOTE ---
Rounds made with Dr. Nguyễn, discussed with pt diagnosis and findings of obstructive kidney stone. Consult to urologist for further recommendations and possible removal of stone. Pt continues NPO status and consult called by MS pathology secretary/transcriptionist.
[2024-05-21] MEDS: 0.9 % SODIUM CHLORIDE 1,000 ML 125 ML IV (12:16)
[2024-05-21] MEDS: ONDANSETRON PF 4 MG/2 ML VIAL IV (13:39)
[2024-05-21 14:15] LABS: HCG Qualitative NEGATIVE (NEGATIVE); Internal Control Within Normal Limits
--- NOTE | 2024-05-21 14:51 | PM.HP ---
HPI H&P: HPI History of Present Illness Chief complaint: DIFF BREATHING, ABDOMINAL PAIN Narrative: 33 y o female who is 3 weeks post , presented to ED with sudden onset nausea, left flank pain yesterday. She also reports dysuria and urgency. Denies hematuria, prior hx of renal stones. Patient was found to have 5mm stone at left Uterovesical junction with mild-mod hydroureteronephrosis. Patient also met criteria for sepsis (HR> 100, WBC 20k, temp 103) with mild AYAN. Patient was admitted overnight and started on IVF, IV Rocephin. She was also treated with IV Zofran and combination of oral/IV narcotics as needed for pain. At the time of my evaluation, patient was fairly comfortable but looked ill, exhausted and diaphoretic. She also had a high grade fever in the afternoon. Patient is NPO for stent placement and stone extraction. Patient is currently breast feeding and given that she will require anesthesia, narcotics, she was instructed to discard breast milk for 48 hours so that her is not exposed to narcotics and anesthetics. She verbalized understanding and was agreeable for it. Opioid HPI Opioid Management Most Recent Pain and Opioid Data: Last Pain Scale 2 05/21/24 14:00 05/21/24 Last Pain Assessment 05/21/24 18:00 Last MAR Pain Assessment 05/21/24 18:01 Last ORT Total Score 1 05/21/24 02:28 05/21/24 Last ORT Risk Category Low Risk 05/21/24 02:28 05/21/24 Ur Phencyclidine Scrn Negative (NEGATIVE) 04/30/24 16:12 04/30/24 Review of Systems ROS Status of ROS 10 or more systems reviewed and unremarkable except as noted in history and below [facility] Medical History (Updated 05/21/24 @ 14:53 by Shaikh Gopi MD) Spinal headache ?G97.1 - Other reaction to spinal and lumbar puncture (ICD-10) Normal vaginal delivery ?O80 - Encounter for full-term uncomplicated delivery (ICD-10) Surgical History (Updated 04/30/24 @ 18:49 by Cristiana Buenrostro RN) H/O lateral meniscus repair of right knee ?Z98.890 - Other specified postprocedural states (ICD-10) Family History (Updated 04/30/24 @ 18:50 by Cristiana Buenrostro RN) Father Family history of myocardial infarction Grandmother Family history of diabetes mellitus Social History (Updated 04/30/24 @ 18:50 by Cristiana Buenrostro RN) Within the past year, how often did you have a drink containing alcohol: never Within the past year, how often did you have six or more drinks on one occasion: never Score interpretation: A score less than 3 is consistent with normal alcohol consumption. Smoking status: Never smoker Non-prescribed substance use: denies use Highest level of school completed/degree received: Bachelor's degree Little interest or pleasure in doing things: not at all Feeling down, depressed, or hopeless: not at all Meds Home Medications and Allergies Home Medications ?Medication ?Instructions ?Recorded ?Confirmed ?Type etzzqylhyr-slwgzuealumtm-ccjjtmxw 1 tab PO TID PRN pain 05/21/24 05/21/24 History 50 mg-325 mg-40 mg tablet Allergies Allergy/AdvReac Type Severity Reaction Status Date / Time No Known Drug Allergies Allergy Verified 04/30/24 18:46 Exam Constitutional Vital Signs, click to edit/add: Last Vital Signs Temp 99.8 F 05/21/24 14:00 Pulse 110 H 05/21/24 12:00 Resp 18 05/21/24 12:00 BP 124/72 05/21/24 12:00 Pulse Ox 98 05/21/24 12:00 O2 Del Method Room Air 05/21/24 12:00 Common normals: no apparent distress and average body habitus General appearance: cooperative, comfortable, ill appearing and diaphoretic Respiratory Common normals: normal respiratory effort, no use of accessory muscles and clear to auscultation bilaterally Effort & inspection: able to speak in complete sentences Cardio Common normals: regular rate, regular rhythm, S1 normal heart sound and S2 normal heart sound GI Common normals: Normal to inspection, nondistended, normoactive bowel sounds present, soft to palpation, non-tender and no hepatosplenomegaly Extremity Common normals: normal to inspection and full ROM Neuro Common normals: oriented x3, moves all extremities, no focal motor deficits and no sensory deficits noted Psych Common normals: mental status grossly normal, thought process normal, denies homicidal ideation and denies suicidal ideation Results Labs Labs: Short CBC 05/20/24 05/21/24 Range/Units 20:50 05:20 WBC 24.0 H 20.0 H (4.0-11.0) 10^3/uL Hgb 13.4 12.1 (12.0-16.0) g/dL Hct 39.2 35.8 L (36.0-48.0) % Plt Count 273 201 (150-450) 10^3/uL BMP 05/20/24 05/21/24 20:50 05:20 Sodium 137 142 Potassium 3.6 3.5 Chloride 100 107 Carbon Dioxide 17.7 L 20.7 L BUN 12.0 10.0 Creatinine 1.33 H 1.18 H Glucose 165 H 120 H Calcium 9.5 8.2 L Liver Function 05/20/24 Range/Units 20:50 Total Bilirubin 0.7 (0.2-1.0) mg/dL AST 24 (15-37) U/L ALT 36 (14-59) U/L Alkaline Phosphatase 114 (46-116) U/L Albumin 3.6 (3.4-5.0) g/dL Urine 05/20/24 Range/Units 21:30 Urine Color Lt. green (YELLOW) Urine Clarity Clear (CLEAR) Urine pH 7.0 (5.0-9.0) Ur Specific [place] 1.010 (1.005-1.025) Urine Protein Negative (NEG/TRACE) mg/dL Urine Glucose (UA) Negative (NEGATIVE) mg/dL Assessment and Plan Assessment and Plan (1) Sepsis: Assessment and Plan: SIRS Criteria (WBC 20K, HR >110, Temp 102) C/w IVF. F/u urine and blood cx. Sec to UTI. Qualifiers: Sepsis acute organ dysfunction status: without acute organ dysfunction Sepsis type: sepsis due to unspecified organism Qualified Code(s): A41.9 - Sepsis, unspecified organism (2) Ureteral stone with hydronephrosis: Assessment and Plan: NPO for ureteral stent/stone extraction. Urology on board (3) AYAN (acute kidney injury): Assessment and Plan: Normal renal fx at baseline. Presented with Cr of 1.3 due to sepsis/ureteral stent. Monitor UO, renal function (4) Leukocytosis: Assessment and Plan: Sec to UTI. Partially from recent . On IVF, abx. Qualifiers: Leukocytosis type: leukemoid reaction Qualified Code(s): D72.823 - Leukemoid reaction
[2024-05-21] MEDS: LACTATED RINGER'S SOLUTION 1,000 ML 50 ML IV (15:43)
--- NOTE | 2024-05-21 17:01 | P.CN_ITS ---
Consult Note: HPI Data of Consult Requesting Physician: Shaikh Gopi MD Primary Care Provider: Non-Staff Physician, Consult Narrative Reason for consult: ureter stone Narrative: Pt admit w/ 5mm left uvj stone/hydro having fever and pain; creat slight bump 1.3 and wbc 24k taking for left jj stent today urgent cc:: CC: Shaikh Gopi MD [facility] Medical History (Updated 05/21/24 @ 14:53 by Shaikh Gopi MD) Spinal headache ?G97.1 - Other reaction to spinal and lumbar puncture (ICD-10) Normal vaginal delivery ?O80 - Encounter for full-term uncomplicated delivery (ICD-10) Surgical History (Updated 04/30/24 @ 18:49 by Cristiana Buenrostor RN) H/O lateral meniscus repair of right knee ?Z98.890 - Other specified postprocedural states (ICD-10) Family History (Updated 04/30/24 @ 18:50 by Cristiana Buenrostro RN) Father Family history of myocardial infarction Grandmother Family history of diabetes mellitus Social History (Updated 04/30/24 @ 18:50 by Cristiana Buenrostro RN) Within the past year, how often did you have a drink containing alcohol: never Within the past year, how often did you have six or more drinks on one occasion: never Score interpretation: A score less than 3 is consistent with normal alcohol consumption. Smoking status: Never smoker Non-prescribed substance use: denies use Highest level of school completed/degree received: Bachelor's degree Little interest or pleasure in doing things: not at all Feeling down, depressed, or hopeless: not at all Meds Home Medications and Allergies Home Medications ?Medication ?Instructions ?Recorded ?Confirmed ?Type pfdzhdlplx-zdvvgnwbcypul-zotciisx 1 tab PO TID PRN pain 05/21/24 05/21/24 History 50 mg-325 mg-40 mg tablet Allergies Allergy/AdvReac Type Severity Reaction Status Date / Time No Known Drug Allergies Allergy Verified 04/30/24 18:46 Exam Constitutional Vital Signs, click to edit/add: Last Vital Signs Temp 99.8 F 05/21/24 14:00 Pulse 110 H 05/21/24 12:00 Resp 18 05/21/24 12:00 BP 124/72 05/21/24 12:00 Pulse Ox 98 05/21/24 12:00 O2 Del Method Room Air 05/21/24 12:00 Results Labs Labs: Short CBC 05/20/24 05/21/24 Range/Units 20:50 05:20 WBC 24.0 H 20.0 H (4.0-11.0) 10^3/uL Hgb 13.4 12.1 (12.0-16.0) g/dL Hct 39.2 35.8 L (36.0-48.0) % Plt Count 273 201 (150-450) 10^3/uL BMP 05/20/24 05/21/24 20:50 05:20 Sodium 137 142 Potassium 3.6 3.5 Chloride 100 107 Carbon Dioxide 17.7 L 20.7 L BUN 12.0 10.0 Creatinine 1.33 H 1.18 H Glucose 165 H 120 H Calcium 9.5 8.2 L Liver Function 05/20/24 Range/Units 20:50 Total Bilirubin 0.7 (0.2-1.0) mg/dL AST 24 (15-37) U/L ALT 36 (14-59) U/L Alkaline Phosphatase 114 (46-116) U/L Albumin 3.6 (3.4-5.0) g/dL Urine 05/20/24 Range/Units 21:30 Urine Color Lt. green (YELLOW) Urine Clarity Clear (CLEAR) Urine pH 7.0 (5.0-9.0) Ur Specific [place] 1.010 (1.005-1.025) Urine Protein Negative (NEG/TRACE) mg/dL Urine Glucose (UA) Negative (NEGATIVE) mg/dL Assessment and Plan Assessment and Plan (1) Sepsis: Qualifiers: Sepsis type: sepsis due to unspecified organism Sepsis acute organ dysfunction status: without acute organ dysfunction Qualified Code(s): A41.9 - Sepsis, unspecified organism (2) Ureteral stone with hydronephrosis: (3) AYAN (acute kidney injury): (4) Leukocytosis: Qualifiers: Leukocytosis type: leukemoid reaction Qualified Code(s): D72.823 - Leukemoid reaction Plan Will take to o.r. today for left jj stent and possible left urs/stone package pt/ met preop and d/w them issues and r/b/a d/w them as well. They understand may require 2 stage procedure if urine grossly infected
--- NOTE | 2024-05-21 17:04 | PM.URPRC ---
Urology Procedure Note Procedure Note Date of procedure: 05/21/24 Pre-op diagnosis general: left ureter stone/hydro Post-op diagnosis procedure note: other (stone in bladder/left hydro) Procedure: cystoscopy/left urs/left jj stent/stone removal from bladder procedure details Pt prepped/draped. Already given iv rocpehin. 21fr cystoscope placed and bladder found to have approx 5mm stone--this was removed. 0.35 st wire into left ureter using cathter as guide. Rigid urs placed over wire and advanced to renal pelvis on left. No other stone noted but mild edema in distal left ureter. 26x6 jj stent placed over wire on left side w/ good postioning. String left attached. Anesthesia: BENITO Surgeon: Chapito Page Disposition: other (readmit to pcp and probably home friday w/ abx x 7days. Can remove stent using string next friday and f/u local urology in few weeks for stone analysis discussion.)
[2024-05-21] MEDS: LACTATED RINGER'S SOLUTION 1,000 ML 125 ML IV (18:46)
[2024-05-22] MEDS: LACTATED RINGER'S SOLUTION 1,000 ML 125 ML IV (02:16)
[2024-05-22 04:00] VITALS: BP 128/77; PULSE 98; TEMP 37; O2SAT 95
[2024-05-22 06:06] LABS: Basophils Percent Auto 0.2 % (0.2-2.0); Eosinophils Percent Auto 0.2 % (0.9-7.0); Hematocrit 35.1 % (36.0-48.0); Hemoglobin 11.4 g/dL (12.0-16.0); Immature Granulocytes Abs Auto 0.04 10^3/uL (0.00-0.03); Immature Granulocytes Pct Auto 0.4 % (0.0-0.5); Lymphocytes Absolute Auto 1.2 10^3/uL (1.2-3.8); Lymphocytes Percent Auto 10.6 % (20.5-60.0); Mean Corpuscular HGB Conc 32.5 g/dL (29.9-35.2); Mean Corpuscular Hemoglobin 28.7 pg (26.7-34.0); Mean Corpuscular Volume 88.4 fL (81.0-99.0); Mean Platelet Volume 11.2 fL (9.5-13.5); Monocytes Absolute Auto 0.6 10^3/uL (0.3-0.8); Monocytes Percent Auto 5.3 % (1.7-12.0); Neutrophils Absolute Auto 9.4 10^3/uL (1.4-6.5); Neutrophils Percent Auto 83.3 % (43.0-75.0); Platelet Count 178 10^3/uL (150-450); Red Blood Count 3.97 10^6/uL (4.20-5.40); Red Cell Distribution Width 12.8 % (11.0-15.0); White Blood Count 11.3 10^3/uL (4.0-11.0)
[2024-05-22 06:22] LABS: Alanine Aminotransferase 35 U/L (14-59); Albumin Globulin Ratio 0.6; Albumin Level 2.4 g/dL (3.4-5.0); Alkaline Phosphatase 84 U/L (46-116); Anion Gap 14.1; Aspartate Amino Transferase 27 U/L (15-37); BUN Creatinine Ratio 16.9; Bilirubin Total 0.3 mg/dL (0.2-1.0); Calcium 8.5 mg/dL (8.5-10.1); Carbon Dioxide 23.6 mmol/L (21.0-32.0); Chloride 108 mmol/L (98-107); Estimated GFR (African America >60 (>=60 mL/min/1.73m^2); Estimated GFR (Non-African Ame >60 (>=60 mL/min/1.73m^2); Globulin 3.7 g/dL; Glucose 91 mg/dL (74-106); Potassium 3.7 mmol/L (3.5-5.1); Sodium 142 mmol/L (136-145); Total Protein 6.1 g/dL (6.4-8.2)
[2024-05-22 08:03] VITALS: BP 120/81; PULSE 92; TEMP 37.6; O2SAT 96
[2024-05-22] MEDS: CEFTRIAXONE 1,000 MG in 0.9 % SODIUM CHLORIDE 50 ML 100 MG IV (08:25)
[2024-05-22] MEDS: ACETAMINOPHEN 325 MG TABLET 650 MG PO (08:28)
--- NOTE | 2024-05-22 09:02 | PM.DS1 ---
DS: Providers Provider Date of admission: 05/21/24 02:10 Primary care physician: Non-Staff Physician, Attending physician on admission: Shaikh Gopi Consults: 05/21/24 07:31 Consult to Urology Routine Consulting Provider: Janusz Landaverde Reason for consultation: Renal stone Discharging clinician: Elidia Baldwin DS: Diagnosis Discharge Diagnosis (1) Sepsis: Qualifiers: Sepsis acute organ dysfunction status: without acute organ dysfunction Sepsis type: sepsis due to unspecified organism Qualified Code(s): A41.9 - Sepsis, unspecified organism (2) Ureteral stone with hydronephrosis: (3) AYAN (acute kidney injury): (4) Leukocytosis: Qualifiers: Leukocytosis type: leukemoid reaction Qualified Code(s): D72.823 - Leukemoid reaction DS: Summary Hospital Course Hospital Course: 33 y o female who is 3 weeks post , presented to ED with sudden onset nausea, left flank pain. She also reports dysuria and urgency. Denies hematuria, prior hx of renal stones. Patient was found to have 5mm stone at left Uterovesical junction with mild-mod hydroureteronephrosis. Patient also met criteria for sepsis (HR> 100, WBC 20k, temp 103) with mild AYAN. Patient was admitted overnight and started on IVF, IV Rocephin. She was also treated with IV Zofran and combination of oral/IV narcotics as needed for pain. Patient is currently breast feeding and given that she will require anesthesia, narcotics, she was instructed to discard breast milk for 48 hours so that her is not exposed to narcotics and anesthetics. She verbalized understanding and was agreeable for it. Patient underwent OR urology procedure for left JJ stent placement. She was instructed to follow up or pull it next week. UA was positive, awaiting culture, but will has been receiving Rocephin here and WBC's almost normal this morning at 11.3 down from 20. Will treat with Keflex 500mg BID x 7 days. She will have close urological follow up and was given Dr. Page's clinic number. Status at Discharge Functional status at discharge: independent ambulation Overall status at discharge: patient is back to baseline Time Spent with Patient Time attestation: Total time spent providing and/or coordinating discharge services: Time spent: greater than 30 minutes Exam Narrative Exam Narrative: General: Patient is alert, and oriented to person, place and time with normal affect, proper hygiene Skin: no visible rashes, or ulcers Head: atraumatic, acephalic Eyes: PERRLA, no nystagmus present, conjunctiva clear, no scleral icterus Ears: normal gross auditory acuity Heart: Normal rate and rhythm, no murmurs/rubs/gallops Lungs: no audible wheezes, crackles and normal breath sounds all lung bean Abdomen: Normal audible bowel sounds, no distension, No palpable masses, no organomegaly, no rebound/guarding/ or rigidity Musculoskeletal:no swelling bilateral lower extremities Neuro: CN II-X grossly intact Constitutional Vital Signs, click to edit/add: Last Vital Signs Temp 99.7 F 05/22/24 08:03 Pulse 92 H 05/22/24 08:03 Resp 16 05/22/24 08:03 BP 120/81 05/22/24 08:03 Pulse Ox 96 05/22/24 08:03 O2 Del Method Room Air 05/22/24 08:03 DS: Data Data Completed and Pending Labs on day of discharge: Labs from last 24 hours 05/22/24 05/21/24 05:51 13:49 WBC 11.3 H RBC 3.97 L Hgb 11.4 L Hct 35.1 L MCV 88.4 MCH 28.7 MCHC 32.5 RDW 12.8 Plt Count 178 MPV 11.2 Neut % (Auto) 83.3 H Lymph % (Auto) 10.6 L [place] % (Auto) 5.3 Eos % (Auto) 0.2 L Baso % (Auto) 0.2 Neut # (Auto) 9.4 H Lymph # (Auto) 1.2 [place] # (Auto) 0.6 Eos # (Auto) 0.0 Baso # (Auto) 0.0 Abs Immat Gran (auto) 0.04 H Imm/Tot Granulo (auto) 0.4 Sodium 142 Potassium 3.7 Chloride 108 H Carbon Dioxide 23.6 Anion Gap 14.1 BUN 14.0 Creatinine 0.83 Est GFR ( Amer) >60 Est GFR (Non-Af Amer) >60 BUN/Creatinine Ratio 16.9 Glucose 91 Calcium 8.5 Total Bilirubin 0.3 AST 27 ALT 35 Alkaline Phosphatase 84 Total Protein 6.1 L Albumin 2.4 L Globulin 3.7 Albumin/Globulin Ratio 0.6 Serum HCG, Qual Negative Discharge Plan Discharge Disposition: Home, Self-Care Discharge Medications: New cephalexin 500 mg capsule 500 mg PO BID 7 Days Qty: 14 0RF acetaminophen [Tylenol] 325 mg tablet 325 mg PO Q6H PRN (Reason: pain) Qty: 30 0RF Continued plfzqltemy-dwmrspajgixph-ssfj 50-325-40 mg tablet 1 tab PO TID PRN (Reason: pain) Activity: increase activity as tolerated Activity Detail: please avoid breast feeding 48 hours after anesthesia and pain medications, then may resume. Diet: advance to your usual diet Print Language: Brazilian Patient Instructions: Ureteral Stones (DC), Ureteral Stent Placement (DC) Forms: Portal Instructions Follow Up Appointments: follow up with Urology next week for Stent removal and further plan of care, Please give patient Dr. Chapito Page clinic information
--- NOTE | 2024-05-25 14:49 | CM.DCFOLLOWU ---
1st attempt 05/25/24, no answer
--- NOTE | 2024-05-26 13:28 | CM.DCFOLLOWU ---
Person spoke with:patient How are you feeling? well How is your pain? much better Did you understand your discharge instructions?yes Do you have any questions about your discharge instructions? no Were you given any prescriptions at discharge?yes Were you able to get your prescriptions filled?yes Do you understand how to take your medications as ordered? yes Do you have any questions about your follow up appointment and do you plan to keep your follow up appointment? no questions, will call to schedule follow up once feeling better Is there anything else that you would like to discuss?no Questions/Comments/Concerns/Other:no
== END 2024-05-22 11:55 | disposition home or self-care (01) ==
LOC: ER 05-21 01:21 → MS 05-21 02:11
PROVIDERS: Registered Nurse; Urology; Admitting Provider Internal Medicine; Emergency Provider Internal Medicine; Visit Provider Family Medicine
PROC: (CPT 910; principal; 2024-05-21 16:30)
DX: O85 Puerperal sepsis (principal); N13.6 Pyonephrosis; N17.9 Acute kidney failure, unspecified; B95.2 Enterococcus as the cause of diseases classified elsewhere
CPT/HCPCS: 52332; 36415; 74177; 76000; 80048; 80053; 81001; 82365; 83605; 83690; 84484; 84703; 85007; 85025; 85027; 87086; 87150; 87186; 94761; 96365; 96366; 96367; 96375; 96376; 99285; 99999; G0378; J0330; J0696; J1100; J1885; J2250; J2270; J2405; J2704; J3010; Q9967